=== PATIENT | female | born 1945 | race Two or more races ===

== ENCOUNTER 2020-04-25 15:35 | Outpatient (REF) | payer OTHER, SELFPAY | END 2020-04-25 15:36 | disposition home or self-care (01) | LOC: HO.LAB 15:35 | PROVIDERS: Visit Provider Internal Medicine | DX: Z20.828 Contact with and (suspected) exposure to other viral communicable diseases (principal) | CPT/HCPCS: C9803; U0003 ==

== ENCOUNTER 2021-02-23 17:21 | Inpatient (IN) | payer OTHER, SELFPAY ==
[2021-02-23] VITALS (7 sets, daily range): BP systolic 131–166; BP diastolic 75–95; PULSE 87–135; RESP 16–24; TEMP 36.8–38.1; O2SAT 93–96; BMI 38.3
--- NOTE | ~2021-02-23 | XR_ITS ---
EXAMINATION: XR CHEST CLINICAL INFORMATION: Shortness of breath COMPARISON: Previous chest x-ray July 2008 TECHNIQUE: Frontal view of the chest was obtained. FINDINGS: The cardiac silhouette may be slightly enlarged. There are prominent central bronchovascular markings. The lungs are otherwise clear. There is no pleural effusion or pneumothorax. There are degenerative changes of the spine. XR/XR chest 1V IMPRESSION: Slightly enlarged cardiac silhouette and prominent central bronchovascular markings. Differential would include mild CHF and airways disease. Clinical correlation recommended.
--- NOTE | ~2021-02-23 | CT_ITS ---
EXAMINATION: CT CHEST WITHOUT CONTRAST CLINICAL INFORMATION: Tachycardia and shortness of breath COMPARISON: Chest radiograph earlier today TECHNIQUE: Multidetector volumetric CT imaging of the chest was done. Axial MIP volume rendering provided. Sagittal and coronal reformatted images were obtained. This CT examination was performed using dose optimization techniques as appropriate, variously including the following: *Automated exposure control *Adjustment of mA and/or kV according to patient size (this includes techniques or standardized protocols for targeted exams where dose is matched to indication/reason for exam; i.e. extremities or head) *Use of iterative reconstruction technique DLP: 344 mGy-cm FINDINGS: LUNGS: Patchy consolidation is present in the right lower lobe in a peribronchial distribution. The right upper lobe and the left lung are free of significant disease. No suspicious lung masses are seen. Some atelectasis is present at the left lung base. MEDIASTINUM: Some small mediastinal lymph nodes are present but there is no adenopathy. There is mild cardiac enlargement. PLEURA: There is no pleural effusion. No pleural mass or thickening. AXILLA: No lymphadenopathy. UPPER ABDOMEN: A single gallstone is present in the gallbladder. Some tiny punctate renal calcifications are present bilaterally without hydronephrosis. OSSEOUS STRUCTURES: Degenerative changes are present in the spine with fusion of T11-T12. No bony destructive lesions. CT/CT chest wo con IMPRESSION: Right lower lobe patchy consolidation consistent with pneumonia
--- NOTE | 2021-02-23 17:34 | ED_ITS ---
HPI - SOB/Dyspnea General Chief Complaint: Asthma Stated Complaint: sob x1 week Time Seen by Provider: 02/23/21 17:24 Source: patient and EMS Mode of arrival: EMS History of Present Illness HPI Narrative: 75-year-old female with a past medical history of diabetes, AFib on Xarelto, depression, PE, HTN, HLD presenting to the ED complaining of increased SOB/wheezing, nonproductive cough, chest discomfort when coughing, lightheadedness/generalized fatigue x1 day. Reports using albuterol at home without relief. Denies fever, chills, abdominal pain, nausea/vomiting, LE edema, calf pain, recent travel, COVID-19 exposure. MD elicited complaint: shortness of breath, cough and chest pain Pertinent past history: asthma, diabetes and PE Related Data Home Medications Medication Instructions Recorded Confirmed albuterol sulfate 90 mcg/actuation 2 puff PO QID PRN 02/23/21 02/23/21 aerosol inhaler (Ventolin HFA) atorvastatin 80 mg tablet 1 tab PO DAILY 02/23/21 02/23/21 dulaglutide 1.5 mg/0.5 mL 0.5 ml SUBCUT QWEEK 02/23/21 02/23/21 subcutaneous pen injector (Trulicity) furosemide 40 mg tablet 1 tab PO DAILY 02/23/21 02/23/21 gabapentin 300 mg capsule 1 cap PO DAILY 02/23/21 02/23/21 insulin glargine 100 unit/mL (3 28 unit SUBCUT BEDTIME 02/23/21 02/23/21 mL) subcutaneous pen (Lantus Solostar U-100 Insulin) losartan 25 mg tablet 1 tab PO DAILY 02/23/21 02/23/21 metoprolol succinate 100 mg 1 tab PO BID 02/23/21 02/23/21 tablet,extended release 24 hr mirtazapine 7.5 mg tablet 1 tab PO BEDTIME 02/23/21 02/23/21 paroxetine HCl 20 mg tablet 1 tab PO DAILY 02/23/21 02/23/21 rivaroxaban 15 mg tablet (Xarelto) 1 tab PO QPM 02/23/21 02/23/21 sennosides 8.6 mg-docusate sodium 2 tab PO BEDTIME 02/23/21 02/23/21 50 mg tablet (Senna-S) Allergies Allergy/AdvReac Type Severity Reaction Status Date / Time No Known Allergies Allergy Unverified 03/02/20 16:47 Review of Systems Review of Systems: Constitutional: No Fever, No Chills, + Fatigue, No Malaise ENT/Mouth: No Hearing loss, No Ear Pain, No Nasal Congestion, No sore throat, No Swallowing Difficulty Eyes: No Eye Pain, No Vision Changes Cardiovascular: + Chest Pain when coughing, + SOB, No Dyspnea on Exertion, No Orthopnea, No Edema, No Palpitations Respiratory: + Cough, No Sputum, + Wheezing, No Dyspnea Gastrointestinal: No Nausea, No Vomiting, No Diarrhea, No Constipation, No Abdominal pain Genitourinary: No Dysuria, No Hematuria, No Flank Pain, Musculoskeletal: No joint pain, No Myalgias, No Joint Swelling Skin: No Skin Lesions, No rash Neuro: No Weakness, No Numbness, No Paresthesias, + lightheadedness, No Headache Yes all other systems are reviewed and are negative [facility] Past Medical History Attestation statement: The following information was validated with the patient. Social History Social History Advance Directives: No Advance Directives Information Provided: Yes Physical Exam Vital Signs: Vital Signs: Last Vital Signs Temp 98.2 F 02/23/21 17:39 Pulse 123 H 02/23/21 18:54 Resp 24 H 02/23/21 17:39 BP 161/75 H 02/23/21 18:54 Pulse Ox 96 02/23/21 17:39 Body Mass Index 38.3 Const: General: cooperative, healthy appearing and no acute distress Orientation/consciousness: patient oriented x3 Limitations: no limitations HENMT: Head: Yes normal to inspection Ears: hearing grossly normal bilaterally General nose exam: Normal external nose present Face and sinus: Yes normal facial exam Eyes: General: appearance normal, both eyes and all related structures Pupils: Equal, round and reactive pupils present EOM: EOMs intact bilaterally Neck: Neck: Yes normal visual inspection and Yes no meningeal signs Resp: Effort & Inspection: normal respiratory effort and tachypneic Auscultation: diminished lung sounds diffuse Cardio: Rate: regular rate and tachycardic Rhythm: abnormal rhythm Heart sounds: S1 normal heart sound present and S2 normal heart sound present GI: Inspection: Yes normal to inspection Palpation (GI): Soft to palpation, nontender, no guarding and not rigid Skin: Rashes: no rashes Wounds: no wounds Neuro: General: patient oriented x3, tone normal, moves all extremities, no meningeal signs and no focal motor deficits Cranial nerves: Yes Equal, round and reactive pupils present Gait exam (Neuro): Normal gait present Extrem: General: Yes normal to inspection, Yes no pedal edema and Yes no calf tenderness Course Course Course Narrative: -1840--mild leukocytosis of 12. Mild IJEOMA with creatinine 1.49. Labs otherwise unremarkable XR chest 1V IMPRESSION: Slightly enlarged cardiac silhouette and prominent central bronchovascular markings. Differential would include mild CHF and airways disease. Clinical correlation recommended. ?> likely airway disease/asthma -1856--troponin negative. BNP 363 -patient's heart rate improved to 85-90 after 20mg IV Diltiazem -1900--ED care transferred to YODIT Waller pending COVID swab, respiratory re- evaluation, heart rate monitoring, DC home for results MDM - SOB/Dyspnea MDM Narrative Medical decision making narrative: 75-year-old female with a PMHx of DM, AFib on Xarelto, depression, PE, HTN, HLD presenting to the ED c/o increased SOB/wheezing, nonproductive cough, chest discomfort when coughing, lightheadedness/generalized fatigue x1 day. On exam tachycardic, tachypneic, AFib with RVR noted on EKG, vital sign abnormalities likely from arrhythmia/acute asthma exacerbation, low concern for severe sepsis at this time. Lungs with diminished lung sounds throughout, no pedal edema/calf tenderness, abdomen is soft/nontender. No focal neuro deficits. Concern for asthma exacerbation vs viral syndrome/COVID-19. Rule out pneumonia/other infectious etiology. Rule out ACS. Low concern for PE as patient is anti coagulated Plan: EKG, labs, CXR, COVID-19 testing, DuoNeb, magnesium, Solu-Medrol, rate control Medical Records Attestation: I reviewed the patient's medical records. Lab Data Attestation: I reviewed the patient's lab results. Result diagrams: 02/23/21 18:12 02/23/21 18:12 Labs: Lab Results 02/23/21 02/23/21 02/23/21 Range/Units 18:12 18:12 18:12 WBC 12.0 H (4.8-10.8) X10*3/uL RBC 5.12 (4.20-5.50) X10*6/uL Hgb 14.2 (12.0-16.0) g/dl Hct 43.4 (37-47) % MCV 84.8 (80-98) fL MCH 27.7 (27.0-33.0) pg MCHC 32.7 (31.0-35.0) g/dl RDW 15.3 (11.0-16.0) % Plt Count 197 (160-400) X10*3/uL MPV 11.0 (9.4-12.3) fL Immature Gran % (Auto) 0.4 (0.0-0.4) % Neut % (Auto) 73.4 H (45-73) % Lymph % (Auto) 14.6 L (20-40) % Ellsworth % (Auto) 8.6 (2-11) % Eos % (Auto) 2.7 (0-4) % Baso % (Auto) 0.3 (0-2) % Lymph # (Auto) 1.8 (1.2-4.9) X10*3/uL [place] # (Auto) 1.0 (0.1-1.2) X10*3/uL Eos # (Auto) 0.3 (0.0-0.4) X10*3/uL Baso # (Auto) 0.0 (0.0-0.2) X10*3/uL Abs Immat Gran (auto) 0.05 H (0.00-0.03) X10*3/uL Absolute Neuts (auto) 8.8 H (2.0-8.3) X10*3/uL Absolute Nucleated RBC 0.000 (0.0-0.012) X10*3/uL Nucleated RBC % (auto) 0.0 (0.0-0.2) /100WBC PT 19.6 H (9.9-13.0) SEC INR 1.7 H (0.9-1.1) APTT 39.2 H (24.1-38.0) SEC Sodium 141 (135-145) mmol/L Potassium 4.2 (3.3-5.1) mmol/L Chloride 104 (96-108) mmol/L Carbon Dioxide 28 (22-29) mmol/L Anion Gap 13 (12-20) BUN 14 (9-16) mg/dL Creatinine 1.49 H (0.5-1.4) mg/dL Estim Creat Clear Calc 33.3 Estimated GFR 34 Random Glucose 180 H (60-115) mg/dL Calcium 10.4 H (8.4-10.2) mg/dL Magnesium 2.1 (1.6-2.6) mg/dL Total Bilirubin 0.6 (0.0-1.0) mg/dL Direct Bilirubin 0.2 (0.0-0.5) mg/dL AST 20 (5-31) U/L ALT 21 (0-31) U/L Alkaline Phosphatase 116 (39-117) U/L Troponin I High Sens (<3.5-17.0) ng/L B-Natriuretic Peptide (<100) pg/mL Total Protein 7.7 (6.5-8.0) g/dL Albumin 4.2 (3.5-5.0) g/dL 02/23/21 Range/Units 18:12 WBC (4.8-10.8) X10*3/uL RBC (4.20-5.50) X10*6/uL Hgb (12.0-16.0) g/dl Hct (37-47) % MCV (80-98) fL MCH (27.0-33.0) pg MCHC (31.0-35.0) g/dl RDW (11.0-16.0) % Plt Count (160-400) X10*3/uL MPV (9.4-12.3) fL Immature Gran % (Auto) (0.0-0.4) % Neut % (Auto) (45-73) % Lymph % (Auto) (20-40) % Ellsworth % (Auto) (2-11) % Eos % (Auto) (0-4) % Baso % (Auto) (0-2) % Lymph # (Auto) (1.2-4.9) X10*3/uL Ellsworth # (Auto) (0.1-1.2) X10*3/uL Eos # (Auto) (0.0-0.4) X10*3/uL Baso # (Auto) (0.0-0.2) X10*3/uL Abs Immat Gran (auto) (0.00-0.03) X10*3/uL Absolute Neuts (auto) (2.0-8.3) X10*3/uL Absolute Nucleated RBC (0.0-0.012) X10*3/uL Nucleated RBC % (auto) (0.0-0.2) /100WBC PT (9.9-13.0) SEC INR (0.9-1.1) APTT (24.1-38.0) SEC Sodium (135-145) mmol/L Potassium (3.3-5.1) mmol/L Chloride (96-108) mmol/L Carbon Dioxide (22-29) mmol/L Anion Gap (12-20) BUN (9-16) mg/dL Creatinine (0.5-1.4) mg/dL Estim Creat Clear Calc Estimated GFR Random Glucose (60-115) mg/dL Calcium (8.4-10.2) mg/dL Magnesium (1.6-2.6) mg/dL Total Bilirubin (0.0-1.0) mg/dL Direct Bilirubin (0.0-0.5) mg/dL AST (5-31) U/L ALT (0-31) U/L Alkaline Phosphatase (39-117) U/L Troponin I High Sens < 3.5 (<3.5-17.0) ng/L B-Natriuretic Peptide 363 H (<100) pg/mL Total Protein (6.5-8.0) g/dL Albumin (3.5-5.0) g/dL ECG Data Attestation: I personally reviewed and interpreted this ECG as follows: ECG interpretation date: 02/23/21 ECG interpretation time: 17:43 Interpretation: EKG AFib at a rate of 117 with RVR. No STEMI. PVC. QTC 677. Discharge Plan Discharge Clinical Impression: Atrial fibrillation with rapid ventricular response Asthma with acute exacerbation Qualifiers: Asthma severity: unspecified severity Asthma persistence: unspecified Qualified Code(s): J45.901 - Unspecified asthma with (acute) exacerbation Prescriptions: No Action furosemide 40 mg tablet 1 tab PO DAILY RF: 0 atorvastatin 80 mg tablet 1 tab PO DAILY RF: 0 sennosides-docusate sodium [Senna-S] 8.6-50 mg tablet 2 tab PO BEDTIME RF: 0 metoprolol succinate 100 mg tablet extended release 24 hr 1 tab PO BID RF: 0 paroxetine HCl 20 mg tablet 1 tab PO DAILY RF: 0 losartan 25 mg tablet 1 tab PO DAILY RF: 0 gabapentin 300 mg capsule 1 cap PO DAILY RF: 0 albuterol sulfate [Ventolin HFA] 90 mcg/actuation HFA aerosol inhaler 2 puff PO QID PRN (Reason: wheezing) RF: 0 mirtazapine 7.5 mg tablet 1 tab PO BEDTIME RF: 0 Lantus Solostar U-100 Insulin 100 unit/mL (3 mL) insulin pen 28 unit subcut BEDTIME RF: 0 Xarelto 15 mg tablet 1 tab PO QPM RF: 0 Trulicity 1.5 mg/0.5 mL pen injector 0.5 ml subcut QWEEK RF: 0
--- NOTE | 2021-02-23 17:35 | ECG_ITS ---
Test Reason : SOB Blood Pressure : / mmHG Vent. Rate : 117 BPM Atrial Rate : 101 BPM P-R Int : 000 ms QRS Dur : 076 ms QT Int : 486 ms P-R-T Axes : 000 057 -38 degrees QTc Int : 677 ms Atrial fibrillation with rapid ventricular response with premature ventricular or aberrantly conducted complexes Nonspecific ST and T wave abnormality Abnormal ECG When compared with ECG of 07-AUG-2008 17:49, Atrial fibrillation has replaced Sinus rhythm Vent. rate has increased BY 43 BPM Questionable change in QRS axis Nonspecific T wave abnormality, worse in Inferior leads Nonspecific T wave abnormality now evident in Anterior leads Referred By: Gloria Grier Electronically Signed By:JEAN CARLOS GUADALUPE
[2021-02-23 18:16] LABS: MANUAL DIFF FLAG NO
[2021-02-23 18:19] LABS: Basophils Percent Auto 0.3 % (0-2); Eosinophils Absolute Auto 0.3 X10*3/uL (0.0-0.4); Eosinophils Percent Auto 2.7 % (0-4); Hematocrit 43.4 % (37-47); Hemoglobin 14.2 g/dl (12.0-16.0); Imm Gran Abs Auto 0.05 X10*3/uL (0.00-0.03); Imm Gran Pct Auto 0.4 % (0.0-0.4); Lymphocytes Absolute Auto 1.8 X10*3/uL (1.2-4.9); Lymphocytes Percent Auto 14.6 % (20-40); Mean Corpuscular HGB Conc 32.7 g/dl (31.0-35.0); Mean Corpuscular Hemoglobin 27.7 pg (27.0-33.0); Mean Corpuscular Volume 84.8 fL (80-98); Monocytes Percent Auto 8.6 % (2-11); Neutrophils Absolute Auto 8.8 X10*3/uL (2.0-8.3); Neutrophils Percent Auto 73.4 % (45-73); Platelet Count 197 X10*3/uL (160-400); Red Blood Count 5.12 X10*6/uL (4.20-5.50); Red Cell Distribution Width 15.3 % (11.0-16.0)
[2021-02-23 18:25] LABS: INTERNATIONAL NORM RATIO 1.7 (0.9-1.1); Prothrombin Time 19.6 SEC (9.9-13.0)
[2021-02-23 18:28] LABS: Partial Thromboplastin Time 39.2 SEC (24.1-38.0)
[2021-02-23 18:38] LABS: Alanine Aminotransferase 21 U/L (0-31); Albumin Level 4.2 g/dL (3.5-5.0); Alkaline Phosphatase 116 U/L (39-117); Anion Gap 13 (12-20); Aspartate Amino Transferase 20 U/L (5-31); Bilirubin Direct 0.2 mg/dL (0.0-0.5); Bilirubin Total 0.6 mg/dL (0.0-1.0); Blood Urea Nitrogen 14 mg/dL (9-16); Calcium 10.4 mg/dL (8.4-10.2); Carbon Dioxide 28 mmol/L (22-29); Chloride 104 mmol/L (96-108); Creatinine Clr Calc Pharmacy 33.3; Estimated Glomerular Filt Rate 34; Glucose Random 180 mg/dL (60-115); Magnesium 2.1 mg/dL (1.6-2.6); Potassium 4.2 mmol/L (3.3-5.1); Sodium 141 mmol/L (135-145); Total Protein 7.7 g/dL (6.5-8.0)
[2021-02-23 18:42] LABS: B Type Natriuretic Peptide 363 pg/mL (<100); Troponin-I High Sensitivity < 3.5 ng/L (<3.5-17.0)
[2021-02-23] MEDS: 0.9 % Sodium Chloride 1,000 ML 999 ML IVCONT (18:53)
[2021-02-23] MEDS: Magnesium Sulfate/H2O 2 GM/50 ML PIGGYBACK IV (18:53)
[2021-02-23] MEDS: dilTIAZem HCL 50 MG/10 ML VIAL 20 MG IVPUSH (18:54)
[2021-02-23] MEDS: methylPREDNISolone Sod Succ 125 MG/2 ML VIAL IVPUSH (18:54)
[2021-02-23 19:03] LABS: Influenza A PCR NEGATIVE (Negative); Influenza B PCR NEGATIVE (Negative); Resp Syncy Virus RNA Qual PCR NEGATIVE (Negative); SARS COV2 PCR INHOUSE NEGATIVE (Negative)
--- NOTE | 2021-02-23 21:14 | PC.NURSE ---
pt heart rate between 110-130 bpm Provider (Christin Iverson NP) notified
[2021-02-23] MEDS: Acetaminophen 325 MG TABLET 650 MG PO (21:33)
[2021-02-23] MEDS: dilTIAZem HCL 125 MG in 0.9 % Sodium Chloride 100 ML 10 MG IVCONT (21:48)
--- NOTE | 2021-02-23 22:13 | PC.NURSE ---
pt heart rate fluctuating between 90-120 bpm cardizem infusing at 10/hr at this time provider (Christin Iverson NP) notified
[2021-02-23 23:11] LABS: Lactic Acid 2.3 mmol/L (0.5-2.0)
[2021-02-24] VITALS (15 sets, daily range): BP systolic 102–144; BP diastolic 52–76; PULSE 61–120; RESP 16–20; TEMP 36.6–37.1; O2SAT 94–96
--- NOTE | 2021-02-24 00:16 | PC.NURSE ---
pt HR maintaining between 80-90 bpm provider aware per provider, pt to remain on cardizem drip at 10mg/hr at this time
[2021-02-24 00:58] LABS: Reflex Lactate? Lactic Acid Added
[2021-02-24] MEDS: Azithromycin 500 MG TABLET PO (01:34)
[2021-02-24] MEDS: cefTRIAXone sodium 1 GM in 0.9 % Sodium Chloride 50 ML IV ×2 (01:37→23:25)
[2021-02-24 02:06] LABS: ~Lactic Acid-LAB USE ONLY 2.3 mmol/L (0.5-2.0)
--- NOTE | 2021-02-24 02:41 | PC.NURSE ---
pt HR staying between 60-70 bpm hospitalist notified per hospitalist, titrate cardizem drip down to 5mg/hr at this time
[2021-02-24 03:46] LABS: Reflex Lactate? 2 Y
--- NOTE | 2021-02-24 04:15 | PC.NURSE ---
per hospitalist (Sita) cardizem drip to be discontinued at this time also per hospitalist PO Lopressor to be held at this time as pt is scheduled for another dose at 9am HR 60-75 BP 107/52 Hospitalist aware of VS
[2021-02-24 04:40] LABS: ~Lactic Acid-LAB USE ONLY 2.6 mmol/L (0.5-2.0)
[2021-02-24 04:46] LABS: MANUAL DIFF FLAG NO
[2021-02-24 04:51] LABS: Basophils Percent Auto 0.1 % (0-2); Hematocrit 40.1 % (37-47); Imm Gran Abs Auto 0.03 X10*3/uL (0.00-0.03); Imm Gran Pct Auto 0.3 % (0.0-0.4); Lymphocytes Absolute Auto 1.6 X10*3/uL (1.2-4.9); Lymphocytes Percent Auto 15.6 % (20-40); Mean Corpuscular HGB Conc 32.4 g/dl (31.0-35.0); Mean Corpuscular Hemoglobin 27.5 pg (27.0-33.0); Mean Corpuscular Volume 84.8 fL (80-98); Mean Platelet Volume 11.3 fL (9.4-12.3); Monocytes Absolute Auto 0.1 X10*3/uL (0.1-1.2); Monocytes Percent Auto 1.1 % (2-11); Neutrophils Absolute Auto 8.6 X10*3/uL (2.0-8.3); Neutrophils Percent Auto 82.9 % (45-73); Platelet Count 179 X10*3/uL (160-400); Red Blood Count 4.73 X10*6/uL (4.20-5.50); Red Cell Distribution Width 15.3 % (11.0-16.0); White Blood Count 10.3 X10*3/uL (4.8-10.8)
[2021-02-24 05:07] LABS: Anion Gap 16 (12-20); Blood Urea Nitrogen 17 mg/dL (9-16); Calcium 9.7 mg/dL (8.4-10.2); Carbon Dioxide 23 mmol/L (22-29); Chloride 102 mmol/L (96-108); Creatinine Clr Calc Pharmacy 30.9; Estimated Glomerular Filt Rate 31; Glucose Random 375 mg/dL (60-115); Potassium 4.3 mmol/L (3.3-5.1); Sodium 137 mmol/L (135-145)
--- NOTE | 2021-02-24 06:01 | P.HPHOSP_ITS ---
History of Present Illness Date of Service: 02/24/21 Chief Complaint: Shortness of breath Khmer-speaking This is a 75-year-old female with past medical history of diabetes, hypertension, AFib, CVA, who presents to the hospital with complaints of shortness of breath, cough, wheezing, x1 days. Patient reports sputum production, feeling febrile and chills, denies any headache no change in vision, has chest pain from all the coughing, denies any palpitations, no abdominal pain nausea or vomiting, no diarrhea constipation, no urinary symptoms. No numbness tingling or weakness. All other review of system negative except as mentioned Vital significant for temp of a 100.6?, heart rate of 112 which is AFib with RVR, respiratory rate of 18, blood pressure 135/80, satting 93% on room air Lab significant for WBC count of 12, PT of 19.6, INR of 1.7, lactic acid of 2.3, BNP of 363 COVID-19 negative, chest CT shows right lower lobe patchy consolidation consistent with pneumonia Patient will be admitted for further management Review of Systems Review of Systems: Yes all other systems are reviewed and are negative [facility] Medical History (Updated 02/24/21 @ 06:17 by Imer Buckner MD) Asthma Asthma with acute exacerbation Atrial fibrillation CHF (congestive heart failure) Diabetes History of CVA (cerebrovascular accident) Hypertension Family History (Updated 02/24/21 @ 06:06 by Imer Buckner MD) Father Hypertension Mother Diabetes Hypertension Social History (Updated 02/24/21 @ 06:06 by Imer Buckner MD) Alcohol intake: never Patient Tobacco Use Status: Former Tobacco user Quit Date: Quit 40 years ago Use of substances other than those prescribed or required for medical reasons: No Advance Directives: No Advance Directives Information Provided: Yes Meds Allergies Allergy/AdvReac Type Severity Reaction Status Date / Time No Known Allergies Allergy Unverified 03/02/20 16:47 Active Medications: Current Medications Generic Name Dose Route Start Last Admin Trade Name Freq PRN Reason Stop Dose Admin Acetaminophen 650 mg 02/24/21 01:14 Acetaminophen 325 Mg Tablet PO Q6H PRN Pain, Mild (Pain Scale 1-3) Atorvastatin Calcium 80 mg 02/24/21 09:00 Atorvastatin Calcium 80 Mg Tablet PO DAILY JACK Docusate Sodium 100 mg 02/24/21 01:14 Docusate Sodium 100 Mg Capsule PO DAILY PRN Constipation Furosemide 40 mg 02/24/21 09:00 Furosemide 40 Mg Tablet PO DAILY [facility] Protocol Gabapentin 300 mg 02/24/21 09:00 Gabapentin 300 Mg Capsule PO DAILY [facility] Diltiazem HCl 125 mg/ Sodium 125 mls @ 0 mls/hr 02/23/21 21:30 02/24/21 04:19 Chloride IVCONT Infused .Q0M [facility] Titration Protocol Per Protocol Azithromycin 500 mg/ Sodium 250 mls @ 125 mls/hr 02/24/21 23:00 Chloride IV Q24H JACK Ceftriaxone Sodium 1 gm/ 50 mls @ 100 mls/hr 02/24/21 23:00 Sodium Chloride IV Q24H JACK Lactated Ringer's 1,000 mls @ 999 mls/hr 02/24/21 06:00 Lr IV 02/24/21 07:00 .Q1H1M JACK Lactated Ringer's 1,000 mls @ 80 mls/hr 02/24/21 06:00 Lr IVCONT .[id number] [facility] Insulin Glargine 28 unit 02/24/21 21:00 Insulin Glargine,Hum.Rec.Anlog 100 Unit/Ml 10 Ml Vial SUBCUT BEDTIME [facility] Losartan Potassium 25 mg 02/24/21 09:00 Losartan Potassium 25 Mg Tablet PO DAILY [facility] Protocol Metoprolol Succinate 100 mg 02/24/21 02:50 02/24/21 04:15 Metoprolol Succinate Er 100 Mg Tab.Er.24h PO Not Given BID [facility] Protocol Mirtazapine 7.5 mg 02/24/21 21:00 Mirtazapine 7.5 Mg Tablet PO BEDTIME [facility] Ondansetron HCl 4 mg 02/24/21 01:14 Ondansetron Hcl 4 Mg/2 Ml Vial IVPUSH Q8H PRN Nausea and Vomiting Paroxetine HCl 20 mg 02/24/21 09:00 Paroxetine Hcl 20 Mg Tablet PO DAILY [facility] Pharmacy Consult 1 each 02/23/21 17:46 Consult Rx Perform Med Rec MISCELLANE ONCE PRN Consult order Rivaroxaban 15 mg 02/24/21 17:00 Rivaroxaban 15 Mg Tablet PO DAILY@1700 [facility] Senna/Docusate Sodium 2 tab 02/24/21 21:00 Sennosides/Docusate Sodium Tablet PO BEDTIME [facility] Sodium Chloride 3 ml 02/24/21 08:00 0.9 % Sodium Chloride Flush 3 Ml Syringe IVFLUSH QSHIFT [facility] Home Medications Medication Instructions Recorded Confirmed Last Taken Type albuterol sulfate 90 mcg/actuation 2 puff PO QID PRN 02/23/21 02/23/21 Unknown History aerosol inhaler (Ventolin HFA) atorvastatin 80 mg tablet 1 tab PO DAILY 02/23/21 02/23/21 02/23/21 History dulaglutide 1.5 mg/0.5 mL 0.5 ml SUBCUT QWEEK 02/23/21 02/23/21 Unknown History subcutaneous pen injector (Trulicity) furosemide 40 mg tablet 1 tab PO DAILY 02/23/21 02/23/21 02/23/21 History gabapentin 300 mg capsule 1 cap PO DAILY 02/23/21 02/23/21 02/23/21 History insulin glargine 100 unit/mL (3 28 unit SUBCUT BEDTIME 02/23/21 02/23/21 02/22/21 History mL) subcutaneous pen (Lantus Solostar U-100 Insulin) losartan 25 mg tablet 1 tab PO DAILY 02/23/21 02/23/21 02/23/21 History metoprolol succinate 100 mg 1 tab PO BID 02/23/21 02/23/21 02/23/21 History tablet,extended release 24 hr mirtazapine 7.5 mg tablet 1 tab PO BEDTIME 02/23/21 02/23/21 02/22/21 History paroxetine HCl 20 mg tablet 1 tab PO DAILY 02/23/21 02/23/21 02/23/21 History rivaroxaban 15 mg tablet (Xarelto) 1 tab PO QPM 02/23/21 02/23/21 02/22/21 History sennosides 8.6 mg-docusate sodium 2 tab PO BEDTIME 02/23/21 02/23/21 02/22/21 History 50 mg tablet (Senna-S) Physical Exam Vital Signs and Narrative: Vital Signs: Last Vital Signs Temp 97.8 F 02/24/21 04:36 Pulse 73 02/24/21 04:36 Resp 16 02/24/21 04:36 BP 108/56 L 02/24/21 04:36 Pulse Ox 94 02/24/21 04:36 Body Mass Index 38.3 Const: General: cooperative and no acute distress Orientation/consciousness: patient oriented x3 Eyes: General: appearance normal, both eyes and all related structures Pupils: Equal, round and reactive pupils present Resp: Other: Rhonchi Effort & Inspection: normal respiratory effort Cardio: Other: Tachycardic GI: Palpation (GI): Soft to palpation Auscultation: normal bowel sounds Skin: General skin exam: no rashes or lesions noted Neuro: General: patient oriented x3 Cranial nerves: Yes Equal, round and reactive pupils present Cognition (Neuro): normal cognition Extrem: General: Yes normal to inspection and Yes no pedal edema Results Labs CBC and Chem 7: 02/24/21 04:22 02/24/21 04:22 Labs: Laboratory Results - last 24 hr 02/23/21 02/23/21 02/23/21 18:03 18:12 18:12 MCV 84.8 MCH 27.7 MCHC 32.7 RDW 15.3 Plt Count 197 MPV 11.0 Immature Gran % (Auto) 0.4 Neut % (Auto) 73.4 H Lymph % (Auto) 14.6 L [place] % (Auto) 8.6 Eos % (Auto) 2.7 Baso % (Auto) 0.3 Lymph # (Auto) 1.8 [place] # (Auto) 1.0 Eos # (Auto) 0.3 Baso # (Auto) 0.0 Abs Immat Gran (auto) 0.05 H Absolute Neuts (auto) 8.8 H Absolute Nucleated RBC 0.000 Nucleated RBC % (auto) 0.0 PT 19.6 H INR 1.7 H APTT 39.2 H Anion Gap Estim Creat Clear Calc Estimated GFR Random Glucose Lactic Acid Lactic Acid Fup @ 2Hr Lactic Acid Fup @ 4Hr Calcium Magnesium Total Bilirubin Direct Bilirubin AST ALT Alkaline Phosphatase Troponin I High Sens B-Natriuretic Peptide Total Protein Albumin Coronavirus (PCR) NEGATIVE Influenza Type A (PCR) NEGATIVE Influenza Type B (PCR) NEGATIVE RSV RNA Qual (PCR) NEGATIVE 02/23/21 02/23/21 02/23/21 18:12 18:12 22:52 MCV MCH MCHC RDW Plt Count MPV Immature Gran % (Auto) Neut % (Auto) Lymph % (Auto) [place] % (Auto) Eos % (Auto) Baso % (Auto) Lymph # (Auto) [place] # (Auto) Eos # (Auto) Baso # (Auto) Abs Immat Gran (auto) Absolute Neuts (auto) Absolute Nucleated RBC Nucleated RBC % (auto) PT INR APTT Anion Gap 13 Estim Creat Clear Calc 33.3 Estimated GFR 34 Random Glucose 180 H Lactic Acid 2.3 H* Lactic Acid Fup @ 2Hr Lactic Acid Fup @ 4Hr Calcium 10.4 H Magnesium 2.1 Total Bilirubin 0.6 Direct Bilirubin 0.2 AST 20 ALT 21 Alkaline Phosphatase 116 Troponin I High Sens < 3.5 B-Natriuretic Peptide 363 H Total Protein 7.7 Albumin 4.2 Coronavirus (PCR) Influenza Type A (PCR) Influenza Type B (PCR) RSV RNA Qual (PCR) 02/24/21 02/24/21 02/24/21 01:42 04:21 04:22 MCV 84.8 MCH 27.5 MCHC 32.4 RDW 15.3 Plt Count 179 MPV 11.3 Immature Gran % (Auto) 0.3 Neut % (Auto) 82.9 H Lymph % (Auto) 15.6 L [place] % (Auto) 1.1 L Eos % (Auto) 0.0 Baso % (Auto) 0.1 Lymph # (Auto) 1.6 [place] # (Auto) 0.1 Eos # (Auto) 0.0 Baso # (Auto) 0.0 Abs Immat Gran (auto) 0.03 Absolute Neuts (auto) 8.6 H Absolute Nucleated RBC 0.000 Nucleated RBC % (auto) 0.0 PT INR APTT Anion Gap Estim Creat Clear Calc Estimated GFR Random Glucose Lactic Acid Lactic Acid Fup @ 2Hr 2.3 H* Lactic Acid Fup @ 4Hr 2.6 H* Calcium Magnesium Total Bilirubin Direct Bilirubin AST ALT Alkaline Phosphatase Troponin I High Sens B-Natriuretic Peptide Total Protein Albumin Coronavirus (PCR) Influenza Type A (PCR) Influenza Type B (PCR) RSV RNA Qual (PCR) 02/24/21 04:22 MCV MCH MCHC RDW Plt Count MPV Immature Gran % (Auto) Neut % (Auto) Lymph % (Auto) [place] % (Auto) Eos % (Auto) Baso % (Auto) Lymph # (Auto) [place] # (Auto) Eos # (Auto) Baso # (Auto) Abs Immat Gran (auto) Absolute Neuts (auto) Absolute Nucleated RBC Nucleated RBC % (auto) PT INR APTT Anion Gap 16 Estim Creat Clear Calc 30.9 Estimated GFR 31 Random Glucose 375 H* Lactic Acid Lactic Acid Fup @ 2Hr Lactic Acid Fup @ 4Hr Calcium 9.7 D Magnesium Total Bilirubin Direct Bilirubin AST ALT Alkaline Phosphatase Troponin I High Sens B-Natriuretic Peptide Total Protein Albumin Coronavirus (PCR) Influenza Type A (PCR) Influenza Type B (PCR) RSV RNA Qual (PCR) Imaging Radiologist's Impressions: Impressions Chest X-Ray 02/23/21 17:34 IMPRESSION: Slightly enlarged cardiac silhouette and prominent central bronchovascular markings. Differential would include mild CHF and airways disease. Clinical correlation recommended. Chest CT 02/23/21 21:37 IMPRESSION: Right lower lobe patchy consolidation consistent with pneumonia Assessment and Plan (1) Sepsis: Status: Acute (2) Community acquired pneumonia: Status: Acute (3) Atrial fibrillation with rapid ventricular response: Status: Acute (4) Lactic acidosis: Status: Acute 75-year-old female with past medical history of asthma, hypertension, AFib, hyperlipidemia who presents hospital with shortness of breath found to have pneumonia on CT scan # sepsis - febrile, has leukocytosis, tachycardia - secondary to pneumonia - started on IV antibiotics - follow cultures # community-acquired pneumonia - CT of the chest showing right lower lobe consolidation - will start patient on IV antibiotics - follow cultures # AFib with RVR - secondary to sepsis - patient on Cardizem drip - will resume her home Lopressor - continue rivaroxaban # lactic acidosis - most likely secondary to sepsis - will start IV fluids - trend # hypertension - stable - continue antihypertensives # diabetes - continue home insulin - will add low-dose sliding scale insulin - diabetic diet # history of CHF - clinically does not appear to be in exacerbation - has no orthopnea, PND, no lower extremity edema, chest CT shows no pulmonary congestion - will continue home Lasix - monitor for any fluid overload DVT prophylaxis: Xarelto Quality Stroke Does the patient have a stroke diagnosis?: No VTE Prior VTE?: No VTE Risk Level:: Medical - moderate - high VTE Device Contraindication: Treatment Not Indicated VTE Drug Contraindication: N/A - Med Ordered
[2021-02-24 07:45] LABS: Glucose, Whole Blood 296 mg/dL (60-115)
[2021-02-24] MEDS: Furosemide 40 MG TABLET PO (07:48)
[2021-02-24] MEDS: Losartan Potassium 25 MG TABLET PO (07:48)
[2021-02-24] MEDS: Gabapentin 300 MG CAPSULE PO (07:49)
[2021-02-24] MEDS: Metoprolol Succinate ER 100 MG TAB.ER.24H PO ×2 (07:49→20:36)
[2021-02-24] MEDS: PARoxetine HCL 20 MG TABLET PO (07:49)
[2021-02-24] MEDS: Insulin Lispro 100 UNIT/ML 3 ML VIAL SUBCUT ×4 (07:49→20:39)
[2021-02-24] MEDS: Atorvastatin Calcium 80 MG TABLET PO (07:49)
[2021-02-24] MEDS: Albuterol/Iprat 2.5/0.5MG 3 ML AMPUL.NEB INHALE ×4 (07:49→19:36)
[2021-02-24] MEDS: Lactated Ringers 1,000 ML 80 ML IVCONT (08:08)
--- NOTE | 2021-02-24 12:29 | PC.NURSE ---
call for report nurse to call back
[2021-02-24 13:30] LABS: Glucose, Whole Blood 285 mg/dL (60-115)
--- NOTE | 2021-02-24 15:10 | PM.EVENT ---
Event Note Date of Service: 02/24/21 Event Note: Patient admitted this morning 75-year-old female with past medical history of diabetes, hypertension, AFib, CVA, who presents to the hospital with complaints of shortness of breath, productive cough, fever chills, wheezing, x1 days.? All other review of system negative except as mentioned Vital significant for temp of a 100.6?, heart rate of 112 which is AFib with RVR, respiratory rate of 18, blood pressure 135/80, satting 93% on room air Lab significant for WBC count of 12, PT of 19.6, INR of 1.7, lactic acid of 2.3, BNP of 363 COVID-19 negative, chest CT shows right lower lobe patchy consolidation consistent with pneumonia At present on examination Patient awake alert Neck is supple no JVD Abdomen soft nontender Lungs no respiratory distress rhonchi right base Extremities no edema Assessment and plan 75-year-old female with past medical history of asthma, hypertension, AFib, hyperlipidemia who presents hospital with shortness of breath found to have pneumonia on CT scan # sepsis due to pneumonia - met sepsis criteria with fever leukocytosis and tachycardia , continue IV antibiotic , updraft treatment, add cough medication follow blood cultures, chest CT showed right lobe consolidation # AFib with RVR likely secondary to sepsis status post IV Cardizem drip,start po metoprolol continue rivaroxaban # lactic acidosis - most likely secondary to sepsis,ijeoma hold Lasix follow labs # IJEOMA Likely due to sepsis hold Lasix and LISA-inhibitor cont ivf # hypertension - stable, soft BP hold Lasix and losartan # diabetes - continue home insulin, diabetic diet and insulin sliding scale # history of CHF no echo available - clinically does not appear to be in exacerbation - has no orthopnea, PND, no lower extremity edema, chest CT shows no pulmonary congestion, hold Lasix as above DVT prophylaxis:? Xarelto
[2021-02-24] MEDS: 0.9 % Sodium Chloride Flush 3 ML SYRINGE IVFLUSH (15:39)
[2021-02-24] MEDS: Lactated Ringers 1,000 ML 50 ML IVCONT (15:39)
[2021-02-24] MEDS: Rivaroxaban 15 MG TABLET PO (15:46)
[2021-02-24 15:57] LABS: Glucose, Whole Blood 313 mg/dL (60-115)
[2021-02-24] MEDS: Digoxin 0.5 MG/2 ML AMPUL 0.25 MG IVPUSH ×2 (17:58→23:29)
[2021-02-24] MEDS: Acetaminophen 325 MG TABLET 650 MG PO (20:07)
[2021-02-24 20:09] LABS: Glucose, Whole Blood 239 mg/dL (60-115)
[2021-02-24] MEDS: Docusate Sodium 100 MG CAPSULE PO (20:36)
[2021-02-24] MEDS: Mirtazapine 7.5 MG TABLET PO (20:36)
[2021-02-24] MEDS: Sennosides/Docusate Sodium TABLET 2 TAB PO (20:36)
[2021-02-24] MEDS: guaiFENesin DM 100/10/5 ML 5 ML SYRUP PO (20:39)
[2021-02-24] MEDS: Insulin Glargine,Hum.rec.anlog 100 UNIT/ML 10 ML VIAL 28 UNIT SUBCUT (20:40)
[2021-02-24] MEDS: Azithromycin 500 MG in 0.9 % Sodium Chloride 250 ML 125 MG IV (23:27)
[2021-02-25] VITALS (10 sets, daily range): BP systolic 124–136; BP diastolic 59–95; PULSE 67–96; RESP 18–22; TEMP 36.3–38.1; O2SAT 91–98
[2021-02-25] MEDS: guaiFENesin DM 100/10/5 ML 5 ML SYRUP PO ×2 (03:09→08:09)
[2021-02-25 05:34] LABS: MANUAL DIFF FLAG NO
[2021-02-25 05:43] LABS: Basophils Percent Auto 0.2 % (0-2); Hematocrit 39.1 % (37-47); Hemoglobin 12.8 g/dl (12.0-16.0); Imm Gran Abs Auto 0.11 X10*3/uL (0.00-0.03); Imm Gran Pct Auto 0.7 % (0.0-0.4); Lymphocytes Absolute Auto 2.1 X10*3/uL (1.2-4.9); Lymphocytes Percent Auto 12.8 % (20-40); Mean Corpuscular HGB Conc 32.7 g/dl (31.0-35.0); Mean Corpuscular Hemoglobin 28.1 pg (27.0-33.0); Mean Corpuscular Volume 85.7 fL (80-98); Mean Platelet Volume 11.1 fL (9.4-12.3); Monocytes Percent Auto 6.1 % (2-11); Neutrophils Absolute Auto 12.9 X10*3/uL (2.0-8.3); Neutrophils Percent Auto 80.2 % (45-73); Platelet Count 176 X10*3/uL (160-400); Red Blood Count 4.56 X10*6/uL (4.20-5.50); Red Cell Distribution Width 15.7 % (11.0-16.0); White Blood Count 16.1 X10*3/uL (4.8-10.8)
[2021-02-25 05:57] LABS: Anion Gap 12 (12-20); Blood Urea Nitrogen 32 mg/dL (9-16); Calcium 9.8 mg/dL (8.4-10.2); Carbon Dioxide 29 mmol/L (22-29); Chloride 104 mmol/L (96-108); Creatinine Clr Calc Pharmacy 32.3; Estimated Glomerular Filt Rate 33; Glucose Random 125 mg/dL (60-115); Sodium 140 mmol/L (135-145)
[2021-02-25 07:32] LABS: Glucose, Whole Blood 110 mg/dL (60-115)
[2021-02-25] MEDS: Albuterol/Iprat 2.5/0.5MG 3 ML AMPUL.NEB INHALE ×2 (07:43→11:50)
[2021-02-25] MEDS: Atorvastatin Calcium 80 MG TABLET PO (08:09)
[2021-02-25] MEDS: Acetaminophen 325 MG TABLET 650 MG PO (08:09)
[2021-02-25] MEDS: Metoprolol Succinate ER 100 MG TAB.ER.24H PO ×2 (08:09→20:42)
[2021-02-25] MEDS: Gabapentin 300 MG CAPSULE PO (08:09)
[2021-02-25] MEDS: PARoxetine HCL 20 MG TABLET PO (08:09)
[2021-02-25 11:42] LABS: Glucose, Whole Blood 108 mg/dL (60-115)
[2021-02-25] MEDS: Lactated Ringers 1,000 ML 50 ML IVCONT (12:12)
--- NOTE | 2021-02-25 13:14 | HO.PM.IMPN ---
Subjective Subjective Date of Service: 02/25/21 Interval History: Being followed for pneumonia and atrial fibrillation with RVR Patient complaining of chest discomfort with coughing, denies shortness of breath, has chronic orthopnea used 3 pillows or sleep on recliner at home, had a rough night due to coughing. Review of Systems General no headache, no dizziness no fever chills. CVS chest pain with coughing, no palpitation. Respiratory cough,no sob Gastrointestinal no nausea, no vomiting, no abdominal pain Physical Exam Vital Signs: Vital Signs: Last Vital Signs Temp 97.4 F 02/25/21 11:04 Pulse 67 02/25/21 11:04 Resp 19 02/25/21 11:04 BP 132/82 02/25/21 11:04 Pulse Ox 96 02/25/21 11:04 Body Mass Index 38.3 General alert, oriented x3,no acute distress. Neck supple no JVD. CVS irregular rate rhythm, Respiratory lungs right base rhonchi, no respiratory distress, no wheeze Gastrointestinal abdomen soft, nontender, bowel sounds audible, no guarding , no rigidity. Extremities no edema. Neuro nonfocal,speech clear. Skin no rash Objective Data Active Medications Acetaminophen (Acetaminophen 325 Mg Tablet) 650 mg PO Q6H PRN PRN Reason: Pain, Mild (Pain Scale 1-3) Last Admin: 02/25/21 08:09 Dose: 650 mg Documented by: COTEMA Albuterol/Ipratropium (Albuterol/Iprat 2.5/0.5mg 3 Ml Ampul.Neb) 3 ml INHALE RQ4H WHILE AWAKE [facility] Last Admin: 02/25/21 11:50 Dose: 3 ml Documented by: ULRICC Albuterol/Ipratropium (Albuterol/Iprat 2.5/0.5mg 3 Ml Ampul.Neb) 3 ml INHALE RQ4H PRN PRN Reason: Shortness of Breath/Wheezing Atorvastatin Calcium (Atorvastatin Calcium 80 Mg Tablet) 80 mg PO DAILY [facility] Last Admin: 02/25/21 08:09 Dose: 80 mg Documented by: COTEMA Dextrose (Dextrose 50 % 25 Gm/50 Ml Vial) 25 gm IVPUSH Q15M PRN; Protocol PRN Reason: per Hypoglycemia Standing Ord. Docusate Sodium (Docusate Sodium 100 Mg Capsule) 100 mg PO DAILY PRN PRN Reason: Constipation Last Admin: 02/24/21 20:36 Dose: 100 mg Documented by: ASHLEY Gabapentin (Gabapentin 300 Mg Capsule) 300 mg PO DAILY [facility] Last Admin: 02/25/21 08:09 Dose: 300 mg Documented by: ANN-MARIE Glucose (Glucose Gel 15 Gm Gel..Gram.) 15 gm PO Q15M PRN; Protocol PRN Reason: per Hypoglycemia Standing Ord. Guaifenesin/Dextromethorphan (Guaifenesin Dm 100/10/5 Ml 5 Ml Syrup) 5 ml PO Q4H PRN PRN Reason: Cough Last Admin: 02/25/21 08:09 Dose: 5 ml Documented by: ANN-MARIE Azithromycin 500 mg/ Sodium (Chloride) 250 mls @ 125 mls/hr IV Q24H [facility] Last Infusion: 02/25/21 01:49 Dose: 125 mls/hr Documented by: ASHLEY Ceftriaxone Sodium 1 gm/ (Sodium Chloride) 50 mls @ 100 mls/hr IV Q24H [facility] Last Infusion: 02/25/21 00:12 Dose: 100 mls/hr Documented by: ASHLEY Lactated Ringer's (Lr) 1,000 mls @ 50 mls/hr IVCONT .Q20H [facility] Last Admin: 02/25/21 12:12 Dose: 50 mls/hr Documented by: ANN-MARIE Insulin Glargine (Insulin Glargine,Hum.Rec.Anlog 100 Unit/Ml 10 Ml Vial) 28 unit SUBCUT BEDTIME [facility] Last Admin: 02/24/21 20:40 Dose: 28 unit Documented by: ASHLEY Insulin Human Lispro (Insulin Lispro 100 Unit/Ml 3 Ml Vial) 0 unit SUBCUT QIDACHS [facility]; Protocol Last Admin: 02/25/21 11:33 Dose: Not Given Documented by: ANN-MARIE Non-Admin Reason: No Insulin Coverage Metoprolol Succinate (Metoprolol Succinate Er 100 Mg Tab.Er.24h) 100 mg PO BID [facility]; Protocol Last Admin: 02/25/21 08:09 Dose: 100 mg Documented by: ANN-MARIE Mirtazapine (Mirtazapine 7.5 Mg Tablet) 7.5 mg PO BEDTIME [facility] Last Admin: 02/24/21 20:36 Dose: 7.5 mg Documented by: ASHLEY Ondansetron HCl (Ondansetron Hcl 4 Mg/2 Ml Vial) 4 mg IVPUSH Q8H PRN PRN Reason: Nausea and Vomiting Paroxetine HCl (Paroxetine Hcl 20 Mg Tablet) 20 mg PO DAILY [facility] Last Admin: 02/25/21 08:09 Dose: 20 mg Documented by: ANN-MARIE Pharmacy Consult (Consult Rx Perform Med Rec) 1 each MISCELLANE ONCE PRN PRN Reason: Consult order Rivaroxaban (Rivaroxaban 15 Mg Tablet) 15 mg PO DAILY@1700 [facility] Last Admin: 02/24/21 15:46 Dose: 15 mg Documented by: SOLEDAD Senna/Docusate Sodium (Sennosides/Docusate Sodium Tablet) 2 tab PO BEDTIME [facility] Last Admin: 02/24/21 20:36 Dose: 2 tab Documented by: ASHLEY Sodium Chloride (0.9 % Sodium Chloride Flush 3 Ml Syringe) 3 ml IVFLUSH QSHIFT [facility] Last Admin: 02/25/21 07:29 Dose: Not Given Documented by: ANN-MARIE Non-Admin Reason: IV Running Labs CBC & Chem 7: 02/25/21 04:58 02/25/21 04:58 Labs: Laboratory Results - last 24 hr 02/24/21 02/24/21 02/24/21 13:26 15:53 20:06 MCV MCH MCHC RDW Plt Count MPV Immature Gran % (Auto) Neut % (Auto) Lymph % (Auto) [place] % (Auto) Eos % (Auto) Baso % (Auto) Lymph # (Auto) [place] # (Auto) Eos # (Auto) Baso # (Auto) Abs Immat Gran (auto) Absolute Neuts (auto) Absolute Nucleated RBC Nucleated RBC % (auto) Anion Gap Estim Creat Clear Calc Estimated GFR POC Glucose 285 H 313 H 239 H Random Glucose Calcium 02/25/21 02/25/21 02/25/21 04:58 04:58 07:25 MCV 85.7 MCH 28.1 MCHC 32.7 RDW 15.7 Plt Count 176 MPV 11.1 Immature Gran % (Auto) 0.7 H Neut % (Auto) 80.2 H Lymph % (Auto) 12.8 L [place] % (Auto) 6.1 Eos % (Auto) 0.0 Baso % (Auto) 0.2 Lymph # (Auto) 2.1 [place] # (Auto) 1.0 Eos # (Auto) 0.0 Baso # (Auto) 0.0 Abs Immat Gran (auto) 0.11 H Absolute Neuts (auto) 12.9 H Absolute Nucleated RBC 0.000 Nucleated RBC % (auto) 0.0 Anion Gap 12 Estim Creat Clear Calc 32.3 Estimated GFR 33 POC Glucose 110 Random Glucose 125 H Calcium 9.8 02/25/21 11:07 MCV MCH MCHC RDW Plt Count MPV Immature Gran % (Auto) Neut % (Auto) Lymph % (Auto) [place] % (Auto) Eos % (Auto) Baso % (Auto) Lymph # (Auto) [place] # (Auto) Eos # (Auto) Baso # (Auto) Abs Immat Gran (auto) Absolute Neuts (auto) Absolute Nucleated RBC Nucleated RBC % (auto) Anion Gap Estim Creat Clear Calc Estimated GFR POC Glucose 108 Random Glucose Calcium Microbiology Microbiology Results: Microbiology 02/23/21 22:21 Blood Culture - Preliminary Blood - Venous No growth after 24 hours. 02/23/21 22:20 Blood Culture - Preliminary Blood - Venous No growth after 24 hours. Assessment and Plan (1) Lactic acidosis: Status: Acute (2) Sepsis: Status: Acute (3) Community acquired pneumonia: Status: Acute (4) Atrial fibrillation with rapid ventricular response: Status: Acute (5) Pneumonia: Status: Acute Assessment and Plan: 75-year-old female with past medical history of asthma, hypertension, AFib, hyperlipidemia who presents hospital with shortness of breath found to have pneumonia on CT scan # sepsis due to pneumonia - met sepsis criteria with fever leukocytosis and tachycardia ,chest CT showed right lobe consolidation worsening wbc likely due to steroids, tachycardia resolved, cont.iv ceft and iv azithro day 2/7 Continue updraft treatment, cough medication ,follow blood cultures # AFib with RVR likely secondary to sepsis status post IV Cardizem drip, ventricular rate improved Tele monitor shows atrial fibrillation stable ventricular rate Continue po metoprolol, home dose and rivaroxaban # lactic acidosis - most likely secondary to sepsis,and ijeoma? follow labs # IJEOMA ?? Likely due to sepsis hold Lasix and LISA-inhibitor dc ivf check bmp # hypertension - stable, soft BP hold Lasix and losartan # diabetes - stable blood sugar, continue home insulin, diabetic diet and insulin sliding scale # history of CHF no echo available - clinically does not appear to be in exacerbation - has no orthopnea, PND, no lower extremity edema, chest CT shows no pulmonary congestion, hold Lasix as above # history of asthma no acute exacerbation Will hold steroid, continue inhalers DVT prophylaxis:? Xarelto Quality Stroke Does the patient have a stroke diagnosis?: No VTE Prior VTE?: No VTE Risk Level:: Medical - moderate - high VTE Device Contraindication: Treatment Not Indicated VTE Drug Contraindication: N/A - Med Ordered
[2021-02-25 16:10] LABS: Glucose, Whole Blood 190 mg/dL (60-115)
[2021-02-25] MEDS: Insulin Lispro 100 UNIT/ML 3 ML VIAL SUBCUT (16:51)
[2021-02-25] MEDS: guaiFENesin DM 100/10/5 ML 5 ML SYRUP 10 ML PO ×2 (16:52→20:41)
[2021-02-25] MEDS: Rivaroxaban 15 MG TABLET PO (16:52)
[2021-02-25] MEDS: 0.9 % Sodium Chloride Flush 3 ML SYRINGE IVFLUSH ×2 (16:52→20:41)
[2021-02-25 20:00] LABS: Glucose, Whole Blood 94 mg/dL (60-115)
[2021-02-25] MEDS: Mirtazapine 7.5 MG TABLET PO (20:41)
[2021-02-25] MEDS: Sennosides/Docusate Sodium TABLET 2 TAB PO (20:41)
[2021-02-25] MEDS: Insulin Glargine,Hum.rec.anlog 100 UNIT/ML 10 ML VIAL 28 UNIT SUBCUT (20:42)
[2021-02-25] MEDS: cefTRIAXone sodium 1 GM in 0.9 % Sodium Chloride 50 ML IV (22:27)
[2021-02-25] MEDS: Azithromycin 500 MG in 0.9 % Sodium Chloride 250 ML 125 MG IV (23:08)
[2021-02-26] VITALS (13 sets, daily range): BP systolic 115–137; BP diastolic 60–77; PULSE 59–94; RESP 16–20; TEMP 36.1–37.1; O2SAT 91–99
[2021-02-26 05:51] LABS: MANUAL DIFF FLAG NO
[2021-02-26 05:55] LABS: Basophils Percent Auto 0.2 % (0-2); Eosinophils Absolute Auto 0.1 X10*3/uL (0.0-0.4); Eosinophils Percent Auto 1.2 % (0-4); Hematocrit 38.4 % (37-47); Hemoglobin 12.3 g/dl (12.0-16.0); Imm Gran Abs Auto 0.02 X10*3/uL (0.00-0.03); Imm Gran Pct Auto 0.2 % (0.0-0.4); Lymphocytes Absolute Auto 3.1 X10*3/uL (1.2-4.9); Lymphocytes Percent Auto 38.1 % (20-40); Mean Corpuscular Hemoglobin 27.8 pg (27.0-33.0); Mean Corpuscular Volume 86.7 fL (80-98); Mean Platelet Volume 11.4 fL (9.4-12.3); Monocytes Absolute Auto 0.9 X10*3/uL (0.1-1.2); Monocytes Percent Auto 11.1 % (2-11); Neutrophils Percent Auto 49.2 % (45-73); Platelet Count 155 X10*3/uL (160-400); Red Blood Count 4.43 X10*6/uL (4.20-5.50); Red Cell Distribution Width 15.8 % (11.0-16.0); White Blood Count 8.1 X10*3/uL (4.8-10.8)
[2021-02-26 06:26] LABS: Anion Gap 9 (12-20); Blood Urea Nitrogen 27 mg/dL (9-16); Calcium 9.2 mg/dL (8.4-10.2); Carbon Dioxide 28 mmol/L (22-29); Chloride 107 mmol/L (96-108); Creatinine Clr Calc Pharmacy 38.8; Estimated Glomerular Filt Rate 41; Glucose Random 68 mg/dL (60-115); Potassium 4.4 mmol/L (3.3-5.1); Sodium 140 mmol/L (135-145)
[2021-02-26 07:27] LABS: Glucose, Whole Blood 68 mg/dL (60-115)
[2021-02-26] MEDS: Gabapentin 300 MG CAPSULE PO (07:44)
[2021-02-26] MEDS: Metoprolol Succinate ER 100 MG TAB.ER.24H PO ×2 (07:44→20:53)
[2021-02-26] MEDS: Atorvastatin Calcium 80 MG TABLET PO (07:45)
[2021-02-26] MEDS: guaiFENesin DM 100/10/5 ML 5 ML SYRUP 10 ML PO ×4 (07:45→20:52)
[2021-02-26] MEDS: 0.9 % Sodium Chloride Flush 3 ML SYRINGE IVFLUSH ×3 (07:47→23:29)
[2021-02-26] MEDS: Albuterol/Iprat 2.5/0.5MG 3 ML AMPUL.NEB INHALE ×4 (08:50→19:23)
--- NOTE | 2021-02-26 09:00 | CA_ITS ---
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 There is mildly increased left ventricular wall thickness. The left ventricular systolic function is low normal. - Normal right ventricular cavity size and systolic function. - The left atrium is mildly dilated Findings Left Ventricle Normal left ventricular cavity size. There is mildly increased left ventricular wall thickness. The left ventricular systolic function is low normal. The visually estimated ejection fraction is between 50-55%. Regional wall motion abnormalities can not be excluded due to suboptimal endocardial definition. Diastolic function is indeterminate on the basis of available data. Right Ventricle Normal right ventricular cavity size and systolic function. Atria The left atrium is mildly dilated. The right atrium was not well visualized. Aortic Valve Normal aortic valve structure and function. There is no aortic valve stenosis. There is no aortic valve regurgitation. Mitral Valve Normal mitral valve structure and function. There is no mitral valve regurgitation. There is no mitral valve stenosis. Pulmonic Valve Normal pulmonic valve structure and function. There is trace pulmonic valve regurgitation. Tricuspid Valve Normal tricuspid valve structure and function. There is trace tricuspid valve regurgitation. Normal right atrial pressure. There is no evidence of pulmonary hypertension. Great Vessels All visible segments of the aorta are normal in size. The visualized portions of the pulmonary artery and branches are normal. Venous The inferior vena cava is normal in size and collapses greater than 50% with inspiration. Pericardium/Pleural There is no evidence of pericardial effusion. Prior Study Comparison No prior study available for comparison. Measurements 2D Linear Measurements IVSd: 0.91 0.6-0.9/0.6-1.0 cm LVIDd: 4.32 3.9-5.3/4.2-5.9 cm LVIDd Index: 2.34 2.4-3.2/2.2-3.1 cm/m2 LVIDs: 2.86 2.0-3.6 cm LVPWd: 0.98 0.7-1.1 cm Ao Root: 3.00 2.1-3.5 cm LA Diam: 3.90 2.7-3.8/3.0-4.0 cm LAIDs Index: 2.11 1.5-2.3 cm/m2 LV Mass: 166.18 67-162/88-224 g LV Mass Index: 89.83 43-95/49-115 g/m2 LVOT Diam: 2.00 3.0+(-)1.3 cm 2D Systolic Function EF 4C: 57.10 >55% EF 2C: 51.20 >55% EF BiP: 53.30 >55% Aortic Valve AoV Pk Juanpablo: 1.31 AoV Mn Juanpablo: 0.89 AoV VTI: 0.24 AoV Pk Grad: 7.00 Aov Mn Grad: 4.00 FEI Cont.VTI: 1.67 LVOT LVOT Pk Juanpablo: 0.77 LVOT Mn Juanpablo: 0.58 LVOT VTI: 0.13 LVOT Pk Grad: 2.00 LVOT Mn Grad: 1.00 LVOT Diam: 2.00 LVOT Area: 3.14 Right Ventricle TAPSE (mm): 1.74 TVS' Juanpablo: 12.10 Tricuspid Valve TR Pk Juanpablo: 2.13 TR Pk Grad: 18.00 RA Press: 8.00 RVSP: 26.00 Great Vessels Aorta Ao Root-2D: 3.00 2.0-3.7 cm Ao Asc: 3.20 2.1-3.4 cm Ao Arch: 3.00 Updated in Other Vendor System with Status of Final Otilio Marlow MD electronically signed on 02/26/2021 8:58:10 PM with status of Final
[2021-02-26] MEDS: PARoxetine HCL 20 MG TABLET PO (09:27)
[2021-02-26 11:25] LABS: Glucose, Whole Blood 94 mg/dL (60-115)
--- NOTE | 2021-02-26 11:51 | MHC.CM.PN ---
PATIENT LIVES ALONE. 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 SHE USES A WALKER FOR AMBULATION ASSIST. PATIENT DOES HAVE A FRIEND THAT SHE SPENDS MUCH OF THE DAY WITH AND FEELS THAT THIS PERSON IS A GOOD SOURCE OF SUPPORT FOR ADLS. PCP IS AT [facility] PATIENT IS UNABLE TO RECALL PCP NAME. CALL PLACED TO [phone] ONCE PCP IS VERIFIED, UPDATE TO BE SENT THROUGH [facility] FOR UPDATE OF MEDICAL RECORD. CURRENT PLAN IS TO WEAN OFF OF HER O2 AND DC TO HOME TOMORROW (02/27/21) IMM 02/26 IN CHART.
--- NOTE | 2021-02-26 12:13 | MHC.CM.PN ---
PCP IS DR TIM HARRIS OF [facility] [place]
--- NOTE | 2021-02-26 12:28 | P.CDIC_ITS ---
CDI Concurrent Query Documentation Clarification: PHYSICIAN'S DOCUMENTATION REQUEST Date of Query: 02/26/21 1229 Patient Name: Hetal Levin Admit Date: 02/24/21 Dear Doctor, A review of the medical record indicates additional documentation may be needed. Please review below and update the documentation accordingly. Clinical Indicators: Risk Factors/Clinical Indicators/Treatments PMH Congestive heart failure Clinically does not appear to be in exacerbation. Home med - Furosemide 1 tab PO. Echo performed Please provide further specificity regarding the most likely type and acuity of CHF you are evaluating, treating, or monitoring. Examples include: Type: * Systolic * Diastolic * Combined Systolic/Diastolic * Other ? please specify * Unable to determine Acuity: * Acute * Chronic * Acute on chronic * Unable to determine Use of terms such as suspected, likely, concern for, or probable (associated with a specific diagnosis that is being evaluated, monitored, or treated as if it exists) are acceptable and can be coded in the inpatient setting, when documented at the time of discharge. Thank you, Kellie Danielle [facility], CDIS Extension: [phone] Please use your independent medical judgment in providing your response. THIS QUERY IS PART OF THE PERMANENT MEDICAL RECORD Provider Response: Other Other Diagnosis: awaiting echo
--- NOTE | 2021-02-26 13:17 | MHC.CLN ---
NUTRITION DIET CHANGED TO DIABETIC 1800 KCAL (31.9 KCAL/KG CMW).
[2021-02-26 16:11] LABS: Glucose, Whole Blood 79 mg/dL (60-115)
--- NOTE | 2021-02-26 16:25 | P.PNIM_ITS ---
Subjective Subjective Date of Service: 02/26/21 Interval History: pt interviewed in [place] cough + breathing improving rate controlled Review of Systems Review of Systems: Yes all other systems are reviewed and are negative Physical Exam Vital Signs: Vital Signs: Last Vital Signs Temp 97 F 02/26/21 15:36 Pulse 65 02/26/21 15:36 Resp 17 02/26/21 15:36 BP 133/77 02/26/21 15:36 Pulse Ox 99 02/26/21 15:36 Body Mass Index 38.3 Gen: in no acute distress HEENT: sclera anicteric, moist mucus membranes Neck: supple Lungs: diminished R base Heart: irregular, no murmurs Abd: soft, non-tender, non-distended Ext: no edema Skin: warm/well-perfused Neuro: alert and oriented x3, no focal findings Psych: appropriate affect Objective Data Active Medications Acetaminophen (Acetaminophen 325 Mg Tablet) 650 mg PO Q6H PRN PRN Reason: Pain, Mild (Pain Scale 1-3) Last Admin: 02/25/21 08:09 Dose: 650 mg Documented by: ANN-MARIE Albuterol/Ipratropium (Albuterol/Iprat 2.5/0.5mg 3 Ml Ampul.Neb) 3 ml INHALE RQ4H PRN PRN Reason: Shortness of Breath/Wheezing Albuterol/Ipratropium (Albuterol/Iprat 2.5/0.5mg 3 Ml Ampul.Neb) 3 ml INHALE QID [facility] Last Admin: 02/26/21 12:22 Dose: 3 ml Documented by: DALTON Atorvastatin Calcium (Atorvastatin Calcium 80 Mg Tablet) 80 mg PO DAILY [facility] Last Admin: 02/26/21 07:45 Dose: 80 mg Documented by: YON Dextrose (Dextrose 50 % 25 Gm/50 Ml Vial) 25 gm IVPUSH Q15M PRN; Protocol PRN Reason: per Hypoglycemia Standing Ord. Docusate Sodium (Docusate Sodium 100 Mg Capsule) 100 mg PO DAILY PRN PRN Reason: Constipation Last Admin: 02/24/21 20:36 Dose: 100 mg Documented by: ASHLEY Gabapentin (Gabapentin 300 Mg Capsule) 300 mg PO DAILY [facility] Last Admin: 02/26/21 07:44 Dose: 300 mg Documented by: YON Glucose (Glucose Gel 15 Gm Gel..Gram.) 15 gm PO Q15M PRN; Protocol PRN Reason: per Hypoglycemia Standing Ord. Guaifenesin/Dextromethorphan (Guaifenesin Dm 100/10/5 Ml 5 Ml Syrup) 10 ml PO QID [facility] Last Admin: 02/26/21 13:48 Dose: 10 ml Documented by: YON Azithromycin 500 mg/ Sodium (Chloride) 250 mls @ 125 mls/hr IV Q24H [facility] Last Infusion: 02/26/21 01:16 Dose: 0 mls/hr Documented by: MAGGIE Ceftriaxone Sodium 1 gm/ (Sodium Chloride) 50 mls @ 100 mls/hr IV Q24H [facility] Last Infusion: 02/25/21 23:07 Dose: 0 mls/hr Documented by: MAGGIE Insulin Glargine (Insulin Glargine,Hum.Rec.Anlog 100 Unit/Ml 10 Ml Vial) 28 unit SUBCUT BEDTIME [facility] Last Admin: 02/25/21 20:42 Dose: 28 unit Documented by: MAGGIE Insulin Human Lispro (Insulin Lispro 100 Unit/Ml 3 Ml Vial) 0 unit SUBCUT QIDACHS [facility]; Protocol Last Admin: 02/26/21 11:48 Dose: Not Given Documented by: YON Non-Admin Reason: No Insulin Coverage Metoprolol Succinate (Metoprolol Succinate Er 100 Mg Tab.Er.24h) 100 mg PO BID [facility]; Protocol Last Admin: 02/26/21 07:44 Dose: 100 mg Documented by: YON Mirtazapine (Mirtazapine 7.5 Mg Tablet) 7.5 mg PO BEDTIME [facility] Last Admin: 02/25/21 20:41 Dose: 7.5 mg Documented by: MAGGIE Ondansetron HCl (Ondansetron Hcl 4 Mg/2 Ml Vial) 4 mg IVPUSH Q8H PRN PRN Reason: Nausea and Vomiting Paroxetine HCl (Paroxetine Hcl 20 Mg Tablet) 20 mg PO DAILY [facility] Last Admin: 02/26/21 09:27 Dose: 20 mg Documented by: YON Pharmacy Consult (Consult Rx Perform Med Rec) 1 each MISCELLANE ONCE PRN PRN Reason: Consult order Rivaroxaban (Rivaroxaban 15 Mg Tablet) 15 mg PO DAILY@1700 [facility] Last Admin: 02/25/21 16:52 Dose: 15 mg Documented by: ANN-MARIE Senna/Docusate Sodium (Sennosides/Docusate Sodium Tablet) 2 tab PO BEDTIME [facility] Last Admin: 02/25/21 20:41 Dose: 2 tab Documented by: MAGGIE Sodium Chloride (0.9 % Sodium Chloride Flush 3 Ml Syringe) 3 ml IVFLUSH QSHIFT [facility] Last Admin: 02/26/21 07:47 Dose: 3 ml Documented by: YON Labs CBC & Chem 7: 02/26/21 05:27 02/26/21 05:27 Labs: Laboratory Results - last 24 hr 02/25/21 02/26/21 02/26/21 19:55 05:27 05:27 MCV 86.7 MCH 27.8 MCHC 32.0 RDW 15.8 Plt Count 155 L MPV 11.4 Immature Gran % (Auto) 0.2 Neut % (Auto) 49.2 Lymph % (Auto) 38.1 [place] % (Auto) 11.1 H Eos % (Auto) 1.2 Baso % (Auto) 0.2 Lymph # (Auto) 3.1 [place] # (Auto) 0.9 Eos # (Auto) 0.1 Baso # (Auto) 0.0 Abs Immat Gran (auto) 0.02 Absolute Neuts (auto) 4.0 Absolute Nucleated RBC 0.000 Nucleated RBC % (auto) 0.0 Anion Gap 9 L Estim Creat Clear Calc 38.8 Estimated GFR 41 POC Glucose 94 Random Glucose 68 Calcium 9.2 D 02/26/21 02/26/21 02/26/21 07:23 11:06 16:08 MCV MCH MCHC RDW Plt Count MPV Immature Gran % (Auto) Neut % (Auto) Lymph % (Auto) [place] % (Auto) Eos % (Auto) Baso % (Auto) Lymph # (Auto) [place] # (Auto) Eos # (Auto) Baso # (Auto) Abs Immat Gran (auto) Absolute Neuts (auto) Absolute Nucleated RBC Nucleated RBC % (auto) Anion Gap Estim Creat Clear Calc Estimated GFR POC Glucose 68 94 79 Random Glucose Calcium Microbiology Microbiology Results: Microbiology 02/23/21 22:21 Blood Culture - Preliminary Blood - Venous No growth after 48 hours. 02/23/21 22:20 Blood Culture - Preliminary Blood - Venous No growth after 48 hours. Assessment and Plan (1) Lactic acidosis: Status: Acute (2) Sepsis: Status: Acute (3) Community acquired pneumonia: Status: Acute (4) Atrial fibrillation with rapid ventricular response: Status: Acute (5) Pneumonia: Status: Acute Assessment and Plan: hospital d#3 75yo F with asthma, HTN, AF, HLD presenting with dyspnea, admitted for sepsis due to PNA # sepsis due to CAP - continue ceftriaxone + azithromycin d#08/20, BCx negative # AF/RVR - off diltiazem drip now, ventricular rate improved; continue PO metoprolol for rate control - continue rivaroxaban for AC # lactic acidosis - likely due to sepsis # CHF, not in acute exacerbation - TTE pending, held furosemide # IJEOMA - likely due to sepsis; held furosemide + ARB; improving # HTN - stable, held furosemide + losartan # DM2 - continue Lantus + Humalog # asthma - nebs # VTE - continue rivaroxaban Quality Stroke Does the patient have a stroke diagnosis?: No VTE Prior VTE?: No VTE Risk Level:: Medical - moderate - high VTE Device Contraindication: Treatment Not Indicated VTE Drug Contraindication: N/A - Med Ordered
[2021-02-26] MEDS: Rivaroxaban 15 MG TABLET PO (17:04)
[2021-02-26 20:11] LABS: Glucose, Whole Blood 96 mg/dL (60-115)
[2021-02-26] MEDS: Sennosides/Docusate Sodium TABLET 2 TAB PO (20:52)
[2021-02-26] MEDS: Insulin Glargine,Hum.rec.anlog 100 UNIT/ML 10 ML VIAL 28 UNIT SUBCUT (20:53)
[2021-02-26] MEDS: Mirtazapine 7.5 MG TABLET PO (20:53)
[2021-02-26] MEDS: cefTRIAXone sodium 1 GM in 0.9 % Sodium Chloride 50 ML IV (22:11)
[2021-02-26] MEDS: Azithromycin 500 MG in 0.9 % Sodium Chloride 250 ML 125 MG IV (23:21)
[2021-02-27 04:00] VITALS: BP 161/88; PULSE 76; RESP 16; TEMP 36.3; O2SAT 99
[2021-02-27 07:53] VITALS: BP 115/66; PULSE 71; RESP 18; TEMP 36.2; O2SAT 93
[2021-02-27 08:04] LABS: Glucose, Whole Blood 73 mg/dL (60-115)
[2021-02-27] MEDS: Albuterol/Iprat 2.5/0.5MG 3 ML AMPUL.NEB INHALE ×2 (08:17→12:15)
[2021-02-27 08:18] VITALS: PULSE 71; O2SAT 93
[2021-02-27 08:38] LABS: Anion Gap 10 (12-20); Blood Urea Nitrogen 21 mg/dL (9-16); Calcium 9.4 mg/dL (8.4-10.2); Carbon Dioxide 32 mmol/L (22-29); Chloride 104 mmol/L (96-108); Creatinine Clr Calc Pharmacy 39.8; Estimated Glomerular Filt Rate 42; Glucose Random 75 mg/dL (60-115); Potassium 4.5 mmol/L (3.3-5.1); Sodium 141 mmol/L (135-145)
[2021-02-27] MEDS: guaiFENesin DM 100/10/5 ML 5 ML SYRUP 10 ML PO ×2 (08:44→14:30)
[2021-02-27] MEDS: Atorvastatin Calcium 80 MG TABLET PO (08:45)
[2021-02-27] MEDS: 0.9 % Sodium Chloride Flush 3 ML SYRINGE IVFLUSH (08:45)
[2021-02-27] MEDS: Metoprolol Succinate ER 100 MG TAB.ER.24H PO (08:45)
[2021-02-27] MEDS: PARoxetine HCL 20 MG TABLET PO (08:45)
[2021-02-27] MEDS: Gabapentin 300 MG CAPSULE PO (08:45)
[2021-02-27] MEDS: Acetaminophen 325 MG TABLET 650 MG PO (08:57)
[2021-02-27 08:58] LABS: Procalcitonin 0.12 ng/mL
--- NOTE | 2021-02-27 10:27 | W.MHC.F2F ---
Service Date Service Date: 02/27/21 Encounter Date of encounter: 02/27/21 Reasons for Services Reason for senior living: medication management and teach disease management Reason for physical therapy: home safety and mobility, therapeutic exercises, gait/transfer training, assess need for DME, ADL training and energy conservation MD Overseeing Care: Laurie Fontenot Homebound: Leaving the home is medically contraindicated at this time without the asist of a device and/or another person due th the listed conditions above and below. Homebound supporting statement: Pt admitted to [facility] 02/24-02/27/21 for pneumonia. VNA for home PT, medication review, monitoring of respiratory symptoms Certification: Based on the above findings, I certify that this patient is confined to the home and needs intermittent senior living care, physical therapy and/or speech therapy, or continues to need occupational therapy. The patient is under my care, and I have initiated the establishment of the plan of care. The patient will be followed by a physician who will periodically review the plan of care.
--- NOTE | 2021-02-27 10:36 | PM.DS ---
DS: Providers Provider Date of Service: 02/27/21 Date of admission: 02/24/21 00:59 Date of discharge: 02/27/21 Primary care physician: Unknown Physician DS: Diagnosis Discharge Diagnosis (1) Lactic acidosis: Status: Acute (2) Sepsis: Status: Acute (3) Community acquired pneumonia: Status: Acute (4) Atrial fibrillation with rapid ventricular response: Status: Acute (5) IJEOMA (acute kidney injury): Status: Acute (6) Acute respiratory failure with hypoxia: Status: Acute DS: Summary Hospital Course Hospital Course: from admission H+P by hospitalist Imer Buckner, 02/24/21: This is a 75-year-old female with past medical history of diabetes, hypertension, AFib, CVA, who presents to the hospital with complaints of shortness of breath, cough, wheezing, x1 days.? Patient reports sputum production, feeling febrile and chills, denies any headache no change in vision, has chest pain from all the coughing, denies any palpitations, no abdominal pain nausea or vomiting, no diarrhea constipation, no urinary symptoms.? No numbness tingling or weakness. All other review of system negative except as mentioned Vital significant for temp of a 100.6?, heart rate of 112 which is AFib with RVR, respiratory rate of 18, blood pressure 135/80, satting 93% on room air Lab significant for WBC count of 12, PT of 19.6, INR of 1.7, lactic acid of 2.3, BNP of 363 COVID-19 negative, chest CT shows right lower lobe patchy consolidation consistent with pneumonia Patient will be admitted for further management This 75yo F with asthma, HTN, AF, HLD presented with dyspnea and was admitted to the medical/surgical floor for sepsis due to CAP. She was treated with ceftriaxone and azithromycin . Blood cultures were negative. She was weaned off of oxygen. She was placed on diltiazem infusion for atrial fibrillation with RVR and transitioned back to oral metoprolol. She did not have a CHF exacerbation. Acute kidney injury was due to sepsis and improved with treatment of the infection; furosemide and losartan was held and should continue to be held until she has a repeat BMP drawn in 1 week and sees her primary care doctor. She was discharged home with 3 more days of cefuroxime and 2 more days of azithromycin. Time Spent with Patient Time attestation: Total time spent providing and/or coordinating discharge services: Discharge coordination time: Greater than 30 minutes Quality: Stroke Does the patient have a stroke diagnosis?: No Physical Exam Vital Signs: Vital Signs: Last Vital Signs Temp 97.1 F 02/27/21 07:53 Pulse 71 02/27/21 08:18 Resp 18 02/27/21 07:53 BP 115/66 02/27/21 07:53 Pulse Ox 93 02/27/21 07:53 Body Mass Index 38.3 Gen: in no acute distress HEENT: sclera anicteric, moist mucus membranes Neck: supple Lungs: diminished R base Heart: irregular, no murmurs Abd: soft, non-tender, non-distended Ext: no edema Skin: warm/well-perfused Neuro: alert and oriented x3, no focal findings Psych: appropriate affect DS: Data Data Completed and Pending Completed studies during hospitalization [Text1]: Laboratory Results WBC 8.1 X10*3/uL (4.8-10.8) 02/26/21 05:27 RBC 4.43 X10*6/uL (4.20-5.50) 02/26/21 05:27 Hgb 12.3 g/dl (12.0-16.0) 02/26/21 05:27 Hct 38.4 % (37-47) 02/26/21 05:27 MCV 86.7 fL (80-98) 02/26/21 05:27 MCH 27.8 pg (27.0-33.0) 02/26/21 05:27 MCHC 32.0 g/dl (31.0-35.0) 02/26/21 05:27 RDW 15.8 % (11.0-16.0) 02/26/21 05:27 Plt Count 155 X10*3/uL (160-400) L 02/26/21 05:27 MPV 11.4 fL (9.4-12.3) 02/26/21 05:27 Immature Gran % (Auto) 0.2 % (0.0-0.4) 02/26/21 05:27 Neut % (Auto) 49.2 % (45-73) 02/26/21 05:27 Lymph % (Auto) 38.1 % (20-40) 02/26/21 05:27 [place] % (Auto) 11.1 % (2-11) H 02/26/21 05:27 Eos % (Auto) 1.2 % (0-4) 02/26/21 05:27 Baso % (Auto) 0.2 % (0-2) 02/26/21 05:27 Lymph # (Auto) 3.1 X10*3/uL (1.2-4.9) 02/26/21 05:27 [place] # (Auto) 0.9 X10*3/uL (0.1-1.2) 02/26/21 05:27 Eos # (Auto) 0.1 X10*3/uL (0.0-0.4) 02/26/21 05:27 Baso # (Auto) 0.0 X10*3/uL (0.0-0.2) 02/26/21 05:27 Abs Immat Gran (auto) 0.02 X10*3/uL (0.00-0.03) 02/26/21 05:27 Absolute Neuts (auto) 4.0 X10*3/uL (2.0-8.3) 02/26/21 05:27 Absolute Nucleated RBC 0.000 X10*3/uL (0.0-0.012) 02/26/21 05:27 Nucleated RBC % (auto) 0.0 /100WBC (0.0-0.2) 02/26/21 05:27 PT 19.6 SEC (9.9-13.0) H 02/23/21 18:12 INR 1.7 (0.9-1.1) H 02/23/21 18:12 APTT 39.2 SEC (24.1-38.0) H 02/23/21 18:12 Sodium 141 mmol/L (135-145) 02/27/21 07:51 Potassium 4.5 mmol/L (3.3-5.1) 02/27/21 07:51 Chloride 104 mmol/L (96-108) 02/27/21 07:51 Carbon Dioxide 32 mmol/L (22-29) H 02/27/21 07:51 Anion Gap 10 (12-20) L 02/27/21 07:51 BUN 21 mg/dL (9-16) H 02/27/21 07:51 Creatinine 1.25 mg/dL (0.5-1.4) 02/27/21 07:51 Estim Creat Clear Calc 39.8 02/27/21 07:51 Estimated GFR 42 02/27/21 07:51 POC Glucose 73 mg/dL (60-115) 02/27/21 08:00 Random Glucose 75 mg/dL (60-115) 02/27/21 07:51 Lactic Acid 2.3 mmol/L (0.5-2.0) H* 02/23/21 22:52 Lactic Acid Fup @ 2Hr 2.3 mmol/L (0.5-2.0) H* 02/24/21 01:42 Lactic Acid Fup @ 4Hr 2.6 mmol/L (0.5-2.0) H* 02/24/21 04:21 Calcium 9.4 mg/dL (8.4-10.2) 02/27/21 07:51 Magnesium 2.1 mg/dL (1.6-2.6) 02/23/21 18:12 Total Bilirubin 0.6 mg/dL (0.0-1.0) 02/23/21 18:12 Direct Bilirubin 0.2 mg/dL (0.0-0.5) 02/23/21 18:12 AST 20 U/L (5-31) 02/23/21 18:12 ALT 21 U/L (0-31) 02/23/21 18:12 Alkaline Phosphatase 116 U/L (39-117) 02/23/21 18:12 Troponin I High Sens < 3.5 ng/L (<3.5-17.0) 02/23/21 18:12 B-Natriuretic Peptide 363 pg/mL (<100) H 02/23/21 18:12 Total Protein 7.7 g/dL (6.5-8.0) 02/23/21 18:12 Albumin 4.2 g/dL (3.5-5.0) 02/23/21 18:12 Procalcitonin 0.12 ng/mL 02/27/21 07:51 Coronavirus (PCR) NEGATIVE (Negative) 02/23/21 18:03 Influenza Type A (PCR) NEGATIVE (Negative) 02/23/21 18:03 Influenza Type B (PCR) NEGATIVE (Negative) 02/23/21 18:03 RSV RNA Qual (PCR) NEGATIVE (Negative) 02/23/21 18:03 Impressions Chest X-Ray 02/23/21 17:34 IMPRESSION: Slightly enlarged cardiac silhouette and prominent central bronchovascular markings. Differential would include mild CHF and airways disease. Clinical correlation recommended. Chest CT 02/23/21 21:37 IMPRESSION: Right lower lobe patchy consolidation consistent with pneumonia TTE 02/26/21 - Normal left ventricular cavity size.? There is mildly increased left ventricular wall thickness.? The left ventricular systolic? function is low normal.? - Normal right ventricular cavity size and systolic function.? ? - The left atrium is mildly dilated? Discharge Plan Discharge Patient Disposition: Home Health Service Discharge Diagnosis: pneumonia, acute kidney injury Referrals: Physician,Unknown [Primary Care Provider] - 1 Week Laurie Fontenot MD [Physician] - 1 Week Discharge Medications: New cefuroxime axetil 250 mg tablet 250 mg PO BID Qty: 8 RF: 0 azithromycin 250 mg tablet 250 mg PO DAILY 2 Days Qty: 2 RF: 0 Continued atorvastatin 80 mg tablet 1 tab PO DAILY RF: 0 sennosides-docusate sodium [Senna-S] 8.6-50 mg tablet 2 tab PO BEDTIME RF: 0 metoprolol succinate 100 mg tablet extended release 24 hr 1 tab PO BID RF: 0 paroxetine HCl 20 mg tablet 1 tab PO DAILY RF: 0 gabapentin 300 mg capsule 1 cap PO DAILY RF: 0 albuterol sulfate [Ventolin HFA] 90 mcg/actuation HFA aerosol inhaler 2 puff PO QID PRN (Reason: wheezing) RF: 0 mirtazapine 7.5 mg tablet 1 tab PO BEDTIME RF: 0 Lantus Solostar U-100 Insulin 100 unit/mL (3 mL) insulin pen 28 unit subcut BEDTIME RF: 0 Xarelto 15 mg tablet 1 tab PO QPM RF: 0 Trulicity 1.5 mg/0.5 mL pen injector 0.5 ml subcut QWEEK RF: 0 Discontinued furosemide 40 mg tablet 1 tab PO DAILY RF: 0 losartan 25 mg tablet 1 tab PO DAILY RF: 0 Discharge Orders: Discharge Order (Routine); Ordered 02/27/21 Ordered By: Sudha Vazquez Diet: advance to usual diet and diabetic diet Activity on Discharge: As tolerated Stand Alone Forms: Patient Portal Discharge page Other Ambulatory Orders: Basic Metabolic Panel (Routine) Timeframe: 1 Week Facility: [facility] - Location: Laboratory Ordered By: Sudha Vazquez Care Plan Goals: recovery from pneumonia and acute kidney injury Health Concerns: pneumonia, acute kidney injury Plan of Treatment: take cefuroxime 250 mg twice daily x 3 more days, azithromycin 250 mg once daily x 2 more days stop losartan and furosemide; avoid NSAIDs like ibuprofen and naproxne repeat labs in 1 week: basic metabolic panel see your primary care doctor in 1 week Assessment: as above Patient Instructions: Pneumonia (DC)
--- NOTE | 2021-02-27 11:30 | MHC.CM.PN ---
Addendum entered by Neela العلي RN 02/27/21 11:45: If recommended [facility] will provide home PT for pt. Original Note: pt discharging today w/new VNA for [facility] and home PT pending eval and resump of RN PICU, pt is agreeable to services and will call family to arrange transport.
[2021-02-27 11:53] LABS: Glucose, Whole Blood 135 mg/dL (60-115)
[2021-02-27 12:00] VITALS: BP 105/45; PULSE 68; RESP 16; TEMP 35.9; O2SAT 93
[2021-02-27 12:19] VITALS: PULSE 71; O2SAT 95
[2021-02-27 12:58] VITALS: PULSE 71
== END 2021-02-27 15:12 | disposition home health service (06) | DRG 871 ==
LOC: HO.ED 02-24 00:39 → HO.EDOVER 02-24 01:04 → HO.S3 02-24 12:27
PROVIDERS: Hospitalist; Nurse Practitioner Family; Physician Assistant; Admitting Provider Internal Medicine; Emergency Provider Emergency Medicine Emergency Medical Services; PCP Internal Medicine; Visit Provider Family Medicine
DX: A41.9 Sepsis, unspecified organism (principal); J18.9 Pneumonia, unspecified organism; J96.01 Acute respiratory failure with hypoxia; N17.9 Acute kidney failure, unspecified; I48.91 Unspecified atrial fibrillation; E11.9 Type 2 diabetes mellitus without complications; J45.909 Unspecified asthma, uncomplicated; Z20.822 Contact with and (suspected) exposure to COVID-19; Z79.4 Long term (current) use of insulin; Z79.01 Long term (current) use of anticoagulants; Z79.899 Other long term (current) drug therapy
CPT/HCPCS: 0241U; 36415; 71045; 71250; 80048; 80076; 82947; 83605; 83735; 83880; 84145; 84484; 85025; 85610; 85730; 87040; 93005; 93306; 94640; 96365; 96366; 96367; 96375; 97162; 99285; J0456; J0696; J1160; J2930; J3475

== ENCOUNTER 2022-01-11 09:05 | Emergency (ER) | payer OTHER, SELFPAY ==
--- NOTE | ~2022-01-11 | XR_ITS ---
EXAMINATION: XR KNEE, RIGHT CLINICAL INFORMATION: Knee pain COMPARISON: None TECHNIQUE: Four views of the right knee. FINDINGS: No acute fracture or subluxation. There is moderate medial compartment joint space narrowing. Mild patellofemoral compartment narrowing. Prominent tricompartmental marginal osteophytes. No joint effusion. The soft tissues appear unremarkable. XR/XR knee RT 4V IMPRESSION: No acute abnormality. Tricompartmental degenerative changes which are greatest at the medial compartment.
[2022-01-11 09:25] VITALS: BP 127/74; PULSE 77; RESP 18; TEMP 36.6; O2SAT 94; BMI 37.0
--- NOTE | 2022-01-11 11:02 | ED.LOWEXIN ---
HPI - Extremity Injury (Lower) General Chief Complaint: Extremity Injury, Lower Stated Complaint: fall t-1 R foot INJ Time Seen by Provider: 01/11/22 11:02 History of Present Illness HPI Narrative: Patient complains of right knee pain after a trip and fall at home yesterday, she was putting on her pants and fell forward striking the right knee but did not hit her head or any other part of her body, she is able to walk but it hurts, she denies any other injury no head injury no neck injury no back injury no numbness weakness or tingling no loss of consciousness Related Data Home Medications Medication Instructions Recorded Confirmed albuterol sulfate 90 mcg/actuation 2 puff PO QID PRN wheezing 02/23/21 02/23/21 aerosol inhaler (Ventolin HFA) atorvastatin 80 mg tablet 1 tab PO DAILY 02/23/21 02/23/21 dulaglutide 1.5 mg/0.5 mL 0.5 ml subcut QWEEK 02/23/21 02/23/21 subcutaneous pen injector (Trulicity) gabapentin 300 mg capsule 1 cap PO DAILY 02/23/21 02/23/21 insulin glargine 100 unit/mL (3 28 unit subcut BEDTIME 02/23/21 02/23/21 mL) subcutaneous pen (Lantus Solostar U-100 Insulin) metoprolol succinate 100 mg 1 tab PO BID 02/23/21 02/23/21 tablet,extended release 24 hr mirtazapine 7.5 mg tablet 1 tab PO BEDTIME 02/23/21 02/23/21 paroxetine HCl 20 mg tablet 1 tab PO DAILY 02/23/21 02/23/21 rivaroxaban 15 mg tablet (Xarelto) 1 tab PO QPM 02/23/21 02/23/21 sennosides 8.6 mg-docusate sodium 2 tab PO BEDTIME 02/23/21 02/23/21 50 mg tablet (Senna-S) Previous Rx's Medication Instructions Recorded azithromycin 250 mg tablet 250 mg PO DAILY 2 days #2 tabs 02/27/21 cefuroxime axetil 250 mg tablet 250 mg PO BID #8 tabs 02/27/21 acetaminophen 500 mg tablet 1,000 mg PO QID PRN pain #30 tabs 01/11/22 Allergies Allergy/AdvReac Type Severity Reaction Status Date / Time No Known Allergies Allergy Unverified 03/02/20 16:47 Review of Systems Review of Systems: Patient complains of right knee pain after a fall Negatives are no fever no chills no dizziness no weakness no fainting no feeling faint no headache no neck pain no chest pain no other extremity pains no hip pain Yes all other systems are reviewed and are negative [facility] Past Medical History Source: nursing notes reviewed Medical History (Updated 01/12/22 @ 00:01 by Megan Julio) Asthma Asthma with acute exacerbation Atrial fibrillation CHF (congestive heart failure) Diabetes History of CVA (cerebrovascular accident) Hypertension Family History Family History (Updated 02/24/21 @ 06:06 by Imer Buckner MD) Father Hypertension Mother Diabetes Hypertension Social History Social History (Updated 02/24/21 @ 06:06 by Imer Buckner MD) Household Members: None Housing: Apartment Do you presently have visiting nurse or other home services: Yes Alcohol intake: never Patient Tobacco Use Status: Former Tobacco user Quit Date: Quit 40 years ago Advance Directives: No Advance Directives Information Provided: Yes service: No Current occupational status: disabled Physical Exam Vital Signs: Vital Signs: Last Vital Signs Temp 98 F 01/11/22 09:25 Pulse 77 01/11/22 09:25 Resp 18 01/11/22 09:25 BP 127/74 01/11/22 09:25 Pulse Ox 94 01/11/22 09:25 O2 Del Method 01/11/22 09:25 BMI result Body Mass Index 37.0 General appearance no distress Head is normocephalic atraumatic Neck is supple nontender Chest wall nontender ribs nontender Respiratory no distress Abdomen soft nontender The back normal range of motion The extremities the right knee had tenderness and mild swelling no redness no warmth that extends to 188 flexes past 90 there is no ligamentous laxity and the skin around the knee is normal in appearance and neurovascular intact distal Other extremities no acute abnormalities Course Course Course Narrative: X-ray showed no acute fracture but did show osteoarthritis and patient is referred to orthopedist Discharge Plan Discharge Clinical Impression: Osteoarthritis of right knee Patient Disposition: Home, Self-Care Additional Instructions: No broken bone was seen on the x-ray but there was arthritis of the knee Follow with orthopedist as needed Return any time any worse condition or any concerns Use Tylenol as needed for pain Prescriptions: New acetaminophen 500 mg tablet 1,000 mg PO QID PRN (Reason: pain) Qty: 30 0RF No Action atorvastatin 80 mg tablet 1 tab PO DAILY sennosides-docusate sodium [Senna-S] 8.6-50 mg tablet 2 tab PO BEDTIME metoprolol succinate 100 mg tablet extended release 24 hr 1 tab PO BID paroxetine HCl 20 mg tablet 1 tab PO DAILY gabapentin 300 mg capsule 1 cap PO DAILY albuterol sulfate [Ventolin HFA] 90 mcg/actuation HFA aerosol inhaler 2 puff PO QID PRN (Reason: wheezing) mirtazapine 7.5 mg tablet 1 tab PO BEDTIME Lantus Solostar U-100 Insulin 100 unit/mL (3 mL) insulin pen 28 unit subcut BEDTIME Xarelto 15 mg tablet 1 tab PO QPM Trulicity 1.5 mg/0.5 mL pen injector 0.5 ml subcut QWEEK cefuroxime axetil 250 mg tablet 250 mg PO BID Qty: 8 0RF azithromycin 250 mg tablet 250 mg PO DAILY 2 Days Qty: 2 0RF Rx Instructions: start on day 2 of therapy Referrals: Burt Sharp MD [Physician] - (Right knee osteoarthritis) Interventions: ED Discharge Assessment Last Done: 01/11/22 11:12 Discharge Date/Time: 01/11/22 11:14
== END 2022-01-11 11:14 | disposition home or self-care (01) ==
PROVIDERS: Emergency Provider Student in an Organized Health Care Education/Training Program; PCP Internal Medicine
DX: M17.11 Unilateral primary osteoarthritis, right knee (principal); M25.561 Pain in right knee; E11.9 Type 2 diabetes mellitus without complications; I11.0 Hypertensive heart disease with heart failure; I50.9 Heart failure, unspecified; I48.91 Unspecified atrial fibrillation; Z86.73 Personal history of transient ischemic attack (TIA), and cerebral infarction without residual deficits; Z87.891 Personal history of nicotine dependence; Z79.82 Long term (current) use of aspirin; Z79.4 Long term (current) use of insulin; Z79.01 Long term (current) use of anticoagulants; Z79.899 Other long term (current) drug therapy
CPT/HCPCS: 73564; 99282; 99283

== ENCOUNTER 2022-10-11 09:44 | Emergency (ER) | payer OTHER, SELFPAY ==
--- NOTE | ~2022-10-11 | XR_ITS ---
EXAMINATION: XR CHEST CLINICAL INFORMATION: Cough. COMPARISON: None available. TECHNIQUE: 2 views of the chest were obtained. FINDINGS: The lungs are well-expanded and clear. The heart size and pulmonary vascularity is normal. There is mild spondylosis mid to lower dorsal spine. XR/XR chest 2V IMPRESSION: Unremarkable chest exam.
[2022-10-11 09:46] VITALS: BP 117/75; PULSE 113; RESP 18; TEMP 37; O2SAT 98; BMI 36.9
[2022-10-11 11:16] LABS: MANUAL DIFF FLAG NO
[2022-10-11 11:19] LABS: Basophils Percent Auto 0.2 % (0-2); Eosinophils Absolute Auto 0.1 X10*3/uL (0.0-0.4); Eosinophils Percent Auto 0.6 % (0-4); Hematocrit 43.5 % (37.0-47.0); Hemoglobin 14.1 g/dl (12.0-16.0); Imm Gran Abs Auto 0.09 X10*3/uL (0.00-0.03); Imm Gran Pct Auto 0.6 % (0.0-0.4); Lymphocytes Absolute Auto 1.2 X10*3/uL (1.2-4.9); Lymphocytes Percent Auto 8.2 % (20-40); Mean Corpuscular HGB Conc 32.4 g/dl (31.0-35.0); Mean Corpuscular Hemoglobin 28.5 pg (27.0-33.0); Mean Corpuscular Volume 88.1 fL (80.0-98.0); Mean Platelet Volume 10.8 fL (9.4-12.3); Monocytes Absolute Auto 0.7 X10*3/uL (0.1-1.2); Monocytes Percent Auto 4.6 % (2-11); Neutrophils Absolute Auto 12.2 x10*3/uL (2.0-8.3); Neutrophils Percent Auto 85.8 % (45-73); Platelet Count 199 X10*3/uL (160-400); Red Blood Count 4.94 X10*6/uL (4.20-5.50); Red Cell Distribution Width 14.7 % (11.0-16.0); White Blood Count 14.2 X10*3/uL (4.8-10.8)
--- NOTE | 2022-10-11 11:21 | ED.GENADULT ---
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 Patient has longstanding history of asthma and takes inhaler and a nebulizer at home. Patient states she is also on prednisone at this time. Patient states cough has been increase in mood that is positive for yellow sputum. Patient has longstanding history of diabetes, hypertension, AFib, CVA, patient is currently on Xarelto for atrial fibrillation. Patient is without chest pain fever or chills. No known sick contacts. No other complaints at this time and denies any recent travel history. Related Data Home Medications Medication Instructions Recorded Confirmed albuterol sulfate 90 mcg/actuation 2 puff PO QID PRN wheezing 02/23/21 02/23/21 aerosol inhaler (Ventolin HFA) atorvastatin 80 mg tablet 1 tab PO DAILY 02/23/21 02/23/21 dulaglutide 1.5 mg/0.5 mL 0.5 ml subcut QWEEK 02/23/21 02/23/21 subcutaneous pen injector (Trulicity) gabapentin 300 mg capsule 1 cap PO DAILY 02/23/21 02/23/21 insulin glargine 100 unit/mL (3 28 unit subcut BEDTIME 02/23/21 02/23/21 mL) subcutaneous pen (Lantus Solostar U-100 Insulin) metoprolol succinate 100 mg 1 tab PO BID 02/23/21 02/23/21 tablet,extended release 24 hr mirtazapine 7.5 mg tablet 1 tab PO BEDTIME 02/23/21 02/23/21 paroxetine HCl 20 mg tablet 1 tab PO DAILY 02/23/21 02/23/21 rivaroxaban 15 mg tablet (Xarelto) 1 tab PO QPM 02/23/21 02/23/21 sennosides 8.6 mg-docusate sodium 2 tab PO BEDTIME 02/23/21 02/23/21 50 mg tablet (Senna-S) Previous Rx's Medication Instructions Recorded azithromycin 250 mg tablet 250 mg PO DAILY 2 days #2 tabs 02/27/21 cefuroxime axetil 250 mg tablet 250 mg PO BID #8 tabs 02/27/21 acetaminophen 500 mg tablet 1,000 mg PO QID PRN pain #30 tabs 01/11/22 benzonatate 100 mg capsule 100 mg PO BID PRN cough #10 caps 10/11/22 Allergies Allergy/AdvReac Type Severity Reaction Status Date / Time No Known Allergies Allergy Unverified 03/02/20 16:47 Review of Systems Review of Systems: General: No fever, no chills Ophthalmology: No vision changes, no discharge ENT: No sore throat, no ear pain Cardiovascular, no chest pain, no peripheral edema no shortness of breath Respiratory: Positive cough positive shortness of breath Muscle skeletal: No malaise, no back pain, no neck pain, no extremity pain GI: No abdominal pain: No nausea vomiting, no diarrhea : No dysuria, no urgency, no frequency Psychiatric: No depression, no suicidal ideation, no homicidal ideation Skin: No rash Immunology: No immunocompromised Hematology: No bleeding, no bruising PMFSH Past Medical History Medical History (Updated 10/11/22 @ 12:50 by Jan Whelan) Asthma Asthma with acute exacerbation Atrial fibrillation CHF (congestive heart failure) Diabetes History of CVA (cerebrovascular accident) Hypertension Family History Family History (Updated 02/24/21 @ 06:06 by Imer Buckner MD) Father Hypertension Mother Diabetes Hypertension Social History Social History (Updated 02/24/21 @ 06:06 by Imer Buckner MD) Household Members: None Housing: Apartment Do you presently have visiting nurse or other home services: Yes Alcohol intake: never Patient Tobacco Use Status: Former Tobacco user Quit Date: Quit 40 years ago Advance Directives: No Advance Directives Information Provided: Yes service: No Current occupational status: disabled Physical Exam ED Vital Signs: Vital Signs - 24 hr 10/11/22 09:46 Temperature 98.6 F Pulse Rate 113 H Respiratory Rate 18 Blood Pressure 117/75 Pulse Oximetry 98 Oxygen Delivery Method Room Air BMI result Body Mass Index 36.9 General appearance: Awake, alert, cooperative, in no acute distress, nontoxic in appearance Skin: Warm, dry, no rash Eyes: PERRL, EOMI, no icterus ENT: Oropharynx normal, no erythema Neck: Soft supple full range of motion Pulmonary: Breath sounds slightly coarse with good aeration no accessory muscle use Cardiovascular: Regular rate and rhythm no murmurs and rubs Abdomen: Soft nontender no rebound or guarding positive bowel sounds Extremities: No deformity, nontender, no peripheral edema noted Neuro: Alert oriented x3, no focal deficit Psych: Normal affect Course Course Course Narrative: Asthma exacerbation Reactive airway disease Viral URI Pneumonia 76-year-old female with longstanding history of asthma was currently on prednisone inhalers for treatment. Recently exposure to fumes I gave her increase shortness of breath with associated cough. 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 No recent sick contacts or other complaints at this time cough is positive for yellow sputum. O2 sat 98% on room air patient has no signs of tachypnea. Chest x-ray is negative reviewed with family. Symptoms seem more secondary to her reactive airway is secondary to stimulant. Will likely treat cough respiratory panel of COVID influenza is pending at this time. 12:49 chest x-rays negative symptoms likely related to act reactive airway secondary to stimulus. Patient will be encouraged to continue albuterol at home. Will start patient on Tessalon Perles for cough at this time patient's white count likely slightly elevated temp prednisone. Medical Decision Making Lab Data 10/11/22 11:12 10/11/22 11:12 Labs: Lab Results 10/11/22 10/11/22 10/11/22 Range/Units 11:12 11:12 11:12 WBC 14.2 H (4.8-10.8) X10*3/uL RBC 4.94 (4.20-5.50) X10*6/uL Hgb 14.1 (12.0-16.0) g/dl Hct 43.5 (37.0-47.0) % MCV 88.1 (80.0-98.0) fL MCH 28.5 (27.0-33.0) pg MCHC 32.4 (31.0-35.0) g/dl RDW 14.7 (11.0-16.0) % Plt Count 199 (160-400) X10*3/uL MPV 10.8 (9.4-12.3) fL Immature Gran % (Auto) 0.6 H (0.0-0.4) % Neut % (Auto) 85.8 H (45-73) % Lymph % (Auto) 8.2 L (20-40) % Crane % (Auto) 4.6 (2-11) % Eos % (Auto) 0.6 (0-4) % Baso % (Auto) 0.2 (0-2) % Lymph # (Auto) 1.2 (1.2-4.9) X10*3/uL Crane # (Auto) 0.7 (0.1-1.2) X10*3/uL Eos # (Auto) 0.1 (0.0-0.4) X10*3/uL Baso # (Auto) 0.0 (0.0-0.2) X10*3/uL Abs Immat Gran (auto) 0.09 H (0.00-0.03) X10*3/uL Absolute Neuts (auto) 12.2 H (2.0-8.3) x10*3/uL Absolute Nucleated RBC 0.000 (0.0-0.012) X10*3/uL Nucleated RBC % (auto) 0.0 (0.0-0.2) /100WBC Sodium 137 (135-145) mmol/L Potassium 4.5 (3.3-5.1) mmol/L Chloride 100 (96-108) mmol/L Carbon Dioxide 29 (22-29) mmol/L Anion Gap 13 (12-20) BUN 17 H (9-16) mg/dL Creatinine 1.63 H (0.5-1.4) mg/dL Estim Creat Clear Calc 29.4 Estimated GFR 31 Random Glucose 241 H (60-115) mg/dL Calcium 9.5 (8.4-10.2) mg/dL Influenza Type A (PCR) NEGATIVE (Negative) Influenza Type B (PCR) NEGATIVE (Negative) RSV RNA Qual (PCR) NEGATIVE (Negative) SARS-CoV-2 RNA (RT-PCR) NEGATIVE (Negative) Radiology Impression Radiologist Impression: [address] [place] [address] XRay Report Signed Patient: Hetal Carlson MR#: [id number] : 1945 Acct:[id number] Age/Sex: 76 / F ADM Date: 10/11/22 Loc: HO.ED Attending Dr: Ordering Physician: Generic ED Physician Date of Service: 10/11/22 Procedure(s): XR chest 2V Accession Number(s): [id number] cc: Generic ED Physician~ EXAMINATION: XR CHEST CLINICAL INFORMATION: Cough. COMPARISON: None available. TECHNIQUE: 2 views of the chest were obtained. FINDINGS: The lungs are well-expanded and clear. The heart size and pulmonary vascularity is normal. There is mild spondylosis mid to lower dorsal spine. XR/XR chest 2V IMPRESSION: Unremarkable chest exam. ? Dictated By: Julio Stafford MD Signed By: <Electronically signed by Julio Stafford MD in OV> 10/11/22 1114 DD/ 1035 TD/TT:? 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: [facility] Discharge Plan Discharge Clinical Impression: Asthma, Reactive airway disease Patient Disposition: Home, Self-Care Instructions: Asthma (DC) Additional Instructions: A chest x-ray was normal Respiratory swab was negative for influenza RSV and COVID-19 Symptoms are likely related to the inhalation from 1-2 days prior and asthma symptoms No antibiotics needed at this time Return if symptoms worsen call PCP for follow-up Prescriptions: New benzonatate 100 mg capsule 100 mg PO BID PRN (Reason: cough) Qty: 10 0RF No Action atorvastatin 80 mg tablet 1 tab PO DAILY sennosides-docusate sodium [Senna-S] 8.6-50 mg tablet 2 tab PO BEDTIME metoprolol succinate 100 mg tablet extended release 24 hr 1 tab PO BID paroxetine HCl 20 mg tablet 1 tab PO DAILY gabapentin 300 mg capsule 1 cap PO DAILY albuterol sulfate [Ventolin HFA] 90 mcg/actuation HFA aerosol inhaler 2 puff PO QID PRN (Reason: wheezing) mirtazapine 7.5 mg tablet 1 tab PO BEDTIME Lantus Solostar U-100 Insulin 100 unit/mL (3 mL) insulin pen 28 unit subcut BEDTIME Xarelto 15 mg tablet 1 tab PO QPM Trulicity 1.5 mg/0.5 mL pen injector 0.5 ml subcut QWEEK cefuroxime axetil 250 mg tablet 250 mg PO BID Qty: 8 0RF azithromycin 250 mg tablet 250 mg PO DAILY 2 Days Qty: 2 0RF Rx Instructions: start on day 2 of therapy acetaminophen 500 mg tablet 1,000 mg PO QID PRN (Reason: pain) Qty: 30 0RF Print Language: Welsh
[2022-10-11 11:33] LABS: Anion Gap 13 (12-20); Blood Urea Nitrogen 17 mg/dL (9-16); Calcium 9.5 mg/dL (8.4-10.2); Carbon Dioxide 29 mmol/L (22-29); Chloride 100 mmol/L (96-108); Creatinine Clr Calc Pharmacy 29.4; Estimated Glomerular Filt Rate 31; Glucose Random 241 mg/dL (60-115); Potassium 4.5 mmol/L (3.3-5.1); Sodium 137 mmol/L (135-145)
[2022-10-11 11:57] LABS: Influenza A PCR NEGATIVE (Negative); Influenza B PCR NEGATIVE (Negative); Resp Syncy Virus RNA Qual PCR NEGATIVE (Negative); SARS COV2 PCR INHOUSE NEGATIVE (Negative)
[2022-10-11 13:50] VITALS: BP 124/71; PULSE 76; RESP 18; O2SAT 98
== END 2022-10-11 13:52 | disposition home or self-care (01) ==
PROVIDERS: Emergency Provider Emergency Medicine; PCP Internal Medicine
DX: J45.909 Unspecified asthma, uncomplicated (principal); R06.02 Shortness of breath; Z20.822 Contact with and (suspected) exposure to COVID-19; Z20.828 Contact with and (suspected) exposure to other viral communicable diseases; E11.22 Type 2 diabetes mellitus with diabetic chronic kidney disease; I13.0 Hypertensive heart and chronic kidney disease with heart failure and stage 1 through stage 4 chronic kidney disease, or unspecified chronic kidney disease; N18.30 Chronic kidney disease, stage 3 unspecified; I50.9 Heart failure, unspecified; I48.91 Unspecified atrial fibrillation; Z86.73 Personal history of transient ischemic attack (TIA), and cerebral infarction without residual deficits; Z79.02 Long term (current) use of antithrombotics/antiplatelets; Z79.4 Long term (current) use of insulin; Z79.01 Long term (current) use of anticoagulants; Z79.899 Other long term (current) drug therapy
CPT/HCPCS: 0241U; 36415; 71046; 80048; 85025; 99283

== ENCOUNTER 2022-10-11 17:22 | Inpatient (IN) | payer OTHER, SELFPAY ==
[2022-10-11] VITALS (7 sets, daily range): BP systolic 92–125; BP diastolic 48–64; PULSE 83–110; RESP 12–31; TEMP 37.3–39.5; O2SAT 93–99; BMI 37.0
--- NOTE | ~2022-10-11 | CT_ITS ---
EXAMINATION: CT HEAD WITHOUT CONTRAST CLINICAL INFORMATION: Encephalopathy. COMPARISON: None available. TECHNIQUE: Contiguous axial imaging was performed from the skull base to vertex without intravenous administration of contrast. This CT examination was performed using dose optimization techniques as appropriate, variously including the following: *Automated exposure control. *Adjustment of mA and/or kV according to patient size (this includes techniques or standardized protocols for targeted exams where dose is matched to indication/reason for exam; i.e. extremities or head). *Use of iterative reconstruction technique. 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 This includes regions of the left frontoparietal junction and insula (including the left postcentral gyrus), the lateral aspect of the right frontal lobe and insula, and the right occipital lobe. No additional loss of camarena-white matter differentiation. No evidence of acute intracranial hemorrhage. A few foci of hypoattenuation in the periventricular and deep white matter are consistent with mild microangiopathy. Proportional prominence of the ventricles and sulcal spaces without evidence of obstructive hydrocephalus. No abnormal mass effect or midline shift. No extra-axial fluid collections. No acute soft tissue or osseous abnormalities. Mild mucosal thickening of the paranasal sinuses. Prominent rightward nasal septal deviation with spurring. The mastoid air cells and middle ear cavities are clear. Bilateral lens extractions. CT/CT head/brain wo IV con IMPRESSION: 1. No evidence of acute intracranial hemorrhage or edematous territorial infarction. 2. 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 Mild underlying microangiopathy and generalized cerebral volume loss.
--- NOTE | ~2022-10-11 | CT_ITS ---
EXAMINATION: CT CHEST WITHOUT CONTRAST CLINICAL INFORMATION: Dyspnea. Question pneumonia. COMPARISON: Radiograph from today. CT 02/23/2021 TECHNIQUE: Multidetector volumetric CT imaging of the chest was done. Axial MIP volume rendering provided. Sagittal and coronal reformatted images were obtained. This CT examination was performed using dose optimization techniques as appropriate, variously including the following: *Automated exposure control *Adjustment of mA and/or kV according to patient size (this includes techniques or standardized protocols for targeted exams where dose is matched to indication/reason for exam; i.e. extremities or head) *Use of iterative reconstruction technique DLP: 404 mGy-cm FINDINGS: LUNGS: The central airways are patent. Motion limits evaluation of the lungs. Patchy groundglass nodular opacities of the right lower lobe. No dense consolidation. Linear basilar atelectasis. No pneumothorax. MEDIASTINUM: Normal heart size. No pericardial effusion. No mediastinal lymphadenopathy. CORONARY ARTERY CALCIFICATION: None visualized on this study. PLEURA: There is no pleural effusion. No pleural mass or thickening. AXILLA: No lymphadenopathy. UPPER ABDOMEN: Low-attenuation of the liver suggestive of hepatic steatosis. Partially visualized atrophic right kidney. 0.2 cm left upper pole renal calculus is 11 cm from the posterior axillary line. OSSEOUS STRUCTURES: No acute or suspicious osseous abnormality. Degenerative changes throughout the spine. CT/CT chest wo IV con IMPRESSION: Patchy groundglass nodular opacities of the right lower lobe could be infectious or inflammatory. No dense consolidation. Fleischner guidelines were followed.
--- NOTE | ~2022-10-11 | XR_ITS ---
EXAMINATION: XR CHEST CLINICAL INFORMATION: Acute dyspnea COMPARISON: 10/11/2022 TECHNIQUE: Frontal view of the chest was obtained. FINDINGS: Cardiac leads overlie the chest. The lungs are well expanded. There is no focal consolidation, edema, or effusion. Mild central bronchial wall thickening. No pneumothorax. The cardiomediastinal silhouette is prominent, with a calcified aorta. No acute osseous abnormality. XR/XR chest 1V IMPRESSION: No dense consolidation. Bronchial wall thickening can be seen with a small airways process such as asthma or atypical/viral infection.
--- NOTE | ~2022-10-11 | XR_ITS ---
EXAMINATION: XR CHEST CLINICAL INFORMATION: Shortness of breath COMPARISON: 10/15/2022 TECHNIQUE: Frontal view of the chest was obtained. FINDINGS: Lungs are mildly hypoinflated. No focal consolidation is seen. No evidence of pneumothorax, significant pleural effusion, or overt pulmonary edema. Cardiac silhouette appears prominent for technique. Calcification is present at the aortic arch. Degenerative changes are noted in the spine. XR/XR chest 1V IMPRESSION: Low lung volumes without acute findings.
--- NOTE | ~2022-10-11 | XR_ITS ---
EXAMINATION: XR CHEST CLINICAL INFORMATION: Shortness of breath. COMPARISON: 10/03/2022 chest radiograph. TECHNIQUE: Frontal view of the chest was obtained. FINDINGS: Kyphotic positioning and low lung volumes and evaluation. There is mild prominence of the pulmonary vasculature and cardiac silhouette. The mediastinal structures are unremarkable. XR/XR chest 1V IMPRESSION: Mild prominence of the pulmonary vasculature and cardiac silhouette may be projectional given the suboptimal positioning. Mild congestion cannot be excluded.
--- NOTE | 2022-10-11 17:32 | ECG_ITS ---
Test Reason : SOB Blood Pressure : / mmHG Vent. Rate : 140 BPM Atrial Rate : 000 BPM P-R Int : 000 ms QRS Dur : 082 ms QT Int : 272 ms P-R-T Axes : 000 002 228 degrees QTc Int : 415 ms Atrial fibrillation with rapid ventricular response with premature ventricular or aberrantly conducted complexes Nonspecific ST and T wave abnormality Abnormal ECG When compared with ECG of 23-FEB-2021 17:43, T wave inversion now evident in Lateral leads Referred By: Generic ED Physician Electronically Signed By:Otilio Marlow
--- NOTE | 2022-10-11 18:11 | ED_ITS ---
HPI - General Adult General Chief complaint: General Medical Stated complaint: DIFF BREATHING Time Seen by Provider: 10/11/22 17:43 Source: patient and family Mode of arrival: EMS Limitations: no limitations History of Present Illness HPI narrative: 76-year-old female presents with generalized weakness, increasing shortness of breath. Patient has history of atrial fibrillation, CVA, hypertension, diabetes. 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 Patient has a long history history of asthma on nebulizers inhalers at home. She also has reportedly on prednisone at this time. She has been producing mucus of yellow c olor. Patient was seen in the emergency department earlier. She was treated and discharged. However, since her discharge, she has developed increasing generalized weakness and shortness of breath patient denies any chest pain, palpitations or lightheadedness. She does have a cough which is mentioned above with mucus production. She denies any diarrhea, constipation. She denies any abdominal pain. There is no clear relieving or exacerbating features. Her weakness is described as severe to the point she cannot move. Related Data Home Medications Medication Instructions Recorded Confirmed albuterol sulfate 90 mcg/actuation 2 puff PO QID PRN wheezing 02/23/21 02/23/21 aerosol inhaler (Ventolin HFA) atorvastatin 80 mg tablet 1 tab PO DAILY 02/23/21 02/23/21 dulaglutide 1.5 mg/0.5 mL 0.5 ml subcut QWEEK 02/23/21 02/23/21 subcutaneous pen injector (Trulicity) gabapentin 300 mg capsule 1 cap PO DAILY 02/23/21 02/23/21 insulin glargine 100 unit/mL (3 28 unit subcut BEDTIME 02/23/21 02/23/21 mL) subcutaneous pen (Lantus Solostar U-100 Insulin) metoprolol succinate 100 mg 1 tab PO BID 02/23/21 02/23/21 tablet,extended release 24 hr mirtazapine 7.5 mg tablet 1 tab PO BEDTIME 02/23/21 02/23/21 paroxetine HCl 20 mg tablet 1 tab PO DAILY 02/23/21 02/23/21 rivaroxaban 15 mg tablet (Xarelto) 1 tab PO QPM 09/10/21 09/10/21 sennosides 8.6 mg-docusate sodium 2 tab PO BEDTIME 02/23/21 02/23/21 50 mg tablet (Senna-S) Previous Rx's Medication Instructions Recorded azithromycin 250 mg tablet 250 mg PO DAILY 2 days #2 tabs 02/27/21 cefuroxime axetil 250 mg tablet 250 mg PO BID #8 tabs 02/27/21 acetaminophen 500 mg tablet 1,000 mg PO QID PRN pain #30 tabs 01/11/22 benzonatate 100 mg capsule 100 mg PO BID PRN cough #10 caps 10/11/22 Allergies Allergy/AdvReac Type Severity Reaction Status Date / Time No Known Allergies Allergy Unverified 03/02/20 16:47 [facility] Past Medical History Medical History Asthma Asthma with acute exacerbation Atrial fibrillation CHF (congestive heart failure) Diabetes History of CVA (cerebrovascular accident) Hypertension Family History Family History Father Hypertension Mother Diabetes Hypertension Social History Social History Household Members: None Housing: Apartment Do you presently have visiting nurse or other home services: Yes Alcohol intake: never Patient Tobacco Use Status: Former Tobacco user Quit Date: Quit 40 years ago Advance Directives: No Advance Directives Information Provided: Yes service: No Current occupational status: disabled Physical Exam ED Vital Signs: Vital Signs - 24 hr 10/11/22 17:30 Temperature 103.1 F H Pulse Rate 110 H Respiratory Rate 18 Blood Pressure 125/64 Pulse Oximetry 94 Oxygen Delivery Method Room Air BMI result Body Mass Index 37.0 GEN: Well developed, no acute distress, alert, oriented HEENT: Normocephalic, atraumatic, normal external ears, nose appears normal, no oropharyngeal edema or exudates Eyes: Normal to appearance Neck: Supple, no lymphadenopathy Respiratory: Talks in complete sentences, no respiratory distress, clear to auscultation bilaterally Cardiovascular: Tachycardic, irregularly irregular Abdomen: Soft, nontender, nondistended, no guarding, no rebound Back: No CVA tenderness Extremities: No clubbing cyanosis or edema Neurologic: No focal neurologic deficits, cranial nerves 2-12 intact, strength is 5/5 bilaterally Skin: No rash Course Course Course Narrative: 76-year-old female presents with difficulty breathing and generalized weakness. She was evaluated earlier today for shortness of breath and asthma related symptoms secondary to a fume exposure. On my evaluation she is tachycardic, irregularly irregular. She has known history of atrial fibrillation. No ischemic changes on her EKG. Regarding her atrial fibrillation, she will r equire Cardizem IV to slower heart rate down. I did review her previous medical data from earlier today. I will repeat she is currently febrile. Patient is generally weak to the point she cannot help herself. She may require hospitalization or short-term rehabilitation. Reevaluation(s) Reevaluation #1: HR 101 after cardizem push Reevaluation #2: discussed results with patient, disussed patient care with hospitalist, will admit. Time: 19:38 Medications Administered Generic Name Dose Route Start Last Admin Trade Name Freq PRN Reason Stop Dose Admin Sodium Chloride 2,585.49 mls @ 2,585.49 mls/hr 10/11/22 18:55 10/11/22 19:09 Ns 30 ml/kg infuse over 1 hr (2585.49 ml) 10/11/22 19:54 2,585.49 mls/hr IV Administration .Q1H STA Discontinued Medications Generic Name Dose Route Start Last Admin Trade Name Freq PRN Reason Stop Dose Admin Acetaminophen 975 mg 10/11/22 18:24 10/11/22 18:33 Acetaminophen 325 Mg Tablet PO 10/11/22 18:25 975 mg ONCE ONE Administration Diltiazem HCl 10 mg 10/11/22 18:09 10/11/22 18:20 Diltiazem Hcl 50 Mg/10 Ml Vial IVPUSH 10/11/22 18:10 10 mg STAT STA Administration Sodium Chloride 1,000 mls @ 999 mls/hr 10/11/22 18:15 10/11/22 19:21 Ns IV 10/11/22 19:15 Infused .Q1H1M JACK Infusion Medical Decision Making Medical Decision Making [facility] Narrative: 76-year-old female presents with shortness of breath, generalized weakness and atrial fibrillation with rapid ventricular response. Wears patient was previously not febrile, she currently is. Her exam other than generalized weakness, tachycardia with an irregularly irregular heart rate is unremarkable. At this time, etiology of her fever is not entirely understood. Will provide patient with antipyretics, IV fluids. We will repeat blood work, chest x-ray to re-evaluate patient. Differential Diagnosis Differential Diagnoses: The differential diagnosis associated with the presentation includes (Pneumonia, bronchitis, COVID, influenza, UTI, acute febrile illness, atrial fibrillation with RVR) respiratory infection Admission/Observation Consideration of admission/observation: Escalation of care including admission/observation considered Lab Data MDM Lab Attestation statement: I reviewed the patient's lab results. 10/11/22 18:31 10/11/22 18:31 Labs: Lab Results 10/11/22 10/11/22 10/11/22 Range/Units 18:31 18:31 18:31 WBC 12.3 H (4.8-10.8) X10*3/uL RBC 4.63 (4.20-5.50) X10*6/uL Hgb 12.9 (12.0-16.0) g/dl Hct 40.5 (37.0-47.0) % MCV 87.5 (80.0-98.0) fL MCH 27.9 (27.0-33.0) pg MCHC 31.9 (31.0-35.0) g/dl RDW 14.8 (11.0-16.0) % Plt Count 172 (160-400) X10*3/uL MPV 10.9 (9.4-12.3) fL Immature Gran % (Auto) 0.3 (0.0-0.4) % Neut % (Auto) 83.9 H (45-73) % Lymph % (Auto) 9.3 L (20-40) % [place] % (Auto) 6.2 (2-11) % Eos % (Auto) 0.1 (0-4) % Baso % (Auto) 0.2 (0-2) % Lymph # (Auto) 1.2 (1.2-4.9) X10*3/uL [place] # (Auto) 0.8 (0.1-1.2) X10*3/uL Eos # (Auto) 0.0 (0.0-0.4) X10*3/uL Baso # (Auto) 0.0 (0.0-0.2) X10*3/uL Abs Immat Gran (auto) 0.04 H (0.00-0.03) X10*3/uL Absolute Neuts (auto) 10.3 H (2.0-8.3) x10*3/uL Absolute Nucleated RBC 0.000 (0.0-0.012) X10*3/uL Nucleated RBC % (auto) 0.0 (0.0-0.2) /100WBC PT (10.0-13.1) SEC INR (0.9-1.1) APTT 32.4 (26.0-36.4) SEC Sodium (135-145) mmol/L Potassium (3.3-5.1) mmol/L Chloride (96-108) mmol/L Carbon Dioxide (22-29) mmol/L Anion Gap (12-20) BUN (9-16) mg/dL Creatinine (0.5-1.4) mg/dL Estim Creat Clear Calc Estimated GFR Random Glucose (60-115) mg/dL Lactic Acid (0.5-2.0) mmol/L Calcium (8.4-10.2) mg/dL Total Bilirubin (0.0-1.0) mg/dL AST (5-31) U/L ALT (0-31) U/L Alkaline Phosphatase (39-117) U/L B-Natriuretic Peptide 235 H (<100) pg/mL Total Protein (6.5-8.0) g/dL Albumin (3.5-5.0) g/dL TSH (0.32-4.0) uIU/mL COVID-19 (TAD) (Negative) COVID-19 Clin Com Influenza Type A (JUHI) (Negative) Influenza Type B (JUHI) (Negative) Influenza A & B Note 10/11/22 10/11/22 10/11/22 Range/Units 18:31 18:31 18:32 WBC (4.8-10.8) X10*3/uL RBC (4.20-5.50) X10*6/uL Hgb (12.0-16.0) g/dl Hct (37.0-47.0) % MCV (80.0-98.0) fL MCH (27.0-33.0) pg MCHC (31.0-35.0) g/dl RDW (11.0-16.0) % Plt Count (160-400) X10*3/uL MPV (9.4-12.3) fL Immature Gran % (Auto) (0.0-0.4) % Neut % (Auto) (45-73) % Lymph % (Auto) (20-40) % [place] % (Auto) (2-11) % Eos % (Auto) (0-4) % Baso % (Auto) (0-2) % Lymph # (Auto) (1.2-4.9) X10*3/uL [place] # (Auto) (0.1-1.2) X10*3/uL Eos # (Auto) (0.0-0.4) X10*3/uL Baso # (Auto) (0.0-0.2) X10*3/uL Abs Immat Gran (auto) (0.00-0.03) X10*3/uL Absolute Neuts (auto) (2.0-8.3) x10*3/uL Absolute Nucleated RBC (0.0-0.012) X10*3/uL Nucleated RBC % (auto) (0.0-0.2) /100WBC PT (10.0-13.1) SEC INR (0.9-1.1) APTT (26.0-36.4) SEC Sodium 135 (135-145) mmol/L Potassium 4.2 (3.3-5.1) mmol/L Chloride 99 (96-108) mmol/L Carbon Dioxide 26 (22-29) mmol/L Anion Gap 14 (12-20) BUN 18 H (9-16) mg/dL Creatinine 1.61 H (0.5-1.4) mg/dL Estim Creat Clear Calc 29.8 Estimated GFR 31 Random Glucose 197 H (60-115) mg/dL Lactic Acid 1.7 (0.5-2.0) mmol/L Calcium 9.5 (8.4-10.2) mg/dL Total Bilirubin 0.6 (0.0-1.0) mg/dL AST 37 H (5-31) U/L ALT 28 (0-31) U/L Alkaline Phosphatase 101 (39-117) U/L B-Natriuretic Peptide (<100) pg/mL Total Protein 6.5 (6.5-8.0) g/dL Albumin 3.6 (3.5-5.0) g/dL TSH 0.84 (0.32-4.0) uIU/mL COVID-19 (TAD) Negative (Negative) COVID-19 Clin Com See Note Influenza Type A (JUHI) (Negative) Influenza Type B (JUHI) (Negative) Influenza A & B Note 10/11/22 10/11/22 Range/Units 18:32 18:32 WBC (4.8-10.8) X10*3/uL RBC (4.20-5.50) X10*6/uL Hgb (12.0-16.0) g/dl Hct (37.0-47.0) % MCV (80.0-98.0) fL MCH (27.0-33.0) pg MCHC (31.0-35.0) g/dl RDW (11.0-16.0) % Plt Count (160-400) X10*3/uL MPV (9.4-12.3) fL Immature Gran % (Auto) (0.0-0.4) % Neut % (Auto) (45-73) % Lymph % (Auto) (20-40) % [place] % (Auto) (2-11) % Eos % (Auto) (0-4) % Baso % (Auto) (0-2) % Lymph # (Auto) (1.2-4.9) X10*3/uL [place] # (Auto) (0.1-1.2) X10*3/uL Eos # (Auto) (0.0-0.4) X10*3/uL Baso # (Auto) (0.0-0.2) X10*3/uL Abs Immat Gran (auto) (0.00-0.03) X10*3/uL Absolute Neuts (auto) (2.0-8.3) x10*3/uL Absolute Nucleated RBC (0.0-0.012) X10*3/uL Nucleated RBC % (auto) (0.0-0.2) /100WBC PT 15.7 H (10.0-13.1) SEC INR 1.4 H (0.9-1.1) APTT (26.0-36.4) SEC Sodium (135-145) mmol/L Potassium (3.3-5.1) mmol/L Chloride (96-108) mmol/L Carbon Dioxide (22-29) mmol/L Anion Gap (12-20) BUN (9-16) mg/dL Creatinine (0.5-1.4) mg/dL Estim Creat Clear Calc Estimated GFR Random Glucose (60-115) mg/dL Lactic Acid (0.5-2.0) mmol/L Calcium (8.4-10.2) mg/dL Total Bilirubin (0.0-1.0) mg/dL AST (5-31) U/L ALT (0-31) U/L Alkaline Phosphatase (39-117) U/L B-Natriuretic Peptide (<100) pg/mL Total Protein (6.5-8.0) g/dL Albumin (3.5-5.0) g/dL TSH (0.32-4.0) uIU/mL COVID-19 (TAD) (Negative) COVID-19 Clin Com Influenza Type A (JUHI) Negative (Negative) Influenza Type B (JUHI) Negative (Negative) Influenza A & B Note See Note Independent Interpretation I performed an independent interpretation of an: EKG (Atrial fibrillation with rapid ventricular response, heart rate 140, rate related ST T wave changes, no acute ST elevations.) and Plain X-Ray (Chest: Cardiomegaly, no obvious discrete infiltrate, vascular crowding) Independent Historian Clinical information obtained from an independent historian. History obtained from or confirmed by: Other (Child) Tests considered The following testing was considered but not selected: CT chest Prescription Management I considered prescription management with: Antibiotic Chronic Conditions Patient?s care impacted by: Diabetes and Other (Atrial fibrillation) Critical Care Time Critical Care Time Critical Care Time: Yes Total Critical Care Time: 40 Attestation: Critical care time in the amount of approximately 40 minutes with frequent bedside assessment, discussion with patient, discussion with hospitalist, care for potentially life-threatening condition notably atrial fibrillation with rapid could response, generalized weakness and shortness of breath. All time was performed outside of any procedures. Discharge Plan Discharge Clinical Impression: Acute dyspnea, Acute febrile illness, Atrial fibrillation with RVR, Generalized weakness Patient Disposition: Admitted As Inpatient Prescriptions: No Action atorvastatin 80 mg tablet 1 tab PO DAILY sennosides-docusate sodium [Senna-S] 8.6-50 mg tablet 2 tab PO BEDTIME metoprolol succinate 100 mg tablet extended release 24 hr 1 tab PO BID paroxetine HCl 20 mg tablet 1 tab PO DAILY gabapentin 300 mg capsule 1 cap PO DAILY albuterol sulfate [Ventolin HFA] 90 mcg/actuation HFA aerosol inhaler 2 puff PO QID PRN (Reason: wheezing) mirtazapine 7.5 mg tablet 1 tab PO BEDTIME Lantus Solostar U-100 Insulin 100 unit/mL (3 mL) insulin pen 28 unit subcut BEDTIME Xarelto 15 mg tablet 1 tab PO QPM Trulicity 1.5 mg/0.5 mL pen injector 0.5 ml subcut QWEEK cefuroxime axetil 250 mg tablet 250 mg PO BID Qty: 8 0RF azithromycin 250 mg tablet 250 mg PO DAILY 2 Days Qty: 2 0RF Rx Instructions: start on day 2 of therapy acetaminophen 500 mg tablet 1,000 mg PO QID PRN (Reason: pain) Qty: 30 0RF benzonatate 100 mg capsule 100 mg PO BID PRN (Reason: cough) Qty: 10 0RF
[2022-10-11] MEDS: 0.9 % Sodium Chloride 1,000 ML 999 ML IV (18:20)
[2022-10-11] MEDS: dilTIAZem HCL 50 MG/10 ML VIAL 10 MG IVPUSH (18:20)
[2022-10-11] MEDS: Acetaminophen 325 MG TABLET 975 MG PO (18:33)
[2022-10-11 18:38] LABS: MANUAL DIFF FLAG NO
[2022-10-11 18:50] LABS: INTERNATIONAL NORM RATIO 1.4 (0.9-1.1); Prothrombin Time 15.7 SEC (10.0-13.1)
[2022-10-11 18:52] LABS: Partial Thromboplastin Time 32.4 SEC (26.0-36.4)
[2022-10-11 18:53] LABS: Lactic Acid 1.7 mmol/L (0.5-2.0)
[2022-10-11 18:58] LABS: Basophils Percent Auto 0.2 % (0-2); Eosinophils Percent Auto 0.1 % (0-4); Hematocrit 40.5 % (37.0-47.0); Hemoglobin 12.9 g/dl (12.0-16.0); Imm Gran Abs Auto 0.04 X10*3/uL (0.00-0.03); Imm Gran Pct Auto 0.3 % (0.0-0.4); Lymphocytes Absolute Auto 1.2 X10*3/uL (1.2-4.9); Lymphocytes Percent Auto 9.3 % (20-40); Mean Corpuscular HGB Conc 31.9 g/dl (31.0-35.0); Mean Corpuscular Hemoglobin 27.9 pg (27.0-33.0); Mean Corpuscular Volume 87.5 fL (80.0-98.0); Mean Platelet Volume 10.9 fL (9.4-12.3); Monocytes Absolute Auto 0.8 X10*3/uL (0.1-1.2); Monocytes Percent Auto 6.2 % (2-11); Neutrophils Absolute Auto 10.3 x10*3/uL (2.0-8.3); Neutrophils Percent Auto 83.9 % (45-73); Platelet Count 172 X10*3/uL (160-400); Red Blood Count 4.63 X10*6/uL (4.20-5.50); Red Cell Distribution Width 14.8 % (11.0-16.0); White Blood Count 12.3 X10*3/uL (4.8-10.8)
[2022-10-11 19:03] LABS: COVID-19 Test Negative (Negative); IDNOW Serial# 08D9AD1C; IDNOW Serial# BCCEAD1C
[2022-10-11 19:04] LABS: Influenza A Negative (Negative); Influenza B2 Negative (Negative)
[2022-10-11 19:04] LABS: B Type Natriuretic Peptide 235 pg/mL (<100)
[2022-10-11 19:05] LABS: Alanine Aminotransferase 28 U/L (0-31); Albumin Level 3.6 g/dL (3.5-5.0); Alkaline Phosphatase 101 U/L (39-117); Anion Gap 14 (12-20); Aspartate Amino Transferase 37 U/L (5-31); Bilirubin Total 0.6 mg/dL (0.0-1.0); Blood Urea Nitrogen 18 mg/dL (9-16); Calcium 9.5 mg/dL (8.4-10.2); Carbon Dioxide 26 mmol/L (22-29); Chloride 99 mmol/L (96-108); Creatinine Clr Calc Pharmacy 29.8; Estimated Glomerular Filt Rate 31; Glucose Random 197 mg/dL (60-115); Potassium 4.2 mmol/L (3.3-5.1); Sodium 135 mmol/L (135-145); Total Protein 6.5 g/dL (6.5-8.0)
[2022-10-11] MEDS: 0.9 % Sodium Chloride 2,585.49 ML 2585.49 ML IV (19:09)
[2022-10-11 19:20] LABS: TSH reflex Free T4 0.84 uIU/mL (0.32-4.0)
--- NOTE | 2022-10-11 19:22 | PC.NURSE ---
Report received from SHUKRI Anthony pt resting comfortably on stretcher at this time, respirations even and unlabored, skin pwd, alert and oriented x4. additional fluids started on patient per MAR
[2022-10-11] MEDS: cefTRIAXone sodium 1 GM in 0.9 % Sodium Chloride 50 ML IV (19:54)
[2022-10-11] MEDS: Azithromycin 500 MG in 0.9 % Sodium Chloride 250 ML 125 MG IV (20:35)
--- NOTE | 2022-10-11 20:35 | PM.IMHP ---
History of Present Illness Date of Service: 10/11/22 Attending physician on admission: Naomi Hurst Chief Complaint: sob, cough, weakness 76-year-old female with history of mild intermittent asthma, paroxysmal atrial fibrillation anticoagulated with Xarelto, hypertension, history of CVA, insulin-dependent type 2 diabetes, HFpEF, and obesity presents to the ED earlier today with her sons for evaluation of a shortness of breath, productive cough, weakness. She has felt so weak she has had difficulty walking. Reports shortness of breath at rest as well as with exertion. There is also been palpitations. Denies any orthopnea or PND. She does report increased albuterol usage. Denies any sick contacts. Denies fevers, chills, sore throat, nasal congestion, abdominal pain, nausea, vomiting, leg edema, headaches, lightheadedness, chest pain. They were initially evaluated in the ED earlier today with negative workup and discharged home. However, reportedly, symptoms worsened prompting them to return for re-evaluation. On arrival, patient tachycardic to 113 but did develop significant tachycardia and EKG revealed AFib with RVR, rate 140. She was given 10 mg IV push Cardizem with improvement in heart rate to 110. She has been febrile to 103.1 and tachypneic to 31. Blood pressures have been soft around 100/55, but no hypotension. There is a leukocytosis of 12.3. Creatinine 1.61, baseline 1.25. BUN 18. Electrolytes normal. Glucose 197. Lactic acid 1.7. BNP 235. Negative for COVID-19, influenza. CXR and chest CT pending. In the ED, patient administered sepsis fluids of 3.6 L and given ceftriaxone and azithromycin IV. Review of Systems Review of Systems: General: No fevers, malaise, unintentional weight loss. +generalized weakness HEENT: No blurred vision, diplopia. No sore throat, nasal congestion, rhinorrhea, sinus pain, ear pain Cardiovascular: No chest pain, palpitations, or leg edema Respiratory: +sob, +cough. No PND, orthopnea, wheezing GI: No abdominal pain, nausea, vomiting, diarrhea, constipation, melena, hematochezia : No dysuria, hematuria, increased urinary frequency, decreased urinary output MSK: No myalgia, back pain Neuro: No headaches, weakness, paresthesias Skin: No rashes or lesions [facility] Medical History Asthma Asthma with acute exacerbation Atrial fibrillation CHF (congestive heart failure) Diabetes History of CVA (cerebrovascular accident) Hypertension Family History Father Hypertension Mother Diabetes Hypertension Social History Household Members: None Housing: Apartment Do you presently have visiting nurse or other home services: Yes Alcohol intake: never Patient Tobacco Use Status: Former Tobacco user Quit Date: Quit 40 years ago Advance Directives: No Advance Directives Information Provided: Yes service: No Current occupational status: [employer] Allergies Allergy/AdvReac Type Severity Reaction Status Date / Time No Known Allergies Allergy Unverified 03/02/20 16:47 Active Medications: Current Medications Azithromycin 500 mg/ Sodium (Chloride) 250 mls @ 125 mls/hr IV ONCE ONE Stop: 10/11/22 21:36 Pharmacy Consult (Consult Rx Perform Med Rec) 1 each MISCELLANE ONCE PRN PRN Reason: Consult order Home Medications Medication Instructions Recorded Confirmed Last Taken Type albuterol sulfate 90 mcg/actuation 2 puff PO QID PRN wheezing 02/23/21 10/11/22 Unknown History aerosol inhaler (Ventolin HFA) atorvastatin 80 mg tablet 1 tab PO DAILY 02/23/21 10/11/22 02/23/21 History dulaglutide 1.5 mg/0.5 mL 0.5 ml subcut QWEEK 02/23/21 10/11/22 Unknown History subcutaneous pen injector (Trulicity) gabapentin 300 mg capsule 1 cap PO DAILY 02/23/21 10/11/22 02/23/21 History insulin glargine 100 unit/mL (3 35 unit subcut BEDTIME 02/23/21 10/11/22 02/22/21 History mL) subcutaneous pen (Lantus Solostar U-100 Insulin) metoprolol succinate 100 mg 1 tab PO BID 02/23/21 10/11/22 02/23/21 History tablet,extended release 24 hr mirtazapine 7.5 mg tablet 7.5 tab PO BEDTIME 02/23/21 10/11/22 02/22/21 History paroxetine HCl 20 mg tablet 20 mg PO DAILY 02/23/21 10/11/22 02/23/21 History rivaroxaban 15 mg tablet (Xarelto) 15 tab PO DAILY@1700 02/23/21 10/11/22 02/22/21 History sennosides 8.6 mg-docusate sodium 2 tab PO BEDTIME 02/23/21 10/11/22 02/22/21 History 50 mg tablet (Senna-S) furosemide 40 mg tablet 40 mg PO DAILY 10/11/22 10/11/22 Unknown History losartan 25 mg tablet 25 mg PO DAILY 10/11/22 10/11/22 Unknown History Physical Exam Vital Signs and Narrative: Vital Signs: Last Vital Signs Temp 99.5 F 10/11/22 19:57 Pulse 96 10/11/22 19:57 Resp 31 H 10/11/22 19:57 BP 97/52 L 10/11/22 19:57 Pulse Ox 94 10/11/22 19:57 O2 Del Method Room Air 10/11/22 19:57 BMI result Body Mass Index 37.0 Constitutional - Awake and Alert, No apparent distress Eyes - PERRLA, EOMI Cardiovascular - S1S2, RRR, No edema Respiratory - Normal lung expansion, Normal respiratory effort, No respiratory distress, Bilateral rhonchi lower lobes R>L, left sided crackles. No wheezing Gastrointestinal - NT / ND; +BS; No rebound or guarding Extremities - no calf tenderness bilaterally, no swelling Skin - Warm/Dry Neurological - Alert & oriented x3, CN II-XII in tact, 5/5 strength BUE and BLE Psychological - Appropriate affect Results Labs 10/11/22 18:31 10/11/22 18:31 Labs: Laboratory Results - last 24 hr 10/11/22 10/11/22 10/11/22 18:31 18:31 18:31 MCV 87.5 MCH 27.9 MCHC 31.9 RDW 14.8 Plt Count 172 MPV 10.9 Immature Gran % (Auto) 0.3 Neut % (Auto) 83.9 H Lymph % (Auto) 9.3 L [place] % (Auto) 6.2 Eos % (Auto) 0.1 Baso % (Auto) 0.2 Lymph # (Auto) 1.2 [place] # (Auto) 0.8 Eos # (Auto) 0.0 Baso # (Auto) 0.0 Abs Immat Gran (auto) 0.04 H Absolute Neuts (auto) 10.3 H Absolute Nucleated RBC 0.000 Nucleated RBC % (auto) 0.0 PT INR APTT 32.4 Anion Gap Estim Creat Clear Calc Estimated GFR Random Glucose Lactic Acid Calcium Total Bilirubin AST ALT Alkaline Phosphatase B-Natriuretic Peptide 235 H Total Protein Albumin TSH COVID-19 (TAD) COVID-19 Clin Com Influenza Type A (JUHI) Influenza Type B (JUHI) Influenza A & B Note 10/11/22 10/11/22 10/11/22 18:31 18:31 18:32 MCV MCH MCHC RDW Plt Count MPV Immature Gran % (Auto) Neut % (Auto) Lymph % (Auto) [place] % (Auto) Eos % (Auto) Baso % (Auto) Lymph # (Auto) [place] # (Auto) Eos # (Auto) Baso # (Auto) Abs Immat Gran (auto) Absolute Neuts (auto) Absolute Nucleated RBC Nucleated RBC % (auto) PT INR APTT Anion Gap 14 Estim Creat Clear Calc 29.8 Estimated GFR 31 Random Glucose 197 H Lactic Acid 1.7 Calcium 9.5 Total Bilirubin 0.6 AST 37 H ALT 28 Alkaline Phosphatase 101 B-Natriuretic Peptide Total Protein 6.5 Albumin 3.6 TSH 0.84 COVID-19 (TAD) Negative COVID-19 Clin Com See Note Influenza Type A (JUHI) Influenza Type B (JUHI) Influenza A & B Note 10/11/22 10/11/22 18:32 18:32 MCV MCH MCHC RDW Plt Count MPV Immature Gran % (Auto) Neut % (Auto) Lymph % (Auto) [place] % (Auto) Eos % (Auto) Baso % (Auto) Lymph # (Auto) [place] # (Auto) Eos # (Auto) Baso # (Auto) Abs Immat Gran (auto) Absolute Neuts (auto) Absolute Nucleated RBC Nucleated RBC % (auto) PT 15.7 H INR 1.4 H APTT Anion Gap Estim Creat Clear Calc Estimated GFR Random Glucose Lactic Acid Calcium Total Bilirubin AST ALT Alkaline Phosphatase B-Natriuretic Peptide Total Protein Albumin TSH COVID-19 (TAD) COVID-19 Clin Com Influenza Type A (JUHI) Negative Influenza Type B (JUHI) Negative Influenza A & B Note See Note Assessment and Plan (1) Atrial fibrillation with RVR: Status: Acute (2) Severe sepsis: Status: Acute Plan 76-year-old female with history of mild intermittent asthma, paroxysmal atrial fibrillation anticoagulated with Xarelto, hypertension, history of CVA, insulin-dependent type 2 diabetes, HFpEF, and obesity admitted for severe sepsis, pneumonia, and afib with rvr. #severe sepsis- related to probable pneumonia -CXR showing bronchial thickening from atypical infection/viral infection. Chest CT showing possible retrocardiac consolidation, final report pending -Negative for COVID 19 and flu. Full viral respiratory panel pending -leukocytosis 12.3, tachycardic, tachypneic, febrile to 103, with IJEOMA. Lactic acid normal -Empiric coverage with IV ceftriaxone and azithromycin (initiated 10/11) -Symptomatic management -Strep pneumo and legionella ag pending. Sputum culture -Follow CBC, cultures #Acute kidney injury- related to severe sepsis -Creat 1.6, baseline 1.25 -Received 3600ml IVF in ED -Follow BMP #Atrial fibrillation with RVR - rate now controlled following 10mg IVPush cardizem -Continue xarelto -Hold metoprolol ER at this time due to above -Echo -cardiac diet -appreciate cardiology input -MOnitor on telemetry # mild intermittent asthma-no acute exacerbation -albuterol p.r.n. #HFpEF -euvolemic appearing, bnp baseline. -no acute exacerbation -continue p.o. diuretics #HTN -bp soft -hold antihypertensives in setting of sepsis #Insulin dependent type 2 diabetes- with hyperglycemia -dose adjusted basal insulin -Humalog on sliding scale -diabetic diet -POC glucose # history CVA -continue statin, Xarelto DVT prophylaxis-on Xarelto Full code patient requires inpatient stay of at least 2 midnights for management of severe sepsis with suspected pneumonia and AFib with RVR requiring close cardiac monitoring, IV antibiotics, an expert consultation Time Spent With Patient Time: Total time managing care of this patient today ____ minutes. Quality Stroke Does the patient have a stroke diagnosis?: No VTE Prior VTE?: No VTE Risk Level:: Medical - moderate - high VTE Device Contraindication: Treatment Not Indicated VTE Drug Contraindication: N/A - Med Ordered
--- NOTE | 2022-10-11 20:49 | PC.NURSE ---
second abx started on pt, pts O2 was dropping low to the high 80s so this RN placed patient on 2L NC which helped bring O2 up to 95%
--- NOTE | 2022-10-11 20:53 | PC.NURSE ---
late entry: this RN chino texted SPENSER Pinto about pts low blood pressure, no new orders at this time
--- NOTE | 2022-10-11 21:18 | PHA.MEDREC ---
Addendum entered by Zeina Ruiz [facility] 10/11/22 21:25: contact son who knows her meds if any further questions Original Note: Pharmacy Consult ? Medication Reconciliation Pharmacy has completed the medication reconciliation.
--- NOTE | 2022-10-11 21:27 | PC.NURSE ---
MD Hurst at bedside due to patient's blood pressure is dropping, per MD Hurst pts blood pressure okay as long as we keep it above 90 systolic. Pts blood pressure beginning to drop again tiger texted Aris and Millie
[2022-10-11] MEDS: Albumin Human 25 % 100 ML 133.33 ML IV ×2 (21:55→22:43)
[2022-10-11] MEDS: Mirtazapine 7.5 MG TABLET PO (21:55)
[2022-10-11] MEDS: Insulin Glargine,Hum.rec.anlog 100 UNIT/ML 10 ML VIAL 26 UNIT SUBCUT (21:56)
[2022-10-11 21:58] LABS: Glucose, Whole Blood 136 mg/dL (60-115)
--- NOTE | 2022-10-11 22:54 | MHC.CM.ED ---
CM met with admitted patient with bed assignment pending. crook operator used as patient is Burundian speaking. Pt lives alone. Son/Elan helps daily. Pt has [employer] from [employer] M-F 4 hours/day. States sometimes [employer] STR[employer] comes on Friday. Pt uses a walker. Pfizer x4. PCP Dr. Zayda Londono. HCP reviewed, completed and signed. Copies given. [place] into [facility] and [facility] [place] [facility]. HCP#1/son David Melloasif ( no phone number at present) and HCP #2/son Elan Plaza ([phone]). D/C plan pending hospital course and MDR's/ Home with [facility] vs STR. No referrals made. SonElan will transport home. CM following for D/C planning.
--- NOTE | 2022-10-11 23:33 | PC.NURSE ---
RN to RN report given to Tiffanie Pt will be transported to room 472, Pt aware of plan.
[2022-10-12] VITALS (7 sets, daily range): BP systolic 114–149; BP diastolic 58–70; PULSE 81–103; RESP 16–20; TEMP 36.1–37.1; O2SAT 93–100
[2022-10-12 05:03] LABS: Appearance Urine Clear; Color Urine Yellow; Glucose Urine UA Negative (Negative); Leukocyte Esterase Urine Negative (Negative); Nitrite Urine Negative (Negative); PH 5.5 (5.0-9.0); Specific Gravity - Urine 1.015 (1.005-1.025); Urine Blood Negative (Negative); Urine Ketones Negative (Negative); Urine Protein Trace mg/dL (Neg-Trace)
[2022-10-12 06:59] LABS: MANUAL DIFF FLAG NO
[2022-10-12 07:07] LABS: Basophils Percent Auto 0.3 % (0-2); Hematocrit 35.1 % (37.0-47.0); Hemoglobin 11.3 g/dl (12.0-16.0); Imm Gran Abs Auto 0.03 X10*3/uL (0.00-0.03); Imm Gran Pct Auto 0.4 % (0.0-0.4); Lymphocytes Absolute Auto 1.2 X10*3/uL (1.2-4.9); Lymphocytes Percent Auto 16.9 % (20-40); Mean Corpuscular HGB Conc 32.2 g/dl (31.0-35.0); Mean Corpuscular Hemoglobin 28.8 pg (27.0-33.0); Mean Corpuscular Volume 89.3 fL (80.0-98.0); Mean Platelet Volume 11.1 fL (9.4-12.3); Monocytes Absolute Auto 0.4 X10*3/uL (0.1-1.2); Neutrophils Absolute Auto 5.6 x10*3/uL (2.0-8.3); Neutrophils Percent Auto 76.4 % (45-73); Platelet Count 149 X10*3/uL (160-400); Red Blood Count 3.93 X10*6/uL (4.20-5.50); Red Cell Distribution Width 15.3 % (11.0-16.0); White Blood Count 7.3 X10*3/uL (4.8-10.8)
[2022-10-12 07:36] LABS: Alanine Aminotransferase 59 U/L (0-31); Albumin Level 3.8 g/dL (3.5-5.0); Alkaline Phosphatase 94 U/L (39-117); Anion Gap 11 (12-20); Aspartate Amino Transferase 84 U/L (5-31); Bilirubin Total 0.6 mg/dL (0.0-1.0); Blood Urea Nitrogen 17 mg/dL (9-16); Calcium 9.1 mg/dL (8.4-10.2); Carbon Dioxide 25 mmol/L (22-29); Chloride 107 mmol/L (96-108); Creatinine Clr Calc Pharmacy 33.8; Estimated Glomerular Filt Rate 36; Glucose Random 135 mg/dL (60-115); Potassium 3.8 mmol/L (3.3-5.1); Sodium 139 mmol/L (135-145)
--- NOTE | 2022-10-12 07:42 | PC.NURSE ---
This nurse assumed care from ED at approximately 2330. Patient arrived via stretcher with O2 @2LNC satting 94% Patient alert serbian speaking only with no nuclear station operator on site. Unanle to communicate effectively with patient to obtain admission assess,ment. Patient is afib on tele in the 100's and up to the 120's with coughing no sputum notied, respiratory rate 20's, inspiratory and expiratory wheezing, Abdomen round, BS active, unknown bm, purewick in place, incontinent previously, skin c/d/i. Patient specimens collected previously ordered. Patient ambulated from stretcher to bed with 2 assist, very weak. Report given to oncoming RN.
[2022-10-12 07:50] LABS: Glucose, Whole Blood 129 mg/dL (60-115)
[2022-10-12] MEDS: Atorvastatin Calcium 80 MG TABLET PO (08:07)
[2022-10-12] MEDS: Gabapentin 300 MG CAPSULE PO (08:07)
[2022-10-12] MEDS: PARoxetine HCL 20 MG TABLET PO (08:07)
[2022-10-12] MEDS: Furosemide 40 MG TABLET PO (08:07)
[2022-10-12] MEDS: 0.9 % Sodium Chloride Flush 3 ML SYRINGE IVFLUSH ×3 (08:08→23:22)
--- NOTE | 2022-10-12 08:08 | P.CONCA_ITS ---
History of Present Illness History of Present Illness Date of Service: 10/12/22 Requesting physician: Abrahan Lucio Chief complaint: afib rvr, pneumonia, sepsis Narrative: 76-year-old female presenting with pneumonia and AFib with RVR. She has known history of atrial fibrillation and was on Xarelto in the past. 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 At home she was taking metoprolol succinate. She has been getting shortness of breath and coughing and presented with respiratory issues and was diagnosed with pneumonia. At the same time she was also noticed to be in AFib with RVR. She has been complaining of palpitations. On telemetry heart rate is anywhere from 90 to 100s. Blood pressures have been soft and current blood pressure is 116/58. [facility] Past Medical History Medical History Asthma Asthma with acute exacerbation Atrial fibrillation CHF (congestive heart failure) Diabetes History of CVA (cerebrovascular accident) Hypertension Family History Family History Father Hypertension Mother Diabetes Hypertension Social History Social History Household Members: None Housing: Apartment Do you presently have visiting nurse or other home services: Yes Alcohol intake: never Patient Tobacco Use Status: Former Tobacco user Quit Date: Quit 40 years ago Currently Displaying Signs/Symptoms of Drug Intoxication Withdrawal: No Advance Directives: No Advance Directives Information Provided: Yes Nutrition Risks: No Nutritional Risk service: No Current occupational status: disabled Meds Allergies Allergy/AdvReac Type Severity Reaction Status Date / Time No Known Allergies Allergy Unverified 03/02/20 16:47 Active Medications: Current Medications Acetaminophen (Acetaminophen Supp 650 Mg Supp.Rect) 650 mg OK Q6H PRN PRN Reason: Pain, Mild (Pain Scale 1-3) Albuterol Sulfate (Albuterol Sulfate (0.083%) 2.5 Mg/3 Ml Vial.Neb) 2.5 mg INHALE Q4H PRN PRN Reason: Shortness of Breath/Wheezing Atorvastatin Calcium (Atorvastatin Calcium 80 Mg Tablet) 80 mg PO DAILY JACK Last Admin: 10/12/22 08:07 Dose: 80 mg Benzonatate (Benzonatate 100 Mg Capsule) 100 mg PO BID PRN PRN Reason: cough Docusate Sodium (Docusate Sodium 100 Mg Capsule) 100 mg PO DAILY PRN PRN Reason: Constipation Furosemide (Furosemide 40 Mg Tablet) 40 mg PO DAILY [facility]; Protocol Last Admin: 10/12/22 08:07 Dose: 40 mg Gabapentin (Gabapentin 300 Mg Capsule) 300 mg PO DAILY [facility] Last Admin: 10/12/22 08:07 Dose: 300 mg Glucose (Glucose Gel 15 Gm Gel..Gram.) 15 gm PO Q15M PRN; Protocol PRN Reason: per Hypoglycemia Standing Ord. Guaifenesin (Guaifenesin 200 Mg/10 Ml 10 Ml Liquid) 10 ml PO Q4H PRN PRN Reason: Cough Azithromycin 500 mg/ Sodium (Chloride) 250 mls @ 125 mls/hr IV Q24H [facility] Stop: 10/13/22 21:59 Ceftriaxone Sodium 1 gm/ (Sodium Chloride) 50 mls @ 100 mls/hr IV Q24H [facility] Stop: 10/15/22 19:29 Dextrose (D10) 250 mls @ 750 mls/hr IV Q15M PRN; Protocol PRN Reason: per Hypoglycemia Standing Ord. Insulin Glargine (Insulin Glargine,Hum.Rec.Anlog 100 Unit/Ml 10 Ml Vial) 26 unit SUBCUT BEDTIME [facility] Last Admin: 10/11/22 21:56 Dose: 26 unit Insulin Human Lispro (Insulin Lispro 100 Unit/Ml 3 Ml Vial) 0 unit SUBCUT QIDACHS [facility]; Protocol Last Admin: 10/12/22 07:53 Dose: Not Given Mirtazapine (Mirtazapine 7.5 Mg Tablet) 7.5 mg PO BEDTIME [facility] Last Admin: 10/11/22 21:55 Dose: 7.5 mg Ondansetron HCl (Ondansetron Hcl 4 Mg/2 Ml Vial) 4 mg IVPUSH Q8H PRN PRN Reason: Nausea and Vomiting Paroxetine HCl (Paroxetine Hcl 20 Mg Tablet) 20 mg PO DAILY [facility] Last Admin: 10/12/22 08:07 Dose: 20 mg Pharmacy Consult (Consult Rx Perform Med Rec) 1 each MISCELLANE ONCE PRN PRN Reason: Consult order Rivaroxaban (Rivaroxaban 15 Mg Tablet) 15 mg PO DAILY@1800 [facility] Senna/Docusate Sodium (Sennosides/Docusate Sodium Tablet) 2 tab PO BEDTIME [facility] Last Admin: 10/11/22 21:56 Dose: Not Given Sodium Chloride (0.9 % Sodium Chloride Flush 3 Ml Syringe) 3 ml IVFLUSH QSHIFT [facility] Last Admin: 10/12/22 08:08 Dose: 3 ml Home Medications Medication Instructions Recorded Confirmed Last Taken Type albuterol sulfate 90 mcg/actuation 2 puff PO QID PRN wheezing 02/23/21 10/11/22 Unknown History aerosol inhaler (Ventolin HFA) atorvastatin 80 mg tablet 1 tab PO DAILY 02/23/21 10/11/22 02/23/21 History dulaglutide 1.5 mg/0.5 mL 0.5 ml subcut QWEEK 02/23/21 10/11/22 Unknown History subcutaneous pen injector (Trulicity) gabapentin 300 mg capsule 1 cap PO DAILY 02/23/21 10/11/22 02/23/21 History insulin glargine 100 unit/mL (3 35 unit subcut BEDTIME 02/23/21 10/11/22 History mL) subcutaneous pen (Lantus Solostar U-100 Insulin) metoprolol succinate 100 mg 1 tab PO BID 02/23/21 10/11/22 02/23/21 History tablet,extended release 24 hr mirtazapine 7.5 mg tablet 7.5 mg PO BEDTIME 02/23/21 10/11/22 02/22/21 History paroxetine HCl 20 mg tablet 20 mg PO DAILY 02/23/21 10/11/22 02/23/21 History rivaroxaban 15 mg tablet (Xarelto) 15 mg PO DAILY@1700 02/23/21 10/11/22 02/22/21 History sennosides 8.6 mg-docusate sodium 2 tab PO BEDTIME 02/23/21 10/11/22 02/22/21 History 50 mg tablet (Senna-S) furosemide 40 mg tablet 40 mg PO DAILY 10/11/22 10/11/22 Unknown History losartan 25 mg tablet 25 mg PO DAILY 10/11/22 10/11/22 Unknown History Physical Exam Vital Signs: Vital Signs: Last Vital Signs Temp 98.7 F 10/12/22 07:25 Pulse 103 H 04/29/23 07:25 Resp 16 10/12/22 07:25 BP 116/58 L 10/12/22 07:25 Pulse Ox 96 10/12/22 07:25 O2 Del Method Nasal Cannula 10/12/22 07:25 O2 Flow Rate 2 10/12/22 07:25 BMI result Body Mass Index 37.0 GENERAL APPEARANCE: in no acute distress, pleasant. NECK: no carotid bruit, no jugular venous distention. SKIN: no suspicious lesions, warm and dry. HEART: no murmurs, irregular rate and rhythm. Tachycardic. LUNGS: Bilateral wheezes and rhonchi. Crackles at bases. ABDOMEN: soft, nontender. EXTREMITIES: no edema. PERIPHERAL PULSES: equal. NEUROLOGIC: No gross deficits, AAO X 3 Objective Labs and Meds 10/12/22 06:44 10/12/22 06:44 Lab results: Laboratory Results - last 24 hr 10/11/22 10/11/22 10/11/22 18:31 18:31 18:31 WBC 12.3 H RBC 4.63 Hgb 12.9 Hct 40.5 MCV 87.5 MCH 27.9 MCHC 31.9 RDW 14.8 Plt Count 172 MPV 10.9 Immature Gran % (Auto) 0.3 Neut % (Auto) 83.9 H Lymph % (Auto) 9.3 L [place] % (Auto) 6.2 Eos % (Auto) 0.1 Baso % (Auto) 0.2 Lymph # (Auto) 1.2 [place] # (Auto) 0.8 Eos # (Auto) 0.0 Baso # (Auto) 0.0 Abs Immat Gran (auto) 0.04 H Absolute Neuts (auto) 10.3 H Absolute Nucleated RBC 0.000 Nucleated RBC % (auto) 0.0 PT INR APTT 32.4 Sodium Potassium Chloride Carbon Dioxide Anion Gap BUN Creatinine Estim Creat Clear Calc Estimated GFR POC Glucose Random Glucose Lactic Acid Calcium Total Bilirubin AST ALT Alkaline Phosphatase B-Natriuretic Peptide 235 H Total Protein Albumin TSH Urine Color Urine Appearance Urine pH Ur Specific Brule Urine Protein Urine Glucose (UA) Urine Ketones Urine Blood Urine Nitrite Ur Leukocyte Esterase COVID-19 (TAD) COVID-19 Clin Com Influenza Type A (JUHI) Influenza Type B (JUHI) Influenza A & B Note 10/11/22 10/11/22 10/11/22 18:31 18:31 18:32 WBC RBC Hgb Hct MCV MCH MCHC RDW Plt Count MPV Immature Gran % (Auto) Neut % (Auto) Lymph % (Auto) [place] % (Auto) Eos % (Auto) Baso % (Auto) Lymph # (Auto) [place] # (Auto) Eos # (Auto) Baso # (Auto) Abs Immat Gran (auto) Absolute Neuts (auto) Absolute Nucleated RBC Nucleated RBC % (auto) PT INR APTT Sodium 135 Potassium 4.2 Chloride 99 Carbon Dioxide 26 Anion Gap 14 BUN 18 H Creatinine 1.61 H Estim Creat Clear Calc 29.8 Estimated GFR 31 POC Glucose Random Glucose 197 H Lactic Acid 1.7 Calcium 9.5 Total Bilirubin 0.6 AST 37 H ALT 28 Alkaline Phosphatase 101 B-Natriuretic Peptide Total Protein 6.5 Albumin 3.6 TSH 0.84 Urine Color Urine Appearance Urine pH Ur Specific Brule Urine Protein Urine Glucose (UA) Urine Ketones Urine Blood Urine Nitrite Ur Leukocyte Esterase COVID-19 (TAD) Negative COVID-19 Clin Com See Note Influenza Type A (JUHI) Influenza Type B (JUHI) Influenza A & B Note 10/11/22 10/11/22 10/11/22 18:32 18:32 21:54 WBC RBC Hgb Hct MCV MCH MCHC RDW Plt Count MPV Immature Gran % (Auto) Neut % (Auto) Lymph % (Auto) [place] % (Auto) Eos % (Auto) Baso % (Auto) Lymph # (Auto) [place] # (Auto) Eos # (Auto) Baso # (Auto) Abs Immat Gran (auto) Absolute Neuts (auto) Absolute Nucleated RBC Nucleated RBC % (auto) PT 15.7 H INR 1.4 H APTT Sodium Potassium Chloride Carbon Dioxide Anion Gap BUN Creatinine Estim Creat Clear Calc Estimated GFR POC Glucose 136 H Random Glucose Lactic Acid Calcium Total Bilirubin AST ALT Alkaline Phosphatase B-Natriuretic Peptide Total Protein Albumin TSH Urine Color Urine Appearance Urine pH Ur Specific Brule Urine Protein Urine Glucose (UA) Urine Ketones Urine Blood Urine Nitrite Ur Leukocyte Esterase COVID-19 (TAD) COVID-19 Clin Com Influenza Type A (JUHI) Negative Influenza Type B (JUHI) Negative Influenza A & B Note See Note 10/12/22 10/12/22 10/12/22 04:21 06:44 06:44 WBC 7.3 RBC 3.93 L Hgb 11.3 L Hct 35.1 L MCV 89.3 MCH 28.8 MCHC 32.2 RDW 15.3 Plt Count 149 L MPV 11.1 Immature Gran % (Auto) 0.4 Neut % (Auto) 76.4 H Lymph % (Auto) 16.9 L [place] % (Auto) 6.0 Eos % (Auto) 0.0 Baso % (Auto) 0.3 Lymph # (Auto) 1.2 [place] # (Auto) 0.4 Eos # (Auto) 0.0 Baso # (Auto) 0.0 Abs Immat Gran (auto) 0.03 Absolute Neuts (auto) 5.6 Absolute Nucleated RBC 0.000 Nucleated RBC % (auto) 0.0 PT INR APTT Sodium 139 Potassium 3.8 Chloride 107 Carbon Dioxide 25 Anion Gap 11 L BUN 17 H Creatinine 1.42 H Estim Creat Clear Calc 33.8 Estimated GFR 36 POC Glucose Random Glucose 135 H Lactic Acid Calcium 9.1 Total Bilirubin 0.6 AST 84 H ALT 59 H Alkaline Phosphatase 94 B-Natriuretic Peptide Total Protein 6.0 L Albumin 3.8 TSH Urine Color Yellow Urine Appearance Clear Urine pH 5.5 Ur Specific Brule 1.015 Urine Protein Trace Urine Glucose (UA) Negative Urine Ketones Negative Urine Blood Negative Urine Nitrite Negative Ur Leukocyte Esterase Negative COVID-19 (TAD) COVID-19 Clin Com Influenza Type A (JUHI) Influenza Type B (JUHI) Influenza A & B Note 10/12/22 07:24 WBC RBC Hgb Hct MCV MCH MCHC RDW Plt Count MPV Immature Gran % (Auto) Neut % (Auto) Lymph % (Auto) [place] % (Auto) Eos % (Auto) Baso % (Auto) Lymph # (Auto) [place] # (Auto) Eos # (Auto) Baso # (Auto) Abs Immat Gran (auto) Absolute Neuts (auto) Absolute Nucleated RBC Nucleated RBC % (auto) PT INR APTT Sodium Potassium Chloride Carbon Dioxide Anion Gap BUN Creatinine Estim Creat Clear Calc Estimated GFR POC Glucose 129 H Random Glucose Lactic Acid Calcium Total Bilirubin AST ALT Alkaline Phosphatase B-Natriuretic Peptide Total Protein Albumin TSH Urine Color Urine Appearance Urine pH Ur Specific Brule Urine Protein Urine Glucose (UA) Urine Ketones Urine Blood Urine Nitrite Ur Leukocyte Esterase COVID-19 (TAD) COVID-19 Clin Com Influenza Type A (JUHI) Influenza Type B (JUHI) Influenza A & B Note Imaging Radiologist's impression: Impressions Chest X-Ray 10/11/22 18:17 IMPRESSION: No dense consolidation. Bronchial wall thickening can be seen with a small airways process such as asthma or atypical/viral infection. Chest CT 10/11/22 20:23 IMPRESSION: Patchy groundglass nodular opacities of the right lower lobe could be infectious or inflammatory. No dense consolidation. Fleischner guidelines were followed. Assessment and Plan (1) Atrial fibrillation with RVR: Status: Acute Plan [age] year female presenting with AFib with RVR in setting of pneumonia. She is on antibiotics at this point. Heart rates are anywhere 90-110 beats per minute. Her blood pressure is soft and currently she is not getting any AV praneeth blockers. I think we can consider digoxin loading for now. Give her 250 mcg of digoxin x2. As I infection improves and her blood pressure is better she can be started on home dose of Toprol. Continue Xarelto as before. Please was for interactions with antibiotics. Thank you for allowing me to participate in the care of your patient. Please f eel free to contact me if you have any questions. Time Spent With Patient Time: Total time managing care of this patient today ____ minutes. Procedures Date of Service Date of Service: 10/12/22
[2022-10-12 10:27] LABS: Adenovirus PCR Not Detected (Not Detect.); Bordetella parapertussis PCR Not Detected (Not Detect.); Bordetella pertussis PCR Not Detected (Not Detect.); Chlamydia pneumoniae PCR Not Detected (Not Detect.); Coronavirus 229E PCR Not Detected (Not Detect.); Coronavirus HKU1 PCR Not Detected (Not Detect.); Coronavirus NL63 PCR Not Detected (Not Detect.); Coronavirus OC43 PCR Not Detected (Not Detect.); Human metapneumovirus PCR Detected (Not Detect.); Influenza A PCR Not Detected (Not Detect.); Influenza B PCR Not Detected (Not Detect.); Mycoplasma pneumoniae PCR Not Detected (Not Detect.); Parainfluenza 1 PCR Not Detected (Not Detect.); Parainfluenza 2 PCR Not Detected (Not Detect.); Parainfluenza 3 PCR Not Detected (Not Detect.); Parainfluenza 4 PCR Not Detected (Not Detect.); RSV PCR Not Detected (Not Detect.); Rhino/Enterovirus PCR Not Detected (Not Detect.); SARS-CoV-2 PCR Not Detected (Not Detect.)
[2022-10-12 11:17] LABS: Glucose, Whole Blood 164 mg/dL (60-115)
[2022-10-12] MEDS: Insulin Lispro 100 UNIT/ML 3 ML VIAL SUBCUT (11:55)
--- NOTE | 2022-10-12 11:56 | HO.PM.IMPN ---
Subjective Subjective Date of Service: 10/12/22 Interval History: f/u on PNA, sepsis, afib with RVR Sheis feeling much better today, RVR resolved. Physical Exam Vital Signs: Vital Signs: Last Vital Signs Temp 97.0 F 10/12/22 11:34 Pulse 94 10/12/22 11:34 Resp 16 10/12/22 11:34 BP 114/61 10/12/22 11:34 Pulse Ox 95 10/12/22 11:34 O2 Del Method Nasal Cannula 10/12/22 11:34 O2 Flow Rate 2 10/12/22 11:34 BMI result Body Mass Index 37.0 Const: Other: General: AO X 3, no acute distress Resp: CTA bilateral CVS: S1,S2, iregular iregular GI: +BS, NT, no distention Skin: No rash Neuro: motor grossly intact Psych: appropriate affect Objective Data Active Medications Acetaminophen (Acetaminophen Supp 650 Mg Supp.Rect) 650 mg [place] Q6H PRN PRN Reason: Pain, Mild (Pain Scale 1-3) Albuterol Sulfate (Albuterol Sulfate (0.083%) 2.5 Mg/3 Ml Vial.Neb) 2.5 mg INHALE Q4H PRN PRN Reason: Shortness of Breath/Wheezing Atorvastatin Calcium (Atorvastatin Calcium 80 Mg Tablet) 80 mg PO DAILY [facility] Last Admin: 10/12/22 08:07 Dose: 80 mg Documented By: MAKENNA Benzonatate (Benzonatate 100 Mg Capsule) 100 mg PO BID PRN PRN Reason: cough Docusate Sodium (Docusate Sodium 100 Mg Capsule) 100 mg PO DAILY PRN PRN Reason: Constipation Furosemide (Furosemide 40 Mg Tablet) 40 mg PO DAILY [facility]; Protocol Last Admin: 10/12/22 08:07 Dose: 40 mg Documented By: MAKENNA Gabapentin (Gabapentin 300 Mg Capsule) 300 mg PO DAILY [facility] Last Admin: 10/12/22 08:07 Dose: 300 mg Documented By: MAKENNA Glucose (Glucose Gel 15 Gm Gel..Gram.) 15 gm PO Q15M PRN; Protocol PRN Reason: per Hypoglycemia Standing Ord. Guaifenesin (Guaifenesin 200 Mg/10 Ml 10 Ml Liquid) 10 ml PO Q4H PRN PRN Reason: Cough Azithromycin 500 mg/ Sodium (Chloride) 250 mls @ 125 mls/hr IV Q24H [facility] Stop: 10/13/22 21:59 Ceftriaxone Sodium 1 gm/ (Sodium Chloride) 50 mls @ 100 mls/hr IV Q24H [facility] Stop: 10/15/22 19:29 Dextrose (D10) 250 mls @ 750 mls/hr IV Q15M PRN; Protocol PRN Reason: per Hypoglycemia Standing Ord. Insulin Glargine (Insulin Glargine,Hum.Rec.Anlog 100 Unit/Ml 10 Ml Vial) 26 unit SUBCUT BEDTIME [facility] Last Admin: 10/11/22 21:56 Dose: 26 unit Documented By: TANNER Insulin Human Lispro (Insulin Lispro 100 Unit/Ml 3 Ml Vial) 0 unit SUBCUT QIDACHS [facility]; Protocol Last Admin: 10/12/22 11:55 Dose: 2 unit Documented By: MAKENNA Mirtazapine (Mirtazapine 7.5 Mg Tablet) 7.5 mg PO BEDTIME [facility] Last Admin: 10/11/22 21:55 Dose: 7.5 mg Documented By: TANNER Ondansetron HCl (Ondansetron Hcl 4 Mg/2 Ml Vial) 4 mg IVPUSH Q8H PRN PRN Reason: Nausea and Vomiting Paroxetine HCl (Paroxetine Hcl 20 Mg Tablet) 20 mg PO DAILY [facility] Last Admin: 10/12/22 08:07 Dose: 20 mg Documented By: MAKENNA Pharmacy Consult (Consult Rx Perform Med Rec) 1 each MISCELLANE ONCE PRN PRN Reason: Consult order Rivaroxaban (Rivaroxaban 15 Mg Tablet) 15 mg PO DAILY@1800 [facility] Senna/Docusate Sodium (Sennosides/Docusate Sodium Tablet) 2 tab PO BEDTIME [facility] Last Admin: 10/11/22 21:56 Dose: Not Given Documented By: TANNER Non-Admin Reason: Patient Refused Sodium Chloride (0.9 % Sodium Chloride Flush 3 Ml Syringe) 3 ml IVFLUSH QSHIFT [facility] Last Admin: 10/12/22 08:08 Dose: 3 ml Documented By: MAKENNA Labs 10/12/22 06:44 10/12/22 06:44 Labs: Laboratory Results - last 24 hr 04/28/23 04/28/23 04/28/23 18:31 18:31 18:31 MCV 87.5 MCH 27.9 MCHC 31.9 RDW 14.8 Plt Count 172 MPV 10.9 Immature Gran % (Auto) 0.3 Neut % (Auto) 83.9 H Lymph % (Auto) 9.3 L [place] % (Auto) 6.2 Eos % (Auto) 0.1 Baso % (Auto) 0.2 Lymph # (Auto) 1.2 [place] # (Auto) 0.8 Eos # (Auto) 0.0 Baso # (Auto) 0.0 Abs Immat Gran (auto) 0.04 H Absolute Neuts (auto) 10.3 H Absolute Nucleated RBC 0.000 Nucleated RBC % (auto) 0.0 PT INR APTT 32.4 Anion Gap Estim Creat Clear Calc Estimated GFR POC Glucose Random Glucose Lactic Acid Calcium Total Bilirubin AST ALT Alkaline Phosphatase B-Natriuretic Peptide 235 H Total Protein Albumin TSH Urine Color Urine Appearance Urine pH Ur Specific [place] Urine Protein Urine Glucose (UA) Urine Ketones Urine Blood Urine Nitrite Ur Leukocyte Esterase Respiratory Panel [place] Adenovirus (Rapid PCR) B.pert (TEM-PCR) B.parapertussis DNA PCR C. pneumoniae DNA (PCR) Coronavirus OC43 (PCR) Coronavirus HKU1 (PCR) Coronavirus 229E (PCR) COVID-19 (TAD) COVID-19 Clin Com Coronavirus NL63 (PCR) Human Metapneumovir PCR Influenza Type A (JUHI) Influenza A (RT-PCR) Influenza Type B (JUHI) Influenza B (RT-PCR) Influenza A & B Note M. pneumoniae (PCR) Parainfluenza 1 (PCR) Parainfluenza 2 (PCR) Parainfluenza 3 (PCR) Parainfluenza 4 (PCR) RSV (PCR) Entero/Rhino (PCR) SARS-CoV-2 RNA (RT-PCR) 10/11/22 10/11/22 10/11/22 18:31 18:31 18:32 MCV MCH MCHC RDW Plt Count MPV Immature Gran % (Auto) Neut % (Auto) Lymph % (Auto) [place] % (Auto) Eos % (Auto) Baso % (Auto) Lymph # (Auto) [place] # (Auto) Eos # (Auto) Baso # (Auto) Abs Immat Gran (auto) Absolute Neuts (auto) Absolute Nucleated RBC Nucleated RBC % (auto) PT INR APTT Anion Gap 14 Estim Creat Clear Calc 29.8 Estimated GFR 31 POC Glucose Random Glucose 197 H Lactic Acid 1.7 Calcium 9.5 Total Bilirubin 0.6 AST 37 H ALT 28 Alkaline Phosphatase 101 B-Natriuretic Peptide Total Protein 6.5 Albumin 3.6 TSH 0.84 Urine Color Urine Appearance Urine pH Ur Specific [place] Urine Protein Urine Glucose (UA) Urine Ketones Urine Blood Urine Nitrite Ur Leukocyte Esterase Respiratory Panel [place] Adenovirus (Rapid PCR) B.pert (TEM-PCR) B.parapertussis DNA PCR C. pneumoniae DNA (PCR) Coronavirus OC43 (PCR) Coronavirus HKU1 (PCR) Coronavirus 229E (PCR) COVID-19 (TAD) Negative COVID-19 Clin Com See Note Coronavirus NL63 (PCR) Human Metapneumovir PCR Influenza Type A (JUHI) Influenza A (RT-PCR) Influenza Type B (JUHI) Influenza B (RT-PCR) Influenza A & B Note M. pneumoniae (PCR) Parainfluenza 1 (PCR) Parainfluenza 2 (PCR) Parainfluenza 3 (PCR) Parainfluenza 4 (PCR) RSV (PCR) Entero/Rhino (PCR) SARS-CoV-2 RNA (RT-PCR) 10/11/22 10/11/22 10/11/22 18:32 18:32 21:54 MCV MCH MCHC RDW Plt Count MPV Immature Gran % (Auto) Neut % (Auto) Lymph % (Auto) [place] % (Auto) Eos % (Auto) Baso % (Auto) Lymph # (Auto) [place] # (Auto) Eos # (Auto) Baso # (Auto) Abs Immat Gran (auto) Absolute Neuts (auto) Absolute Nucleated RBC Nucleated RBC % (auto) PT 15.7 H INR 1.4 H APTT Anion Gap Estim Creat Clear Calc Estimated GFR POC Glucose 136 H Random Glucose Lactic Acid Calcium Total Bilirubin AST ALT Alkaline Phosphatase B-Natriuretic Peptide Total Protein Albumin TSH Urine Color Urine Appearance Urine pH Ur Specific [place] Urine Protein Urine Glucose (UA) Urine Ketones Urine Blood Urine Nitrite Ur Leukocyte Esterase Respiratory Panel [place] Adenovirus (Rapid PCR) B.pert (TEM-PCR) B.parapertussis DNA PCR C. pneumoniae DNA (PCR) Coronavirus OC43 (PCR) Coronavirus HKU1 (PCR) Coronavirus 229E (PCR) COVID-19 (TAD) COVID-19 Clin Com Coronavirus NL63 (PCR) Human Metapneumovir PCR Influenza Type A (JUHI) Negative Influenza A (RT-PCR) Influenza Type B (JUHI) Negative Influenza B (RT-PCR) Influenza A & B Note See Note M. pneumoniae (PCR) Parainfluenza 1 (PCR) Parainfluenza 2 (PCR) Parainfluenza 3 (PCR) Parainfluenza 4 (PCR) RSV (PCR) Entero/Rhino (PCR) SARS-CoV-2 RNA (RT-PCR) 10/12/22 10/12/22 10/12/22 04:21 04:21 06:44 MCV 89.3 MCH 28.8 MCHC 32.2 RDW 15.3 Plt Count 149 L MPV 11.1 Immature Gran % (Auto) 0.4 Neut % (Auto) 76.4 H Lymph % (Auto) 16.9 L [place] % (Auto) 6.0 Eos % (Auto) 0.0 Baso % (Auto) 0.3 Lymph # (Auto) 1.2 [place] # (Auto) 0.4 Eos # (Auto) 0.0 Baso # (Auto) 0.0 Abs Immat Gran (auto) 0.03 Absolute Neuts (auto) 5.6 Absolute Nucleated RBC 0.000 Nucleated RBC % (auto) 0.0 PT INR APTT Anion Gap Estim Creat Clear Calc Estimated GFR POC Glucose Random Glucose Lactic Acid Calcium Total Bilirubin AST ALT Alkaline Phosphatase B-Natriuretic Peptide Total Protein Albumin TSH Urine Color Yellow Urine Appearance Clear Urine pH 5.5 Ur Specific [place] 1.015 Urine Protein Trace Urine Glucose (UA) Negative Urine Ketones Negative Urine Blood Negative Urine Nitrite Negative Ur Leukocyte Esterase Negative Respiratory Panel [place] See Note Adenovirus (Rapid PCR) Not Detected B.pert (TEM-PCR) Not Detected B.parapertussis DNA PCR Not Detected C. pneumoniae DNA (PCR) Not Detected Coronavirus OC43 (PCR) Not Detected Coronavirus HKU1 (PCR) Not Detected Coronavirus 229E (PCR) Not Detected COVID-19 (TAD) COVID-19 Clin Com Coronavirus NL63 (PCR) Not Detected Human Metapneumovir PCR Detected A Influenza Type A (JUHI) Influenza A (RT-PCR) Not Detected Influenza Type B (JUHI) Influenza B (RT-PCR) Not Detected Influenza A & B Note M. pneumoniae (PCR) Not Detected Parainfluenza 1 (PCR) Not Detected Parainfluenza 2 (PCR) Not Detected Parainfluenza 3 (PCR) Not Detected Parainfluenza 4 (PCR) Not Detected RSV (PCR) Not Detected Entero/Rhino (PCR) Not Detected SARS-CoV-2 RNA (RT-PCR) Not Detected 10/12/22 10/12/22 10/12/22 06:44 07:24 10:58 MCV MCH MCHC RDW Plt Count MPV Immature Gran % (Auto) Neut % (Auto) Lymph % (Auto) [place] % (Auto) Eos % (Auto) Baso % (Auto) Lymph # (Auto) [place] # (Auto) Eos # (Auto) Baso # (Auto) Abs Immat Gran (auto) Absolute Neuts (auto) Absolute Nucleated RBC Nucleated RBC % (auto) PT INR APTT Anion Gap 11 L Estim Creat Clear Calc 33.8 Estimated GFR 36 POC Glucose 129 H 164 H Random Glucose 135 H Lactic Acid Calcium 9.1 Total Bilirubin 0.6 AST 84 H ALT 59 H Alkaline Phosphatase 94 B-Natriuretic Peptide Total Protein 6.0 L Albumin 3.8 TSH Urine Color Urine Appearance Urine pH Ur Specific [place] Urine Protein Urine Glucose (UA) Urine Ketones Urine Blood Urine Nitrite Ur Leukocyte Esterase Respiratory Panel [place] Adenovirus (Rapid PCR) B.pert (TEM-PCR) B.parapertussis DNA PCR C. pneumoniae DNA (PCR) Coronavirus OC43 (PCR) Coronavirus HKU1 (PCR) Coronavirus 229E (PCR) COVID-19 (TAD) COVID-19 Clin Com Coronavirus NL63 (PCR) Human Metapneumovir PCR Influenza Type A (JUHI) Influenza A (RT-PCR) Influenza Type B (JUHI) Influenza B (RT-PCR) Influenza A & B Note M. pneumoniae (PCR) Parainfluenza 1 (PCR) Parainfluenza 2 (PCR) Parainfluenza 3 (PCR) Parainfluenza 4 (PCR) RSV (PCR) Entero/Rhino (PCR) SARS-CoV-2 RNA (RT-PCR) Assessment and Plan (1) Severe sepsis: Status: Acute (2) Atrial fibrillation with RVR: Status: Acute (3) IJEOMA (acute kidney injury): Status: Acute Plan 76-year-old female with history of mild intermittent asthma, paroxysmal atrial fibrillation anticoagulated with Xarelto, hypertension, history of CVA, insulin-dependent type 2 diabetes, HFpEF, and obesity admitted for severe sepsis, pneumonia, and afib with rvr. #severe sepsis- related to probable pneumonia -continue IV Ceftriaxone and Azithro--stared 10/11 #Acute kidney injury- related to severe sepsis -Creat 1.6, baseline 1.25, 1.4 today, improving #Atrial fibrillation with RVR--r - rate now controlled following 10mg IVPush cardizem -Continue xarelto -continue Metoprolol at half dose -Echo -cardiac diet -appreciate cardiology input -MOnitor on telemetry # mild intermittent asthma-no acute exacerbation -albuterol p.r.n. #HFpEF -euvolemic appearing, bnp baseline. -no acute exacerbation -continue p.o. diuretics #HTN -bp soft -hold antihypertensives in setting of sepsis #Insulin dependent type 2 diabetes- with hyperglycemia -dose adjusted basal insulin -Humalog on sliding scale -diabetic diet -POC glucose # history CVA -continue statin, Xarelto DVT prophylaxis-on Xarelto need for inpatient; sepsis at risk of getting worse and thereofore needs iv abx Time Spent With Patient Time: Total time managing care of this patient today ____ minutes. Quality Stroke Does the patient have a stroke diagnosis?: No VTE Prior VTE?: No VTE Risk Level:: Medical - moderate - high VTE Device Contraindication: Treatment Not Indicated VTE Drug Contraindication: N/A - Med Ordered
[2022-10-12] MEDS: Metoprolol Succinate ER 50 MG TAB.ER.24H PO ×2 (12:51→20:22)
[2022-10-12] MEDS: Digoxin 0.25 MG TABLET PO ×2 (12:52→18:23)
[2022-10-12 16:19] LABS: Glucose, Whole Blood 103 mg/dL (60-115)
[2022-10-12] MEDS: Rivaroxaban 15 MG TABLET PO (18:23)
[2022-10-12] MEDS: cefTRIAXone sodium 1 GM in 0.9 % Sodium Chloride 50 ML IV (18:23)
[2022-10-12] MEDS: Azithromycin 500 MG in 0.9 % Sodium Chloride 250 ML 125 MG IV (20:18)
[2022-10-12] MEDS: Mirtazapine 7.5 MG TABLET PO (20:22)
[2022-10-12] MEDS: Sennosides/Docusate Sodium TABLET 2 TAB PO (20:22)
[2022-10-12 20:40] LABS: Glucose, Whole Blood 143 mg/dL (60-115)
[2022-10-12] MEDS: Insulin Glargine,Hum.rec.anlog 100 UNIT/ML 10 ML VIAL 26 UNIT SUBCUT (20:46)
[2022-10-13] VITALS (9 sets, daily range): BP systolic 103–138; BP diastolic 58–77; PULSE 80–104; RESP 18–97; TEMP 36.7–37.1; O2SAT 18–100
[2022-10-13 08:03] LABS: Glucose, Whole Blood 103 mg/dL (60-115)
[2022-10-13] MEDS: Furosemide 40 MG TABLET PO (09:16)
[2022-10-13] MEDS: Atorvastatin Calcium 80 MG TABLET PO (09:16)
[2022-10-13] MEDS: Gabapentin 300 MG CAPSULE PO (09:17)
[2022-10-13] MEDS: Metoprolol Succinate ER 50 MG TAB.ER.24H PO (09:17)
[2022-10-13] MEDS: 0.9 % Sodium Chloride Flush 3 ML SYRINGE IVFLUSH ×3 (09:17→21:23)
[2022-10-13] MEDS: PARoxetine HCL 20 MG TABLET PO (09:23)
--- NOTE | 2022-10-13 10:53 | PC.NURSE ---
pt reported 6/10 chest pain when coughing. she was given PRN tylenol per request. Dr. Lucio notified. All vitals within normal limits. No new orders at this time. Will continue to monitor
[2022-10-13] MEDS: Albuterol/Iprat 2.5/0.5MG 3 ML AMPUL.NEB INHALE ×3 (11:20→20:03)
--- NOTE | 2022-10-13 11:40 | P.PNIM_ITS ---
Subjective Subjective Date of Service: 10/13/22 Interval History: f/u on PNA, sepsis, afib with RVR she feels congested, cough, shortness of breath is overall better Physical Exam Vital Signs: Vital Signs: Last Vital Signs Temp 98.8 F 10/13/22 11:19 Pulse 90 10/13/22 11:20 Resp 21 H 10/13/22 11:20 BP 120/60 10/13/22 11:19 Pulse Ox 96 10/13/22 11:19 O2 Del Method Nasal Cannula 10/13/22 11:19 O2 Flow Rate 1 10/13/22 11:19 BMI result Body Mass Index 37.0 Const: Other: General: AO X 3, no acute distress Resp: rhonchi, congestion CVS: S1,S2, iregular iregular GI: +BS, NT, no distention Skin: No rash Neuro: motor grossly intact Psych: appropriate affect Objective Data Active Medications Acetaminophen (Acetaminophen 325 Mg Tablet) 650 mg PO Q4H PRN PRN Reason: Pain, Moderate (Pain Scale 4-6 Albuterol Sulfate (Albuterol Sulfate (0.083%) 2.5 Mg/3 Ml Vial.Neb) 2.5 mg INHALE Q4H PRN PRN Reason: Shortness of Breath/Wheezing Albuterol/Ipratropium (Albuterol/Iprat 2.5/0.5mg 3 Ml Ampul.Neb) 3 ml INHALE RQ4H WHILE AWAKE [facility] Last Admin: 10/13/22 11:20 Dose: 3 ml Documented By: TERE Atorvastatin Calcium (Atorvastatin Calcium 80 Mg Tablet) 80 mg PO DAILY [facility] Last Admin: 10/13/22 09:16 Dose: 80 mg Documented By: MAKENNA Benzonatate (Benzonatate 100 Mg Capsule) 100 mg PO BID PRN PRN Reason: cough Docusate Sodium (Docusate Sodium 100 Mg Capsule) 100 mg PO DAILY PRN PRN Reason: Constipation Furosemide (Furosemide 40 Mg Tablet) 40 mg PO DAILY [facility]; Protocol Last Admin: 10/13/22 09:16 Dose: 40 mg Documented By: MAKENNA Gabapentin (Gabapentin 300 Mg Capsule) 300 mg PO DAILY [facility] Last Admin: 10/13/22 09:17 Dose: 300 mg Documented By: MAKENNA Glucose (Glucose Gel 15 Gm Gel..Gram.) 15 gm PO Q15M PRN; Protocol PRN Reason: per Hypoglycemia Standing Ord. Guaifenesin (Guaifenesin 200 Mg/10 Ml 10 Ml Liquid) 10 ml PO Q4H PRN PRN Reason: Cough Azithromycin 500 mg/ Sodium (Chloride) 250 mls @ 125 mls/hr IV Q24H [facility] Stop: 10/13/22 21:59 Last Infusion: 10/12/22 22:28 Dose: 0 mls/hr Documented By: SAVANNAH Ceftriaxone Sodium 1 gm/ (Sodium Chloride) 50 mls @ 100 mls/hr IV Q24H [facility] Stop: 10/15/22 19:29 Last Infusion: 10/12/22 19:20 Dose: 0 mls/hr Documented By: SAVANNAH Dextrose (D10) 250 mls @ 750 mls/hr IV Q15M PRN; Protocol PRN Reason: per Hypoglycemia Standing Ord. Insulin Glargine (Insulin Glargine,Hum.Rec.Anlog 100 Unit/Ml 10 Ml Vial) 26 unit SUBCUT BEDTIME [facility] Last Admin: 10/12/22 20:46 Dose: 26 unit Documented By: SAVANNAH Insulin Human Lispro (Insulin Lispro 100 Unit/Ml 3 Ml Vial) 0 unit SUBCUT QIDACHS [facility]; Protocol Last Admin: 10/13/22 08:24 Dose: Not Given Documented By: MAKENNA Non-Admin Reason: No Insulin Coverage Metoprolol Succinate (Metoprolol Succinate Er 50 Mg Tab.Er.24h) 50 mg PO BID [facility]; Protocol Last Admin: 10/13/22 09:17 Dose: 50 mg Documented By: MAKENNA Mirtazapine (Mirtazapine 7.5 Mg Tablet) 7.5 mg PO BEDTIME [facility] Last Admin: 10/12/22 20:22 Dose: 7.5 mg Documented By: SAVANNAH Ondansetron HCl (Ondansetron Hcl 4 Mg/2 Ml Vial) 4 mg IVPUSH Q8H PRN PRN Reason: Nausea and Vomiting Paroxetine HCl (Paroxetine Hcl 20 Mg Tablet) 20 mg PO DAILY [facility] Last Admin: 10/13/22 09:23 Dose: 20 mg Documented By: MAKENNA Pharmacy Consult (Consult Rx Perform Med Rec) 1 each MISCELLANE ONCE PRN PRN Reason: Consult order Rivaroxaban (Rivaroxaban 15 Mg Tablet) 15 mg PO DAILY@1800 [facility] Last Admin: 10/12/22 18:23 Dose: 15 mg Documented By: MAKENNA Senna/Docusate Sodium (Sennosides/Docusate Sodium Tablet) 2 tab PO BEDTIME [facility] Last Admin: 10/12/22 20:22 Dose: 2 tab Documented By: SAVANNAH Sodium Chloride (0.9 % Sodium Chloride Flush 3 Ml Syringe) 3 ml IVFLUSH QSHIFT [facility] Last Admin: 10/13/22 09:17 Dose: 3 ml Documented By: MAKENNA Labs 10/12/22 06:44 10/12/22 06:44 Labs: Laboratory Results - last 24 hr 10/12/22 10/12/22 10/13/22 16:11 20:37 07:23 POC Glucose 103 143 H 103 Microbiology Microbiology Results: Microbiology 10/12/22 04:18 MRSA Culture - Preliminary Nares Culture in progress. 10/11/22 19:54 Blood Culture - Preliminary Blood - Venous No growth after 24 hours. 10/11/22 18:32 Blood Culture - Preliminary Blood - Venous No growth after 24 hours. 10/12/22 07:35 Gram Stain - Final Sputum - Expectorated Sputum Culture - Final Assessment and Plan (1) Severe sepsis: Status: Acute (2) Atrial fibrillation with RVR: Status: Acute (3) IJEOMA (acute kidney injury): Status: Acute Plan 76-year-old female with history of mild intermittent asthma, paroxysmal atrial fibrillation anticoagulated with Xarelto, hypertension, history of CVA, insulin- dependent type 2 diabetes, HFpEF, and obesity admitted for severe sepsis, pneumonia, and afib with rvr. #severe sepsis- related to pneumonia -continue IV Ceftriaxone and Azithro--stared 10/11 #Acute kidney injury- related to severe sepsis -Creat 1.6, baseline 1.25, 1.4 10/12, improving, repeat tomorrow #Atrial fibrillation with RVR--r - rate now controlled -Continue xarelto -continue Metoprolol at half dose -Echo friday -cardiac diet -appreciate cardiology input -MOnitor on telemetry # mild intermittent asthma-no acute exacerbation -albuterol p.r.n. #HFpEF -euvolemic appearing, bnp baseline. -no acute exacerbation -continue p.o. diuretics #HTN -bp soft -hold antihypertensives in setting of sepsis #Insulin dependent type 2 diabetes- with hyperglycemia -dose adjusted basal insulin -Humalog on sliding scale -diabetic diet -POC glucose # history CVA -continue statin, Xarelto DVT prophylaxis-on Xarelto need for inpatient; sepsis at risk of getting worse and thereofore needs iv abx Time Spent With Patient Time: Total time managing care of this patient today ____ minutes. Quality Stroke Does the patient have a stroke diagnosis?: No VTE Prior VTE?: No VTE Risk Level:: Medical - moderate - high VTE Device Contraindication: Treatment Not Indicated VTE Drug Contraindication: N/A - Med Ordered
[2022-10-13] MEDS: Acetaminophen 325 MG TABLET 650 MG PO (11:50)
[2022-10-13] MEDS: guaiFENesin 200 MG/10 ML 10 ML LIQUID PO (11:51)
[2022-10-13 11:59] LABS: Glucose, Whole Blood 151 mg/dL (60-115)
[2022-10-13] MEDS: Insulin Lispro 100 UNIT/ML 3 ML VIAL SUBCUT (12:19)
[2022-10-13 16:16] LABS: Glucose, Whole Blood 110 mg/dL (60-115)
[2022-10-13] MEDS: cefTRIAXone sodium 1 GM in 0.9 % Sodium Chloride 50 ML IV (17:52)
[2022-10-13] MEDS: Rivaroxaban 15 MG TABLET PO (17:52)
[2022-10-13 19:42] LABS: Glucose, Whole Blood 124 mg/dL (60-115)
[2022-10-13] MEDS: Azithromycin 500 MG in 0.9 % Sodium Chloride 250 ML 125 MG IV (21:18)
[2022-10-13] MEDS: Mirtazapine 7.5 MG TABLET PO (21:25)
[2022-10-13] MEDS: Metoprolol Succinate ER 25 MG TAB.ER.24H 75 MG PO (21:26)
[2022-10-13] MEDS: Sennosides/Docusate Sodium TABLET 2 TAB PO (21:26)
[2022-10-13] MEDS: Insulin Glargine,Hum.rec.anlog 100 UNIT/ML 10 ML VIAL 26 UNIT SUBCUT (21:28)
[2022-10-14] VITALS (8 sets, daily range): BP systolic 130–144; BP diastolic 75–83; PULSE 87–104; RESP 20–23; TEMP 36.7–38.2; O2SAT 91–95
--- NOTE | 2022-10-14 07:00 | CA_ITS ---
Transthoracic Echocardiogram Patient (Last, First, Middle): Hetal Carlson A Gender: Female Date of : 1945 Age: 76 Procedure Date: 10/14/2022 Procedure Type: Transthoracic Echocardiogram [place] [facility] [place]: 172.72 cm Weight: 86.18 kg BSA: 2.00 m2 Heart Rate: 88 bpm BP: 130 / 75 mmHg Dtp Operator: NITIN [place]in MD: Loreto DUEÑAS Hvac Tech: Murali Vivas MD Symptoms: afib rvr Study Quality: Technically Difficult ECG Rhythm: Atrial Fibrillation Conclusions: - 1. Mild LV systolic dysfunction with LVEF of 45-50% 2. Normal cardiac valvular Doppler 3. No gross pericardial effusion Findings Procedure Information Contrast agent, definity, is being given per protocol without apparent complications. Left Ventricle Normal left ventricular cavity size. There is normal left ventricular wall thickness. The left ventricular systolic function is mildly decreased. The visually estimated ejection fraction is between 45-50%. Diastolic function is indeterminate on the basis of available data. Right Ventricle The right ventricle was not well visualized. Atria The left atrium is likely dilated. Interatrial shunt cannot be excluded. The right atrium was not well visualized. Aortic Valve The aortic valve was not well visualized. There is no aortic valve stenosis. There is no aortic valve regurgitation. Mitral Valve The mitral valve was not well visualized. There is mild mitral annular calcification. There is trace mitral valve regurgitation. There is no mitral valve stenosis. Pulmonic Valve The pulmonic valve was not well visualized. Tricuspid Valve Likely normal tricuspid valve structure and function. Tricuspid regurgitation envelope is inadequate for calculation of right ventricular systolic pressure. Normal right atrial pressure. Great Vessels All visible segments of the aorta are normal in size. The pulmonary artery was not well visualized. Venous The inferior vena cava is normal in size and collapses greater than 50% with inspiration. Pericardium/Pleural There is no evidence of pericardial effusion. Prior Study Comparison Changes noted compared to prior study dated: 02/26/2021. LV systolic function is marginally reduced Measurements 2D Linear Measurements IVSd: 1.16 0.6-0.9/0.6-1.0 cm LVIDd: 4.19 3.9-5.3/4.2-5.9 cm LVIDd Index: 2.10 2.4-3.2/2.2-3.1 cm/m2 LVIDs: 3.19 2.0-3.6 cm LVPWd: 1.07 0.7-1.1 cm LA Diam: 4.00 2.7-3.8/3.0-4.0 cm LAIDs Index: 2.00 1.5-2.3 cm/m2 LV Mass: 198.69 67-162/88-224 g LV Mass Index: 99.35 43-95/49-115 g/m2 LVOT Diam: 1.90 3.0+(-)1.3 cm 2D Systolic Function EF 4C: 44.80 >55% EF 2C: 49.80 >55% EF BiP: 47.60 >55% Mitral Valve MV Pk E: 0.90 MV Decel Time: 181.00 E'Lateral: 8.76 E'Medial: 7.97 E/E' Med: 11.30 E/E' Lat: 10.30 PHT: 53.00 MVA PHT: 4.15 Decel [place]: 5.04 Aortic Valve AoV Pk [place]: 1.39 AoV Mn [place]: 1.04 AoV VTI: 0.27 AoV Pk Grad: 8.00 Aov Mn Grad: 5.00 FEI Cont.VTI: 1.55 LVOT LVOT Pk [place]: 0.82 LVOT Mn [place]: 0.54 LVOT VTI: 0.15 LVOT Pk Grad: 3.00 LVOT Mn Grad: 1.00 LVOT Diam: 1.90 LVOT Area: 2.84 Diastolic Function MV Pk E: 0.90 E'Medial: 7.97 E/E' Med: 11.30 E' Laterial: 8.76 E/E' Lat: 10.30 Right Ventricle TAPSE (mm): 15.60 TVS' Juanpablo: 8.85 Tricuspid Valve RA Press: 3.00 Great Vessels Aorta Sinus of Valsalva: 2.90 2.0-3.5 cm Ao Asc: 3.50 2.1-3.4 cm Pulmonary Valve PV Pk [place]: 0.89 Peak PV Grad: 3.00 Updated in Other Vendor System with Status of Final Murali Vivas MD electronically signed on 10/14/2022 4:30:05 PM with status of Final
[2022-10-14 07:17] LABS: Glucose, Whole Blood 124 mg/dL (60-115)
[2022-10-14] MEDS: Albuterol/Iprat 2.5/0.5MG 3 ML AMPUL.NEB INHALE (07:46)
[2022-10-14] MEDS: Atorvastatin Calcium 80 MG TABLET PO (10:29)
[2022-10-14] MEDS: Gabapentin 300 MG CAPSULE PO (10:29)
[2022-10-14] MEDS: Metoprolol Succinate ER 25 MG TAB.ER.24H 75 MG PO (10:29)
[2022-10-14] MEDS: 0.9 % Sodium Chloride Flush 3 ML SYRINGE IVFLUSH ×3 (10:30→21:01)
[2022-10-14] MEDS: Furosemide 40 MG TABLET PO (10:30)
--- NOTE | 2022-10-14 10:32 | MHC.CM.PN ---
PER MD ROUNDS, PT EXPECTED TO DC TODAY DCP: [employer] [facility] TO TRANSPORT
[2022-10-14] MEDS: Acetaminophen 325 MG TABLET 650 MG PO (10:38)
[2022-10-14] MEDS: PARoxetine HCL 20 MG TABLET PO (10:38)
--- NOTE | 2022-10-14 10:46 | P.PNCA_ITS ---
Subjective Subjective Date of Service: 10/14/22 Principal diagnosis: Atrial fibrillation with rapid ventricular response Interval history: Patient continues to be short of breath says but is better. No palpitations or chest pain. Remains in atrial fibrillation rapid ventricular response. Review of Systems Constitutional: Reports malaise and Reports weakness Cardiovascular: Reports no additional cardiovascular complaints Respiratory: Reports wheezing Reports weakness Allergic/Immunologic: Reports wheezing Physical Exam Vital Signs: Last Vital Signs Temp 99.1 F 10/14/22 07:21 Pulse 87 10/14/22 07:21 Resp 20 10/14/22 07:46 BP 142/83 H 10/14/22 07:21 Pulse Ox 95 10/14/22 07:21 O2 Del Method Nasal Cannula 10/14/22 07:21 O2 Flow Rate 2 10/14/22 07:21 BMI result Body Mass Index 37.0 GENERAL APPEARANCE: in no acute distress, pleasant. NECK: no carotid bruit, no jugular venous distention. SKIN: no suspicious lesions, warm and dry. HEART: no murmurs, irregular rate and rhythm. Tachycardic. LUNGS: Bilateral wheezes and rhonchi. Crackles at bases. ABDOMEN: soft, nontender. EXTREMITIES: no edema. PERIPHERAL PULSES: equal. NEUROLOGIC: No gross deficits, AAO X 3 Objective Labs and Meds 10/12/22 06:44 10/12/22 06:44 Lab results: Laboratory Results - last 24 hr 10/13/22 10/13/22 10/13/22 11:15 16:06 19:34 POC Glucose 151 H 110 124 H 10/14/22 06:59 POC Glucose 124 H Progress Note: A&P Assessment and plan (1) Atrial fibrillation with RVR: Status: Acute Assessment and Plan: Atrial fibrillation rapid ventricular response driven by acute medical illness a nd pulmonary exacerbation. Continue treat the same. Switch to Xopenex for bronchodilators. Can add digoxin 0.25 mg IV push x3 doses as to better rate control. Continue metoprolol therapy. If blood pressure is stable, starting tomorrow can probably maximize metoprolol to 100 mg b.i.d.. Continue full oral anticoagulation Xarelto. Continue to provide supportive care and treat her underlying medical illness aggressively. Will follow with you Time Spent With Patient Time: Total time managing care of this patient today ____ minutes. Progress Note: Quality Stroke Does the patient have a stroke diagnosis?: No Procedures Date of Service Date of Service: 10/14/22
--- NOTE | 2022-10-14 11:09 | P.PNIM_ITS ---
Subjective Subjective Date of Service: 10/14/22 Interval History: f/u on PNA, sepsis, afib with RVR she feels congested, cough, shortness of breath , AFIB heart rate still high Physical Exam Vital Signs: Vital Signs: Last Vital Signs Temp 99.1 F 10/14/22 07:21 Pulse 87 10/14/22 07:21 Resp 20 10/14/22 07:46 BP 142/83 H 10/14/22 07:21 Pulse Ox 95 10/14/22 07:21 O2 Del Method Nasal Cannula 10/14/22 07:21 O2 Flow Rate 2 10/14/22 07:21 BMI result Body Mass Index 37.0 Const: Other: General: AO X 3, no acute distress Resp: rhonchi, congestion CVS: S1,S2, iregular iregular GI: +BS, NT, no distention Skin: No rash Neuro: motor grossly intact Psych: appropriate affect Objective Data Active Medications Acetaminophen (Acetaminophen 325 Mg Tablet) 650 mg PO Q4H PRN PRN Reason: Pain, Moderate (Pain Scale 4-6 Last Admin: 10/14/22 10:38 Dose: 650 mg Documented By: GRECIA Albuterol Sulfate (Albuterol Sulfate (0.083%) 2.5 Mg/3 Ml Vial.Neb) 2.5 mg INHALE Q4H PRN PRN Reason: Shortness of Breath/Wheezing Albuterol/Ipratropium (Albuterol/Iprat 2.5/0.5mg 3 Ml Ampul.Neb) 3 ml INHALE RQ4H WHILE AWAKE [facility] Last Admin: 10/14/22 07:46 Dose: 3 ml Documented By: DIANE Atorvastatin Calcium (Atorvastatin Calcium 80 Mg Tablet) 80 mg PO DAILY [facility] Last Admin: 10/14/22 10:29 Dose: 80 mg Documented By: GRECIA Benzonatate (Benzonatate 100 Mg Capsule) 100 mg PO BID PRN PRN Reason: cough Cefuroxime Axetil (Cefuroxime Axetil 500 Mg Tablet) 500 mg PO Q12H [facility] Last Admin: 10/14/22 10:29 Dose: 500 mg Documented By: GRECIA Digoxin (Digoxin 0.5 Mg/2 Ml Ampul) 0.25 mg IVPUSH Q6H [facility] Stop: 10/14/22 23:16 Docusate Sodium (Docusate Sodium 100 Mg Capsule) 100 mg PO DAILY PRN PRN Reason: Constipation Furosemide (Furosemide 40 Mg Tablet) 40 mg PO DAILY [facility]; Protocol Last Admin: 10/14/22 10:30 Dose: 40 mg Documented By: GRECIA Gabapentin (Gabapentin 300 Mg Capsule) 300 mg PO DAILY [facility] Last Admin: 10/14/22 10:29 Dose: 300 mg Documented By: GRECIA Glucose (Glucose Gel 15 Gm Gel..Gram.) 15 gm PO Q15M PRN; Protocol PRN Reason: per Hypoglycemia Standing Ord. Guaifenesin (Guaifenesin 200 Mg/10 Ml 10 Ml Liquid) 10 ml PO Q4H PRN PRN Reason: Cough Last Admin: 10/13/22 11:51 Dose: 10 ml Documented By: MAKENNA Dextrose (D10) 250 mls @ 750 mls/hr IV Q15M PRN; Protocol PRN Reason: per Hypoglycemia Standing Ord. Insulin Glargine (Insulin Glargine,Hum.Rec.Anlog 100 Unit/Ml 10 Ml Vial) 26 unit SUBCUT BEDTIME [facility] Last Admin: 10/13/22 21:28 Dose: 26 unit Documented By: RODNEY Insulin Human Lispro (Insulin Lispro 100 Unit/Ml 3 Ml Vial) 0 unit SUBCUT QIDACHS [facility]; Protocol Last Admin: 10/14/22 08:49 Dose: Not Given Documented By: GRECIA Non-Admin Reason: No Insulin Coverage Metoprolol Succinate (Metoprolol Succinate Er 25 Mg Tab.Er.24h) 75 mg PO BID [facility]; Protocol Last Admin: 10/14/22 10:29 Dose: 75 mg Documented By: GRECIA Mirtazapine (Mirtazapine 7.5 Mg Tablet) 7.5 mg PO BEDTIME [facility] Last Admin: 10/13/22 21:25 Dose: 7.5 mg Documented By: RODNEY Ondansetron HCl (Ondansetron Hcl 4 Mg/2 Ml Vial) 4 mg IVPUSH Q8H PRN PRN Reason: Nausea and Vomiting Paroxetine HCl (Paroxetine Hcl 20 Mg Tablet) 20 mg PO DAILY [facility] Last Admin: 10/14/22 10:38 Dose: 20 mg Documented By: GRECIA Pharmacy Consult (Consult Rx Perform Med Rec) 1 each MISCELLANE ONCE PRN PRN Reason: Consult order Rivaroxaban (Rivaroxaban 15 Mg Tablet) 15 mg PO DAILY@1800 [facility] Last Admin: 10/13/22 17:52 Dose: 15 mg Documented By: MAKENNA Senna/Docusate Sodium (Sennosides/Docusate Sodium Tablet) 2 tab PO BEDTIME [facility] Last Admin: 10/13/22 21:26 Dose: 2 tab Documented By: RODNEY Sodium Chloride (0.9 % Sodium Chloride Flush 3 Ml Syringe) 3 ml IVFLUSH QSHIFT [facility] Last Admin: 10/14/22 10:30 Dose: 3 ml Documented By: GRECIA Labs 10/12/22 06:44 10/12/22 06:44 Labs: Laboratory Results - last 24 hr 10/13/22 10/13/22 10/13/22 11:15 16:06 19:34 POC Glucose 151 H 110 124 H 10/14/22 06:59 POC Glucose 124 H Microbiology Microbiology Results: Microbiology 10/12/22 04:18 MRSA Culture - Final Nares 10/11/22 19:54 Blood Culture - Preliminary Blood - Venous No growth after 48 hours. 10/11/22 18:32 Blood Culture - Preliminary Blood - Venous No growth after 48 hours. Assessment and Plan (1) Severe sepsis: Status: Acute (2) Atrial fibrillation with RVR: Status: Acute (3) IJEOMA (acute kidney injury): Status: Acute Plan 76-year-old female with history of mild intermittent asthma, paroxysmal atrial fibrillation anticoagulated with Xarelto, hypertension, history of CVA, insulin- dependent type 2 diabetes, HFpEF, and obesity admitted for severe sepsis, pneumonia, and afib with rvr. #severe sepsis- related to pneumonia - IV Ceftriaxone and Azithro-x 4 days, stopped 10/14 -Ceftin 500 bid 10/14 for 3 more days --total 7 days of Abx #moderate persistent asthma-with acute exacerbation -Xopenex -Prednisone 10 daily #Acute kidney injury- related to severe sepsis -Creat 1.6, baseline 1.25, 1.4 10/12, improving, repeat today #Atrial fibrillation with RVR-- - rate still high -Continue xarelto -continue home dose of Toprol XL 100 bid -Adding digoxin today 0.25 x 3 doses -Echo today #HFpEF -euvolemic appearing, bnp baseline. -no acute exacerbation -continue p.o. diuretics #HTN--continue Toprolol, #Insulin dependent type 2 diabetes- with hyperglycemia -continue Lantus -Humalog on sliding scale -diabetic diet -POC # history CVA -continue statin, Xarelto DVT prophylaxis-on Xarelto need for inpatient;AFIB with RVR meds still been adjusted for control Time Spent With Patient Time: Total time managing care of this patient today ____ minutes. Quality Stroke Does the patient have a stroke diagnosis?: No VTE Prior VTE?: No VTE Risk Level:: Medical - moderate - high VTE Device Contraindication: Treatment Not Indicated VTE Drug Contraindication: N/A - Med Ordered
[2022-10-14] MEDS: levalbuterol HCL 1.25 MG/3 ML VIAL.NEB INHALE ×3 (11:25→20:01)
[2022-10-14 13:01] LABS: Anion Gap 12 (12-20); Blood Urea Nitrogen 18 mg/dL (9-16); Calcium 9.1 mg/dL (8.4-10.2); Carbon Dioxide 25 mmol/L (22-29); Chloride 103 mmol/L (96-108); Creatinine Clr Calc Pharmacy 35.9; Estimated Glomerular Filt Rate 39; Glucose Random 170 mg/dL (60-115); Potassium 3.9 mmol/L (3.3-5.1); Sodium 136 mmol/L (135-145)
[2022-10-14] MEDS: Digoxin 0.5 MG/2 ML AMPUL 0.25 MG IVPUSH ×2 (13:25→18:29)
[2022-10-14] MEDS: predniSONE 10 MG TABLET PO (13:25)
[2022-10-14] MEDS: Insulin Lispro 100 UNIT/ML 3 ML VIAL SUBCUT ×2 (13:29→20:59)
[2022-10-14 13:34] LABS: Glucose, Whole Blood 165 mg/dL (60-115)
[2022-10-14 16:17] LABS: Glucose, Whole Blood 137 mg/dL (60-115)
[2022-10-14] MEDS: Rivaroxaban 15 MG TABLET PO (18:29)
[2022-10-14 20:04] LABS: Glucose, Whole Blood 230 mg/dL (60-115)
[2022-10-14] MEDS: Mirtazapine 7.5 MG TABLET PO (20:55)
[2022-10-14] MEDS: Sennosides/Docusate Sodium TABLET 2 TAB PO (20:56)
[2022-10-14] MEDS: Metoprolol Succinate ER 100 MG TAB.ER.24H PO (20:57)
[2022-10-14] MEDS: Insulin Glargine,Hum.rec.anlog 100 UNIT/ML 10 ML VIAL 26 UNIT SUBCUT (20:58)
[2022-10-15] VITALS (13 sets, daily range): BP systolic 111–147; BP diastolic 57–77; PULSE 50–100; RESP 16–26; TEMP 36.1–36.7; O2SAT 90–100
[2022-10-15] MEDS: Digoxin 0.5 MG/2 ML AMPUL 0.25 MG IVPUSH (00:09)
[2022-10-15 08:02] LABS: Glucose, Whole Blood 137 mg/dL (60-115)
[2022-10-15] MEDS: predniSONE 10 MG TABLET PO (08:12)
[2022-10-15] MEDS: Furosemide 40 MG TABLET PO (08:12)
[2022-10-15] MEDS: 0.9 % Sodium Chloride Flush 3 ML SYRINGE IVFLUSH ×3 (08:13→20:49)
[2022-10-15] MEDS: Metoprolol Succinate ER 100 MG TAB.ER.24H PO ×2 (08:13→20:45)
[2022-10-15] MEDS: Acetaminophen 325 MG TABLET 650 MG PO ×2 (08:13→20:46)
[2022-10-15] MEDS: Benzonatate 100 MG CAPSULE PO ×2 (08:13→20:45)
[2022-10-15] MEDS: PARoxetine HCL 20 MG TABLET PO (08:13)
[2022-10-15] MEDS: Gabapentin 300 MG CAPSULE PO (08:13)
[2022-10-15] MEDS: Atorvastatin Calcium 80 MG TABLET PO (08:13)
[2022-10-15] MEDS: levalbuterol HCL 1.25 MG/3 ML VIAL.NEB INHALE ×5 (08:19→19:12)
[2022-10-15] MEDS: Magnesium Sulfate/H2O 2 GM/50 ML PIGGYBACK IV (10:14)
[2022-10-15 11:55] LABS: Glucose, Whole Blood 201 mg/dL (60-115)
--- NOTE | 2022-10-15 11:57 | P.PNCA_ITS ---
Subjective Subjective Date of Service: 10/15/22 Principal diagnosis: Atrial fibrillation with rapid ventricular response Interval history: Patient seen at bedside. Says she is not breathing well and feeling more short of breath since this morning. Atrial fibrillation rate when I saw her was controlled with heart rate in the 50s and 60s. Echocardiogram yesterday shows LVEF of 45-50%. She is currently getting nebulizer treatment. Appears short of breath Review of Systems Constitutional: Reports weakness Eyes: Reports no additional eye complaints Cardiovascular: Denies chest pain, Denies syncope, Denies lightheadedness, Denies Loss of Consciousness, Denies palpitations and Reports dyspnea Respiratory: Reports dyspnea and Reports wheezing Reports system reviewed and no additional complaints, except as documented, Den ies syncope and Reports weakness Endocrine: Denies palpitations Allergic/Immunologic: Reports wheezing Physical Exam Vital Signs: Last Vital Signs Temp 97.1 F 10/15/22 11:04 Pulse 100 10/15/22 11:30 Resp 20 10/15/22 11:30 BP 147/67 H 10/15/22 11:04 Pulse Ox 100 10/15/22 11:04 O2 Del Method Nasal Cannula 10/15/22 11:04 O2 Flow Rate 6 10/15/22 11:04 BMI result Body Mass Index 37.0 Const General: cooperative, in distress moderate and respiratory and ill appearing Nutritional Appearance: obese Orientation/consciousness: patient oriented x3 Neck Neck: Yes trachea midline, Yes supple and Yes other ( difficult to evaluate JVD) Resp Effort & Inspection: normal respiratory effort Auscultation: crackles (coarse) bilateral at the base and wheezes throughout Cardio Rhythm: abnormal rhythm irregularly irregular Heart sounds: S1 normal heart sound present, S2 normal heart sound present, no click, no gallops, no murmurs and no rubs GI Auscultation: normal bowel sounds Skin General skin exam: no rashes or lesions noted Neuro General: patient oriented x3 and no focal motor deficits Extrem General: Yes no clubbing, cyanosis or edema Objective Labs and Meds 10/12/22 06:44 10/14/22 12:26 Lab results: Laboratory Results - last 24 hr 10/14/22 10/14/22 10/14/22 12:26 13:27 16:04 Sodium 136 Potassium 3.9 Chloride 103 Carbon Dioxide 25 Anion Gap 12 BUN 18 H Creatinine 1.34 Estim Creat Clear Calc 35.9 Estimated GFR 39 POC Glucose 165 H 137 H Random Glucose 170 H Calcium 9.1 10/14/22 10/15/22 10/15/22 19:58 07:07 11:43 Sodium Potassium Chloride Carbon Dioxide Anion Gap BUN Creatinine Estim Creat Clear Calc Estimated GFR POC Glucose 230 H 137 H 201 H Random Glucose Calcium Progress Note: A&P Assessment and plan (1) Acute dyspnea: Status: Acute Assessment and Plan: acute shortness of breath and patient appearing in respiratory distress is concerning. Could be related to severe bronchospastic airway disease but heart failure cannot be entirely ruled out given her body habitus and persistent atrial fibrillation. She also received fluid related to her sepsis. Order BNP. Treated with IV Lasix stat 40 mg. Strict intake output chart needs to be pursued. Follow with chest x-ray and consider pulmonary consultation. Continue bronchodilator treatment. Her rate is adequately control at this point time. Further treatment based on finding a workup and response to therapy. Overall prognosis is guarded (2) Atrial fibrillation with RVR: Status: Acute Assessment and Plan: Atrial fibrillation better rate control. May be over corrected rate. Hold digoxin for now. Continue to use metoprolol. Currently on full oral anticoagulation Xarelto. Will continue to follow with you. Time Spent With Patient Time: Total time managing care of this patient today ____ minutes. Progress Note: Quality Stroke Does the patient have a stroke diagnosis?: No Procedures Date of Service Date of Service: 10/15/22
[2022-10-15] MEDS: Insulin Lispro 100 UNIT/ML 3 ML VIAL SUBCUT ×3 (12:30→20:47)
[2022-10-15 12:31] LABS: ABG Base Excess 1.1 mmol/L; ABG HCO3 26 mmol/L (22-26); ABG pCO2 46 mmHg (32-45); ABG pH 7.36 (7.35-7.45); ABG pO2 62 mmHg (83-108)
[2022-10-15] MEDS: Furosemide 40 MG/4 ML VIAL IVPUSH ×2 (12:31→16:52)
[2022-10-15] MEDS: methylPREDNISolone Sod Succ 40 MG/ML VIAL IVPUSH (12:31)
[2022-10-15 12:46] LABS: B Type Natriuretic Peptide 299 pg/mL (<100)
--- NOTE | 2022-10-15 13:29 | MHC.CM.PN ---
[facility] ( ) CALLED TO REQUEST CM SET UP AN INTAKE CALL FOR 6 MONTH ASSESSMENT WITH PT. PT UNABLE TO PARTICIPATE WITH THIS AT THIS TIME DUE TO FATIGUE AND SOB. CM PROVIDED PHONE # OF HCP AND [employer] AND [employer] JAYA TO ASSIST WITH COORDINATION OF THIS FOR POSSIBLY WHEN SHE IS HOME OR MORE ABLE TO PARTICIPATE.
[2022-10-15 13:30] LABS: ABG Refer to POC result
--- NOTE | 2022-10-15 15:50 | PM.CNPUL ---
History of Present Illness History of Present Illness Consult date: 10/15/22 Reason for consult: dyspnea and hypoxemia Chief complaint: afib rvr, pneumonia, sepsis Narrative: PULMONARY CONSULTATION. I was us to see this patient for pulmonary consultation as she is having increased shortness of breath. Patient is 76 years old female, admitted with increased shortness of breath , no fever or chills, she also had marked generalized weakness No history of PN D no chest pain. Patient denied any wheezing, she had past history of mild intermittent type of bronchial asthma and has used albuterol only p.r.n.. Currently she was using more frequently. This patient does not have any long-acting or maintenance inhaler. Since admission she is being treated with antibiotics, DuoNeb updraft, oxygen supplement. She had a relatively rapid ventricular rate, which is being well controlled. Patient is also receiving diuresis for possibility of congestive heart failure. At the time of my examination in the afternoon today, the patient was somewhat obtunded and not doing much conversation. I have reviewed her previous records also and there does not seem to be any specific history of chronic obstructive pulmonary disease. Patient has history of smoking in the remote past but it is noted that she quit about 40 years ago. Since her admission over here she has remained afebrile. 76-year-old female with history of mild intermittent asthma, paroxysmal atrial fibrillation anticoagulated with Xarelto, hypertension, history of CVA, insulin-dependent type 2 diabetes, HFpEF, and obesity presents to the ED earlier today with her sons for evaluation of a shortness of breath, productive cough, weakness.? She has felt so weak she has had difficulty walking.? Reports shortness of breath at rest as well as with exertion.? There is also been palpitations.? Denies any orthopnea or PND.? She does report increased albuterol usage.? Denies any sick contacts.? Denies fevers, chills, sore throat, nasal congestion, abdominal pain, nausea, vomiting, leg edema, headaches, lightheadedness, chest pain. They were initially evaluated in the ED earlier today with negative workup and discharged home.? However, reportedly, symptoms worsened prompting them to return for re-evaluation. Review of Systems Review of Systems: Yes Unobtainable due to mental status PMFSH Past Medical History Medical History (Updated 10/15/22 @ 16:08 by Aleta Lynn MD) Asthma Asthma with acute exacerbation Atrial fibrillation Change in mental status CHF (congestive heart failure) Diabetes History of CVA (cerebrovascular accident) Hypertension Family History Family History Father Hypertension Mother Diabetes Hypertension Social History Social History Household Members: None Housing: Apartment Do you presently have visiting nurse or other home services: Yes Alcohol intake: never Patient Tobacco Use Status: Former Tobacco user Quit Date: Quit 40 years ago Currently Displaying Signs/Symptoms of Drug Intoxication Withdrawal: No Advance Directives: No Advance Directives Information Provided: Yes Nutrition Risks: No Nutritional Risk service: No Current occupational status: disabled [employer] Allergies Allergy/AdvReac Type Severity Reaction Status Date / Time No Known Allergies Allergy Unverified 03/02/20 16:47 Active Medications: Current Medications Acetaminophen (Acetaminophen 325 Mg Tablet) 650 mg PO Q4H PRN PRN Reason: Pain, Moderate(Pain Scale 4-7) Last Admin: 10/15/22 08:13 Dose: 650 mg Atorvastatin Calcium (Atorvastatin Calcium 80 Mg Tablet) 80 mg PO DAILY JACK Last Admin: 10/15/22 08:13 Dose: 80 mg Benzonatate (Benzonatate 100 Mg Capsule) 100 mg PO BID PRN PRN Reason: cough Last Admin: 10/15/22 08:13 Dose: 100 mg Cefuroxime Axetil (Cefuroxime Axetil 500 Mg Tablet) 500 mg PO Q12H JACK Last Admin: 10/15/22 08:12 Dose: 500 mg Docusate Sodium (Docusate Sodium 100 Mg Capsule) 100 mg PO DAILY PRN PRN Reason: Constipation Furosemide (Furosemide 40 Mg/4 Ml Vial) 40 mg IVPUSH Q12H JACK; Protocol Gabapentin (Gabapentin 300 Mg Capsule) 300 mg PO DAILY JAKC Last Admin: 10/15/22 08:13 Dose: 300 mg Glucose (Glucose Gel 15 Gm Gel..Gram.) 15 gm PO Q15M PRN; Protocol PRN Reason: per Hypoglycemia Standing Ord. Guaifenesin (Guaifenesin 200 Mg/10 Ml 10 Ml Liquid) 10 ml PO Q4H PRN PRN Reason: Cough Last Admin: 10/13/22 11:51 Dose: 10 ml Dextrose (D10) 250 mls @ 750 mls/hr IV Q15M PRN; Protocol PRN Reason: per Hypoglycemia Standing Ord. Insulin Glargine (Insulin Glargine,Hum.Rec.Anlog 100 Unit/Ml 10 Ml Vial) 26 unit SUBCUT BEDTIME [facility] Last Admin: 10/14/22 20:58 Dose: 26 unit Insulin Human Lispro (Insulin Lispro 100 Unit/Ml 3 Ml Vial) 0 unit SUBCUT QIDACHS [facility]; Protocol Last Admin: 10/15/22 12:30 Dose: 4 unit Levalbuterol HCl (Levalbuterol Hcl 1.25 Mg/3 Ml Vial.Neb) 1.25 mg INHALE RQ4H WHILE AWAKE [facility] Last Admin: 10/15/22 15:18 Dose: 1.25 mg Levalbuterol HCl (Levalbuterol Hcl 1.25 Mg/3 Ml Vial.Neb) 1.25 mg INHALE Q2H PRN PRN Reason: Shortness of Breath Last Admin: 10/15/22 14:01 Dose: 1.25 mg Methylprednisolone Sodium Succinate (Methylprednisolone Sod Succ 40 Mg/Ml Vial) 40 mg IVPUSH Q8H [facility] Last Admin: 10/15/22 12:31 Dose: 40 mg Metoprolol Succinate (Metoprolol Succinate Er 100 Mg Tab.Er.24h) 100 mg PO BID [facility]; Protocol Last Admin: 10/15/22 08:13 Dose: 100 mg Mirtazapine (Mirtazapine 7.5 Mg Tablet) 7.5 mg PO BEDTIME [facility] Last Admin: 10/14/22 20:55 Dose: 7.5 mg Omeprazole (Omeprazole 20 Mg Capsule.Dr) 20 mg PO BID@0630,1630 [facility] Ondansetron HCl (Ondansetron Hcl 4 Mg/2 Ml Vial) 4 mg IVPUSH Q8H PRN PRN Reason: Nausea and Vomiting Paroxetine HCl (Paroxetine Hcl 20 Mg Tablet) 20 mg PO DAILY [facility] Last Admin: 10/15/22 08:13 Dose: 20 mg Pharmacy Consult (Consult Rx Perform Med Rec) 1 each MISCELLANE ONCE PRN PRN Reason: Consult order Rivaroxaban (Rivaroxaban 15 Mg Tablet) 15 mg PO DAILY@1800 [facility] Last Admin: 10/14/22 18:29 Dose: 15 mg Senna/Docusate Sodium (Sennosides/Docusate Sodium Tablet) 2 tab PO BEDTIME [facility] Last Admin: 10/14/22 20:56 Dose: 2 tab Sodium Chloride (0.9 % Sodium Chloride Flush 3 Ml Syringe) 3 ml IVFLUSH QSHIFT [facility] Last Admin: 10/15/22 12:32 Dose: 3 ml Home Medications Medication Instructions Recorded Confirmed Last Taken Type albuterol sulfate 90 mcg/actuation 2 puff PO QID PRN wheezing 02/23/21 10/11/22 Unknown History aerosol inhaler (Ventolin HFA) atorvastatin 80 mg tablet 1 tab PO DAILY 02/23/21 10/11/22 02/23/21 History dulaglutide 1.5 mg/0.5 mL 0.5 ml subcut QWEEK 02/23/21 10/11/22 Unknown History subcutaneous pen injector (Trulicity) gabapentin 300 mg capsule 1 cap PO DAILY 02/23/21 10/11/22 02/23/21 History insulin glargine 100 unit/mL (3 35 unit subcut BEDTIME 02/23/21 10/11/22 02/22/21 History mL) subcutaneous pen (Lantus Solostar U-100 Insulin) metoprolol succinate 100 mg 1 tab PO BID 02/23/21 10/11/22 02/23/21 History tablet,extended release 24 hr mirtazapine 7.5 mg tablet 7.5 mg PO BEDTIME 02/23/21 10/11/22 02/22/21 History paroxetine HCl 20 mg tablet 20 mg PO DAILY 02/23/21 10/11/22 02/23/21 History rivaroxaban 15 mg tablet (Xarelto) 15 mg PO DAILY@1700 02/23/21 10/11/22 02/22/21 History sennosides 8.6 mg-docusate sodium 2 tab PO BEDTIME 02/23/21 10/11/22 02/22/21 History 50 mg tablet (Senna-S) furosemide 40 mg tablet 40 mg PO DAILY 10/11/22 10/11/22 Unknown History losartan 25 mg tablet 25 mg PO DAILY 10/11/22 10/11/22 Unknown History Physical Exam Vital Signs: Vital Signs: Last Vital Signs Temp 98.0 F 10/15/22 14:59 Pulse 57 10/15/22 15:19 Resp 16 10/15/22 15:19 BP 124/65 10/15/22 14:59 Pulse Ox 90 L 10/15/22 14:59 O2 Del Method Nasal Cannula 10/15/22 14:59 O2 Flow Rate 1 10/15/22 14:59 BMI result Body Mass Index 37.0 Const: General: comfortable, no acute distress, alert and awake HEENT: Head: Yes normal to inspection General nose exam: No nasal polyps present and No nasal discharge present Face and sinus: Yes sinuses nontender Mouth: oropharynx abnormals (Could not be examined as she would not open her mouth) Throat: Yes posterior oropharynx normal Eyes: General: appearance normal, both eyes and all related structures Neck: Neck: Yes normal visual inspection, Yes no lymphadenopathy, Yes trachea midline, Yes no JVD and Yes other (Neck is short and obese) Thyroid: Thyroid normal Chest: Chest palpation & inspection: normal inspection of the chest, normal palpation of entire chest wall and no tenderness Resp: Other: Percussion note is not perceptible because of obese chest wall. I had difficulty in performing auscultation, breath sounds are distant. There are inspiratory crackles over the right lower lobe and left base. No wheezes are heard. Cardio: Palpation: PMI not normal (Not palpable) Rate: regular rate (Well controlled at this time) and Other (Atrial fibrillation) Rhythm: other (Atrial fibrillation) Heart sounds: no gallops and no murmurs GI: Palpation (GI): Soft to palpation, Tenderness to palpation present (GI), No hepatosplenomegaly present, Palpable mass present and Other GI palpation findings present (Abdomen is obese and protuberant) Auscultation: normal bowel sounds Back/Spine/Pelvis: Other: Could not be examined Skin: General skin exam: no rashes or lesions noted Neuro: Other: This patient is non-conversant at this time. She is lying down supine in the bed, does move her extremities, but very slowly. Extrem: General: Yes normal to inspection, Yes no clubbing, cyanosis or edema and Yes no calf tenderness Psych: Other: Patient is somewhat up 10 days, and non-conversant. Results Laboratory Findings 10/12/22 06:44 10/14/22 12:26 ABG, PT/INR, D-dimer: PT/INR, D-dimer PT 15.7 SEC (10.0-13.1) H 10/11/22 18:32 INR 1.4 (0.9-1.1) H 10/11/22 18:32 Abnormal lab findings: Abnormal Labs 10/11/22 10/11/22 10/11/22 18:31 18:31 18:31 WBC 12.3 H RBC Hgb Hct Plt Count Neut % (Auto) 83.9 H Lymph % (Auto) 9.3 L Abs Immat Gran (auto) 0.04 H Absolute Neuts (auto) 10.3 H PT INR ABG pCO2 at Pt Temp ABG pO2 at Pt Temp Anion Gap BUN 18 H Creatinine 1.61 H POC Glucose Random Glucose 197 H AST 37 H ALT B-Natriuretic Peptide 235 H Total Protein Human Metapneumovir PCR 10/11/22 10/11/22 10/12/22 18:32 21:54 04:21 WBC RBC Hgb Hct Plt Count Neut % (Auto) Lymph % (Auto) Abs Immat Gran (auto) Absolute Neuts (auto) PT 15.7 H INR 1.4 H ABG pCO2 at Pt Temp ABG pO2 at Pt Temp Anion Gap BUN Creatinine POC Glucose 136 H Random Glucose AST ALT B-Natriuretic Peptide Total Protein Human Metapneumovir PCR Detected A 10/12/22 10/12/22 10/12/22 06:44 06:44 07:24 WBC RBC 3.93 L Hgb 11.3 L Hct 35.1 L Plt Count 149 L Neut % (Auto) 76.4 H Lymph % (Auto) 16.9 L Abs Immat Gran (auto) Absolute Neuts (auto) PT INR ABG pCO2 at Pt Temp ABG pO2 at Pt Temp Anion Gap 11 L BUN 17 H Creatinine 1.42 H POC Glucose 129 H Random Glucose 135 H AST 84 H ALT 59 H B-Natriuretic Peptide Total Protein 6.0 L Human Metapneumovir PCR 10/12/22 10/12/22 10/13/22 10:58 20:37 11:15 WBC RBC Hgb Hct Plt Count Neut % (Auto) Lymph % (Auto) Abs Immat Gran (auto) Absolute Neuts (auto) PT INR ABG pCO2 at Pt Temp ABG pO2 at Pt Temp Anion Gap BUN Creatinine POC Glucose 164 H 143 H 151 H Random Glucose AST ALT B-Natriuretic Peptide Total Protein Human Metapneumovir PCR 10/13/22 10/14/22 10/14/22 19:34 06:59 12:26 WBC RBC Hgb Hct Plt Count Neut % (Auto) Lymph % (Auto) Abs Immat Gran (auto) Absolute Neuts (auto) PT INR ABG pCO2 at Pt Temp ABG pO2 at Pt Temp Anion Gap BUN 18 H Creatinine POC Glucose 124 H 124 H Random Glucose 170 H AST ALT B-Natriuretic Peptide Total Protein Human Metapneumovir PCR 10/14/22 10/14/22 10/14/22 13:27 16:04 19:58 WBC RBC Hgb Hct Plt Count Neut % (Auto) Lymph % (Auto) Abs Immat Gran (auto) Absolute Neuts (auto) PT INR ABG pCO2 at Pt Temp ABG pO2 at Pt Temp Anion Gap BUN Creatinine POC Glucose 165 H 137 H 230 H Random Glucose AST ALT B-Natriuretic Peptide Total Protein Human Metapneumovir PCR 10/15/22 10/15/22 10/15/22 07:07 11:43 11:59 WBC RBC Hgb Hct Plt Count Neut % (Auto) Lymph % (Auto) Abs Immat Gran (auto) Absolute Neuts (auto) PT INR ABG pCO2 at Pt Temp ABG pO2 at Pt Temp Anion Gap BUN Creatinine POC Glucose 137 H 201 H Random Glucose AST ALT B-Natriuretic Peptide 299 H Total Protein Human Metapneumovir PCR 10/15/22 12:23 WBC RBC Hgb Hct Plt Count Neut % (Auto) Lymph % (Auto) Abs Immat Gran (auto) Absolute Neuts (auto) PT INR ABG pCO2 at Pt Temp 46 H ABG pO2 at Pt Temp 62 L Anion Gap BUN Creatinine POC Glucose Random Glucose AST ALT B-Natriuretic Peptide Total Protein Human Metapneumovir PCR ABGs pCO2 46 and PO2 62 Microbiology: Microbiology 10/12/22 04:18 Nares MRSA Culture - Final 10/11/22 19:54 Blood - Venous Blood Culture - Preliminary No growth after 48 hours. 10/11/22 18:32 Blood - Venous Blood Culture - Preliminary No growth after 48 hours. 10/12/22 07:35 Sputum - Expectorated Gram Stain - Final 10/12/22 07:35 Sputum - Expectorated Sputum Culture - Final Diagnostic Findings Chest x-ray: report reviewed and image reviewed CT scan - chest: report reviewed and image reviewed Assessment and Plan (1) Acute dyspnea: Status: Acute (2) Acute respiratory failure with hypoxia: Status: Acute (3) Atrial fibrillation with RVR: Status: Acute (4) Severe sepsis: Status: Acute (5) Change in mental status: Status: Acute Plan This patient has, history of intermittent bronchial asthma, which does not seem to be active at this time. Chest auscultation is consistent with possible pneumonia, congestive heart failure, or basilar atelectasis. Arterial blood gases show only minimal hypercapnia which is not significant. I a.m. not aware of her baseline mental status, but at this time there is a change in mental status . This may be due to sepsis. Possibility of a an acute neurologic event and patient needs to be followed up closely. For treatment, I would suggest changing Ceftin p.o. to IV Rocephin. O2 by nasal cannula to keep O2 sat above 92%. DuoNeb updrafts Q 4-6 hours while awake. Continue diuresis as recommended by Cardiology, but monitor the electrolytes BUN creatinine closely. Thank you for asking me to see this patient Time Spent With Patient Time: Total time managing care of this patient today ____ minutes. Procedures Date of Service Date of Service: 10/15/22
[2022-10-15 16:12] LABS: Glucose, Whole Blood 309 mg/dL (60-115)
[2022-10-15] MEDS: cefTRIAXone sodium 1 GM in 0.9 % Sodium Chloride 50 ML IV (16:51)
[2022-10-15] MEDS: Omeprazole 20 MG CAPSULE.DR PO (16:52)
[2022-10-15] MEDS: Rivaroxaban 15 MG TABLET PO (16:52)
--- NOTE | 2022-10-15 18:06 | P.PNIM_ITS ---
Subjective Subjective Date of Service: 10/15/22 Interval History: f/u on PNA, sepsis, afib with RVR seems lethagic in am,also sob worsenin Review of Systems she feels congested, cough, shortness of breath , AFIB heart rate still high Physical Exam Vital Signs: Vital Signs: Last Vital Signs Temp 98.0 F 10/15/22 14:59 Pulse 83 10/15/22 16:50 Resp 20 10/15/22 16:50 BP 133/77 10/15/22 16:50 Pulse Ox 90 L 10/15/22 14:59 O2 Del Method Nasal Cannula 10/15/22 14:59 O2 Flow Rate 1 10/15/22 14:59 BMI result Body Mass Index 37.0 General: more alert oriented in late afternoon Resp:? rhonchi, congestion CVS: S1,S2, iregular iregular GI: +BS, NT, no distention Skin: No rash Neuro:? motor grossly intact Psych: appropriate affect Objective Data Active Medications Acetaminophen (Acetaminophen 325 Mg Tablet) 650 mg PO Q4H PRN PRN Reason: Pain, Moderate(Pain Scale 4-7) Last Admin: 10/15/22 08:13 Dose: 650 mg Documented By: DAVID Atorvastatin Calcium (Atorvastatin Calcium 80 Mg Tablet) 80 mg PO DAILY [facility] Last Admin: 10/15/22 08:13 Dose: 80 mg Documented By: DAVID Benzonatate (Benzonatate 100 Mg Capsule) 100 mg PO BID PRN PRN Reason: cough Last Admin: 10/15/22 08:13 Dose: 100 mg Documented By: DAVID Docusate Sodium (Docusate Sodium 100 Mg Capsule) 100 mg PO DAILY PRN PRN Reason: Constipation Furosemide (Furosemide 40 Mg/4 Ml Vial) 40 mg IVPUSH Q12H [facility]; Protocol Last Admin: 10/15/22 16:52 Dose: 40 mg Documented By: DAVID Gabapentin (Gabapentin 300 Mg Capsule) 300 mg PO DAILY [facility] Last Admin: 10/15/22 08:13 Dose: 300 mg Documented By: DAVID Glucose (Glucose Gel 15 Gm Gel..Gram.) 15 gm PO Q15M PRN; Protocol PRN Reason: per Hypoglycemia Standing Ord. Guaifenesin (Guaifenesin 200 Mg/10 Ml 10 Ml Liquid) 10 ml PO Q4H PRN PRN Reason: Cough Last Admin: 10/13/22 11:51 Dose: 10 ml Documented By: MAKENNA Dextrose (D10) 250 mls @ 750 mls/hr IV Q15M PRN; Protocol PRN Reason: per Hypoglycemia Standing Ord. Ceftriaxone Sodium 1 gm/ (Sodium Chloride) 50 mls @ 100 mls/hr IV Q24H JACK Last Infusion: 10/15/22 17:33 Dose: 0 mls/hr Documented By: DAVID Insulin Glargine (Insulin Glargine,Hum.Rec.Anlog 100 Unit/Ml 10 Ml Vial) 26 unit SUBCUT BEDTIME [facility] Last Admin: 10/14/22 20:58 Dose: 26 unit Documented By: RODNEY Insulin Human Lispro (Insulin Lispro 100 Unit/Ml 3 Ml Vial) 0 unit SUBCUT QIDACHS [facility]; Protocol Last Admin: 10/15/22 16:51 Dose: 8 unit Documented By: DAVID Levalbuterol HCl (Levalbuterol Hcl 1.25 Mg/3 Ml Vial.Neb) 1.25 mg INHALE RQ4H WHILE AWAKE [facility] Last Admin: 10/15/22 15:18 Dose: 1.25 mg Documented By: SYLWIA Levalbuterol HCl (Levalbuterol Hcl 1.25 Mg/3 Ml Vial.Neb) 1.25 mg INHALE Q2H PRN PRN Reason: Shortness of Breath Last Admin: 10/15/22 14:01 Dose: 1.25 mg Documented By: DAVID Methylprednisolone Sodium Succinate (Methylprednisolone Sod Succ 40 Mg/Ml Vial) 40 mg IVPUSH Q12H [facility]ACK Metoprolol Succinate (Metoprolol Succinate Er 100 Mg Tab.Er.24h) 100 mg PO BID [facility]; Protocol Last Admin: 10/15/22 08:13 Dose: 100 mg Documented By: DAVID Mirtazapine (Mirtazapine 7.5 Mg Tablet) 7.5 mg PO BEDTIME [facility] Last Admin: 10/14/22 20:55 Dose: 7.5 mg Documented By: RODNEY Omeprazole (Omeprazole 20 Mg Capsule.) 20 mg PO BID@0630,1630 [facility] Last Admin: 10/15/22 16:52 Dose: 20 mg Documented By: DAVID Ondansetron HCl (Ondansetron Hcl 4 Mg/2 Ml Vial) 4 mg IVPUSH Q8H PRN PRN Reason: Nausea and Vomiting Paroxetine HCl (Paroxetine Hcl 20 Mg Tablet) 20 mg PO DAILY [facility] Last Admin: 10/15/22 08:13 Dose: 20 mg Documented By: DAVID Pharmacy Consult (Consult Rx Perform Med Rec) 1 each MISCELLANE ONCE PRN PRN Reason: Consult order Rivaroxaban (Rivaroxaban 15 Mg Tablet) 15 mg PO DAILY@1800 [facility] Last Admin: 10/15/22 16:52 Dose: 15 mg Documented By: DAVID Senna/Docusate Sodium (Sennosides/Docusate Sodium Tablet) 2 tab PO BEDTIME [facility] Last Admin: 10/14/22 20:56 Dose: 2 tab Documented By: RODNEY Sodium Chloride (0.9 % Sodium Chloride Flush 3 Ml Syringe) 3 ml IVFLUSH QSHIFT [facility] Last Admin: 10/15/22 12:32 Dose: 3 ml Documented By: DAVID Labs 10/12/22 06:44 10/14/22 12:26 Labs: Laboratory Results - last 24 hr 10/14/22 10/15/22 10/15/22 19:58 07:07 11:43 O2 Saturation ABG pH at Pt Temp ABG pCO2 at Pt Temp ABG pO2 at Pt Temp ABG HCO3 ABG Base Excess (Actual) POC Glucose 230 H 137 H 201 H B-Natriuretic Peptide 10/15/22 10/15/22 10/15/22 11:59 12:23 16:04 O2 Saturation 88.0 ABG pH at Pt Temp 7.36 ABG pCO2 at Pt Temp 46 H ABG pO2 at Pt Temp 62 L ABG HCO3 26 ABG Base Excess (Actual) 1.1 POC Glucose 309 H B-Natriuretic Peptide 299 H Assessment and Plan (1) Atrial fibrillation with RVR: Status: Acute (2) Acute respiratory failure with hypoxia: Status: Acute Plan 76-year-old female with history of mild intermittent asthma, paroxysmal atrial fibrillation anticoagulated with Xarelto, hypertension, history of CVA, insulin- dependent type 2 diabetes, and obesity admitted for severe sepsis, pneumonia, and afib with rvr. acute hypoxemic/hypercarbic respiratory failure secondary to COPD, severe sepsis- related to pneumonia, also contribution HfpEFexacerbation Toxic metabolic encephalopathy due to above-seems improving, will add CT head to complete the workup. cxr,abg,bnp noted. Continue nebs, steroids, antibiotics,iv lasix added monitre i/o, daily weights, BNP pulm/cardio eval noted. moderate persistent asthma-with? acute exacerbation -Xopenex -Prednisone 10 daily Acute kidney injury- related to severe sepsis improvingy Atrial fibrillation with RVR-- hr is lower side , but no new c/o hold bb/digoxin Continue xarelto echo pendin HFpEF -seems in chf , bnp baseline. -no acute exacerbation iv lasix due to worsening of respiratory failure the HTN--continue Toprolol, Insulin dependent type 2 diabetes- with hyperglycemia -continue Lantus -Humalog on sliding scale -diabetic diet -POC history CVA -continue statin, Xarelto DVT prophylaxis-on Xarelto need for inpatient; HfpEFexacerbation-need iv lasix, i/o monitering, elecctrolytic monitering Time Spent With Patient Time: Total time managing care of this patient today ____ minutes. Quality Stroke Does the patient have a stroke diagnosis?: No VTE Prior VTE?: No VTE Risk Level:: Medical - moderate - high VTE Device Contraindication: Treatment Not Indicated VTE Drug Contraindication: N/A - Med Ordered
[2022-10-15 19:47] LABS: Glucose, Whole Blood 316 mg/dL (60-115)
[2022-10-15] MEDS: Mirtazapine 7.5 MG TABLET PO (20:45)
[2022-10-15] MEDS: Insulin Glargine,Hum.rec.anlog 100 UNIT/ML 10 ML VIAL 26 UNIT SUBCUT (20:46)
[2022-10-16] VITALS (11 sets, daily range): BP systolic 123–161; BP diastolic 58–72; PULSE 59–84; RESP 18–20; TEMP 35.9–36.9; O2SAT 91–97
[2022-10-16 00:04] LABS: Strep Pneumo Ag urine Not Detected (Not Detected)
[2022-10-16] MEDS: methylPREDNISolone Sod Succ 40 MG/ML VIAL IVPUSH ×2 (00:40→11:37)
[2022-10-16] MEDS: Furosemide 40 MG/4 ML VIAL IVPUSH ×2 (05:13→16:45)
[2022-10-16] MEDS: Omeprazole 20 MG CAPSULE.DR PO ×2 (05:14→16:45)
[2022-10-16 07:07] LABS: B Type Natriuretic Peptide 228 pg/mL (<100)
[2022-10-16 07:09] LABS: Glucose, Whole Blood 229 mg/dL (60-115)
[2022-10-16 07:54] LABS: Anion Gap 13 (12-20); Blood Urea Nitrogen 28 mg/dL (9-16); Calcium 9.9 mg/dL (8.4-10.2); Carbon Dioxide 27 mmol/L (22-29); Chloride 101 mmol/L (96-108); Creatinine Clr Calc Pharmacy 31.5; Estimated Glomerular Filt Rate 33; Glucose Random 251 mg/dL (60-115); Potassium 4.4 mmol/L (3.3-5.1); Sodium 137 mmol/L (135-145)
[2022-10-16] MEDS: PARoxetine HCL 20 MG TABLET PO (08:18)
[2022-10-16] MEDS: Gabapentin 300 MG CAPSULE PO (08:19)
[2022-10-16] MEDS: Insulin Lispro 100 UNIT/ML 3 ML VIAL SUBCUT ×4 (08:19→20:59)
[2022-10-16] MEDS: Atorvastatin Calcium 80 MG TABLET PO (08:19)
[2022-10-16] MEDS: 0.9 % Sodium Chloride Flush 3 ML SYRINGE IVFLUSH ×3 (08:21→20:59)
--- NOTE | 2022-10-16 10:37 | PM.CNNEP ---
History of Present Illness Reason for Consult Consult date: 10/16/22 Reason for consult: IJEOMA Chief Complaint Chief complaint: afib rvr, pneumonia, sepsis History of Present Illness Narrative: 76-year-old female with history of mild intermittent asthma, paroxysmal atrial fibrillation anticoagulated with Xarelto, hypertension, history of CVA, insulin-dependent type 2 diabetes, HFpEF, and obesity presents to the ED earlier today with her sons for evaluation of a shortness of breath, productive cough, weakness.? She has felt so weak she has had difficulty walking.? Reports shortness of breath at rest as well as with exertion.? There is also been palpitations.? Denies any orthopnea or PND.? She does report increased albuterol usage.? Denies any sick contacts.? Denies fevers, chills, sore throat, nasal congestion, abdominal pain, nausea, vomiting, leg edema, headaches, lightheadedness, chest pain. They were initially evaluated in the ED earlier today with negative workup and discharged home.? However, reportedly, symptoms worsened prompting them to return for re-evaluation. currently on Lasix. Serum creatinine has bumped up. From 1.3-1.5. Review of Systems Constitutional: Denies chills and Denies weakness Cardiovascular: Denies chest pain at rest and Denies lightheadedness Respiratory: Reports chest congestion, Reports cough and Reports wheezing Gastrointestinal: Denies abdominal pain and Denies change in stool character Musculoskeletal: Denies back pain Denies weakness Allergic/Immunologic: Reports wheezing PMFSH Past Medical History Medical History (Updated 10/16/22 @ 11:14 by Murali Vivas MD) Asthma Asthma with acute exacerbation Atrial fibrillation Change in mental status CHF (congestive heart failure) Diabetes History of CVA (cerebrovascular accident) Hypertension Family History Family History Father Hypertension Mother Diabetes Hypertension Social History Social History Household Members: None Housing: Apartment Do you presently have visiting nurse or other home services: Yes Alcohol intake: never Patient Tobacco Use Status: Former Tobacco user Quit Date: Quit 40 years ago Currently Displaying Signs/Symptoms of Drug Intoxication Withdrawal: No Advance Directives: No Advance Directives Information Provided: Yes Nutrition Risks: No Nutritional Risk service: No Current occupational status: disabled Meds Allergies Allergy/AdvReac Type Severity Reaction Status Date / Time No Known Allergies Allergy Unverified 03/02/20 16:47 Active Medications: Current Medications Acetaminophen (Acetaminophen 325 Mg Tablet) 650 mg PO Q4H PRN PRN Reason: Pain, Moderate(Pain Scale 4-6) Last Admin: 10/15/22 20:46 Dose: 650 mg Atorvastatin Calcium (Atorvastatin Calcium 80 Mg Tablet) 80 mg PO DAILY [facility] Last Admin: 10/16/22 08:19 Dose: 80 mg Benzonatate (Benzonatate 100 Mg Capsule) 100 mg PO BID PRN PRN Reason: cough Last Admin: 10/15/22 20:45 Dose: 100 mg Docusate Sodium (Docusate Sodium 100 Mg Capsule) 100 mg PO DAILY PRN PRN Reason: Constipation Furosemide (Furosemide 40 Mg/4 Ml Vial) 40 mg IVPUSH Q12H [facility]; Protocol Last Admin: 10/16/22 05:13 Dose: 40 mg Gabapentin (Gabapentin 300 Mg Capsule) 300 mg PO DAILY [facility] Last Admin: 10/16/22 08:19 Dose: 300 mg Glucose (Glucose Gel 15 Gm Gel..Gram.) 15 gm PO Q15M PRN; Protocol PRN Reason: per Hypoglycemia Standing Ord. Guaifenesin (Guaifenesin 200 Mg/10 Ml 10 Ml Liquid) 10 ml PO Q4H PRN PRN Reason: Cough Last Admin: 10/13/22 11:51 Dose: 10 ml Dextrose (D10) 250 mls @ 750 mls/hr IV Q15M PRN; Protocol PRN Reason: per Hypoglycemia Standing Ord. Ceftriaxone Sodium 1 gm/ (Sodium Chloride) 50 mls @ 100 mls/hr IV Q24H [facility] Last Infusion: 10/15/22 17:33 Dose: Infused Insulin Glargine (Insulin Glargine,Hum.Rec.Anlog 100 Unit/Ml 10 Ml Vial) 26 unit SUBCUT BEDTIME [facility] Last Admin: 10/15/22 20:46 Dose: 26 unit Insulin Human Lispro (Insulin Lispro 100 Unit/Ml 3 Ml Vial) 0 unit SUBCUT QIDACHS [facility]; Protocol Last Admin: 10/16/22 08:19 Dose: 4 unit Levalbuterol HCl (Levalbuterol Hcl 1.25 Mg/3 Ml Vial.Neb) 1.25 mg INHALE RQ4H WHILE AWAKE [facility] Last Admin: 10/16/22 08:07 Dose: Not Given Levalbuterol HCl (Levalbuterol Hcl 1.25 Mg/3 Ml Vial.Neb) 1.25 mg INHALE Q2H PRN PRN Reason: Shortness of Breath Last Admin: 10/15/22 14:01 Dose: 1.25 mg Methylprednisolone Sodium Succinate (Methylprednisolone Sod Succ 40 Mg/Ml Vial) 40 mg IVPUSH Q12H [facility] Last Admin: 10/16/22 00:40 Dose: 40 mg Metoprolol Succinate (Metoprolol Succinate Er 100 Mg Tab.Er.24h) 100 mg PO BID [facility]; Protocol Last Admin: 10/16/22 08:12 Dose: Not Given Mirtazapine (Mirtazapine 7.5 Mg Tablet) 7.5 mg PO BEDTIME [facility] Last Admin: 10/15/22 20:45 Dose: 7.5 mg Omeprazole (Omeprazole 20 Mg Capsule.) 20 mg PO BID@0630,1630 [facility] Last Admin: 10/16/22 05:14 Dose: 20 mg Ondansetron HCl (Ondansetron Hcl 4 Mg/2 Ml Vial) 4 mg IVPUSH Q8H PRN PRN Reason: Nausea and Vomiting Paroxetine HCl (Paroxetine Hcl 20 Mg Tablet) 20 mg PO DAILY [facility] Last Admin: 10/16/22 08:18 Dose: 20 mg Pharmacy Consult (Consult Rx Perform Med Rec) 1 each MISCELLANE ONCE PRN PRN Reason: Consult order Rivaroxaban (Rivaroxaban 15 Mg Tablet) 15 mg PO DAILY@1800 [facility] Last Admin: 10/15/22 16:52 Dose: 15 mg Senna/Docusate Sodium (Sennosides/Docusate Sodium Tablet) 2 tab PO BEDTIME [facility] Last Admin: 10/15/22 21:05 Dose: Not Given Sodium Chloride (0.9 % Sodium Chloride Flush 3 Ml Syringe) 3 ml IVFLUSH QSHIFT [facility] Last Admin: 10/16/22 08:21 Dose: 3 ml Home Medications Medication Instructions Recorded Confirmed Last Taken Type albuterol sulfate 90 mcg/actuation 2 puff PO QID PRN wheezing 02/23/21 10/11/22 Unknown History aerosol inhaler (Ventolin HFA) atorvastatin 80 mg tablet 1 tab PO DAILY 0910/11/22 02/23/21 History dulaglutide 1.5 mg/0.5 mL 0.5 ml subcut QWEEK 02/23/21 10/11/22 Unknown History subcutaneous pen injector (Trulicity) gabapentin 300 mg capsule 1 cap PO DAILY 02/23/21 10/11/22 02/23/21 History insulin glargine 100 unit/mL (3 35 unit subcut BEDTIME 02/23/21 10/11/22 02/22/21 History mL) subcutaneous pen (Lantus Solostar U-100 Insulin) metoprolol succinate 100 mg 1 tab PO BID 02/23/21 10/11/22 02/23/21 History tablet,extended release 24 hr mirtazapine 7.5 mg tablet 7.5 mg PO BEDTIME 02/23/21 10/11/22 02/22/21 History paroxetine HCl 20 mg tablet 20 mg PO DAILY 02/23/21 10/11/22 02/23/21 History rivaroxaban 15 mg tablet (Xarelto) 15 mg PO DAILY@1700 02/23/21 10/11/22 02/22/21 History sennosides 8.6 mg-docusate sodium 2 tab PO BEDTIME 02/23/21 10/11/22 02/22/21 History 50 mg tablet (Senna-S) furosemide 40 mg tablet 40 mg PO DAILY 10/11/22 10/11/22 Unknown History losartan 25 mg tablet 25 mg PO DAILY 10/11/22 10/11/22 Unknown History Physical Exam Vital Signs: Last Vital Signs Temp 97.6 F 10/16/22 07:11 Pulse 60 10/16/22 07:11 Resp 20 10/16/22 07:11 BP 161/72 H 10/16/22 07:11 Pulse Ox 93 10/16/22 07:11 O2 Del Method Nasal Cannula 10/16/22 07:11 O2 Flow Rate 1 10/16/22 07:11 BMI result Body Mass Index 37.0 Constitutional - Awake and Alert, No apparent distress Eyes - PERRLA, EOMI Cardiovascular - S1S2, RRR, No edema Respiratory - Normal lung expansion, Normal respiratory effort, No respiratory distress, Bilateral rhonchi lower lobes R>L, left sided crackles. No wheezing Gastrointestinal - NT / ND; +BS; No rebound or guarding Extremities - no calf tenderness bilaterally, no swelling Skin - Warm/Dry Neurological - Alert & oriented x3, CN II-XII in tact, 5/5 strength BUE and BLE Psychological - Appropriate affect Results Lab Results 10/12/22 06:44 10/16/22 06:19 Lab results: Chemistry 10/14/22 10/16/22 12:26 06:19 Sodium 136 137 Potassium 3.9 4.4 Carbon Dioxide 25 27 BUN 18 H 28 H Creatinine 1.34 1.53 H Calcium 9.1 9.9 D Assessment and Plan (1) Atrial fibrillation with RVR: Status: Acute (2) IJEOMA (acute kidney injury): Status: Acute (3) CKD (chronic kidney disease) stage 3, GFR 30-59 ml/min: Status: Acute Plan 76-year-old man with acute kidney injury superimposed chronic kidney disease. Her baseline creatinine is around 1.2-1.5 mg/dL. Urine studies have been bland. 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 No evidence of obstruction. She has sustained superimposed acute kidney injury most likely related to the use of diuretics causing hypoperfusion. She has a history of congestive heart failure Recommendations Check urine for creatinine sodium and protein. keep Lasix today and reassess renal function in the next 24-48 hours. Twenty-two over nephrotoxic agents. Continue to avoid hypotension. Time Spent With Patient Time: Total time managing care of this patient today ____ minutes. Procedures Date of Service Date of Service: 10/16/22
[2022-10-16] MEDS: levalbuterol HCL 1.25 MG/3 ML VIAL.NEB INHALE ×3 (11:05→19:06)
--- NOTE | 2022-10-16 11:11 | PM.PNCARD ---
Subjective Subjective Date of Service: 10/16/22 Principal diagnosis: Atrial fibrillation with rapid ventricular response , CHF Interval history: patient feeling a lot better after diuresis. Has diuresed well. Says that she is feeling much better. Heart rate is well controlled. There is slight rise in the creatinine. Her Lasix was reduced this morning to 40 mg daily. Review of Systems Constitutional: Reports no additional constitutional complaints Cardiovascular: Denies chest pain, Denies leg edema, Denies lightheadedness, Denies Loss of Consciousness, Denies palpitations and Reports other ( Much improved shortness of breath) Gastrointestinal: Reports no additional gastrointestinal complaints Genitourinary: Reports no additional female genitourinary complaints Skin/Breast: Reports system reviewed and no additional complaints, except as docu Reports system reviewed and no additional complaints, except as documented Psychiatric: Reports no additional psychiatric complaints Endocrine: Denies palpitations Physical Exam Vital Signs: Last Vital Signs Temp 97.6 F 10/16/22 07:11 Pulse 78 10/16/22 11:06 Resp 18 10/16/22 11:06 BP 161/72 H 10/16/22 07:11 Pulse Ox 93 10/16/22 07:11 O2 Del Method Nasal Cannula 10/16/22 07:11 O2 Flow Rate 1 10/16/22 07:11 BMI result Body Mass Index 37.0 Const General: cooperative, comfortable, alert and awake Nutritional Appearance: obese Orientation/consciousness: patient oriented x3 Neck Neck: Yes trachea midline, Yes supple and Yes other ( difficult to evaluate JVD) Resp Effort & Inspection: normal respiratory effort Auscultation: wheezes scattered wheezes Cardio Rhythm: abnormal rhythm irregularly irregular Heart sounds: S1 normal heart sound present, S2 normal heart sound present, no click, no gallops, no murmurs and no rubs GI Auscultation: normal bowel sounds Skin General skin exam: no rashes or lesions noted Neuro General: patient oriented x3 and no focal motor deficits Extrem General: Yes no clubbing, cyanosis or edema Objective Labs and Meds 10/12/22 06:44 10/16/22 06:19 Lab results: Laboratory Results - last 24 hr 10/12/22 10/15/22 10/15/22 04:21 11:43 11:59 O2 Saturation ABG pH at Pt Temp ABG pCO2 at Pt Temp ABG pO2 at Pt Temp ABG HCO3 ABG Base Excess (Actual) Sodium Potassium Chloride Carbon Dioxide Anion Gap BUN Creatinine Estim Creat Clear Calc Estimated GFR POC Glucose 201 H Random Glucose Calcium B-Natriuretic Peptide 299 H Ur Strep pneumoniae Ag Not Detected 10/15/22 10/15/22 10/15/22 12:23 16:04 19:39 O2 Saturation 88.0 ABG pH at Pt Temp 7.36 ABG pCO2 at Pt Temp 46 H ABG pO2 at Pt Temp 62 L ABG HCO3 26 ABG Base Excess (Actual) 1.1 Sodium Potassium Chloride Carbon Dioxide Anion Gap BUN Creatinine Estim Creat Clear Calc Estimated GFR POC Glucose 309 H 316 H Random Glucose Calcium B-Natriuretic Peptide Ur Strep pneumoniae Ag 10/16/22 10/16/22 10/16/22 06:19 06:19 07:05 O2 Saturation ABG pH at Pt Temp ABG pCO2 at Pt Temp ABG pO2 at Pt Temp ABG HCO3 ABG Base Excess (Actual) Sodium 137 Potassium 4.4 Chloride 101 Carbon Dioxide 27 Anion Gap 13 BUN 28 H Creatinine 1.53 H Estim Creat Clear Calc 31.5 Estimated GFR 33 POC Glucose 229 H Random Glucose 251 H Calcium 9.9 D B-Natriuretic Peptide 228 H Ur Strep pneumoniae Ag Imaging Radiologist's impression: Impressions Chest X-Ray 10/15/22 13:35 IMPRESSION: Mild prominence of the pulmonary vasculature and cardiac silhouette may be projectional given the suboptimal positioning. Mild congestion cannot be excluded. Head CT 10/15/22 20:13 IMPRESSION: 1. No evidence of acute intracranial hemorrhage or edematous territorial infarction. 2. Chronic appearing regions of encephalomalacia within the bilateral MCA territories and right [employer] territory. Mild underlying microangiopathy and generalized cerebral volume loss. Progress Note: A&P Assessment and plan (1) Decompensated heart failure: Status: Acute Assessment and Plan: decompensated congestive heart failure, multifactorial related to fluid resuscitation as well as persistent atrial fibrillation. Clinically doing much better with diuresis. Much improved. Agree with reducing Lasix to 40 mg daily. Continue strict intake and output chart. Add Jardiance 10 mg to her regimen. Continue monitor renal function as well as BNP tomorrow. Eventually probably will need to switch to oral Lasix at a lower does probably starting tomorrow. Replace electrolytes as needed. Out of bed to chair with incentive spirometry. Continue treat her underlying bronchospastic airway disease aggressively. Probably require rhythm control, will pursue this as an outpatient. (2) Atrial fibrillation with RVR: Status: Acute Assessment and Plan: Atrial fibrillation with controlled ventricular rate with metoprolol therapy. Avoid digoxin therapy. Continue full oral anticoagulation, currently on renally adjusted dose of Xarelto. Will continue to follow with you Time Spent With Patient Time: Total time managing care of this patient today ____ minutes. Progress Note: Quality Stroke Does the patient have a stroke diagnosis?: No Procedures Date of Service Date of Service: 10/16/22
[2022-10-16 11:21] LABS: Glucose, Whole Blood 353 mg/dL (60-115)
--- NOTE | 2022-10-16 14:54 | HO.PM.IMPN ---
Subjective Subjective Date of Service: 10/16/22 Interval History: chf excerebation Review of Systems seems more awake today,sob somewhat improvin denies any chest pain or cough or fever Physical Exam Vital Signs: Vital Signs: Last Vital Signs Temp 96.8 F 10/16/22 11:15 Pulse 67 10/16/22 11:15 Resp 20 10/16/22 11:15 BP 123/69 10/16/22 11:15 Pulse Ox 95 10/16/22 11:15 O2 Del Method Nasal Cannula 10/16/22 11:15 O2 Flow Rate 1 10/16/22 11:15 BMI result Body Mass Index 37.0 General: AO X 3, no acute distress Resp:? rhonchi, congestion CVS: S1,S2, iregular iregular GI: +BS, NT, no distention Skin: No rash Neuro:? motor grossly intact Psych: appropriate affec Objective Data Active Medications Acetaminophen (Acetaminophen 325 Mg Tablet) 650 mg PO Q4H PRN PRN Reason: Pain, Moderate(Pain Scale 4-6) Last Admin: 10/15/22 20:46 Dose: 650 mg Documented By: DAVID Atorvastatin Calcium (Atorvastatin Calcium 80 Mg Tablet) 80 mg PO DAILY [facility] Last Admin: 10/16/22 08:19 Dose: 80 mg Documented By: MAKENNA Benzonatate (Benzonatate 100 Mg Capsule) 100 mg PO BID PRN PRN Reason: cough Last Admin: 10/15/22 20:45 Dose: 100 mg Documented By: DAVID Docusate Sodium (Docusate Sodium 100 Mg Capsule) 100 mg PO DAILY PRN PRN Reason: Constipation Furosemide (Furosemide 40 Mg/4 Ml Vial) 40 mg IVPUSH Q12H [facility]; Protocol Last Admin: 10/16/22 05:13 Dose: 40 mg Documented By: CHILANGO Gabapentin (Gabapentin 300 Mg Capsule) 300 mg PO DAILY [facility] Last Admin: 10/16/22 08:19 Dose: 300 mg Documented By: MAKENNA Glucose (Glucose Gel 15 Gm Gel..Gram.) 15 gm PO Q15M PRN; Protocol PRN Reason: per Hypoglycemia Standing Ord. Guaifenesin (Guaifenesin 200 Mg/10 Ml 10 Ml Liquid) 10 ml PO Q4H PRN PRN Reason: Cough Last Admin: 10/13/22 11:51 Dose: 10 ml Documented By: MAKENNA Dextrose (D10) 250 mls @ 750 mls/hr IV Q15M PRN; Protocol PRN Reason: per Hypoglycemia Standing Ord. Ceftriaxone Sodium 1 gm/ (Sodium Chloride) 50 mls @ 100 mls/hr IV Q24H [facility] Last Infusion: 10/15/22 17:33 Dose: 0 mls/hr Documented By: DAVID Insulin Glargine (Insulin Glargine,Hum.Rec.Anlog 100 Unit/Ml 10 Ml Vial) 26 unit SUBCUT BEDTIME [facility] Last Admin: 10/15/22 20:46 Dose: 26 unit Documented By: DAVID Insulin Human Lispro (Insulin Lispro 100 Unit/Ml 3 Ml Vial) 0 unit SUBCUT QIDACHS [facility]; Protocol Last Admin: 10/16/22 11:36 Dose: 10 unit Documented By: MAKENNA Levalbuterol HCl (Levalbuterol Hcl 1.25 Mg/3 Ml Vial.Neb) 1.25 mg INHALE RQ4H WHILE AWAKE [facility] Last Admin: 10/16/22 11:05 Dose: 1.25 mg Documented By: DIANE Levalbuterol HCl (Levalbuterol Hcl 1.25 Mg/3 Ml Vial.Neb) 1.25 mg INHALE Q2H PRN PRN Reason: Shortness of Breath Last Admin: 10/15/22 14:01 Dose: 1.25 mg Documented By: DAVID Methylprednisolone Sodium Succinate (Methylprednisolone Sod Succ 40 Mg/Ml Vial) 40 mg IVPUSH Q12H [facility] Last Admin: 10/16/22 11:37 Dose: 40 mg Documented By: MAKENNA Metoprolol Succinate (Metoprolol Succinate Er 100 Mg Tab.Er.24h) 100 mg PO BID [facility]; Protocol Last Admin: 10/16/22 08:12 Dose: Not Given Documented By: MAKENNA Non-Admin Reason: held per protocol Metoprolol Succinate (Metoprolol Succinate Er 100 Mg Tab.Er.24h) 100 mg PO BID [facility]; Protocol Last Admin: 10/16/22 11:37 Dose: Not Given Documented By: MAKENNA Non-Admin Reason: per protocol Mirtazapine (Mirtazapine 7.5 Mg Tablet) 7.5 mg PO BEDTIME [facility] Last Admin: 10/15/22 20:45 Dose: 7.5 mg Documented By: DAVID Omeprazole (Omeprazole 20 Mg Capsule.) 20 mg PO BID@0630,1630 [facility] Last Admin: 10/16/22 05:14 Dose: 20 mg Documented By: CHILANGO Ondansetron HCl (Ondansetron Hcl 4 Mg/2 Ml Vial) 4 mg IVPUSH Q8H PRN PRN Reason: Nausea and Vomiting Paroxetine HCl (Paroxetine Hcl 20 Mg Tablet) 20 mg PO DAILY [facility] Last Admin: 10/16/22 08:18 Dose: 20 mg Documented By: MAKENNA Pharmacy Consult (Consult Rx Perform Med Rec) 1 each MISCELLANE ONCE PRN PRN Reason: Consult order Rivaroxaban (Rivaroxaban 15 Mg Tablet) 15 mg PO DAILY@1800 [facility] Last Admin: 10/15/22 16:52 Dose: 15 mg Documented By: DAVID Senna/Docusate Sodium (Sennosides/Docusate Sodium Tablet) 2 tab PO BEDTIME [facility] Last Admin: 10/15/22 21:05 Dose: Not Given Documented By: DAVID Non-Admin Reason: Patient Refused Sodium Chloride (0.9 % Sodium Chloride Flush 3 Ml Syringe) 3 ml IVFLUSH QSHIFT [facility] Last Admin: 10/16/22 08:21 Dose: 3 ml Documented By: MAKENNA Labs 10/12/22 06:44 10/16/22 06:19 Labs: Laboratory Results - last 24 hr 10/12/22 10/15/22 10/15/22 04:21 16:04 19:39 Anion Gap Estim Creat Clear Calc Estimated GFR POC Glucose 309 H 316 H Random Glucose Calcium B-Natriuretic Peptide Ur Strep pneumoniae Ag Not Detected 10/16/22 10/16/22 10/16/22 06:19 06:19 07:05 Anion Gap 13 Estim Creat Clear Calc 31.5 Estimated GFR 33 POC Glucose 229 H Random Glucose 251 H Calcium 9.9 D B-Natriuretic Peptide 228 H Ur Strep pneumoniae Ag 10/16/22 11:17 Anion Gap Estim Creat Clear Calc Estimated GFR POC Glucose 353 H* Random Glucose Calcium B-Natriuretic Peptide Ur Strep pneumoniae Ag Assessment and Plan (1) Atrial fibrillation with RVR: Status: Acute (2) Acute respiratory failure with hypoxia: Status: Acute Plan 76-year-old female with history of mild intermittent asthma, paroxysmal atrial fibrillation anticoagulated with Xarelto, hypertension, history of CVA, insulin-dependent type 2 diabetes, and obesity admitted for severe sepsis, pneumonia, and afib with rvr. acute hypoxemic/hypercarbic respiratory failure secondary to COPD, severe sepsis- related to pneumonia, also contribution HfpEFexacerbation Toxic metabolic encephalopathy due to above-seems improving, will add CT head to complete the workup. Continue nebs, steroids, antibiotics,iv lasix adjusted. monitre i/o-? 180 ml neg, daily weights, BNP improving pulm/cardio eval noted. moderate persistent asthma-with? acute exacerbation Xopenex,swichted to iv steriods Acute kidney injury- related to severe sepsis improvingy Atrial fibrillation with RVR-- hr is lower side , but no new c/o hold bb/digoxin Continue xarelto echo pendin HFpEF -seems in chf , bnp baseline. -no acute exacerbation iv lasix due to worsening of respiratory failure the HTN--continue Toprolol, Insulin dependent type 2 diabetes- with hyperglycemia -continue Lantus -Humalog on sliding scale -diabetic diet -POC history CVA -continue statin, Xarelto DVT prophylaxis-on Xarelto need for inpatient; HfpEFexacerbation-need iv lasix, i/o monitering, elecctrolytic monitering Time Spent With Patient Time: Total time managing care of this patient today ____ minutes. Quality Stroke Does the patient have a stroke diagnosis?: No VTE Prior VTE?: No VTE Risk Level:: Medical - moderate - high VTE Device Contraindication: Treatment Not Indicated VTE Drug Contraindication: N/A - Med Ordered
[2022-10-16 16:08] LABS: Glucose, Whole Blood 333 mg/dL (60-115)
[2022-10-16] MEDS: cefTRIAXone sodium 1 GM in 0.9 % Sodium Chloride 50 ML IV (17:38)
[2022-10-16] MEDS: Rivaroxaban 15 MG TABLET PO (17:38)
[2022-10-16 20:05] LABS: Glucose, Whole Blood 267 mg/dL (60-115)
[2022-10-16] MEDS: Mirtazapine 7.5 MG TABLET PO (20:57)
[2022-10-16] MEDS: Insulin Glargine,Hum.rec.anlog 100 UNIT/ML 10 ML VIAL 26 UNIT SUBCUT (20:58)
[2022-10-17] VITALS (12 sets, daily range): BP systolic 117–149; BP diastolic 61–82; PULSE 50–78; RESP 16–20; TEMP 35.9–37.2; O2SAT 91–100
[2022-10-17] MEDS: Furosemide 40 MG/4 ML VIAL IVPUSH (05:04)
[2022-10-17] MEDS: Omeprazole 20 MG CAPSULE.DR PO ×2 (05:06→17:05)
[2022-10-17 06:54] LABS: Legionella Ag Urine Not Detected (Not Detected)
[2022-10-17 07:54] LABS: Anion Gap 13 (12-20); Blood Urea Nitrogen 37 mg/dL (9-16); Calcium 9.7 mg/dL (8.4-10.2); Carbon Dioxide 29 mmol/L (22-29); Chloride 98 mmol/L (96-108); Creatinine Clr Calc Pharmacy 29.8; Estimated Glomerular Filt Rate 31; Glucose Random 300 mg/dL (60-115); Potassium 4.2 mmol/L (3.3-5.1); Sodium 136 mmol/L (135-145)
[2022-10-17 08:01] LABS: B Type Natriuretic Peptide 136 pg/mL (<100)
[2022-10-17] MEDS: predniSONE 20 MG TABLET 40 MG PO (08:10)
[2022-10-17] MEDS: PARoxetine HCL 20 MG TABLET PO (08:10)
[2022-10-17] MEDS: Atorvastatin Calcium 80 MG TABLET PO (08:10)
[2022-10-17] MEDS: Gabapentin 300 MG CAPSULE PO (08:10)
[2022-10-17] MEDS: 0.9 % Sodium Chloride Flush 3 ML SYRINGE IVFLUSH ×3 (08:10→20:30)
[2022-10-17] MEDS: Metoprolol Succinate ER 100 MG TAB.ER.24H PO ×2 (08:10→20:30)
[2022-10-17 08:14] LABS: Glucose, Whole Blood 276 mg/dL (60-115)
[2022-10-17] MEDS: Insulin Lispro 100 UNIT/ML 3 ML VIAL SUBCUT ×4 (08:43→20:31)
[2022-10-17] MEDS: levalbuterol HCL 1.25 MG/3 ML VIAL.NEB INHALE ×4 (09:22→20:50)
--- NOTE | 2022-10-17 10:18 | PM.PNCARD ---
Subjective Subjective Date of Service: 10/17/22 Principal diagnosis: Atrial fibrillation with rapid ventricular response , CHF Interval history: patient feeling a lot better today. Currently off oxygen and breathing very comfortably. She is very happy. Heart rate remains controlled. Blood pressure is controlled. Denies palpitations. Plan for discharge Review of Systems Review of Systems Yes all other systems are reviewed and are negative Physical Exam Vital Signs: Last Vital Signs Temp 97.3 F 10/17/22 07:37 Pulse 61 10/17/22 09:25 Resp 16 10/17/22 09:25 BP 132/70 10/17/22 07:37 Pulse Ox 100 10/17/22 07:37 O2 Del Method Nasal Cannula 10/17/22 07:37 O2 Flow Rate 1 10/17/22 07:37 BMI result Body Mass Index 37.0 Const General: cooperative, comfortable, alert and awake Nutritional Appearance: obese Orientation/consciousness: patient oriented x3 Neck Neck: Yes trachea midline, Yes supple and Yes other ( difficult to evaluate JVD) Resp Effort & Inspection: normal respiratory effort Auscultation: clear to auscultation bilaterally Cardio Rhythm: abnormal rhythm irregularly irregular Heart sounds: S1 normal heart sound present, S2 normal heart sound present, no click, no gallops, no murmurs and no rubs GI Auscultation: normal bowel sounds Skin General skin exam: no rashes or lesions noted Neuro General: patient oriented x3 and no focal motor deficits Extrem General: Yes no clubbing, cyanosis or edema Objective Labs and Meds 10/12/22 06:44 10/17/22 06:49 Lab results: Laboratory Results - last 24 hr 10/12/22 10/16/22 10/16/22 04:21 11:17 16:01 Sodium Potassium Chloride Carbon Dioxide Anion Gap BUN Creatinine Estim Creat Clear Calc Estimated GFR POC Glucose 353 H* 333 H Random Glucose Calcium B-Natriuretic Peptide Ur L.pneumophila Ag Not Detected 10/16/22 10/17/22 10/17/22 19:58 06:49 06:49 Sodium 136 Potassium 4.2 Chloride 98 Carbon Dioxide 29 Anion Gap 13 BUN 37 H Creatinine 1.61 H Estim Creat Clear Calc 29.8 Estimated GFR 31 POC Glucose 267 H Random Glucose 300 H Calcium 9.7 B-Natriuretic Peptide 136 H Ur L.pneumophila Ag 10/17/22 07:40 Sodium Potassium Chloride Carbon Dioxide Anion Gap BUN Creatinine Estim Creat Clear Calc Estimated GFR POC Glucose 276 H Random Glucose Calcium B-Natriuretic Peptide Ur L.pneumophila Ag Progress Note: A&P Assessment and plan (1) Decompensated heart failure: Status: Acute Assessment and Plan: decompensated heart failure doing extremely well much improved. She is breathing much better. Agree with transition to p.o. Lasix would switch her to 20 mg Lasix and add Jardiance 10 mg to regimen. Continue rate control approach. In the long run I think she will benefit from rhythm control approach and will pursue this as an outpatient. Continue manage her COPD and bronchospasm as per the medical team. (2) Atrial fibrillation with RVR: Status: Acute Assessment and Plan: Atrial fibrillation which is much better rate control at this point in time. Continue current rate control with metoprolol. Continue full oral anticoagulation, currently on Xarelto renally adjusted dose. If she is able to tolerate Xarelto for the next 3-4 weeks without interruption, will pursue rhythm control approach with synchronized cardioversion. Will sign of the case and follow-up as an outpatient. Thank you for allowing me to partake in her care Time Spent With Patient Time: Total time managing care of this patient today ____ minutes. Progress Note: Quality Stroke Does the patient have a stroke diagnosis?: No Procedures Date of Service Date of Service: 10/17/22
--- NOTE | 2022-10-17 11:31 | PM.PNNEP ---
Subjective Subjective Date of Service: 10/28/22 Principal diagnosis: Atrial fibrillation with rapid ventricular response , CHF Interval history: chf excerebation Physical Exam Vital Signs: Vital Signs: Last Vital Signs Temp 97.6 F 10/17/22 11:02 Pulse 65 10/17/22 11:02 Resp 20 10/17/22 11:02 BP 117/68 10/17/22 11:02 Pulse Ox 91 L 10/17/22 11:02 O2 Del Method Room Air 10/17/22 11:02 O2 Flow Rate 1 10/17/22 07:37 BMI result Body Mass Index 37.0 Const: Other: General: AO X 3, no acute distress Resp: rhonchi, congestion CVS: S1,S2, iregular iregular GI: +BS, NT, no distention Skin: No rash Neuro: motor grossly intact Psych: appropriate affect Objective Data Labs 10/12/22 06:44 10/17/22 06:49 Labs: Laboratory Results - last 24 hr 10/12/22 10/16/22 10/16/22 04:21 16:01 19:58 Sodium Potassium Chloride Carbon Dioxide Anion Gap BUN Creatinine Estim Creat Clear Calc Estimated GFR POC Glucose 333 H 267 H Random Glucose Calcium B-Natriuretic Peptide Ur L.pneumophila Ag Not Detected 10/17/22 10/17/22 10/17/22 06:49 06:49 07:40 Sodium 136 Potassium 4.2 Chloride 98 Carbon Dioxide 29 Anion Gap 13 BUN 37 H Creatinine 1.61 H Estim Creat Clear Calc 29.8 Estimated GFR 31 POC Glucose 276 H Random Glucose 300 H Calcium 9.7 B-Natriuretic Peptide 136 H Ur L.pneumophila Ag Microbiology Microbiology Results: Microbiology 10/11/22 19:54 Blood - Venous Blood Culture - Final No growth after 5 days. 10/11/22 18:32 Blood - Venous Blood Culture - Final No growth after 5 days. 10/12/22 04:18 Nares MRSA Culture - Final 10/12/22 07:35 Sputum - Expectorated Gram Stain - Final 10/12/22 07:35 Sputum - Expectorated Sputum Culture - Final Procedures Date of Service Date of Service: 10/17/22 Assessment & Plan Assessment and plan (1) Atrial fibrillation with RVR: Status: Acute (2) IJEOMA (acute kidney injury): Status: Acute (3) CKD (chronic kidney disease) stage 3, GFR 30-59 ml/min: Status: Acute Plan 76-year-old man with acute kidney injury superimposed chronic kidney disease. Her baseline creatinine is around 1.2-1.5 mg/dL. Urine studies have been bland. 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 No evidence of obstruction. She has sustained superimposed acute kidney injury most likely related to the use of diuretics causing hypoperfusion. She has a history of congestive heart failure Creatinine has bumped up Recommendations Check urine for creatinine, sodium and protein. Change to PO Lasix Avoid aggresive diuresis Continue to avoid nephrotoxic agents/NSAIDS. Continue to avoid hypotension. Time Spent With Patient Time: Total time managing care of this patient today ____ minutes. Progress Note: Quality Stroke Does the patient have a stroke diagnosis?: No
[2022-10-17 12:05] LABS: Glucose, Whole Blood 313 mg/dL (60-115)
--- NOTE | 2022-10-17 15:19 | HO.PM.IMPN ---
Subjective Subjective Date of Service: 10/18/22 Interval History: chf excerebation Review of Systems seems more awake today,sob somewhat improvin denies any chest pain or cough or fever Physical Exam Vital Signs: Vital Signs: Last Vital Signs Temp 97.6 F 10/17/22 11:02 Pulse 61 10/17/22 15:15 Resp 18 10/17/22 15:15 BP 117/68 10/17/22 11:02 Pulse Ox 91 L 10/17/22 11:02 O2 Del Method Room Air 10/17/22 11:02 O2 Flow Rate 1 10/17/22 07:37 BMI result Body Mass Index 37.0 General: AO X 3, no acute distress Resp:? rhonchi, congestion CVS: S1,S2, iregular iregular GI: +BS, NT, no distention Skin: No rash Neuro:? motor grossly intact Psych: appropriate affec Objective Data Active Medications Acetaminophen (Acetaminophen 325 Mg Tablet) 650 mg PO Q4H PRN PRN Reason: Pain, Moderate(Pain Scale 4-6) Last Admin: 10/15/22 20:46 Dose: 650 mg Documented By: DAVID Atorvastatin Calcium (Atorvastatin Calcium 80 Mg Tablet) 80 mg PO DAILY [facility] Last Admin: 10/17/22 08:10 Dose: 80 mg Documented By: LULI Benzonatate (Benzonatate 100 Mg Capsule) 100 mg PO BID PRN PRN Reason: cough Last Admin: 10/15/22 20:45 Dose: 100 mg Documented By: DAVID Docusate Sodium (Docusate Sodium 100 Mg Capsule) 100 mg PO DAILY PRN PRN Reason: Constipation Furosemide (Furosemide 20 Mg Tablet) 20 mg PO DAILY [facility]; Protocol Gabapentin (Gabapentin 300 Mg Capsule) 300 mg PO DAILY [facility] Last Admin: 10/17/22 08:10 Dose: 300 mg Documented By: LULI Glucose (Glucose Gel 15 Gm Gel..Gram.) 15 gm PO Q15M PRN; Protocol PRN Reason: per Hypoglycemia Standing Ord. Guaifenesin (Guaifenesin 200 Mg/10 Ml 10 Ml Liquid) 10 ml PO Q4H PRN PRN Reason: Cough Last Admin: 10/13/22 11:51 Dose: 10 ml Documented By: MAKENNA Dextrose (D10) 250 mls @ 750 mls/hr IV Q15M PRN; Protocol PRN Reason: per Hypoglycemia Standing Ord. Ceftriaxone Sodium 1 gm/ (Sodium Chloride) 50 mls @ 100 mls/hr IV Q24H [facility] Last Infusion: 10/16/22 18:33 Dose: 0 mls/hr Documented By: MAKENNA Insulin Glargine (Insulin Glargine,Hum.Rec.Anlog 100 Unit/Ml 10 Ml Vial) 26 unit SUBCUT BEDTIME [facility] Last Admin: 10/16/22 20:58 Dose: 26 unit Documented By: RODNEY Insulin Human Lispro (Insulin Lispro 100 Unit/Ml 3 Ml Vial) 0 unit SUBCUT QIDACHS [facility]; Protocol Last Admin: 10/17/22 12:29 Dose: 8 unit Documented By: LUIL Levalbuterol HCl (Levalbuterol Hcl 1.25 Mg/3 Ml Vial.Neb) 1.25 mg INHALE RQ4H WHILE AWAKE [facility] Last Admin: 10/17/22 15:14 Dose: 1.25 mg Documented By: PARTHA Levalbuterol HCl (Levalbuterol Hcl 1.25 Mg/3 Ml Vial.Ligia) 1.25 mg INHALE Q2H PRN PRN Reason: Shortness of Breath Last Admin: 10/15/22 14:01 Dose: 1.25 mg Documented By: DAVID Metoprolol Succinate (Metoprolol Succinate Er 100 Mg Tab.Er.24h) 100 mg PO BID [facility]; Protocol Last Admin: 10/17/22 08:10 Dose: 100 mg Documented By: LULI Mirtazapine (Mirtazapine 7.5 Mg Tablet) 7.5 mg PO BEDTIME [facility] Last Admin: 10/16/22 20:57 Dose: 7.5 mg Documented By: RODNEY Omeprazole (Omeprazole 20 Mg Capsule.) 20 mg PO BID@0630,1630 [facility] Last Admin: 10/17/22 05:06 Dose: 20 mg Documented By: RODNEY Ondansetron HCl (Ondansetron Hcl 4 Mg/2 Ml Vial) 4 mg IVPUSH Q8H PRN PRN Reason: Nausea and Vomiting Paroxetine HCl (Paroxetine Hcl 20 Mg Tablet) 20 mg PO DAILY [facility] Last Admin: 10/17/22 08:10 Dose: 20 mg Documented By: LULI Pharmacy Consult (Consult Rx Perform Med Rec) 1 each MISCELLANE ONCE PRN PRN Reason: Consult order Prednisone (Prednisone 20 Mg Tablet) 40 mg PO DAILY [facility] Last Admin: 10/17/22 08:10 Dose: 40 mg Documented By: LULI Rivaroxaban (Rivaroxaban 15 Mg Tablet) 15 mg PO DAILY@1800 [facility] Last Admin: 10/16/22 17:38 Dose: 15 mg Documented By: MAKENNA Senna/Docusate Sodium (Sennosides/Docusate Sodium Tablet) 2 tab PO BEDTIME [facility] Last Admin: 10/16/22 21:01 Dose: Not Given Documented By: RODNEY Non-Admin Reason: Patient Refused Sodium Chloride (0.9 % Sodium Chloride Flush 3 Ml Syringe) 3 ml IVFLUSH QSHIFT [facility] Last Admin: 10/17/22 08:10 Dose: 3 ml Documented By: LULI Labs 10/12/22 06:44 10/17/22 06:49 Labs: Laboratory Results - last 24 hr 10/12/22 10/16/22 10/16/22 04:21 16:01 19:58 Anion Gap Estim Creat Clear Calc Estimated GFR POC Glucose 333 H 267 H Random Glucose Calcium B-Natriuretic Peptide Ur L.pneumophila Ag Not Detected 10/17/22 10/17/22 10/17/22 06:49 06:49 07:40 Anion Gap 13 Estim Creat Clear Calc 29.8 Estimated GFR 31 POC Glucose 276 H Random Glucose 300 H Calcium 9.7 B-Natriuretic Peptide 136 H Ur L.pneumophila Ag 10/17/22 11:05 Anion Gap Estim Creat Clear Calc Estimated GFR POC Glucose 313 H Random Glucose Calcium B-Natriuretic Peptide Ur L.pneumophila Ag Microbiology Microbiology Results: Microbiology 10/11/22 19:54 Blood Culture - Final Blood - Venous No growth after 5 days. 10/11/22 18:32 Blood Culture - Final Blood - Venous No growth after 5 days. Assessment and Plan (1) Atrial fibrillation with RVR: Status: Acute (2) Acute respiratory failure with hypoxia: Status: Acute Plan 76-year-old female with history of mild intermittent asthma, paroxysmal atrial fibrillation anticoagulated with Xarelto, hypertension, history of CVA, insulin-dependent type 2 diabetes, and obesity admitted for severe sepsis, pneumonia, and afib with rvr. acute hypoxemic/hypercarbic respiratory failure secondary to COPD, severe sepsis- related to pneumonia, also contribution HfpEFexacerbation Toxic metabolic encephalopathy due to above-seems improving, will add CT head to complete the workup. Continue nebs, steroids, antibiotics,iv lasix adjusted. monitre i/o-? 180 ml neg, daily weights, BNP improving pulm/cardio eval noted. moderate persistent asthma-with? acute exacerbation Xopenex,swichted to iv steriods Acute kidney injury- related to severe sepsis improvingy Atrial fibrillation with RVR-- hr is lower side , but no new c/o hold bb/digoxin Continue xarelto echo pendin HFpEF -seems in chf , bnp baseline. -no acute exacerbation iv lasix due to worsening of respiratory failure the HTN--continue Toprolol, Insulin dependent type 2 diabetes- with hyperglycemia -continue Lantus -Humalog on sliding scale -diabetic diet -POC history CVA -continue statin, Xarelto DVT prophylaxis-on Xarelto need for inpatient; HfpEFexacerbation-need iv lasix, i/o monitering, elecctrolytic monitering Time Spent With Patient Time: Total time managing care of this patient today ____ minutes. Quality Stroke Does the patient have a stroke diagnosis?: No VTE Prior VTE?: No VTE Risk Level:: Medical - moderate - high VTE Device Contraindication: Treatment Not Indicated VTE Drug Contraindication: N/A - Med Ordered
[2022-10-17 16:46] LABS: Glucose, Whole Blood 342 mg/dL (60-115)
[2022-10-17] MEDS: Rivaroxaban 15 MG TABLET PO (18:30)
[2022-10-17] MEDS: cefTRIAXone sodium 1 GM in 0.9 % Sodium Chloride 50 ML IV (18:30)
[2022-10-17 20:05] LABS: Glucose, Whole Blood 276 mg/dL (60-115)
[2022-10-17] MEDS: Insulin Glargine,Hum.rec.anlog 100 UNIT/ML 10 ML VIAL 26 UNIT SUBCUT (20:31)
[2022-10-17] MEDS: Mirtazapine 7.5 MG TABLET PO (21:31)
[2022-10-18] VITALS (11 sets, daily range): BP systolic 126–155; BP diastolic 63–73; PULSE 53–73; RESP 17–20; TEMP 35.9–36.2; O2SAT 89–97
[2022-10-18] MEDS: Omeprazole 20 MG CAPSULE.DR PO ×2 (05:23→17:07)
[2022-10-18 07:47] LABS: Glucose, Whole Blood 178 mg/dL (60-115)
[2022-10-18] MEDS: levalbuterol HCL 1.25 MG/3 ML VIAL.NEB INHALE ×4 (08:05→23:16)
[2022-10-18] MEDS: Insulin Lispro 100 UNIT/ML 3 ML VIAL SUBCUT ×4 (08:46→22:15)
[2022-10-18] MEDS: predniSONE 20 MG TABLET 40 MG PO (08:46)
[2022-10-18] MEDS: Atorvastatin Calcium 80 MG TABLET PO (08:46)
[2022-10-18] MEDS: Furosemide 20 MG TABLET PO (08:46)
[2022-10-18] MEDS: Gabapentin 300 MG CAPSULE PO (08:46)
[2022-10-18] MEDS: Metoprolol Succinate ER 100 MG TAB.ER.24H PO ×2 (08:46→22:15)
[2022-10-18] MEDS: PARoxetine HCL 20 MG TABLET PO (08:47)
[2022-10-18] MEDS: 0.9 % Sodium Chloride Flush 3 ML SYRINGE IVFLUSH ×3 (08:47→22:15)
[2022-10-18 08:58] LABS: Anion Gap 15 (12-20); Blood Urea Nitrogen 41 mg/dL (9-16); Calcium 10.3 mg/dL (8.4-10.2); Carbon Dioxide 29 mmol/L (22-29); Chloride 100 mmol/L (96-108); Creatinine Clr Calc Pharmacy 32.7; Estimated Glomerular Filt Rate 35; Glucose Random 180 mg/dL (60-115); Potassium 4.3 mmol/L (3.3-5.1); Sodium 140 mmol/L (135-145)
[2022-10-18 13:00] LABS: Glucose, Whole Blood 304 mg/dL (60-115)
[2022-10-18] MEDS: Furosemide 20 MG/2 ML VIAL IVPUSH (13:05)
--- NOTE | 2022-10-18 16:03 | HO.PM.IMPN ---
Subjective Subjective Date of Service: 10/18/22 Interval History: chf excerebation Review of Systems seems more awake today,sob somewhat improvin denies any chest pain or cough or fever Physical Exam Vital Signs: Vital Signs: Last Vital Signs Temp 97 F 10/18/22 12:00 Pulse 73 10/18/22 12:38 Resp 18 10/18/22 12:00 BP 134/72 10/18/22 12:38 Pulse Ox 94 10/18/22 12:38 O2 Del Method Room Air 10/18/22 12:00 O2 Flow Rate 1 10/17/22 07:37 BMI result Body Mass Index 37.0 General: AO X 3, no acute distress Resp:? rhonchi, congestion CVS: S1,S2, iregular iregular GI: +BS, NT, no distention Skin: No rash Neuro:? motor grossly intact Psych: appropriate affect Objective Data Active Medications Acetaminophen (Acetaminophen 325 Mg Tablet) 650 mg PO Q4H PRN PRN Reason: Pain, Moderate(Pain Scale 4-6) Last Admin: 10/15/22 20:46 Dose: 650 mg Documented By: DAVID Atorvastatin Calcium (Atorvastatin Calcium 80 Mg Tablet) 80 mg PO DAILY [facility] Last Admin: 10/18/22 08:46 Dose: 80 mg Documented By: LULI Benzonatate (Benzonatate 100 Mg Capsule) 100 mg PO BID PRN PRN Reason: cough Last Admin: 10/15/22 20:45 Dose: 100 mg Documented By: DAVID Docusate Sodium (Docusate Sodium 100 Mg Capsule) 100 mg PO DAILY PRN PRN Reason: Constipation Furosemide (Furosemide 20 Mg Tablet) 20 mg PO DAILY [facility]; Protocol Last Admin: 10/18/22 08:46 Dose: 20 mg Documented By: LULI Gabapentin (Gabapentin 300 Mg Capsule) 300 mg PO DAILY [facility] Last Admin: 10/18/22 08:46 Dose: 300 mg Documented By: LULI Glucose (Glucose Gel 15 Gm Gel..Gram.) 15 gm PO Q15M PRN; Protocol PRN Reason: per Hypoglycemia Standing Ord. Guaifenesin (Guaifenesin 200 Mg/10 Ml 10 Ml Liquid) 10 ml PO Q4H PRN PRN Reason: Cough Last Admin: 10/13/22 11:51 Dose: 10 ml Documented By: MAKENNA Dextrose (D10) 250 mls @ 750 mls/hr IV Q15M PRN; Protocol PRN Reason: per Hypoglycemia Standing Ord. Ceftriaxone Sodium 1 gm/ (Sodium Chloride) 50 mls @ 100 mls/hr IV Q24H [facility] Last Infusion: 10/17/22 19:00 Dose: 0 mls/hr Documented By: RODNEY Insulin Glargine (Insulin Glargine,Hum.Rec.Anlog 100 Unit/Ml 10 Ml Vial) 26 unit SUBCUT BEDTIME [facility] Last Admin: 10/17/22 20:31 Dose: 26 unit Documented By: RODNEY Insulin Human Lispro (Insulin Lispro 100 Unit/Ml 3 Ml Vial) 0 unit SUBCUT QIDACHS [facility]; Protocol Last Admin: 10/18/22 13:05 Dose: 8 unit Documented By: LULI Levalbuterol HCl (Levalbuterol Hcl 1.25 Mg/3 Ml Vial.Neb) 1.25 mg INHALE RQ4H WHILE AWAKE [facility] Last Admin: 10/18/22 15:20 Dose: Not Given Documented By: PARTHA Non-Admin Reason: Patient Asleep Levalbuterol HCl (Levalbuterol Hcl 1.25 Mg/3 Ml Vial.Neb) 1.25 mg INHALE Q2H PRN PRN Reason: Shortness of Breath Last Admin: 10/15/22 14:01 Dose: 1.25 mg Documented By: DAVID Metoprolol Succinate (Metoprolol Succinate Er 100 Mg Tab.Er.24h) 100 mg PO BID [facility]; Protocol Last Admin: 10/18/22 08:46 Dose: 100 mg Documented By: LULI Mirtazapine (Mirtazapine 7.5 Mg Tablet) 7.5 mg PO BEDTIME [facility] Last Admin: 10/17/22 21:31 Dose: 7.5 mg Documented By: RODNEY Omeprazole (Omeprazole 20 Mg Capsule.) 20 mg PO BID@0630,1630 [facility] Last Admin: 10/18/22 05:23 Dose: 20 mg Documented By: RODNEY Ondansetron HCl (Ondansetron Hcl 4 Mg/2 Ml Vial) 4 mg IVPUSH Q8H PRN PRN Reason: Nausea and Vomiting Paroxetine HCl (Paroxetine Hcl 20 Mg Tablet) 20 mg PO DAILY [facility] Last Admin: 10/18/22 08:47 Dose: 20 mg Documented By: LULI Pharmacy Consult (Consult Rx Perform Med Rec) 1 each MISCELLANE ONCE PRN PRN Reason: Consult order Prednisone (Prednisone 20 Mg Tablet) 40 mg PO DAILY [facility] Last Admin: 10/18/22 08:46 Dose: 40 mg Documented By: LULI Rivaroxaban (Rivaroxaban 15 Mg Tablet) 15 mg PO DAILY@1800 [facility] Last Admin: 10/17/22 18:30 Dose: 15 mg Documented By: LULI Senna/Docusate Sodium (Sennosides/Docusate Sodium Tablet) 2 tab PO BEDTIME [facility] Last Admin: 10/17/22 21:31 Dose: Not Given Documented By: RODNEY Non-Admin Reason: Patient Refused Sodium Chloride (0.9 % Sodium Chloride Flush 3 Ml Syringe) 3 ml IVFLUSH QSHIFT [facility] Last Admin: 10/18/22 08:47 Dose: 3 ml Documented By: LULI Labs 10/12/22 06:44 10/18/22 08:23 Labs: Laboratory Results - last 24 hr 10/17/22 10/17/22 10/18/22 16:35 19:56 07:33 Anion Gap Estim Creat Clear Calc Estimated GFR POC Glucose 342 H 276 H 178 H Random Glucose Calcium 10/18/22 10/18/22 08:23 12:56 Anion Gap 15 Estim Creat Clear Calc 32.7 Estimated GFR 35 POC Glucose 304 H Random Glucose 180 H Calcium 10.3 H D Assessment and Plan (1) Atrial fibrillation with RVR: Status: Acute (2) Acute respiratory failure with hypoxia: Status: Acute Plan 76-year-old female with history of mild intermittent asthma, paroxysmal atrial fibrillation anticoagulated with Xarelto, hypertension, history of CVA, insulin-dependent type 2 diabetes, and obesity admitted for severe sepsis, pneumonia, and afib with rvr. acute hypoxemic/hypercarbic respiratory failure secondary to COPD, severe sepsis- related to pneumonia, also contribution HfpEFexacerbation Toxic metabolic encephalopathy due to above-seems improved ct head neg still sob with excersion, few crackles few at lung bases. Continue nebs, steroids, antibiotics,iv lasix added , if improves will switch to po lasix. monitre i/o-? 180 ml neg, daily weights, BNP improving pulm/cardio eval noted. moderate persistent asthma-with? acute exacerbation Xopenex,swichted to iv steriods Acute kidney injury- related to severe sepsis improvingy Atrial fibrillation with RVR-- hr is improving,hold digoxin continue xarelto echo :1. Mild LV systolic dysfunction with LVEF of 45-50%? 2. Normal cardiac valvular Doppler ? 3. No gross pericardial effusion ? HFpEF -seems in chf , bnp baseline. -no acute exacerbation iv lasix due to worsening of respiratory failure the HTN--continue Toprolol, Insulin dependent type 2 diabetes- with hyperglycemia -continue Lantus -Humalog on sliding scale -diabetic diet -POC history CVA -continue statin, Xarelto DVT prophylaxis-on Xarelto need for inpatient; HfpEFexacerbation-need iv lasix, i/o monitering, elecctrolytic monitering Time Spent With Patient Time: Total time managing care of this patient today ____ minutes. Quality Stroke Does the patient have a stroke diagnosis?: No VTE Prior VTE?: No VTE Risk Level:: Medical - moderate - high VTE Device Contraindication: Treatment Not Indicated VTE Drug Contraindication: N/A - Med Ordered
[2022-10-18 16:08] LABS: Glucose, Whole Blood 336 mg/dL (60-115)
[2022-10-18] MEDS: cefTRIAXone sodium 1 GM in 0.9 % Sodium Chloride 50 ML IV (18:07)
[2022-10-18] MEDS: Rivaroxaban 15 MG TABLET PO (18:13)
[2022-10-18 20:25] LABS: Glucose, Whole Blood 303 mg/dL (60-115)
--- NOTE | 2022-10-18 21:33 | PM.PNNEP ---
Subjective Subjective Date of Service: 10/18/22 Principal diagnosis: Atrial fibrillation with rapid ventricular response , CHF Interval history: chf excerebation Physical Exam Vital Signs: Vital Signs: Last Vital Signs Temp 96.6 F L 10/18/22 19:17 Pulse 53 10/18/22 19:48 Resp 18 10/18/22 19:48 BP 155/69 H 10/18/22 19:17 Pulse Ox 94 10/18/22 19:17 O2 Del Method Room Air 10/18/22 19:17 O2 Flow Rate 1 10/17/22 07:37 BMI result Body Mass Index 37.0 General: AO X 3, no acute distress Resp:? rhonchi, congestion CVS: S1,S2, iregular iregular GI: +BS, NT, no distention Skin: No rash Neuro:? motor grossly intact Psych: appropriate affect Objective Data Labs 10/12/22 06:44 10/18/22 08:23 Labs: Laboratory Results - last 24 hr 10/18/22 10/18/22 10/18/22 07:33 08:23 12:56 Sodium 140 Potassium 4.3 Chloride 100 Carbon Dioxide 29 Anion Gap 15 BUN 41 H Creatinine 1.47 H Estim Creat Clear Calc 32.7 Estimated GFR 35 POC Glucose 178 H 304 H Random Glucose 180 H Calcium 10.3 H D 10/18/22 10/18/22 16:05 20:06 Sodium Potassium Chloride Carbon Dioxide Anion Gap BUN Creatinine Estim Creat Clear Calc Estimated GFR POC Glucose 336 H 303 H Random Glucose Calcium Microbiology Microbiology Results: Microbiology 10/11/22 19:54 Blood - Venous Blood Culture - Final No growth after 5 days. 10/11/22 18:32 Blood - Venous Blood Culture - Final No growth after 5 days. 10/12/22 04:18 Nares MRSA Culture - Final 10/12/22 07:35 Sputum - Expectorated Gram Stain - Final 10/12/22 07:35 Sputum - Expectorated Sputum Culture - Final Procedures Date of Service Date of Service: 10/18/22 Assessment & Plan Assessment and plan (1) Atrial fibrillation with RVR: Status: Acute (2) IJEOMA (acute kidney injury): Status: Acute (3) CKD (chronic kidney disease) stage 3, GFR 30-59 ml/min: Status: Acute Plan 76-year-old man with acute kidney injury superimposed chronic kidney disease. Her baseline creatinine is around 1.2-1.5 mg/dL. Urine studies have been bland. 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 No evidence of obstruction. She has sustained superimposed acute kidney injury most likely related to the use of diuretics causing hypoperfusion. She has a history of congestive heart failure Creatinine has bumped up Recommendations Lasix as per medical team Cr 1.4 Avoid aggresive diuresis Continue to avoid nephrotoxic agents/NSAIDS. Continue to avoid hypotension. Time Spent With Patient Time: Total time managing care of this patient today ____ minutes. Progress Note: Quality Stroke Does the patient have a stroke diagnosis?: No
[2022-10-18] MEDS: Mirtazapine 7.5 MG TABLET PO (22:15)
[2022-10-18] MEDS: Insulin Glargine,Hum.rec.anlog 100 UNIT/ML 10 ML VIAL 26 UNIT SUBCUT (22:15)
[2022-10-18] MEDS: Sennosides/Docusate Sodium TABLET 2 TAB PO (22:15)
[2022-10-19] VITALS (11 sets, daily range): BP systolic 118–160; BP diastolic 65–82; PULSE 54–87; RESP 17–20; TEMP 36.1–36.6; O2SAT 91–97
--- NOTE | 2022-10-19 | ECG_ITS ---
Test Reason : cp Blood Pressure : / mmHG Vent. Rate : 047 BPM Atrial Rate : 000 BPM P-R Int : 000 ms QRS Dur : 088 ms QT Int : 432 ms P-R-T Axes : 000 003 064 degrees QTc Int : 382 ms Atrial fibrillation with slow ventricular response Nonspecific ST and T wave abnormality Abnormal ECG When compared to the previous EKG of Vent. rate has decreased Referred By: Francisco Goel Electronically Signed By:ULISES SAWYER MD
[2022-10-19] MEDS: Omeprazole 20 MG CAPSULE.DR PO ×2 (05:36→17:26)
--- NOTE | 2022-10-19 06:04 | PC.NURSE ---
Pt O2 levels dropped to 86% on RA so this RN requested an order for O2 from and put her on 2L NC. Her HR also dropped to the 30's and she had a 3 second pause. Let MD know who ordered CXR and EKG. Will continue to monitor.
--- NOTE | 2022-10-19 07:00 | PM.EVENT ---
Event Note Date of Service: 10/19/22 Event Note: patient had a 3 seconds pause, with bradycardia in the 30s, asymptomatic, she was awake hold metoprolol, Time Spent With Patient Time: Total time managing care of this patient today ____ minutes.
[2022-10-19] MEDS: levalbuterol HCL 1.25 MG/3 ML VIAL.NEB INHALE ×4 (08:11→20:28)
[2022-10-19 08:29] LABS: Glucose, Whole Blood 175 mg/dL (60-115)
[2022-10-19] MEDS: Insulin Lispro 100 UNIT/ML 3 ML VIAL SUBCUT ×4 (09:27→21:47)
[2022-10-19] MEDS: 0.9 % Sodium Chloride Flush 3 ML SYRINGE IVFLUSH ×3 (09:27→21:48)
[2022-10-19] MEDS: Furosemide 20 MG TABLET PO (09:28)
[2022-10-19] MEDS: Atorvastatin Calcium 80 MG TABLET PO (09:28)
[2022-10-19] MEDS: Gabapentin 300 MG CAPSULE PO (09:28)
[2022-10-19] MEDS: PARoxetine HCL 20 MG TABLET PO (09:28)
[2022-10-19] MEDS: predniSONE 20 MG TABLET 40 MG PO (09:28)
--- NOTE | 2022-10-19 11:29 | P.PNIM_ITS ---
Subjective Subjective Date of Service: 10/19/22 Interval History: bradycardia overnight Review of Systems Shortness of breath seems to be improving Cough also improving, denies any chest pain or fever or chills. Physical Exam Vital Signs: Vital Signs: Last Vital Signs Temp 96.9 F 10/19/22 07:32 Pulse 71 10/19/22 08:11 Resp 18 10/19/22 08:11 BP 118/82 10/19/22 07:32 Pulse Ox 95 10/19/22 07:32 O2 Del Method Room Air 10/19/22 07:32 O2 Flow Rate 2 10/19/22 04:00 BMI result Body Mass Index 37.0 General: AO X 3, no acute distress Resp:? rhonchi, congestion CVS: S1,S2, iregular iregular GI: +BS, NT, no distention Skin: No rash Neuro:? motor grossly intact Psych: appropriate affect Objective Data Active Medications Acetaminophen (Acetaminophen 325 Mg Tablet) 650 mg PO Q4H PRN PRN Reason: Pain, Moderate(Pain Scale 4-6) Last Admin: 10/15/22 20:46 Dose: 650 mg Documented By: DAVID Albuterol/Ipratropium (Albuterol/Iprat 2.5/0.5mg 3 Ml Ampul.Neb) 3 ml INHALE RQ4H PRN PRN Reason: Shortness of Breath/Wheezing Atorvastatin Calcium (Atorvastatin Calcium 80 Mg Tablet) 80 mg PO DAILY [facility] Last Admin: 10/19/22 09:28 Dose: 80 mg Documented By: THANIA Benzonatate (Benzonatate 100 Mg Capsule) 100 mg PO BID PRN PRN Reason: cough Last Admin: 10/15/22 20:45 Dose: 100 mg Documented By: DAVID Docusate Sodium (Docusate Sodium 100 Mg Capsule) 100 mg PO DAILY PRN PRN Reason: Constipation Furosemide (Furosemide 20 Mg Tablet) 20 mg PO DAILY [facility]; Protocol Last Admin: 10/19/22 09:28 Dose: 20 mg Documented By: THANIA Gabapentin (Gabapentin 300 Mg Capsule) 300 mg PO DAILY [facility] Last Admin: 10/19/22 09:28 Dose: 300 mg Documented By: THANIA Glucose (Glucose Gel 15 Gm Gel..Gram.) 15 gm PO Q15M PRN; Protocol PRN Reason: per Hypoglycemia Standing Ord. Guaifenesin (Guaifenesin 200 Mg/10 Ml 10 Ml Liquid) 10 ml PO Q4H PRN PRN Reason: Cough Last Admin: 10/13/22 11:51 Dose: 10 ml Documented By: MAKENNA Dextrose (D10) 250 mls @ 750 mls/hr IV Q15M PRN; Protocol PRN Reason: per Hypoglycemia Standing Ord. Ceftriaxone Sodium 1 gm/ (Sodium Chloride) 50 mls @ 100 mls/hr IV Q24H [facility] Last Infusion: 10/18/22 18:45 Dose: 0 mls/hr Documented By: LULI Insulin Glargine (Insulin Glargine,Hum.Rec.Anlog 100 Unit/Ml 10 Ml Vial) 26 unit SUBCUT BEDTIME [facility] Last Admin: 10/18/22 22:15 Dose: 26 unit Documented By: BRANDY Insulin Human Lispro (Insulin Lispro 100 Unit/Ml 3 Ml Vial) 0 unit SUBCUT QIDACHS [facility]; Protocol Last Admin: 10/19/22 09:27 Dose: 2 unit Documented By: THANIA Levalbuterol HCl (Levalbuterol Hcl 1.25 Mg/3 Ml Vial.Neb) 1.25 mg INHALE RQ4H WHILE AWAKE [facility] Last Admin: 10/19/22 08:11 Dose: 1.25 mg Documented By: DIANE Levalbuterol HCl (Levalbuterol Hcl 1.25 Mg/3 Ml Vial.Neb) 1.25 mg INHALE Q2H PRN PRN Reason: Shortness of Breath Last Admin: 10/18/22 23:16 Dose: 1.25 mg Documented By: SHI Mirtazapine (Mirtazapine 7.5 Mg Tablet) 7.5 mg PO BEDTIME [facility] Last Admin: 10/18/22 22:15 Dose: 7.5 mg Documented By: BRANDY Omeprazole (Omeprazole 20 Mg Capsule.Dr) 20 mg PO BID@0630,1630 [facility] Last Admin: 10/19/22 05:36 Dose: 20 mg Documented By: BRANDY Ondansetron HCl (Ondansetron Hcl 4 Mg/2 Ml Vial) 4 mg IVPUSH Q8H PRN PRN Reason: Nausea and Vomiting Paroxetine HCl (Paroxetine Hcl 20 Mg Tablet) 20 mg PO DAILY [facility] Last Admin: 10/19/22 09:28 Dose: 20 mg Documented By: THANIA Pharmacy Consult (Consult Rx Perform Med Rec) 1 each MISCELLANE ONCE PRN PRN Reason: Consult order Prednisone (Prednisone 20 Mg Tablet) 40 mg PO DAILY [facility] Last Admin: 10/19/22 09:28 Dose: 40 mg Documented By: THANIA Rivaroxaban (Rivaroxaban 15 Mg Tablet) 15 mg PO DAILY@1800 [facility] Last Admin: 10/18/22 18:13 Dose: 15 mg Documented By: SOLISPE Senna/Docusate Sodium (Sennosides/Docusate Sodium Tablet) 2 tab PO BEDTIME [facility] Last Admin: 10/18/22 22:15 Dose: 2 tab Documented By: BRANDY Sodium Chloride (0.9 % Sodium Chloride Flush 3 Ml Syringe) 3 ml IVFLUSH QSHIFT [facility] Last Admin: 10/19/22 09:27 Dose: 3 ml Documented By: THANIA Labs 10/12/22 06:44 10/18/22 08:23 Labs: Laboratory Results - last 24 hr 10/18/22 10/18/22 10/18/22 12:56 16:05 20:06 POC Glucose 304 H 336 H 303 H 10/19/22 07:36 POC Glucose 175 H Assessment and Plan (1) Atrial fibrillation with RVR: Status: Acute (2) Acute respiratory failure with hypoxia: Status: Acute Plan 76-year-old female with history of mild intermittent asthma, paroxysmal atrial fibrillation anticoagulated with Xarelto, hypertension, history of CVA, insulin-dependent type 2 diabetes, and obesity admitted for severe sepsis, pneumonia, and afib with rvr. acute hypoxemic/hypercarbic respiratory failure secondary to COPD, severe sepsis- related to pneumonia, also contribution HfpEFexacerbation Toxic metabolic encephalopathy due to above-seems improved ct head neg still sob with excersion, few crackles few at lung bases. Continue nebs, steroids, antibiotics,iv lasix added , if improves will switch to po lasix. monitre i/o-? 180 ml neg, daily weights, BNP improving pulm/cardio eval noted. moderate persistent asthma-with? acute exacerbation Xopenex,swichted to iv steriods Acute kidney injury- related to severe sepsis improvingy Atrial fibrillation with RVR-- continue xarelto echo :1. Mild LV systolic dysfunction with LVEF of 45-50%? 2. Normal cardiac valvular Doppler ? 3. No gross pericardial effusion ?last night has 3 sec pause/bradycardia : bb on hold , we will continue to moniter , if new pauses -then we will call cardiology back. HFpEF -seems in chf , bnp baseline. -no acute exacerbation iv lasix due to worsening of respiratory failure the HTN--continue Toprolol, Insulin dependent type 2 diabetes- with hyperglycemia -continue Lantus -Humalog on sliding scale -diabetic diet -POC history CVA -continue statin, Xarelto DVT prophylaxis-on Xarelto need for inpatient; bradycardia /pauses ? related to bb -need monitering on tele and cardio follow up if new tele changes or symptomatic Time Spent With Patient Time: Total time managing care of this patient today ____ minutes. Quality Stroke Does the patient have a stroke diagnosis?: No VTE Prior VTE?: No VTE Risk Level:: Medical - moderate - high VTE Device Contraindication: Treatment Not Indicated VTE Drug Contraindication: N/A - Med Ordered
[2022-10-19 12:12] LABS: Glucose, Whole Blood 170 mg/dL (60-115)
[2022-10-19 15:34] LABS: Glucose, Whole Blood 363 mg/dL (60-115)
[2022-10-19] MEDS: Rivaroxaban 15 MG TABLET PO (17:26)
[2022-10-19] MEDS: cefTRIAXone sodium 1 GM in 0.9 % Sodium Chloride 50 ML IV (17:27)
[2022-10-19 20:06] LABS: Glucose, Whole Blood 408 mg/dL (60-115)
[2022-10-19] MEDS: Sennosides/Docusate Sodium TABLET 2 TAB PO (21:47)
[2022-10-19] MEDS: Mirtazapine 7.5 MG TABLET PO (21:47)
[2022-10-19] MEDS: Insulin Glargine,Hum.rec.anlog 100 UNIT/ML 10 ML VIAL 26 UNIT SUBCUT (21:48)
[2022-10-19] MEDS: Albuterol/Iprat 2.5/0.5MG 3 ML AMPUL.NEB INHALE (22:13)
[2022-10-20] VITALS (10 sets, daily range): BP systolic 118–150; BP diastolic 63–91; PULSE 59–99; RESP 16–20; TEMP 36–37.1; O2SAT 91–99
[2022-10-20 07:45] LABS: Glucose, Whole Blood 99 mg/dL (60-115)
[2022-10-20] MEDS: levalbuterol HCL 1.25 MG/3 ML VIAL.NEB INHALE ×4 (07:45→18:56)
[2022-10-20] MEDS: predniSONE 20 MG TABLET 40 MG PO (09:53)
[2022-10-20] MEDS: Gabapentin 300 MG CAPSULE PO (09:54)
[2022-10-20] MEDS: Furosemide 20 MG TABLET PO (09:54)
[2022-10-20] MEDS: PARoxetine HCL 20 MG TABLET PO (09:54)
[2022-10-20] MEDS: 0.9 % Sodium Chloride Flush 3 ML SYRINGE IVFLUSH ×3 (09:55→20:35)
--- NOTE | 2022-10-20 11:18 | MHC.CM.PN ---
EMR REVIEWED, PER HOSPITALIST PT MAY BE CLEARED FOR STR, REFERRALS PLACED TO LOCAL SNF'S AND CM CURRENTLY AWAITING BED OFFER, CM WILL CONT TO FOLLOW.
[2022-10-20 11:40] LABS: Glucose, Whole Blood 224 mg/dL (60-115)
--- NOTE | 2022-10-20 11:46 | P.PNIM_ITS ---
Subjective Subjective Date of Service: 10/20/22 Interval History: bradycardia overnight Review of Systems Shortness of breath improved. Cough also improving, denies any chest pain or fever or chills. Physical Exam Vital Signs: Vital Signs: Last Vital Signs Temp 96.8 F 10/20/22 11:08 Pulse 87 10/20/22 11:42 Resp 18 10/20/22 11:42 BP 118/82 10/20/22 11:08 Pulse Ox 94 10/20/22 11:08 O2 Del Method Room Air 10/20/22 11:08 O2 Flow Rate 2 10/19/22 04:00 BMI result Body Mass Index 37.0 General: AO X 3, no acute distress Resp:? rhonchi, congestion CVS: S1,S2, iregular iregular,bradycardia GI: +BS, NT, no distention Skin: No rash Neuro:? motor grossly intact Psych: appropriate affect Objective Data Active Medications Acetaminophen (Acetaminophen 325 Mg Tablet) 650 mg PO Q4H PRN PRN Reason: Pain, Moderate(Pain Scale 4-6) Last Admin: 10/15/22 20:46 Dose: 650 mg Documented By: DAVID Albuterol/Ipratropium (Albuterol/Iprat 2.5/0.5mg 3 Ml Ampul.Neb) 3 ml INHALE RQ4H PRN PRN Reason: Shortness of Breath/Wheezing Last Admin: 10/19/22 22:13 Dose: 3 ml Documented By: TRINY Atorvastatin Calcium (Atorvastatin Calcium 80 Mg Tablet) 80 mg PO DAILY [facility] Last Admin: 10/20/22 10:02 Dose: Not Given Documented By: THANIA Non-Admin Reason: Patient Refused Atropine Sulfate (Atropine Sulfate 1 Mg/Ml Vial) 1 mg IVPUSH Q5M PRN PRN Reason: BRADYCARDIA Benzonatate (Benzonatate 100 Mg Capsule) 100 mg PO BID PRN PRN Reason: cough Last Admin: 10/15/22 20:45 Dose: 100 mg Documented By: DAVID Docusate Sodium (Docusate Sodium 100 Mg Capsule) 100 mg PO DAILY PRN PRN Reason: Constipation Furosemide (Furosemide 20 Mg Tablet) 20 mg PO DAILY [facility]; Protocol Last Admin: 10/20/22 09:54 Dose: 20 mg Documented By: THANIA Gabapentin (Gabapentin 300 Mg Capsule) 300 mg PO DAILY [facility] Last Admin: 10/20/22 09:54 Dose: 300 mg Documented By: THANIA Glucose (Glucose Gel 15 Gm Gel..Gram.) 15 gm PO Q15M PRN; Protocol PRN Reason: per Hypoglycemia Standing Ord. Guaifenesin (Guaifenesin 200 Mg/10 Ml 10 Ml Liquid) 10 ml PO Q4H PRN PRN Reason: Cough Last Admin: 10/13/22 11:51 Dose: 10 ml Documented By: MAKENNA Dextrose (D10) 250 mls @ 750 mls/hr IV Q15M PRN; Protocol PRN Reason: per Hypoglycemia Standing Ord. Ceftriaxone Sodium 1 gm/ (Sodium Chloride) 50 mls @ 100 mls/hr IV Q24H [facility] Last Infusion: 10/19/22 19:19 Dose: 0 mls/hr Documented By: GRECIA Insulin Glargine (Insulin Glargine,Hum.Rec.Anlog 100 Unit/Ml 10 Ml Vial) 26 unit SUBCUT BEDTIME [facility] Last Admin: 10/19/22 21:48 Dose: 26 unit Documented By: BRANDY Insulin Human Lispro (Insulin Lispro 100 Unit/Ml 3 Ml Vial) 0 unit SUBCUT QIDACHS [facility]; Protocol Last Admin: 10/20/22 10:07 Dose: Not Given Documented By: THANIA Non-Admin Reason: No Insulin Coverage Levalbuterol HCl (Levalbuterol Hcl 1.25 Mg/3 Ml Vial.Neb) 1.25 mg INHALE RQ4H WHILE AWAKE [facility] Last Admin: 10/20/22 11:42 Dose: 1.25 mg Documented By: DIANE Levalbuterol HCl (Levalbuterol Hcl 1.25 Mg/3 Ml Vial.Neb) 1.25 mg INHALE Q2H PRN PRN Reason: Shortness of Breath Last Admin: 10/18/22 23:16 Dose: 1.25 mg Documented By: SHI Mirtazapine (Mirtazapine 7.5 Mg Tablet) 7.5 mg PO BEDTIME [facility] Last Admin: 10/19/22 21:47 Dose: 7.5 mg Documented By: BRANDY Omeprazole (Omeprazole 20 Mg Capsule.) 20 mg PO BID@0630,1630 [facility] Last Admin: 10/20/22 06:17 Dose: Not Given Documented By: BRANDY Non-Admin Reason: Patient Refused Ondansetron HCl (Ondansetron Hcl 4 Mg/2 Ml Vial) 4 mg IVPUSH Q8H PRN PRN Reason: Nausea and Vomiting Paroxetine HCl (Paroxetine Hcl 20 Mg Tablet) 20 mg PO DAILY [facility] Last Admin: 10/20/22 09:54 Dose: 20 mg Documented By: THANIA Pharmacy Consult (Consult Rx Perform Med Rec) 1 each MISCELLANE ONCE PRN PRN Reason: Consult order Prednisone (Prednisone 20 Mg Tablet) 40 mg PO DAILY [facility] Last Admin: 10/20/22 09:53 Dose: 40 mg Documented By: THANIA Rivaroxaban (Rivaroxaban 15 Mg Tablet) 15 mg PO DAILY@1800 [facility] Last Admin: 10/19/22 17:26 Dose: 15 mg Documented By: THANIA Senna/Docusate Sodium (Sennosides/Docusate Sodium Tablet) 2 tab PO BEDTIME [facility] Last Admin: 10/19/22 21:47 Dose: 2 tab Documented By: BRANDY Sodium Chloride (0.9 % Sodium Chloride Flush 3 Ml Syringe) 3 ml IVFLUSH QSHIFT [facility] Last Admin: 10/20/22 09:55 Dose: 3 ml Documented By: THANIA Labs 10/12/22 06:44 10/18/22 08:23 Labs: Laboratory Results - last 24 hr 10/19/22 10/19/22 10/19/22 11:58 15:31 19:56 POC Glucose 170 H 363 H* 408 H* 10/20/22 10/20/22 07:40 11:07 POC Glucose 99 224 H Assessment and Plan (1) Atrial fibrillation with RVR: Status: Acute (2) Acute respiratory failure with hypoxia: Status: Acute Plan 76-year-old female with history of mild intermittent asthma, paroxysmal atrial fibrillation anticoagulated with Xarelto, hypertension, history of CVA, insulin- dependent type 2 diabetes, and obesity admitted for severe sepsis, pneumonia, and afib with rvr. acute hypoxemic/hypercarbic respiratory failure secondary to COPD, severe sepsis- related to pneumonia, also contribution HfpEFexacerbation Toxic metabolic encephalopathy due to above-seems improved ct head neg still sob with excersion, few crackles few at lung bases. Continue nebs, steroids, antibiotics,iv lasix added , if improves will switch to po lasix. sob and leg swelling improved, BNP improving pulm/cardio eval noted. moderate persistent asthma-with? acute exacerbation Xopenex,swichted to iv steriods Acute kidney injury- related to severe sepsis improvingy Atrial fibrillation with RVR- overnight deepak again , no pauses. continue xarelto echo :1. Mild LV systolic dysfunction with LVEF of 45-50%? 2. Normal cardiac valvular Doppler ? 3. No gross pericardial effusion ?last night has 3 sec pause/bradycardia : bb on hold , we will continue to moniter , if new pauses -then we will call cardiology back. HFpEF -seems in chf , bnp baseline. -no acute exacerbation iv lasix due to worsening of respiratory failure the HTN--continue Toprolol, Insulin dependent type 2 diabetes- with hyperglycemia -continue Lantus -Humalog on sliding scale -diabetic diet -POC history CVA -continue statin, Xarelto DVT prophylaxis-on Xarelto need for inpatient; bradycardia /pauses ? related to bb -need monitering on tel e and cardio follow in am for further use of antiarrythmic. Time Spent With Patient Time: Total time managing care of this patient today ____ minutes. Quality Stroke Does the patient have a stroke diagnosis?: No VTE Prior VTE?: No VTE Risk Level:: Medical - moderate - high VTE Device Contraindication: Treatment Not Indicated VTE Drug Contraindication: N/A - Med Ordered
[2022-10-20] MEDS: Insulin Lispro 100 UNIT/ML 3 ML VIAL SUBCUT ×3 (13:22→20:34)
[2022-10-20 14:20] LABS: Creatinine Urine 87.23 mg/dL; Total Protein Urine Random 26 mg/dL (<12)
[2022-10-20 15:40] LABS: Glucose, Whole Blood 349 mg/dL (60-115)
[2022-10-20] MEDS: Rivaroxaban 15 MG TABLET PO (16:58)
[2022-10-20] MEDS: Omeprazole 20 MG CAPSULE.DR PO (16:58)
[2022-10-20] MEDS: cefTRIAXone sodium 1 GM in 0.9 % Sodium Chloride 50 ML IV (17:03)
[2022-10-20 20:26] LABS: Glucose, Whole Blood 381 mg/dL (60-115)
--- NOTE | 2022-10-20 20:27 | PM.PNNEP ---
Subjective Subjective Date of Service: 10/20/22 Principal diagnosis: Atrial fibrillation with rapid ventricular response , CHF Interval history: Comfortable Physical Exam Vital Signs: Vital Signs: Last Vital Signs Temp 98.7 F 10/20/22 19:34 Pulse 99 10/20/22 19:34 Resp 18 10/20/22 19:34 BP 150/91 H 10/20/22 19:34 Pulse Ox 91 L 10/20/22 19:34 O2 Del Method Room Air 10/20/22 19:34 O2 Flow Rate 2 10/19/22 04:00 BMI result Body Mass Index 37.0 General: AO X 3, no acute distress Resp:? rhonchi, congestion CVS: S1,S2, iregular iregular,bradycardia GI: +BS, NT, no distention Skin: No rash Neuro:? motor grossly intact Psych: appropriate affect Objective Data Labs 10/12/22 06:44 10/18/22 08:23 Labs: Laboratory Results - last 24 hr 10/20/22 10/20/22 10/20/22 07:40 11:07 13:45 POC Glucose 99 224 H U Random Total Protein 26 H Ur Random Sodium 61.0 Urine Creatinine 87.23 10/20/22 10/20/22 15:00 20:20 POC Glucose 349 H 381 H* U Random Total Protein Ur Random Sodium Urine Creatinine Microbiology Microbiology Results: Microbiology 10/11/22 19:54 Blood - Venous Blood Culture - Final No growth after 5 days. 10/11/22 18:32 Blood - Venous Blood Culture - Final No growth after 5 days. 10/12/22 04:18 Nares MRSA Culture - Final 10/12/22 07:35 Sputum - Expectorated Gram Stain - Final 10/12/22 07:35 Sputum - Expectorated Sputum Culture - Final Procedures Date of Service Date of Service: 10/20/22 Assessment & Plan Assessment and plan (1) Atrial fibrillation with RVR: Status: Acute (2) IJEOMA (acute kidney injury): Status: Acute (3) CKD (chronic kidney disease) stage 3, GFR 30-59 ml/min: Status: Acute Plan 76-year-old man with acute kidney injury superimposed chronic kidney disease. Her baseline creatinine is around 1.2-1.5 mg/dL. Urine studies have been bland. 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 No evidence of obstruction. She has sustained superimposed acute kidney injury most likely related to the use of diuretics causing hypoperfusion. She has a history of congestive heart failure Recommendations Lasix as per medical team Cr better Avoid aggresive diuresis Continue to avoid nephrotoxic agents/NSAIDS. Continue to avoid hypotension. Time Spent With Patient Time: Total time managing care of this patient today ____ minutes. Progress Note: Quality Stroke Does the patient have a stroke diagnosis?: No
[2022-10-20] MEDS: Benzonatate 100 MG CAPSULE PO (20:34)
[2022-10-20] MEDS: Insulin Glargine,Hum.rec.anlog 100 UNIT/ML 10 ML VIAL 26 UNIT SUBCUT (20:34)
[2022-10-20] MEDS: Sennosides/Docusate Sodium TABLET 2 TAB PO (20:34)
[2022-10-20] MEDS: Mirtazapine 7.5 MG TABLET PO (20:34)
[2022-10-21] VITALS (11 sets, daily range): BP systolic 124–147; BP diastolic 71–89; PULSE 60–89; RESP 18–20; TEMP 35.8–37; O2SAT 91–100
[2022-10-21] MEDS: Omeprazole 20 MG CAPSULE.DR PO ×2 (05:55→16:51)
[2022-10-21 07:17] LABS: Glucose, Whole Blood 152 mg/dL (60-115)
[2022-10-21] MEDS: levalbuterol HCL 1.25 MG/3 ML VIAL.NEB INHALE ×2 (07:44→11:31)
[2022-10-21] MEDS: Insulin Lispro 100 UNIT/ML 3 ML VIAL SUBCUT ×4 (07:45→21:31)
[2022-10-21] MEDS: 0.9 % Sodium Chloride Flush 3 ML SYRINGE IVFLUSH ×3 (07:45→16:54)
[2022-10-21] MEDS: PARoxetine HCL 20 MG TABLET PO (07:46)
[2022-10-21] MEDS: Atorvastatin Calcium 80 MG TABLET PO (07:46)
[2022-10-21] MEDS: predniSONE 20 MG TABLET 40 MG PO (07:46)
[2022-10-21] MEDS: Furosemide 20 MG TABLET PO (07:47)
[2022-10-21] MEDS: Gabapentin 300 MG CAPSULE PO (07:47)
[2022-10-21 11:10] LABS: Glucose, Whole Blood 245 mg/dL (60-115)
--- NOTE | 2022-10-21 11:16 | PC.NURSE ---
Assumed care of patient at this time.
--- NOTE | 2022-10-21 11:54 | HO.PM.IMPN ---
Subjective Subjective Date of Service: 10/21/22 Interval History: chf , hr flactuating Review of Systems Denies any chest pain or shortness of breath or palpitations Physical Exam Vital Signs: Vital Signs: Last Vital Signs Temp 97.8 F 10/21/22 07:19 Pulse 80 10/21/22 11:31 Resp 18 10/21/22 11:31 BP 124/72 10/21/22 07:19 Pulse Ox 94 10/21/22 07:19 O2 Del Method Nasal Cannula 10/21/22 07:19 O2 Flow Rate 2 10/21/22 07:19 BMI result Body Mass Index 37.0 General: AO X 3, no acute distress Resp:? rhonchi, congestion CVS: S1,S2, iregular iregular,bradycardia GI: +BS, NT, no distention Skin: No rash Neuro:? motor grossly intact Psych: appropriate affect Objective Data Active Medications Acetaminophen (Acetaminophen 325 Mg Tablet) 650 mg PO Q4H PRN PRN Reason: Pain, Moderate(Pain Scale 4-6) Last Admin: 10/15/22 20:46 Dose: 650 mg Documented By: DAVID Albuterol/Ipratropium (Albuterol/Iprat 2.5/0.5mg 3 Ml Ampul.Neb) 3 ml INHALE RQ4H PRN PRN Reason: Shortness of Breath/Wheezing Last Admin: 10/19/22 22:13 Dose: 3 ml Documented By: TRINY Atorvastatin Calcium (Atorvastatin Calcium 80 Mg Tablet) 80 mg PO DAILY [facility] Last Admin: 10/21/22 07:46 Dose: 80 mg Documented By: LIZA Atropine Sulfate (Atropine Sulfate 1 Mg/Ml Vial) 1 mg IVPUSH Q5M PRN PRN Reason: BRADYCARDIA Benzonatate (Benzonatate 100 Mg Capsule) 100 mg PO BID PRN PRN Reason: cough Last Admin: 10/20/22 20:34 Dose: 100 mg Documented By: DAVID Docusate Sodium (Docusate Sodium 100 Mg Capsule) 100 mg PO DAILY PRN PRN Reason: Constipation Furosemide (Furosemide 20 Mg Tablet) 20 mg PO DAILY [facility]; Protocol Last Admin: 10/21/22 07:47 Dose: 20 mg Documented By: LIZA Gabapentin (Gabapentin 300 Mg Capsule) 300 mg PO DAILY [facility] Last Admin: 10/21/22 07:47 Dose: 300 mg Documented By: LIZA Glucose (Glucose Gel 15 Gm Gel..Gram.) 15 gm PO Q15M PRN; Protocol PRN Reason: per Hypoglycemia Standing Ord. Guaifenesin (Guaifenesin 200 Mg/10 Ml 10 Ml Liquid) 10 ml PO Q4H PRN PRN Reason: Cough Last Admin: 10/13/22 11:51 Dose: 10 ml Documented By: TINTEKR Dextrose (D10) 250 mls @ 750 mls/hr IV Q15M PRN; Protocol PRN Reason: per Hypoglycemia Standing Ord. Ceftriaxone Sodium 1 gm/ (Sodium Chloride) 50 mls @ 100 mls/hr IV Q24H [facility] Last Infusion: 10/20/22 17:33 Dose: 0 mls/hr Documented By: GRECIA Insulin Glargine (Insulin Glargine,Hum.Rec.Anlog 100 Unit/Ml 10 Ml Vial) 26 unit SUBCUT BEDTIME [facility] Last Admin: 10/20/22 20:34 Dose: 26 unit Documented By: DAVID Insulin Human Lispro (Insulin Lispro 100 Unit/Ml 3 Ml Vial) 0 unit SUBCUT QIDACHS [facility]; Protocol Last Admin: 10/21/22 07:45 Dose: 2 unit Documented By: LIZA Levalbuterol HCl (Levalbuterol Hcl 1.25 Mg/3 Ml Vial.Ligia) 1.25 mg INHALE RQ4H WHILE AWAKE [facility] Last Admin: 10/21/22 11:31 Dose: 1.25 mg Documented By: KODY Metoprolol Tartrate (Metoprolol Tartrate 25 Mg Tablet) 25 mg PO BID [facility]; Protocol Mirtazapine (Mirtazapine 7.5 Mg Tablet) 7.5 mg PO BEDTIME [facility] Last Admin: 10/20/22 20:34 Dose: 7.5 mg Documented By: DAVID Omeprazole (Omeprazole 20 Mg Capsule.) 20 mg PO BID@0630,1630 [facility] Last Admin: 10/21/22 05:55 Dose: 20 mg Documented By: CHILANGO Ondansetron HCl (Ondansetron Hcl 4 Mg/2 Ml Vial) 4 mg IVPUSH Q8H PRN PRN Reason: Nausea and Vomiting Paroxetine HCl (Paroxetine Hcl 20 Mg Tablet) 20 mg PO DAILY [facility] Last Admin: 10/21/22 07:46 Dose: 20 mg Documented By: LIZA Pharmacy Consult (Consult Rx Perform Med Rec) 1 each MISCELLANE ONCE PRN PRN Reason: Consult order Prednisone (Prednisone 20 Mg Tablet) 40 mg PO DAILY [facility] Last Admin: 10/21/22 07:46 Dose: 40 mg Documented By: LIZA Rivaroxaban (Rivaroxaban 15 Mg Tablet) 15 mg PO DAILY@1800 [facility] Last Admin: 10/20/22 16:58 Dose: 15 mg Documented By: GRECIA Senna/Docusate Sodium (Sennosides/Docusate Sodium Tablet) 2 tab PO BEDTIME [facility] Last Admin: 10/20/22 20:34 Dose: 2 tab Documented By: RUBINA-RIVLA Sodium Chloride (0.9 % Sodium Chloride Flush 3 Ml Syringe) 3 ml IVFLUSH QSHIFT [facility] Last Admin: 10/21/22 07:45 Dose: 3 ml Documented By: LIZA Labs 10/12/22 06:44 10/18/22 08:23 Labs: Laboratory Results - last 24 hr 10/20/22 10/20/22 10/20/22 13:45 15:00 20:20 POC Glucose 349 H 381 H* U Random Total Protein 26 H Ur Random Sodium 61.0 Urine Creatinine 87.23 10/21/22 10/21/22 07:04 10:57 POC Glucose 152 H 245 H U Random Total Protein Ur Random Sodium Urine Creatinine Assessment and Plan (1) Atrial fibrillation with RVR: Status: Acute (2) Acute respiratory failure with hypoxia: Status: Acute Plan 76-year-old female with history of mild intermittent asthma, paroxysmal atrial fibrillation anticoagulated with Xarelto, hypertension, history of CVA, insulin-dependent type 2 diabetes, and obesity admitted for severe sepsis, pneumonia, and afib with rvr. acute hypoxemic/hypercarbic respiratory failure secondary to COPD, severe sepsis- related to pneumonia, also contribution HfpEFexacerbation Toxic metabolic encephalopathy due to above-seems improved ct head neg still sob with excersion, few crackles few at lung bases. Continue nebs, steroids, antibiotics,iv lasix added , if improves will switch to po lasix. sob and leg swelling improved, BNP improving pulm/cardio eval noted. switche dto po diuretics/steriods moderate persistent asthma-with? acute exacerbation Xopenex,swichted to po steriods Acute kidney injury- related to severe sepsis improvin, possible mary on ckd -improving seen by nephro cr near baseline already on po lasix Atrial fibrillation with RVR- has one episode 3 sec 2-3 days back since tehna has deepak in 40's during night as well as goes in 120;s hr intermittent continue xarelto echo :1. Mild LV systolic dysfunction with LVEF of 45-50%? 2. Normal cardiac valvular Doppler ? 3. No gross pericardial effusion initially off bb and digoxin d/w cardiology- we will add metoprolol low dose since hr going up intermittent ,moniter HFpEF -seems in chf , bnp baseline. -no acute exacerbation iv lasix due to worsening of respiratory failure the HTN--continue Toprolol, Insulin dependent type 2 diabetes- with hyperglycemia -continue Lantus -Humalog on sliding scale -diabetic diet -POC history CVA -continue statin, Xarelto DVT prophylaxis-on Xarelto need for inpatient; afib -hr rate fluctuate -going up added bb -need monitering on tele and cardio follow in am for further use of antiarrythmic. Time Spent With Patient Time: Total time managing care of this patient today ____ minutes. Quality Stroke Does the patient have a stroke diagnosis?: No VTE Prior VTE?: No VTE Risk Level:: Medical - moderate - high VTE Device Contraindication: Treatment Not Indicated VTE Drug Contraindication: N/A - Med Ordered
[2022-10-21] MEDS: Metoprolol Tartrate 25 MG TABLET PO ×2 (11:58→21:31)
--- NOTE | 2022-10-21 13:44 | MHC.CM.PN ---
EMR REVIEWED AND PER MD ROUNDS, PT IS NOT MEDICALLY CLEARED FOR DC TODAY (REQUIRING CARDIOLOGY INPUT) PT IS ADAMANTLY DECLINING STR AT THIS TIME, SON JAYA IS AWARE AND STATES SHE HAS GOOD SUPPORT FROM FAMILY AND NEIGHBORS AND THAT SHE DOES NOT WANT STR HER AT A SNF. MD AWARE. NEW REFERRAL FOR [facility] SENT. CM WILL CONTINUE TO FOLLOW FOR ANY CHANGE IN DC PLAN.
[2022-10-21 15:19] LABS: Glucose, Whole Blood 421 mg/dL (60-115)
[2022-10-21] MEDS: Rivaroxaban 15 MG TABLET PO (16:51)
[2022-10-21] MEDS: cefTRIAXone sodium 1 GM in 0.9 % Sodium Chloride 50 ML IV (16:52)
[2022-10-21 20:00] LABS: Glucose, Whole Blood 355 mg/dL (60-115)
[2022-10-21] MEDS: Sennosides/Docusate Sodium TABLET 2 TAB PO (21:31)
[2022-10-21] MEDS: Mirtazapine 7.5 MG TABLET PO (21:31)
[2022-10-21] MEDS: Insulin Glargine,Hum.rec.anlog 100 UNIT/ML 10 ML VIAL 26 UNIT SUBCUT (21:32)
--- NOTE | 2022-10-21 22:00 | PM.PNNEP ---
Subjective Subjective Date of Service: 10/21/22 Principal diagnosis: Atrial fibrillation with rapid ventricular response , CHF Interval history: Seen and examined, events noted Physical Exam Vital Signs: Vital Signs: Last Vital Signs Temp 98.6 F 10/21/22 19:22 Pulse 89 10/21/22 19:22 Resp 18 10/21/22 19:22 BP 147/89 H 10/21/22 19:22 Pulse Ox 97 10/21/22 19:22 O2 Del Method Room Air 10/21/22 19:22 O2 Flow Rate 2 10/21/22 07:19 BMI result Body Mass Index 37.0 Const: Other: General: AO X 3, no acute distress Resp: rhonchi, congestion CVS: S1,S2, iregular iregular GI: +BS, NT, no distention Skin: No rash Neuro: motor grossly intact Psych: appropriate affect Objective Data Labs 10/12/22 06:44 10/18/22 08:23 Labs: Laboratory Results - last 24 hr 10/21/22 10/21/22 10/21/22 07:04 10:57 15:10 POC Glucose 152 H 245 H 421 H* 10/21/22 19:19 POC Glucose 355 H* Microbiology Microbiology Results: Microbiology 10/11/22 19:54 Blood - Venous Blood Culture - Final No growth after 5 days. 10/11/22 18:32 Blood - Venous Blood Culture - Final No growth after 5 days. 10/12/22 04:18 Nares MRSA Culture - Final 10/12/22 07:35 Sputum - Expectorated Gram Stain - Final 10/12/22 07:35 Sputum - Expectorated Sputum Culture - Final Procedures Date of Service Date of Service: 10/21/22 Assessment & Plan Assessment and plan (1) Atrial fibrillation with RVR: Status: Acute (2) IJEOMA (acute kidney injury): Status: Acute (3) CKD (chronic kidney disease) stage 3, GFR 30-59 ml/min: Status: Acute Plan 76-year-old man with acute kidney injury superimposed chronic kidney disease. - IJEOMA:peak Scr 1.9; resolved - CKD 3: baseline creatinine is around 1.2-1.5 mg/dL. - CHF: compensated REC: track UOP/renlafunc; aovidNtoxins Time Spent With Patient Time: Total time managing care of this patient today ____ minutes. Progress Note: Quality Stroke Does the patient have a stroke diagnosis?: No
[2022-10-22] VITALS (7 sets, daily range): BP systolic 114–141; BP diastolic 66–76; PULSE 52–94; RESP 18–20; TEMP 36.1–37; O2SAT 91–97
[2022-10-22] MEDS: Omeprazole 20 MG CAPSULE.DR PO ×2 (06:09→16:57)
[2022-10-22 07:20] LABS: Glucose, Whole Blood 86 mg/dL (60-115)
[2022-10-22] MEDS: predniSONE 20 MG TABLET 40 MG PO (08:33)
[2022-10-22] MEDS: Gabapentin 300 MG CAPSULE PO (08:34)
[2022-10-22] MEDS: Furosemide 20 MG TABLET PO (08:34)
[2022-10-22] MEDS: PARoxetine HCL 20 MG TABLET PO (08:34)
[2022-10-22] MEDS: Atorvastatin Calcium 80 MG TABLET PO (08:35)
[2022-10-22] MEDS: 0.9 % Sodium Chloride Flush 3 ML SYRINGE IVFLUSH ×3 (08:35→20:02)
[2022-10-22 11:11] LABS: Glucose, Whole Blood 243 mg/dL (60-115)
--- NOTE | 2022-10-22 11:52 | P.DS_ITS ---
DS: Providers Provider Date of Service: 10/22/22 Date of admission: 10/11/22 20:56 Primary care physician: Laurie Fontenot MD Consults: 10/11/22 21:15 Consult to Cardiology Routine Consulting Provider: [facility] Reason for consultation: afib rvr 10/15/22 11:39 Consult to Pulmonology Routine Consulting Provider: [facility] Reason for consultation: acute hypoxemic respiratory failure Has provider been notified: No 10/16/22 08:16 Consult to Nephrology Routine Consulting Provider: Connor Callahan Reason for consultation: chf /?ckd Has provider been notified: No DS: Diagnosis Discharge Diagnosis (1) Atrial fibrillation with RVR: Status: Acute (2) IJEOMA (acute kidney injury): Status: Acute (3) CKD (chronic kidney disease) stage 3, GFR 30-59 ml/min: Status: Acute DS: Summary Hospital Course Hospital Course: Chief Complaint: sob, cough, weakness 76-year-old female with history of mild intermittent asthma, paroxysmal atrial fibrillation anticoagulated with Xarelto, hypertension, history of CVA, insulin- dependent type 2 diabetes, HFpEF, and obesity presents to the ED earlier today with her sons for evaluation of a shortness of breath, productive cough, weakness.? She has felt so weak she has had difficulty walking.? Reports shortness of breath at rest as well as with exertion.? There is also been palpitations.? Denies any orthopnea or PND.? She does report increased albuterol usage.? Denies any sick contacts.? Denies fevers, chills, sore throat, nasal congestion, abdominal pain, nausea, vomiting, leg edema, headaches, lightheadedness, chest pain. They were initially evaluated in the ED earlier today with negative workup and discharged home.? However, reportedly, symptoms worsened prompting them to return for re-evaluation. On arrival, patient tachycardic to 113 but did develop significant tachycardia and EKG revealed AFib with RVR, rate 140.? She was given 10 mg IV push Cardizem with improvement in heart rate to 110.? She has been febrile to 103.1 and tachypneic to 31.? Blood pressures have been soft around 100/55, but no hypotension.? There is a leukocytosis of 12.3.? Creatinine 1.61, baseline 1.25.? BUN 18.? Electrolytes normal.? Glucose 197.? Lactic acid 1.7.? BNP 235.? Negative for COVID-19, influenza.? CXR and chest CT pending.? In the ED, patient administered sepsis fluids of 3.6 L and given ceftriaxone and azithromycin IV. Hospital course: Toxic metabolic encephalopathy --likely from hypoxia and has resolved. Work up included negative head CT, she remains at her baseline mental status Acute hypoxemic and hypercarbic respiratory failure secondary to COPD, hypoventilation, pneumonia and Heart failure. This has resolved with addressing the underlying issues. Hypoxia has resolved, doing well on room air. Did not qualify for home o2 Severe Sepsis due to pneumonia--resolved and has completed at least 10 days of antibiotics Acute on chronic heart failure with Preserve EF--Initially treated with IV Lasix which resulted in worsening creatinine. Creatinine is better. Usually on 40 mg of Lasix at home but has been reduced to 20 mg daily and is presently compesated moderate persistent asthma-with? acute exacerbation--Treated with bronchodilators and steroid, exacerbation resolved. Acute kidney injury- on CKD3 related to severe sepsis and diuretics--resolved, cre is within basline, outpatient Nephrology follow up Atrial fibrillation with RVR--resolved, and presently been controlled with metoprolo at 25 mg twice daily, previously was on 100 mg twice daily. Has had episodes of 2 seconds pause, presently HR Heart rate is presently in the 60, to continue Xarelto for stroke prevention. continue? xarelto echo :1. Mild LV systolic dysfunction with LVEF of 45-50%? 2. Normal cardiac valvular Doppler ? 3. No gross pericardial effusion initially off bb and digoxin d/w cardiology- we will add metoprolol low dose since hr going up intermittent ,moniter HTN--continue Toprolol, Insulin dependent type 2 diabetes- resume home medications ?history CVA -continue statin, Xarelto Time Spent with Patient Time attestation: Total time managing care of this patient today ____ minutes. Discharge coordination time: Greater than 30 minutes Quality: Safe Use of Opioids Does Pt have an Active Cancer Diagnosis on the Problem List?: No Quality: Stroke Does the patient have a stroke diagnosis?: No Physical Exam Vital Signs: Vital Signs: Last Vital Signs Temp 97.8 F 10/22/22 11:14 Pulse 76 10/22/22 11:14 Resp 20 10/22/22 11:14 BP 125/67 10/22/22 11:14 Pulse Ox 91 L 10/22/22 11:14 O2 Del Method Room Air 10/22/22 11:14 O2 Flow Rate 1 10/22/22 03:19 BMI result Body Mass Index 37.0 Const: Other: General: AO X 3, no acute distress Resp: CTA bilateral CVS: S1,S2,RRR GI: +BS, NT, no distention Skin: No rash Neuro: motor grossly intact Psych: appropriate affect DS: Data Data Completed and Pending Labs on day of discharge: Laboratory Results - last 24 hr 10/21/22 10/21/22 10/22/22 15:10 19:19 07:16 POC Glucose 421 H* 355 H* 86 10/22/22 11:06 POC Glucose 243 H Discharge Plan Discharge Anticipated Discharge Date/Time: 10/23/22 10:44 Patient Disposition: Home Health Service Discharge Diagnosis: Acute hypoxic resp failure, AFIB rvr, metabolic encephalopathy Referrals: [facility] [Outside] - 3-5 Days (A NURSE WILL BE IN CONTACT TO SET UP FIRST VISIT FOR RESIDENTIAL, [facility] WILL PROVIDE HOME PT. ) Laurie Fontenot MD [Primary Care Provider] - 1 Week Discharge Medications: New metoprolol tartrate 25 mg Tablet 25 mg PO BID Qty: 60 0RF Protocol: Hold for SBP/HR < HOLD for SBP < : 90 HOLD for HR < : 60 furosemide 20 mg Tablet 20 mg PO DAILY Qty: 30 0RF Protocol: Hold for SBP< HOLD for SBP < : 90 Continued sennosides-docusate sodium [Senna-S] 8.6-50 mg tablet 2 tab PO BEDTIME metoprolol succinate 100 mg tablet extended release 24 hr 1 tab PO BID paroxetine HCl 20 mg tablet 20 mg PO DAILY gabapentin 300 mg capsule 1 cap PO DAILY albuterol sulfate [Ventolin HFA] 90 mcg/actuation HFA aerosol inhaler 2 puff PO QID PRN (Reason: wheezing) mirtazapine 7.5 mg tablet 7.5 mg PO BEDTIME insulin glargine [Lantus Solostar U-100 Insulin] 100 unit/mL (3 mL) insulin pen 35 unit subcut BEDTIME Xarelto 15 mg tablet 15 mg PO DAILY@1700 Trulicity 1.5 mg/0.5 mL pen injector 0.5 ml subcut QWEEK benzonatate 100 mg capsule 100 mg PO BID PRN (Reason: cough) Qty: 10 0RF losartan 25 mg tablet 25 mg PO DAILY Discontinued atorvastatin 80 mg tablet 1 tab PO DAILY furosemide 40 mg tablet 40 mg PO DAILY Discharge Orders: Discharge Order (Routine); Ordered 10/23/22 Ordered By: Abrahan Lucio Diet: Diabetic diet Activity on Discharge: As tolerated Stand Alone Forms: Patient Portal Discharge page Care Plan Goals: Full recovery from respiratory failure, pneumoni, heart failure and atrial fibrilation Health Concerns: atrial fibrilation, heart failure, respiatory failure with hypoxia, Plan of Treatment: Take all medications as recommended and follow up with your Doctor in a week Metoprolol dose has been decreased to 25 mg twice daily Lasix dose has been decreassed to 20 mg daily Assessment: as taye
[2022-10-22] MEDS: Insulin Lispro 100 UNIT/ML 3 ML VIAL SUBCUT ×3 (12:24→20:02)
--- NOTE | 2022-10-22 13:17 | MHC.CM.PN ---
Addendum entered by Khushboo Torrez 10/22/22 13:19: MINGO SPOKE WITH AURELIANO Whitten FROM [facility], SHE APPROVES [facility] FOR SN AND [facility] WILL COVER P.T. SERVICES. [facility] NOTIFIED. Original Note: IMM DELIVERED
--- NOTE | 2022-10-22 14:25 | P.PNIM_ITS ---
Subjective Subjective Date of Service: 10/22/22 Interval History: Overall continue to improve, no confusion, no sob Physical Exam Vital Signs: Vital Signs: Last Vital Signs Temp 97.8 F 10/22/22 11:14 Pulse 76 10/22/22 11:14 Resp 20 10/22/22 11:14 BP 125/67 10/22/22 11:14 Pulse Ox 91 L 10/22/22 11:14 O2 Del Method Room Air 10/22/22 11:14 O2 Flow Rate 1 10/22/22 03:19 BMI result Body Mass Index 37.0 Const: Other: General: AO X 3, no acute distress Resp: CTA bilateral CVS: S1,S2,RRR GI: +BS, NT, no distention Skin: No rash Neuro: motor grossly intact Psych: appropriate affect Objective Data Active Medications Acetaminophen (Acetaminophen 325 Mg Tablet) 650 mg PO Q4H PRN PRN Reason: Pain, Moderate(Pain Scale 4-6) Last Admin: 10/15/22 20:46 Dose: 650 mg Documented By: DAVID Albuterol/Ipratropium (Albuterol/Iprat 2.5/0.5mg 3 Ml Ampul.Neb) 3 ml INHALE RQ4H PRN PRN Reason: Shortness of Breath/Wheezing Last Admin: 10/19/22 22:13 Dose: 3 ml Documented By: TRINY Atorvastatin Calcium (Atorvastatin Calcium 80 Mg Tablet) 80 mg PO DAILY [facility] Last Admin: 10/22/22 08:35 Dose: 80 mg Documented By: LULI Atropine Sulfate (Atropine Sulfate 1 Mg/Ml Vial) 1 mg IVPUSH Q5M PRN PRN Reason: BRADYCARDIA Benzonatate (Benzonatate 100 Mg Capsule) 100 mg PO BID PRN PRN Reason: cough Last Admin: 10/20/22 20:34 Dose: 100 mg Documented By: DAVID Docusate Sodium (Docusate Sodium 100 Mg Capsule) 100 mg PO DAILY PRN PRN Reason: Constipation Furosemide (Furosemide 20 Mg Tablet) 20 mg PO DAILY [facility]; Protocol Last Admin: 10/22/22 08:34 Dose: 20 mg Documented By: LULI Gabapentin (Gabapentin 300 Mg Capsule) 300 mg PO DAILY [facility] Last Admin: 10/22/22 08:34 Dose: 300 mg Documented By: LULI Glucose (Glucose Gel 15 Gm Gel..Gram.) 15 gm PO Q15M PRN; Protocol PRN Reason: per Hypoglycemia Standing Ord. Guaifenesin (Guaifenesin 200 Mg/10 Ml 10 Ml Liquid) 10 ml PO Q4H PRN PRN Reason: Cough Last Admin: 10/13/22 11:51 Dose: 10 ml Documented By: HOWIER Dextrose (D10) 250 mls @ 750 mls/hr IV Q15M PRN; Protocol PRN Reason: per Hypoglycemia Standing Ord. Ceftriaxone Sodium 1 gm/ (Sodium Chloride) 50 mls @ 100 mls/hr IV Q24H [facility] Last Infusion: 10/21/22 17:51 Dose: 0 mls/hr Documented By: DAVID Insulin Glargine (Insulin Glargine,Hum.Rec.Anlog 100 Unit/Ml 10 Ml Vial) 26 unit SUBCUT BEDTIME [facility] Last Admin: 10/21/22 21:32 Dose: 26 unit Documented By: DAVID Insulin Human Lispro (Insulin Lispro 100 Unit/Ml 3 Ml Vial) 0 unit SUBCUT QIDACHS [facility]; Protocol Last Admin: 10/22/22 12:24 Dose: 4 unit Documented By: LULI Metoprolol Tartrate (Metoprolol Tartrate 25 Mg Tablet) 25 mg PO BID [facility]; Protocol Last Admin: 10/22/22 08:37 Dose: Not Given Documented By: LULI Non-Admin Reason: low HR Mirtazapine (Mirtazapine 7.5 Mg Tablet) 7.5 mg PO BEDTIME [facility] Last Admin: 10/21/22 21:31 Dose: 7.5 mg Documented By: DAVID Omeprazole (Omeprazole 20 Mg Capsule.) 20 mg PO BID@0630,1630 [facility] Last Admin: 10/22/22 06:09 Dose: 20 mg Documented By: CHILANGO Ondansetron HCl (Ondansetron Hcl 4 Mg/2 Ml Vial) 4 mg IVPUSH Q8H PRN PRN Reason: Nausea and Vomiting Paroxetine HCl (Paroxetine Hcl 20 Mg Tablet) 20 mg PO DAILY [facility] Last Admin: 10/22/22 08:34 Dose: 20 mg Documented By: LULI Pharmacy Consult (Consult Rx Perform Med Rec) 1 each MISCELLANE ONCE PRN PRN Reason: Consult order Rivaroxaban (Rivaroxaban 15 Mg Tablet) 15 mg PO DAILY@1800 [facility] Last Admin: 10/21/22 16:51 Dose: 15 mg Documented By: DAVID Senna/Docusate Sodium (Sennosides/Docusate Sodium Tablet) 2 tab PO BEDTIME [facility] Last Admin: 10/21/22 21:31 Dose: 2 tab Documented By: DAVID Sodium Chloride (0.9 % Sodium Chloride Flush 3 Ml Syringe) 3 ml IVFLUSH QSHIFT [facility] Last Admin: 10/22/22 08:35 Dose: 3 ml Documented By: SOLISPE Labs 10/12/22 06:44 10/18/22 08:23 Labs: Laboratory Results - last 24 hr 10/21/22 10/21/22 10/22/22 15:10 19:19 07:16 POC Glucose 421 H* 355 H* 86 10/22/22 11:06 POC Glucose 243 H Assessment and Plan (1) Atrial fibrillation with RVR: Status: Acute (2) Acute respiratory failure with hypoxia: Status: Acute Plan 76-year-old female with history of mild intermittent asthma, paroxysmal atrial fibrillation anticoagulated with Xarelto, hypertension, history of CVA, insulin- dependent type 2 diabetes, and obesity admitted for severe sepsis, pneumonia, and afib with rvr. Metabolic encephalopathy--resolved. Sepsis due to pneumonia--resolve Acute on chronic heart failure with preserved ejection fraction--treated with IV diuretics and resolved, presently clinically compensated. COPD exacerbation--exacerbation resolved, treated with IV steroid, bronchodilators. moderate persistent asthma-with? acute exacerbationXopenex,swichted to po steriods IJEOMA on CKD 3--IJEOMA resolved, Cr within baseline Atrial fibrillation with RVR---periods of 2 to 3 second pause Rate controlled on Metoprolol 25 bid and Xarelto for anticoagulation. HFrEF--echo EF 40 to 45 .. Treated with IV Lasix and on oral diuretics. HTN--continue Tmetoprolol Insulin dependent type 2 diabetes- with hyperglycemia d/t steroid, reduce steroid and continue present regimen history CVA -continue statin, Xarelto DVT prophylaxis-on Xarelto anticipate dc today or tomorrow once home O2 eval completed Time Spent With Patient Time: Total time managing care of this patient today ____ minutes. Quality Stroke Does the patient have a stroke diagnosis?: No VTE Prior VTE?: No VTE Risk Level:: Medical - moderate - high VTE Device Contraindication: Treatment Not Indicated VTE Drug Contraindication: N/A - Med Ordered
[2022-10-22 15:45] LABS: Anion Gap 10 (12-20); Blood Urea Nitrogen 37 mg/dL (9-16); Calcium 9.6 mg/dL (8.4-10.2); Chloride 104 mmol/L (96-108); Estimated Glomerular Filt Rate 32; Glucose Random 284 mg/dL (60-115); Potassium 4.9 mmol/L (3.3-5.1); Sodium 138 mmol/L (135-145)
[2022-10-22 15:49] LABS: Carbon Dioxide 29 mmol/L (22-29)
[2022-10-22 16:00] LABS: Glucose, Whole Blood 298 mg/dL (60-115)
[2022-10-22] MEDS: cefTRIAXone sodium 1 GM in 0.9 % Sodium Chloride 50 ML IV (18:01)
[2022-10-22] MEDS: Rivaroxaban 15 MG TABLET PO (18:01)
[2022-10-22 19:50] LABS: Glucose, Whole Blood 296 mg/dL (60-115)
[2022-10-22] MEDS: Mirtazapine 7.5 MG TABLET PO (20:01)
[2022-10-22] MEDS: Sennosides/Docusate Sodium TABLET 2 TAB PO (20:01)
[2022-10-22] MEDS: Metoprolol Tartrate 25 MG TABLET PO (20:01)
[2022-10-22] MEDS: Insulin Glargine,Hum.rec.anlog 100 UNIT/ML 10 ML VIAL 26 UNIT SUBCUT (20:02)
[2022-10-23 03:08] VITALS: BP 140/81; PULSE 60; RESP 20; TEMP 36.1; O2SAT 100
[2022-10-23] MEDS: Omeprazole 20 MG CAPSULE.DR PO (06:14)
[2022-10-23 07:16] VITALS: BP 117/53; PULSE 56; RESP 16; TEMP 36; O2SAT 97
[2022-10-23 07:16] LABS: Glucose, Whole Blood 102 mg/dL (60-115)
[2022-10-23] MEDS: Atorvastatin Calcium 80 MG TABLET PO (08:01)
[2022-10-23] MEDS: PARoxetine HCL 20 MG TABLET PO (08:01)
[2022-10-23] MEDS: Gabapentin 300 MG CAPSULE PO (08:01)
[2022-10-23] MEDS: Furosemide 20 MG TABLET PO (08:01)
[2022-10-23 08:04] VITALS: PULSE 60; RESP 20; O2SAT 99
[2022-10-23 09:06] VITALS: PULSE 84; PULSE 90; PULSE 97; O2SAT 95; O2SAT 97
--- NOTE | 2022-10-23 10:19 | MHC.CM.PN ---
PER HOSPITALIST PT TO BE MEDICALLY CLEARED TO D/C HOME W/NEW [facility] FOR SN, [facility] FOR HOME PT AND RESUMP OF M-F DISTANCE EDUCATION TEACHER AND FAMILY SUPPORT. PT DID NOT QUALIFY FOR HOME O2. PT'S SON FOR TRANSPORT.
[2022-10-23 11:06] LABS: Glucose, Whole Blood 221 mg/dL (60-115)
[2022-10-23 11:19] VITALS: BP 112/65; PULSE 81; RESP 16; TEMP 36; O2SAT 95
--- NOTE | 2022-10-23 11:25 | W.MHC.F2F ---
Service Date Service Date: 10/23/22 Encounter Date of encounter: 10/23/22 Reasons for Services Signs and symptoms assessed: shortness of breath, weakness from hospitalization Reason for chcf: medication management and teach disease management Reason for physical therapy: home safety and mobility, therapeutic exercises, gait/transfer training and energy conservation Homebound: Leaving the home is medically contraindicated at this time without the asist of a device and/or another person due th the listed conditions above and below. Reason homebound: fall risk related to blood pressure changes, shortness of breath with minimal effort and weakness related to hospital stay Homebound supporting statement: homebound due to weakness related to heart failure and hospitalization, very deconditioned and therefore needs the assitance of another person Certification: Based on the above findings, I certify that this patient is confined to the home and needs intermittent chcf care, physical therapy and/or speech therapy, or continues to need occupational therapy. The patient is under my care, and I have initiated the establishment of the plan of care. The patient will be followed by a physician who will periodically review the plan of care. Time Spent With Patient Time: Total time managing care of this patient today ____ minutes.
[2022-10-23] MEDS: Insulin Lispro 100 UNIT/ML 3 ML VIAL SUBCUT (11:26)
--- NOTE | 2022-10-23 15:21 | PC.NURSE ---
Pit Manager at bedside for assessment, med pass and discharge instructions. MD spoke with pt with mold cooler at bedside. Asked pt and pt's son multiple times if pt is safe and strong enough to return home alone. Pt and pt's son stated yes and pt is able to return home safely. IV and tele removed. paperwork and belongings with pt.
== END 2022-10-23 15:21 | disposition home health service (06) | DRG 871 ==
LOC: HO.ED 19:39 → HO.EDOVER 21:47 → HO.IMC 22:46
PROVIDERS: Internal Medicine; Internal Medicine Hypertension Specialist; Admitting Provider Physician Assistant; Emergency Provider Emergency Medicine; PCP Internal Medicine; Visit Provider Internal Medicine
DX: A41.9 Sepsis, unspecified organism (principal); G92.8 Other toxic encephalopathy; J18.9 Pneumonia, unspecified organism; J96.01 Acute respiratory failure with hypoxia; I50.33 Acute on chronic diastolic (congestive) heart failure; I13.0 Hypertensive heart and chronic kidney disease with heart failure and stage 1 through stage 4 chronic kidney disease, or unspecified chronic kidney disease; J45.41 Moderate persistent asthma with (acute) exacerbation; N17.9 Acute kidney failure, unspecified; E11.22 Type 2 diabetes mellitus with diabetic chronic kidney disease; E11.65 Type 2 diabetes mellitus with hyperglycemia; R65.20 Severe sepsis without septic shock; I48.0 Paroxysmal atrial fibrillation; E66.9 Obesity, unspecified; I49.5 Sick sinus syndrome; Z68.37 Body mass index [BMI] 37.0-37.9, adult; N18.30 Chronic kidney disease, stage 3 unspecified; Z20.822 Contact with and (suspected) exposure to COVID-19; Z86.73 Personal history of transient ischemic attack (TIA), and cerebral infarction without residual deficits; Z87.891 Personal history of nicotine dependence; Z79.4 Long term (current) use of insulin; Z79.01 Long term (current) use of anticoagulants; Z79.899 Other long term (current) drug therapy
CPT/HCPCS: 36415; 36600; 70450; 71045; 71250; 80048; 80053; 81003; 82803; 82947; 83605; 83880; 84156; 84300; 84443; 85025; 85610; 85730; 87040; 87070; 87081; 87205; 87449; 87502; 87633; 87635; 87899; 93005; 93306; 94640; 94660; 97116; 97162; 97530; 99285; J0456; J0696; J1160; J1940; J2920; J3475; P9047; Q9957

== ENCOUNTER 2022-11-15 10:54 | Emergency (ER) | payer OTHER, SELFPAY ==
--- NOTE | ~2022-11-15 | XR_ITS ---
EXAMINATION: XR CHEST CLINICAL INFORMATION: Shortness of breath with history of CHF. COMPARISON: October 18, 2022 and studies dating back to February 23, 2021 TECHNIQUE: 2 views of the chest were obtained. FINDINGS: There is some faint densities present about the mid peripheral lungs bilaterally as well as mild nodularity at the right lung base. There is some discoid atelectasis or scarring seen on lateral view in subcortical to tell whether this lies within the right or left lower lobe. No pneumothorax or pleural effusion. Heart normal size. No evidence of pulmonary edema. XR/XR chest 2V IMPRESSION: A few scattered foci of disease with some improvement compared to study of October 15, 2022.
[2022-11-15 10:58] VITALS: BP 128/62; PULSE 71; RESP 18; TEMP 36.7; O2SAT 96; BMI 37.5
--- NOTE | 2022-11-15 11:57 | ED.GENADULT ---
HPI - General Adult General Chief complaint: Extremity Problem Stated complaint: swollen legs ? retaining water Time Seen by Provider: 11/15/22 13:01 Source: patient Mode of arrival: ambulatory Limitations: language barrier History of Present Illness HPI narrative: History by transport operations inspector. Patient with a history of CHF and CVA. now with increased swelling and weight gain. Onset (ago): day(s) Related Data Home Medications Medication Instructions Recorded Confirmed albuterol sulfate 90 mcg/actuation 2 puff PO QID PRN wheezing 02/23/21 10/11/22 aerosol inhaler (Ventolin HFA) dulaglutide 1.5 mg/0.5 mL 0.5 ml subcut QWEEK 02/23/21 10/11/22 subcutaneous pen injector (Trulicity) gabapentin 300 mg capsule 1 cap PO DAILY 02/23/21 10/11/22 insulin glargine 100 unit/mL (3 35 unit subcut BEDTIME 02/23/21 10/11/22 mL) subcutaneous pen (Lantus Solostar U-100 Insulin) mirtazapine 7.5 mg tablet 7.5 mg PO BEDTIME 02/23/21 10/11/22 paroxetine HCl 20 mg tablet 20 mg PO DAILY 02/23/21 10/11/22 rivaroxaban 15 mg tablet (Xarelto) 15 mg PO DAILY@1700 02/23/21 10/11/22 sennosides 8.6 mg-docusate sodium 2 tab PO BEDTIME 02/23/21 10/11/22 50 mg tablet (Senna-S) losartan 25 mg tablet 25 mg PO DAILY 10/11/22 10/11/22 Previous Rx's Medication Instructions Recorded benzonatate 100 mg capsule 100 mg PO BID PRN cough #10 caps 10/11/22 furosemide 20 mg tablet 20 mg PO DAILY #30 tabs 10/23/22 metoprolol tartrate 25 mg tablet 25 mg PO BID #60 tabs 10/23/22 Allergies Allergy/AdvReac Type Severity Reaction Status Date / Time No Known Allergies Allergy Unverified 03/02/20 16:47 [facility] Past Medical History Medical History (Updated 11/15/22 @ 14:41 by Vikas Lawler MD) Asthma Asthma with acute exacerbation Atrial fibrillation Change in mental status CHF (congestive heart failure) CKD (chronic kidney disease) stage 3, GFR 30-59 ml/min Diabetes History of CVA (cerebrovascular accident) Hypertension Family History Family History Father Hypertension Mother Diabetes Hypertension Social History Social History Household Members: None Housing: Apartment Do you presently have visiting nurse or other home services: Yes Alcohol intake: never Patient Tobacco Use Status: Former Tobacco user Quit Date: Quit 40 years ago Advance Directives: Yes Advance Directives on File: Yes Advance Directives Date on File: 10/11/22 service: No Current occupational status: disabled Physical Exam ED Vital Signs: Vital Signs - 24 hr 11/15/22 10:58 11/15/22 12:58 Temperature 98.1 F Pulse Rate 71 74 Respiratory Rate 18 14 Blood Pressure 128/62 130/91 H Pulse Oximetry 96 95 Oxygen Delivery Method Room Air Room Air BMI result Body Mass Index 37.5 Course Course Course Narrative: RME performed by Melissa Cohen PA-C. Patient is a 76 year old assigned female at presenting to the emergency department with right lower leg swelling and pain. Labs ordered. Patient is on Xarelto, low suspicion for US. Patient placed back in the waiting room pending room availability and results. Reevaluation(s) Reevaluation #1: patients baseline BUN is higher, I suspect she has not been taking her lasix. However, she is not in acute failure will encourage Lasix and dc home Time: 14:35 Medications Administered Discontinued Medications Generic Name Dose Route Start Last Admin Trade Name Freq PRN Reason Stop Dose Admin Furosemide 20 mg 11/15/22 13:30 11/15/22 14:15 Furosemide 20 Mg Tablet PO 11/15/22 13:31 20 mg ONCE ONE Administration Protocol Medical Decision Making Differential Diagnosis Differential Diagnoses: The differential diagnosis associated with the presentation includes (fluid overload, CHF, PVD) Admission/Observation Consideration of admission/observation: Escalation of care including admission/observation considered (In this patient with CAD, CHF and diabetes who presents with swelling, admission was considered) Lab Data MDM Lab Attestation statement: I reviewed the patient's lab results. 11/15/22 12:48 11/15/22 12:48 Labs: Lab Results 11/15/22 11/15/22 11/15/22 Range/Units 12:48 12:48 12:48 WBC 8.9 (4.8-10.8) X10*3/uL RBC 4.85 D (4.20-5.50) X10*6/uL Hgb 13.7 D (12.0-16.0) g/dl Hct 43.5 D (37.0-47.0) % MCV 89.7 (80.0-98.0) fL MCH 28.2 (27.0-33.0) pg MCHC 31.5 (31.0-35.0) g/dl RDW 14.9 (11.0-16.0) % Plt Count 230 D (160-400) X10*3/uL MPV 10.6 (9.4-12.3) fL Immature Gran % (Auto) 0.3 (0.0-0.4) % Neut % (Auto) 54.9 (45-73) % Lymph % (Auto) 32.5 (20-40) % [place] % (Auto) 9.8 (2-11) % Eos % (Auto) 2.1 (0-4) % Baso % (Auto) 0.4 (0-2) % Lymph # (Auto) 2.9 (1.2-4.9) X10*3/uL [place] # (Auto) 0.9 (0.1-1.2) X10*3/uL Eos # (Auto) 0.2 (0.0-0.4) X10*3/uL Baso # (Auto) 0.0 (0.0-0.2) X10*3/uL Abs Immat Gran (auto) 0.03 (0.00-0.03) X10*3/uL Absolute Neuts (auto) 4.9 (2.0-8.3) x10*3/uL Absolute Nucleated RBC 0.000 (0.0-0.012) X10*3/uL Nucleated RBC % (auto) 0.0 (0.0-0.2) /100WBC Sodium 138 (135-145) mmol/L Potassium 4.9 (3.3-5.1) mmol/L Chloride 109 H (96-108) mmol/L Carbon Dioxide 19 L (22-29) mmol/L Anion Gap 15 (12-20) BUN 12 (9-16) mg/dL Creatinine 1.46 H (0.5-1.4) mg/dL Estim Creat Clear Calc 33.2 Estimated GFR 35 Random Glucose 173 H (60-115) mg/dL Calcium 9.7 (8.4-10.2) mg/dL Total Bilirubin 0.5 (0.0-1.0) mg/dL AST 28 (5-31) U/L ALT 21 (0-31) U/L Alkaline Phosphatase 125 H (39-117) U/L B-Natriuretic Peptide 167 H (<100) pg/mL Total Protein 6.8 (6.5-8.0) g/dL Albumin 3.3 L (3.5-5.0) g/dL Independent Interpretation I performed an independent interpretation of an: Plain X-Ray (no failure) Independent Historian Clinical information obtained from an independent historian. History obtained from or confirmed by: Other (BACK SHOE OPERATOR) Chronic Conditions Patient?s care impacted by: Diabetes, Hypertension and Other (CHF) Discharge Plan Discharge Clinical Impression: Fluid overload, Congestive heart failure Patient Disposition: Home, Self-Care Instructions: Heart Failure (ED), Fluid Restriction (ED) Additional Instructions: you must take your furosemide every day Prescriptions: No Action sennosides-docusate sodium [Senna-S] 8.6-50 mg tablet 2 tab PO BEDTIME paroxetine HCl 20 mg tablet 20 mg PO DAILY gabapentin 300 mg capsule 1 cap PO DAILY albuterol sulfate [Ventolin HFA] 90 mcg/actuation HFA aerosol inhaler 2 puff PO QID PRN (Reason: wheezing) mirtazapine 7.5 mg tablet 7.5 mg PO BEDTIME insulin glargine [Lantus Solostar U-100 Insulin] 100 unit/mL (3 mL) insulin pen 35 unit subcut BEDTIME Xarelto 15 mg tablet 15 mg PO DAILY@1700 Trulicity 1.5 mg/0.5 mL pen injector 0.5 ml subcut QWEEK benzonatate 100 mg capsule 100 mg PO BID PRN (Reason: cough) Qty: 10 0RF losartan 25 mg tablet 25 mg PO DAILY furosemide 20 mg Tablet 20 mg PO DAILY Qty: 30 0RF Protocol: Hold for SBP< HOLD for SBP < : 90 metoprolol tartrate 25 mg Tablet 25 mg PO BID Qty: 60 0RF Protocol: Hold for SBP/HR < HOLD for SBP < : 90 HOLD for HR < : 60 Referrals: Laurie Fontenot MD [Primary Care Provider] - 5 days
[2022-11-15 12:52] LABS: MANUAL DIFF FLAG NO
[2022-11-15 12:57] LABS: Basophils Percent Auto 0.4 % (0-2); Eosinophils Absolute Auto 0.2 X10*3/uL (0.0-0.4); Eosinophils Percent Auto 2.1 % (0-4); Hematocrit 43.5 % (37.0-47.0); Hemoglobin 13.7 g/dl (12.0-16.0); Imm Gran Abs Auto 0.03 X10*3/uL (0.00-0.03); Imm Gran Pct Auto 0.3 % (0.0-0.4); Lymphocytes Absolute Auto 2.9 X10*3/uL (1.2-4.9); Lymphocytes Percent Auto 32.5 % (20-40); Mean Corpuscular HGB Conc 31.5 g/dl (31.0-35.0); Mean Corpuscular Hemoglobin 28.2 pg (27.0-33.0); Mean Corpuscular Volume 89.7 fL (80.0-98.0); Mean Platelet Volume 10.6 fL (9.4-12.3); Monocytes Absolute Auto 0.9 X10*3/uL (0.1-1.2); Monocytes Percent Auto 9.8 % (2-11); Neutrophils Absolute Auto 4.9 x10*3/uL (2.0-8.3); Neutrophils Percent Auto 54.9 % (45-73); Platelet Count 230 X10*3/uL (160-400); Red Blood Count 4.85 X10*6/uL (4.20-5.50); Red Cell Distribution Width 14.9 % (11.0-16.0); White Blood Count 8.9 X10*3/uL (4.8-10.8)
[2022-11-15 12:58] VITALS: BP 130/91; PULSE 74; RESP 14; O2SAT 95
[2022-11-15 13:20] LABS: B Type Natriuretic Peptide 167 pg/mL (<100)
[2022-11-15 13:43] LABS: Alanine Aminotransferase 21 U/L (0-31); Albumin Level 3.3 g/dL (3.5-5.0); Alkaline Phosphatase 125 U/L (39-117); Anion Gap 15 (12-20); Aspartate Amino Transferase 28 U/L (5-31); Bilirubin Total 0.5 mg/dL (0.0-1.0); Blood Urea Nitrogen 12 mg/dL (9-16); Calcium 9.7 mg/dL (8.4-10.2); Carbon Dioxide 19 mmol/L (22-29); Chloride 109 mmol/L (96-108); Creatinine Clr Calc Pharmacy 33.2; Estimated Glomerular Filt Rate 35; Glucose Random 173 mg/dL (60-115); Potassium 4.9 mmol/L (3.3-5.1); Sodium 138 mmol/L (135-145); Total Protein 6.8 g/dL (6.5-8.0)
[2022-11-15] MEDS: Furosemide 20 MG TABLET PO (14:15)
--- NOTE | 2022-11-15 14:38 | MHC.CM.ED ---
Received notification from [facility] that patient is in the ER and active with their agency. Med list provided by [facility]. Referral placed in [facility] so [facility] can follow for d/c needs.
[2022-11-15 15:34] VITALS: BP 137/66; PULSE 96; RESP 16; TEMP 36.4
[2022-11-15 15:46] VITALS: BP 137/66; PULSE 81; RESP 16; O2SAT 94
== END 2022-11-15 15:53 | disposition home or self-care (01) ==
PROVIDERS: Emergency Provider Emergency Medicine; PCP Internal Medicine
DX: E87.70 Fluid overload, unspecified (principal); I13.0 Hypertensive heart and chronic kidney disease with heart failure and stage 1 through stage 4 chronic kidney disease, or unspecified chronic kidney disease; I50.9 Heart failure, unspecified; N18.30 Chronic kidney disease, stage 3 unspecified; E11.22 Type 2 diabetes mellitus with diabetic chronic kidney disease; I48.91 Unspecified atrial fibrillation; Z79.4 Long term (current) use of insulin; Z79.01 Long term (current) use of anticoagulants; Z79.899 Other long term (current) drug therapy
CPT/HCPCS: 36415; 71046; 80053; 83880; 85025; 99283; 99284

== ENCOUNTER 2022-12-09 11:36 | Emergency (ER) | payer OTHER, SELFPAY ==
--- NOTE | ~2022-12-09 | CT_ITS ---
EXAMINATION: CT HEAD WITHOUT CONTRAST CLINICAL INFORMATION: Dizziness and headaches. COMPARISON: CT head 11/02/2022. TECHNIQUE: Contiguous axial imaging was performed from the skull base to vertex without intravenous administration of contrast. This CT examination was performed using dose optimization techniques as appropriate, variously including the following: *Automated exposure control *Adjustment of mA and/or kV according to patient size (this includes techniques or standardized protocols for targeted exams where dose is matched to indication/reason for exam; i.e. extremities or head) *Use of iterative reconstruction technique DLP: 678 mGy-cm FINDINGS: There is gliosis and encephalomalacia consistent with chronic changes of old infarcts involving both cerebral hemispheres that have remained grossly unchanged when compared to the recent prior CT scan of the head from 10/15/2022. No clear evidence of acute territorial infarct. There is no acute hemorrhage or abnormal extra-axial collection. No intracranial mass effect or hydrocephalus. The calvarium and skull base are intact. Mastoid air cells and middle ear cavities are well aerated. No active paranasal sinus disease. CT/CT head/brain wo IV con IMPRESSION: There are chronic changes of old infarcts involving both cerebral hemispheres that have remained grossly unchanged when compared to the recent prior CT scan of the head from 11/02/2022. No clear evidence of acute territorial infarct or hemorrhage.
--- NOTE | 2022-12-09 11:40 | ED.GENADULT ---
HPI - General Adult General Chief complaint: General Medical Stated complaint: DIZZINESS WEAKNESS Time Seen by Provider: 12/09/22 11:40 Source: patient, EMS, RN notes reviewed, bus steward and other (GRAPHIC EDITOR) Mode of arrival: EMS Limitations: language barrier History of Present Illness HPI narrative: Patient is a 77-year-old female with history of asthma, atrial fibrillation, CHF, CKD stage 3, DM, CVA, HTN presenting to the emergency department with her GRAPHIC EDITOR who reports that patient's diastolic blood pressure was low and that her glucose level was elevated this morning. Patient also reports intermittent dizziness which she describes as the room spinning and a posterior headache which she rates at 6/10 since waking today. Denies fall or other trauma. Denies syncope or near syncope. She denies any double vision, blurred vision, or other visual changes. She denies any chest pain or dyspnea. Denies any cough or recent fevers. She denies any abdominal pain, nausea, vomiting, diarrhea or constipation. GRAPHIC EDITOR states that patient is always given her medications as prescribed by her associate software engineer. Denies any lower extremity edema. Denies neck pain. Denies dysuria, hematuria, frequency or other urinary symptoms. Denies tinnitus or other hearing changes. MD complaint: dizziness, headache Onset (ago): hour(s) Location: head Radiation: non-radiation Severity scale (1-10): 6 Quality: dull Pain Consistency: constant Relieving factors: none Exacerbating factors: none Associated symptoms: other (dizziness) Treatments prior to arrival: none Related Data Home Medications Medication Instructions Recorded Confirmed albuterol sulfate 90 mcg/actuation 2 puff PO QID PRN wheezing 02/23/21 10/11/22 aerosol inhaler (Ventolin HFA) dulaglutide 1.5 mg/0.5 mL 0.5 ml subcut QWEEK 02/23/21 10/11/22 [facility] gabapentin 300 mg capsule 1 cap PO DAILY 02/23/21 10/11/22 insulin glargine 100 unit/mL (3 35 unit subcut BEDTIME 02/23/21 10/11/22 mL) subcutaneous pen (Lantus Solostar U-100 Insulin) mirtazapine 7.5 mg tablet 7.5 mg PO BEDTIME 02/23/21 10/11/22 paroxetine HCl 20 mg tablet 20 mg PO DAILY 02/23/21 10/11/22 rivaroxaban 15 mg tablet (Xarelto) 15 mg PO DAILY@1700 02/23/21 10/11/22 sennosides 8.6 mg-docusate sodium 2 tab PO BEDTIME 02/23/21 10/11/22 50 mg tablet (Senna-S) losartan 25 mg tablet 25 mg PO DAILY 10/11/22 10/11/22 Previous Rx's Medication Instructions Recorded benzonatate 100 mg capsule 100 mg PO BID PRN cough #10 caps 10/11/22 furosemide 20 mg tablet 20 mg PO DAILY #30 tabs 10/23/22 metoprolol tartrate 25 mg tablet 25 mg PO BID #60 tabs 10/23/22 meclizine 25 mg tablet 25 mg PO DAILY PRN dizziness #7 12/09/22 tabs Allergies Allergy/AdvReac Type Severity Reaction Status Date / Time No Known Allergies Allergy Unverified 03/02/20 16:47 Review of Systems Review of Systems: As per HPI. Yes all other systems are reviewed and are negative Constitutional: Constitutional: Reports as per HPI [facility] Past Medical History Medical History (Updated 12/09/22 @ 15:31 by Lacey Decker NP) Asthma Asthma with acute exacerbation Atrial fibrillation Change in mental status CHF (congestive heart failure) CKD (chronic kidney disease) stage 3, GFR 30-59 ml/min Diabetes History of CVA (cerebrovascular accident) Hypertension Surgical History (Updated 12/09/22 @ 12:20 by Zahraa Pérez) H/O: hysterectomy Hx of tubal ligation Family History Family History Father Hypertension Mother Diabetes Hypertension Social History Social History Household Members: None Housing: Apartment Do you presently have visiting nurse or other home services: Yes Alcohol intake: never Patient Tobacco Use Status: Former Tobacco user Quit Date: Quit 40 years ago Smoked in Last 30 Days: No Use of substances other than those prescribed or required for medical reasons: No Advance Directives: Yes Advance Directives on File: Yes Advance Directives Date on File: 10/11/22 service: No Current occupational status: disabled Physical Exam ED Vital Signs: Vital Signs - 24 hr 12/09/22 11:47 12/09/22 12:21 12/09/22 14:00 Temperature 98.1 F 98.4 F 98.2 F Pulse Rate 95 76 74 Respiratory Rate 16 14 19 Blood Pressure 117/69 126/70 115/71 Pulse Oximetry 93 95 Oxygen Delivery Method Room Air Room Air Room Air BMI result Body Mass Index 38.4 Vital signs have been reviewed and appear to be correct. Blood pressure normal. Heart rate normal. Respiratory rate normal. Temperature normal. Oxygen saturation normal. Const General: cooperative and no acute distress Orientation/consciousness: oriented to person, oriented to place, oriented to time and patient oriented x3 Limitations: no limitations HENMT Head: Yes normocephalic and Yes atraumatic Ears: external ears normal General nose exam: Normal external nose present Face and sinus: Yes face symmetric Mouth: oropharynx normal and moist mucous membranes Throat: Yes uvula midline Eyes Pupils: Equal, round and reactive pupils present Neck Neck: Yes normal visual inspection and Yes supple Resp Effort & Inspection: normal respiratory effort and able to speak in complete sentences Auscultation: clear to auscultation bilaterally Cardio Rate: regular rate Rhythm: regular rhythm Heart sounds: S1 normal heart sound present and S2 normal heart sound present GI Palpation (GI): Soft to palpation and nontender Auscultation: normoactive bowel sounds General: Yes no CVA tenderness Back/Spine/Pelvis Back: no CVA tenderness Skin General skin exam: elasticity normal and turgor normal Neuro General: oriented to person, oriented to place, oriented to time, patient oriented x3, moves all extremities, no focal motor deficits and CN's II-XI intact bilaterally Cranial nerves: Yes Equal, round and reactive pupils present Cognition (Neuro): normal cognition Coordination: [id number] test normal and [id number] test normal Extrem General: Yes full ROM, Yes no pedal edema and Yes no calf tenderness Right lower extremity: no edema Left lower extremity: no edema Psych Mental Status: mental status grossly normal Affect: normal affect Thought process: Normal thought process present NIH Stroke Scale Internal: Initial- Upon Arrival Time: 12:40 Level of Consciousness: Alert Level of Consciousness Questions: Answers both questions correctly Level of Consciousness Commands: Performs both tasks correctly Best Gaze: Normal Visual: No visual loss Facial Palsy: Normal Motor Arm (Right): No drift Motor Arm (Left): No drift Motor Leg (Right): No drift Motor Leg (Left): No drift Limb Ataxia: Absent Sensory: Normal Best Language: No aphasia Dysarthia: Normal Extinction and Inattention: No abnormality Score: 0 Course Course Course Narrative: 14:57 Patient reports good improvement in dizziness after meclizine. No acute findings on CT. Blood pressures WNL in the ED. Glucose slightly elevated at 219, no evidence of DKA. Troponin negative. BNP mildly elevated which is consistent with her baseline. Awaiting UA, will d/c home if normal. 15:27 No evidence of UTI on UA. Feel patient is stable for discharge home. Dizziness likely related to BPPV. Will prescribe meclizine as needed. Instructed patient to follow up with PCP within two days. All results discussed and all questions answered. Medications Administered Discontinued Medications Generic Name Dose Route Start Last Admin Trade Name Freq PRN Reason Stop Dose Admin Meclizine HCl 25 mg 12/09/22 13:43 12/09/22 14:06 Meclizine Hcl 25 Mg Tablet PO 12/09/22 13:44 25 mg ONCE ONE Administration Medical Decision Making Medical Decision Making [facility] Narrative: Patient is a 77-year-old female with history of asthma, atrial fibrillation, CHF, CKD stage 3, DM, CVA, HTN presenting to the emergency department with her GRAPHIC EDITOR who reports that patient's diastolic blood pressure was low and that her glucose level was elevated this morning. On exam patient is awake, A+Ox3, VS WNL, not hypotensive, normal neurological exam without focal deficits, no nystagmus, LS CTA throughout, abdomen soft and nontender, no lower extremity edema. Concern for CVA/ICH versus BPPV, anemia, UTI, dehydration. Labyrinthitis, Meniere's, MS, acoustic neuroma, carotid artery dissection considered but unlikely. Plan: EKG, labs, UA, CT head Please refer to course for remaining clinical decision making. Differential Diagnosis Differential Diagnoses: The differential diagnosis associated with the presentation includes As above. Admission/Observation Consideration of admission/observation: Escalation of care including admission/observation considered Considered due to dizziness and headache on initial assessment. Lab Data [facility] Lab Attestation statement: I reviewed the patient's lab results. 12/09/22 13:24 12/09/22 13:24 Labs: Lab Results 12/09/22 12/09/22 12/09/22 Range/Units 12:37 13:24 13:24 WBC 10.0 (4.8-10.8) X10*3/uL RBC 4.77 (4.20-5.50) X10*6/uL Hgb 13.4 (12.0-16.0) g/dl Hct 41.6 (37.0-47.0) % MCV 87.2 (80.0-98.0) fL MCH 28.1 (27.0-33.0) pg MCHC 32.2 (31.0-35.0) g/dl RDW 14.6 (11.0-16.0) % Plt Count 209 (160-400) X10*3/uL MPV 10.9 (9.4-12.3) fL Immature Gran % (Auto) 0.3 (0.0-0.4) % Neut % (Auto) 58.0 (45-73) % Lymph % (Auto) 33.0 (20-40) % [place] % (Auto) 7.0 (2-11) % Eos % (Auto) 1.4 (0-4) % Baso % (Auto) 0.3 (0-2) % Lymph # (Auto) 3.3 (1.2-4.9) X10*3/uL [place] # (Auto) 0.7 (0.1-1.2) X10*3/uL Eos # (Auto) 0.1 (0.0-0.4) X10*3/uL Baso # (Auto) 0.0 (0.0-0.2) X10*3/uL Abs Immat Gran (auto) 0.03 (0.00-0.03) X10*3/uL Absolute Neuts (auto) 5.8 (2.0-8.3) x10*3/uL Absolute Nucleated RBC 0.000 (0.0-0.012) X10*3/uL Nucleated RBC % (auto) 0.0 (0.0-0.2) /100WBC Sodium 141 (135-145) mmol/L Potassium 4.2 (3.3-5.1) mmol/L Chloride 105 (96-108) mmol/L Carbon Dioxide 27 (22-29) mmol/L Anion Gap 13 (12-20) BUN 19 H (9-16) mg/dL Creatinine 1.35 (0.5-1.4) mg/dL Estim Creat Clear Calc 35.8 Estimated GFR 38 POC Glucose 262 H (60-115) mg/dL Random Glucose 219 H (60-115) mg/dL Calcium 10.0 (8.4-10.2) mg/dL Total Bilirubin 0.5 (0.0-1.0) mg/dL AST 24 (5-31) U/L ALT 22 (0-31) U/L Alkaline Phosphatase 117 (39-117) U/L Troponin I High Sens (<3.5-17.0) ng/L B-Natriuretic Peptide (<100) pg/mL Total Protein 6.6 (6.5-8.0) g/dL Albumin 3.4 L (3.5-5.0) g/dL Urine Color Urine Appearance Urine pH (5.0-9.0) Ur Specific [place] (1.005-1.025) Urine Protein (Neg-Trace) mg/dL Urine Glucose (UA) (Negative) mg/dL Urine Ketones (Negative) mg/dL Urine Blood (Negative) Urine Nitrite (Negative) Ur Leukocyte Esterase (Negative) 12/09/22 12/09/22 12/09/22 Range/Units 13:24 13:24 15:13 WBC (4.8-10.8) X10*3/uL RBC (4.20-5.50) X10*6/uL Hgb (12.0-16.0) g/dl Hct (37.0-47.0) % MCV (80.0-98.0) fL MCH (27.0-33.0) pg MCHC (31.0-35.0) g/dl RDW (11.0-16.0) % Plt Count (160-400) X10*3/uL MPV (9.4-12.3) fL Immature Gran % (Auto) (0.0-0.4) % Neut % (Auto) (45-73) % Lymph % (Auto) (20-40) % [place] % (Auto) (2-11) % Eos % (Auto) (0-4) % Baso % (Auto) (0-2) % Lymph # (Auto) (1.2-4.9) X10*3/uL [place] # (Auto) (0.1-1.2) X10*3/uL Eos # (Auto) (0.0-0.4) X10*3/uL Baso # (Auto) (0.0-0.2) X10*3/uL Abs Immat Gran (auto) (0.00-0.03) X10*3/uL Absolute Neuts (auto) (2.0-8.3) x10*3/uL Absolute Nucleated RBC (0.0-0.012) X10*3/uL Nucleated RBC % (auto) (0.0-0.2) /100WBC Sodium (135-145) mmol/L Potassium (3.3-5.1) mmol/L Chloride (96-108) mmol/L Carbon Dioxide (22-29) mmol/L Anion Gap (12-20) BUN (9-16) mg/dL Creatinine (0.5-1.4) mg/dL Estim Creat Clear Calc Estimated GFR POC Glucose (60-115) mg/dL Random Glucose (60-115) mg/dL Calcium (8.4-10.2) mg/dL Total Bilirubin (0.0-1.0) mg/dL AST (5-31) U/L ALT (0-31) U/L Alkaline Phosphatase (39-117) U/L Troponin I High Sens < 2.7 (<3.5-17.0) ng/L B-Natriuretic Peptide 106 H (<100) pg/mL Total Protein (6.5-8.0) g/dL Albumin (3.5-5.0) g/dL Urine Color Yellow Urine Appearance Clear Urine pH 6.0 (5.0-9.0) Ur Specific [place] 1.015 (1.005-1.025) Urine Protein Negative (Neg-Trace) mg/dL Urine Glucose (UA) 100 H (Negative) mg/dL Urine Ketones Negative (Negative) mg/dL Urine Blood Negative (Negative) Urine Nitrite Negative (Negative) Ur Leukocyte Esterase Negative (Negative) Independent Interpretation I performed an independent interpretation of an: CT Scan Interpretation: I independently reviewed the CT scan and agree with the radiologist's interpretation. Radiology Impression Discussion of test interpretation with radiology: I have reviewed the radiologist's reading. Radiologist Impression: CT/CT head/brain wo IV con IMPRESSION: There are chronic changes of old infarcts involving both cerebral hemispheres that have remained grossly unchanged when compared to the recent prior CT scan of the head from 11/02/2022. No clear evidence of acute territorial infarct or hemorrhage. Independent Historian Clinical information obtained from an independent historian. History obtained from or confirmed by: Other (GRAPHIC EDITOR) External Record Review External record reviewed: Inpatient record, Office record and Outpatient record Prescription Management I considered prescription management with: Other (meclizine) Chronic Conditions Patient?s care impacted by: Diabetes Discharge Plan Discharge Clinical Impression: Dizziness, Headache Patient Disposition: Home, Self-Care Instructions: Vertigo (DC), Acute Headache (DC), Dizziness (ED) Additional Instructions: Por favor, lashonda un seguimiento con alvarado PCP dentro de dos d?as. Le est?n recetando meclizina, que puede caren seg?n lo prescrito para los mareos. Regrese al departamento de emergencias si el dolor empeora o no se controla, cambios en la visi?n, dolor en el pecho, dificultad para respirar, v?mitos, desmayos o cualquier otro s?ntoma preocupante. Prescriptions: New meclizine 25 mg tablet 25 mg PO DAILY PRN (Reason: dizziness) Qty: 7 0RF No Action sennosides-docusate sodium [Senna-S] 8.6-50 mg tablet 2 tab PO BEDTIME paroxetine HCl 20 mg tablet 20 mg PO DAILY gabapentin 300 mg capsule 1 cap PO DAILY albuterol sulfate [Ventolin HFA] 90 mcg/actuation HFA aerosol inhaler 2 puff PO QID PRN (Reason: wheezing) mirtazapine 7.5 mg tablet 7.5 mg PO BEDTIME insulin glargine [Lantus Solostar U-100 Insulin] 100 unit/mL (3 mL) insulin pen 35 unit subcut BEDTIME Xarelto 15 mg tablet 15 mg PO DAILY@1700 Trulicity 1.5 mg/0.5 mL pen injector 0.5 ml subcut QWEEK benzonatate 100 mg capsule 100 mg PO BID PRN (Reason: cough) Qty: 10 0RF losartan 25 mg tablet 25 mg PO DAILY furosemide 20 mg Tablet 20 mg PO DAILY Qty: 30 0RF Protocol: Hold for SBP< HOLD for SBP < : 90 metoprolol tartrate 25 mg Tablet 25 mg PO BID Qty: 60 0RF Protocol: Hold for SBP/HR < HOLD for SBP < : 90 HOLD for HR < : 60 Print Language: Chadian
[2022-12-09 11:42] VITALS: BP 110/64; PULSE 86; O2SAT 98
[2022-12-09 11:47] VITALS: BP 117/69; PULSE 95; RESP 16; TEMP 36.7; BMI 38.4
[2022-12-09 12:21] VITALS: BP 126/70; PULSE 76; RESP 14; TEMP 36.9; O2SAT 93
--- NOTE | 2022-12-09 12:39 | PC.NURSE ---
pt alert and oriented, psychologist chief used during initial assessment, vss, POC taken showing 262 mg/dL, pt placed on cardiac cath lab radiology technologist showing afib, pt states that she has slight pain in the back of her head, no dizziness or chest pain present, call gomes placed within reach.
[2022-12-09 12:40] LABS: Glucose, Whole Blood 262 mg/dL (60-115)
--- NOTE | 2022-12-09 12:42 | ECG_ITS ---
Test Reason : history of afib Blood Pressure : / mmHG Vent. Rate : 079 BPM Atrial Rate : 000 BPM P-R Int : 000 ms QRS Dur : 088 ms QT Int : 342 ms P-R-T Axes : 000 -08 268 degrees QTc Int : 392 ms Atrial fibrillation Nonspecific ST and T wave abnormality Abnormal ECG When compared with ECG of 19-OCT-2022 01:09, Vent. rate has increased BY 32 BPM Referred By: Lacey Decker Electronically Signed By:JUJU HELM
[2022-12-09 13:27] LABS: MANUAL DIFF FLAG NO
[2022-12-09 13:30] LABS: Basophils Percent Auto 0.3 % (0-2); Eosinophils Absolute Auto 0.1 X10*3/uL (0.0-0.4); Eosinophils Percent Auto 1.4 % (0-4); Hematocrit 41.6 % (37.0-47.0); Hemoglobin 13.4 g/dl (12.0-16.0); Imm Gran Abs Auto 0.03 X10*3/uL (0.00-0.03); Imm Gran Pct Auto 0.3 % (0.0-0.4); Lymphocytes Absolute Auto 3.3 X10*3/uL (1.2-4.9); Mean Corpuscular HGB Conc 32.2 g/dl (31.0-35.0); Mean Corpuscular Hemoglobin 28.1 pg (27.0-33.0); Mean Corpuscular Volume 87.2 fL (80.0-98.0); Mean Platelet Volume 10.9 fL (9.4-12.3); Monocytes Absolute Auto 0.7 X10*3/uL (0.1-1.2); Neutrophils Absolute Auto 5.8 x10*3/uL (2.0-8.3); Platelet Count 209 X10*3/uL (160-400); Red Blood Count 4.77 X10*6/uL (4.20-5.50); Red Cell Distribution Width 14.6 % (11.0-16.0)
[2022-12-09 13:55] LABS: Alanine Aminotransferase 22 U/L (0-31); Albumin Level 3.4 g/dL (3.5-5.0); Alkaline Phosphatase 117 U/L (39-117); Anion Gap 13 (12-20); Aspartate Amino Transferase 24 U/L (5-31); Bilirubin Total 0.5 mg/dL (0.0-1.0); Blood Urea Nitrogen 19 mg/dL (9-16); Carbon Dioxide 27 mmol/L (22-29); Chloride 105 mmol/L (96-108); Creatinine Clr Calc Pharmacy 35.8; Estimated Glomerular Filt Rate 38; Glucose Random 219 mg/dL (60-115); Potassium 4.2 mmol/L (3.3-5.1); Sodium 141 mmol/L (135-145); Total Protein 6.6 g/dL (6.5-8.0)
[2022-12-09 14:00] VITALS: BP 115/71; PULSE 74; RESP 19; TEMP 36.8; O2SAT 95
[2022-12-09 14:01] LABS: B Type Natriuretic Peptide 106 pg/mL (<100)
[2022-12-09 14:04] LABS: Troponin-I High Sensitivity < 2.7 ng/L (<3.5-17.0)
[2022-12-09] MEDS: Meclizine HCl 25 MG TABLET PO (14:06)
--- NOTE | 2022-12-09 14:10 | PC.NURSE ---
patient a&ox3, pt medicated per order, vss, plate setter afib, call gomes within reach, will continue to monitor.
[2022-12-09 15:19] LABS: Appearance Urine Clear; Color Urine Yellow; Glucose Urine UA 100 mg/dL (Negative); Leukocyte Esterase Urine Negative (Negative); Nitrite Urine Negative (Negative); Specific Gravity - Urine 1.015 (1.005-1.025); Urine Blood Negative (Negative); Urine Ketones Negative (Negative); Urine Protein Negative (Neg-Trace)
[2022-12-09 15:46] VITALS: BP 111/49; PULSE 65; RESP 18; TEMP 36.4; O2SAT 96
--- NOTE | 2022-12-09 15:47 | PC.NURSE ---
patient a&ox3, pt stated dizziness has resolved, vitals stable, ekg monitor tech afib, call gomes within reach, will continue to monitor.
== END 2022-12-09 16:11 | disposition home or self-care (01) ==
PROVIDERS: Registered Nurse Emergency; Emergency Provider Emergency Medicine
DX: R42 Dizziness and giddiness (principal); R51.9 Headache, unspecified; E11.22 Type 2 diabetes mellitus with diabetic chronic kidney disease; I13.0 Hypertensive heart and chronic kidney disease with heart failure and stage 1 through stage 4 chronic kidney disease, or unspecified chronic kidney disease; N18.30 Chronic kidney disease, stage 3 unspecified; I50.9 Heart failure, unspecified; I48.91 Unspecified atrial fibrillation; Z86.73 Personal history of transient ischemic attack (TIA), and cerebral infarction without residual deficits; Z79.85 Long-term (current) use of injectable non-insulin antidiabetic drugs; Z79.899 Other long term (current) drug therapy; Z79.02 Long term (current) use of antithrombotics/antiplatelets; Z79.01 Long term (current) use of anticoagulants; Z87.891 Personal history of nicotine dependence
CPT/HCPCS: 36415; 70450; 80053; 81003; 82947; 83880; 84484; 85025; 93005; 99284

== ENCOUNTER 2023-07-10 12:53 | Outpatient (AMB) | payer OTHER, SELFPAY ==
--- NOTE | 2023-07-10 13:09 | HO.NEPHOV ---
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 Accompanied by child care centre director c/o Shortness of breath on exertion PFSH Medical History (Updated 07/10/23 @ 13:26 by Connor Callahan MD) CKD (chronic kidney disease) stage 3, GFR 30-59 ml/min CHF (congestive heart failure) Change in mental status Asthma History of CVA (cerebrovascular accident) Diabetes Hypertension Atrial fibrillation Asthma with acute exacerbation Surgical History H/O: hysterectomy Hx of tubal ligation Family History Father Hypertension Mother Diabetes Hypertension Social History Household Members: None Housing: Apartment Do you presently have visiting nurse or other home services: Yes Alcohol intake: never Patient Tobacco Use Status: Former Tobacco user Quit Date: Quit 40 years ago Advance Directives Date on File: 10/11/22 service: No Current occupational status: disabled Vital Signs 07/10/23 13:10 Height 5 ft Weight 191 lb BMI 37.3 BP 122/88 Blood Pressure Location Lt brachial Position Sitting Pulse 94 Pulse Source Pulse Oximeter Pulse Oximetry (%) 95 Oxygen Delivery Method Room Air Physical Exam Vital Signs: Last Vital Signs Pulse 94 07/10/23 13:10 BP 122/88 07/10/23 13:10 Pulse Ox 95 07/10/23 13:10 Oxygen Delivery Method Room Air 07/10/23 13:10 BMI result Body Mass Index 37.3 Const General: comfortable Nutritional Appearance: well nourished Orientation/consciousness: patient oriented x3 HEENT Head: No normal to inspection Mouth: moist mucous membranes Neck Neck: Yes supple and Yes no JVD Resp Auscultation: clear to auscultation bilaterally, no rales and rub present Cardio Jugular venous distension: no JVD Palpation: no palpable S3 and no palpable S4 Heart sounds: no rubs GI Palpation (GI): Soft to palpation and nontender Percussion: No Fluid wave present General: Yes no CVA tenderness Back/Spine/Pelvis Back: no CVA tenderness Skin General skin exam: no rashes or lesions noted Neuro General: patient oriented x3 Extrem General: Yes no pedal edema and No clubbing Assessment & Plan Assessment & Plan (1) CKD (chronic kidney disease) stage 3, GFR 30-59 ml/min: Code(s): N18.30 - Chronic kidney disease, stage 3 unspecified (2) Hypertension: Code(s): I10 - Essential (primary) hypertension (3) CHF (congestive heart failure): Code(s): I50.9 - Heart failure, unspecified (4) Diabetes: Code(s): E11.9 - Type 2 diabetes mellitus without complications (5) Atrial fibrillation: Code(s): I48.91 - Unspecified atrial fibrillation Plan Elderly woman with CKD in a setting of CHF/Obesity and HTN IJEOMA has resolved and creatinine is close to baseline Clinically appears fluid overloaded; Will Increase Lasix to 40 mg QD Encouraged child care centre director to monitor weights daily. If she looses more than 2 lbs in one day, she will cut back to 20 mg daily Stay on LOW salt diet BP is acceptable. NO changes in anti hypertensives Orders: Orders Blood Urea Nitrogen Today I50.9 - Heart failure, unspecified, N18.30 - Chronic kidney disease, stage 3 unspecified Creatinine Today I50.9 - Heart failure, unspecified, N18.30 - Chronic kidney disease, stage 3 unspecified Complete Blood Count Auto Diff Today I50.9 - Heart failure, unspecified, N18.30 - Chronic kidney disease, stage 3 unspecified Electrolytes Today I50.9 - Heart failure, unspecified, N18.30 - Chronic kidney disease, stage 3 unspecified Calcium Today I50.9 - Heart failure, unspecified, N18.30 - Chronic kidney disease, stage 3 unspecified Coding Level of Care Code Est Pt Level 4 (32769) Diagnoses CKD (chronic kidney disease) stage 3, GFR 30-59 ml/min N18.30 Hypertension I10 CHF (congestive heart failure) I50.9 Diabetes E11.9 Atrial fibrillation I48.91 Results Reviewed Nephrology Results: Hgb 13.4 g/dl (12.0-16.0) 12/09/22 WBC 10.0 X10*3/uL (4.8-10.8) 12/09/22 Plt Count 209 X10*3/uL (160-400) 12/09/22 Sodium 141 mmol/L (135-145) 12/09/22 Potassium 4.2 mmol/L (3.3-5.1) 12/09/22 Chloride 105 mmol/L (96-108) 12/09/22 Carbon Dioxide 27 mmol/L (22-29) 12/09/22 BUN 19 mg/dL (9-16) H 12/09/22 Creatinine 1.35 mg/dL (0.5-1.4) 12/09/22 Calcium 10.0 mg/dL (8.4-10.2) 12/09/22 Urine Protein Negative mg/dL (Neg-Trace) 12/09/22 Urine Creatinine 87.23 mg/dL 10/20/22
[2023-07-10 13:10] VITALS: BP 122/88; PULSE 94; O2SAT 95; BMI 37.3
== END 2023-07-10 13:30 | disposition home or self-care (01) ==
PROVIDERS: Visit Provider Internal Medicine Hypertension Specialist
DX: N18.30 Chronic kidney disease, stage 3 unspecified (principal); I10 Essential (primary) hypertension; I50.9 Heart failure, unspecified; E11.9 Type 2 diabetes mellitus without complications; I48.91 Unspecified atrial fibrillation
CPT/HCPCS: 99214

== ENCOUNTER → 2023-07-10 12:53 | Outpatient (BNVA) | payer OTHER, SELFPAY | PROVIDERS: Visit Provider Internal Medicine Hypertension Specialist | DX: E11.22 Type 2 diabetes mellitus with diabetic chronic kidney disease (principal); I13.0 Hypertensive heart and chronic kidney disease with heart failure and stage 1 through stage 4 chronic kidney disease, or unspecified chronic kidney disease; N18.30 Chronic kidney disease, stage 3 unspecified; I50.9 Heart failure, unspecified; I48.91 Unspecified atrial fibrillation | CPT/HCPCS: 99212 ==

== ENCOUNTER 2023-07-14 08:54 | Outpatient (REF) | payer OTHER, SELFPAY ==
[2023-07-14 10:40] LABS: MANUAL DIFF FLAG NO
[2023-07-14 10:46] LABS: Basophils Absolute Auto 0.1 X10*3/uL (0.0-0.2); Basophils Percent Auto 0.6 % (0-2); Eosinophils Absolute Auto 0.2 X10*3/uL (0.0-0.4); Eosinophils Percent Auto 2.4 % (0-4); Hematocrit 46.1 % (37.0-47.0); Hemoglobin 14.5 g/dl (12.0-16.0); Imm Gran Abs Auto 0.02 X10*3/uL (0.00-0.03); Imm Gran Pct Auto 0.2 % (0.0-0.4); Lymphocytes Absolute Auto 3.8 X10*3/uL (1.2-4.9); Lymphocytes Percent Auto 40.4 % (20-40); Mean Corpuscular HGB Conc 31.5 g/dl (31.0-35.0); Mean Corpuscular Hemoglobin 27.1 pg (27.0-33.0); Mean Corpuscular Volume 86.2 fL (80.0-98.0); Mean Platelet Volume 11.5 fL (9.4-12.3); Monocytes Absolute Auto 0.8 X10*3/uL (0.1-1.2); Monocytes Percent Auto 8.5 % (2-11); Neutrophils Absolute Auto 4.5 x10*3/uL (2.0-8.3); Neutrophils Percent Auto 47.9 % (45-73); Platelet Count 237 X10*3/uL (160-400); Red Blood Count 5.35 X10*6/uL (4.20-5.50); White Blood Count 9.3 X10*3/uL (4.8-10.8)
[2023-07-14 10:51] LABS: Anion Gap 11 (12-20); Blood Urea Nitrogen 16 mg/dL (9-16); Calcium 10.5 mg/dL (8.4-10.2); Carbon Dioxide 27 mmol/L (22-29); Chloride 107 mmol/L (96-108); Estimated Glomerular Filt Rate 36; Potassium 4.2 mmol/L (3.3-5.1); Sodium 141 mmol/L (135-145)
== END 2023-07-14 08:55 | disposition home or self-care (01) ==
LOC: HO.10HDL 08:54
PROVIDERS: Visit Provider Internal Medicine Hypertension Specialist
DX: I11.0 Hypertensive heart disease with heart failure (principal); I50.9 Heart failure, unspecified; N18.30 Chronic kidney disease, stage 3 unspecified
CPT/HCPCS: 36415; 80051; 82310; 82565; 84520; 85025

== ENCOUNTER 2023-10-13 11:01 | Emergency (ER) | payer OTHER, SELFPAY ==
[2023-10-13 11:11] VITALS: BP 118/72; PULSE 100; RESP 16; TEMP 36.1; O2SAT 98; BMI 36.5
--- NOTE | 2023-10-13 11:27 | ED_ITS ---
HPI - General Adult General Chief complaint: Extremity Injury, Lower Stated complaint: R toe ingrown nail Time Seen by Provider: 10/13/23 11:39 Source: patient, family and hotel housekeeper Mode of arrival: ambulatory Limitations: language barrier History of Present Illness HPI narrative: Patient is a 77-year-old Irish-speaking female with history of AFib on Xarelto, HTN, diabetes, CHF, CKD presenting to the emergency department with complaint of redness and pain to right great toe for the past 3-4 days. Patient denies any discharge or drainage from her toe. Denies fevers. Denies any known injury. MD complaint: Toe pain. Onset (ago): day(s) Associated symptoms: denies other symptoms Treatments prior to arrival: none Related Data Home Medications ?Medication ?Instructions ?Recorded ?Confirmed albuterol sulfate 90 mcg/actuation 2 puff PO QID PRN wheezing 02/23/21 10/11/22 aerosol inhaler (Ventolin HFA) dulaglutide 1.5 mg/0.5 mL 0.5 ml subcut QWEEK 02/23/21 10/11/22 subcutaneous pen injector (Trulicity) gabapentin 300 mg capsule 1 cap PO DAILY 02/23/21 10/11/22 insulin glargine 100 unit/mL (3 35 unit subcut BEDTIME 02/23/21 10/11/22 mL) subcutaneous pen (Lantus Solostar U-100 Insulin) mirtazapine 7.5 mg tablet 7.5 mg PO BEDTIME 02/23/21 10/11/22 rivaroxaban 15 mg tablet (Xarelto) 15 mg PO DAILY@1700 02/23/21 10/11/22 sennosides 8.6 mg-docusate sodium 2 tab PO BEDTIME 02/23/21 10/11/22 50 mg tablet (Senna-S) losartan 25 mg tablet 25 mg PO DAILY 10/11/22 10/11/22 clotrimazole 1 % topical cream appl topical 07/10/23 nystatin 100,000 unit/gram topical 1 appl topical BID 07/10/23 cream Previous Rx's ?Medication ?Instructions ?Recorded benzonatate 100 mg capsule 100 mg PO BID PRN cough #10 caps 10/11/22 furosemide 20 mg tablet 20 mg PO DAILY #30 tabs 05/10/23 metoprolol tartrate 25 mg tablet 25 mg PO BID #60 tabs 10/23/22 meclizine 25 mg tablet 25 mg PO DAILY PRN dizziness #7 12/09/22 tabs cephalexin 250 mg capsule 250 mg PO QID 7 days #28 caps 10/13/23 doxycycline hyclate 100 mg capsule 100 mg PO BID #14 caps 10/13/23 Allergies Allergy/AdvReac Type Severity Reaction Status Date / Time No Known Allergies Allergy Verified 10/13/23 11:19 Review of Systems 2 Review of Systems: As per HPI. Yes all other systems are reviewed and are negative Constitutional: Constitutional: Reports as per HPI [facility] Past Medical History Medical History (Updated 10/13/23 @ 12:56 by Lacey Decker NP) CKD (chronic kidney disease) stage 3, GFR 30-59 ml/min CHF (congestive heart failure) Change in mental status Asthma History of CVA (cerebrovascular accident) Diabetes Hypertension Atrial fibrillation Asthma with acute exacerbation Surgical History H/O: hysterectomy Hx of tubal ligation Family History Family History Father Hypertension Mother Diabetes Hypertension Social History Social History Household Members: None Housing: Apartment Do you presently have visiting nurse or other home services: Yes Alcohol intake: never Patient Tobacco Use Status: Former Tobacco user Quit Date: Quit 40 years ago Advance Directives: Yes Advance Directives on File: Yes Advance Directives Date on File: 10/11/22 Do you have a plan to hurt others: No Plan service: No Current occupational status: disabled Physical Exam ED Vital Signs: Vital Signs - 24 hr 10/13/23 11:11 Temperature 97 F Pulse Rate 100 Respiratory Rate 16 Blood Pressure 118/72 Pulse Oximetry 98 Oxygen Delivery Method Room Air BMI result Body Mass Index 36.5 Vital signs have been reviewed and appear to be correct. Blood pressure normal. Heart rate normal. Respiratory rate normal. Temperature normal. Oxygen saturation normal. Const General: cooperative, healthy appearing and no acute distress Orientation/consciousness: oriented to person, oriented to place, oriented to time and patient oriented x3 Limitations: no limitations HENMT Head: Yes normocephalic and Yes atraumatic Ears: external ears normal General nose exam: Normal external nose present Face and sinus: Yes face symmetric Mouth: oropharynx normal and moist mucous membranes Throat: Yes uvula midline Eyes Pupils: Equal, round and reactive pupils present Neck Neck: Yes normal visual inspection and Yes supple Resp Effort & Inspection: normal respiratory effort and able to speak in complete sentences Auscultation: clear to auscultation bilaterally Cardio Rate: regular rate Rhythm: regular rhythm Heart sounds: S1 normal heart sound present and S2 normal heart sound present GI Palpation (GI): Soft to palpation and nontender Auscultation: normoactive bowel sounds General: Yes no CVA tenderness Back/Spine/Pelvis Back: no CVA tenderness Skin General skin exam: elasticity normal and turgor normal Neuro General: oriented to person, oriented to place, oriented to time, patient oriented x3, moves all extremities, no focal motor deficits and CN's II-XI intact bilaterally Cranial nerves: Yes Equal, round and reactive pupils present Cognition (Neuro): normal cognition Extrem General: Yes full ROM, Yes normal exam except as noted, Yes no pedal edema and Yes no calf tenderness Ankle/foot/toe images: 2 1. erythema and tenderness, no discharge/drainage Psych Mental Status: mental status grossly normal Affect: normal affect Thought process: Normal thought process present Course Course Course Narrative: This is an RME: Additional HPI, ROS, PE not included below will be deferred to primary provider. 77 yo f presentsw ith right ingrown toenail X few days, worsening. States she now has purulence, and increased redness, swelling. She has acrylics on the nail. Medical Decision Making Medical Decision Making MDM Narrative: Patient is a 77-year-old Irish-speaking female with history of AFib on Xarelto, HTN, diabetes, CHF, CKD presenting to the emergency department with complaint of redness and pain to right great toe for the past 3-4 days. On exam patient is awake, A+Ox3, VS WNL, afebrile, normal neurological exam without focal deficits, physical exam findings as above. Given reported symptoms and physical exam findings, initial differential includes ingrown toenail, paronychia, cellulitis. Physical exam consistent with early paronychia. Given history of DM, will treat with doxy and keflex, advised patient to soak foot in warm water with epsom salt, but to use caution that water is not too hot. Instructed patient to follow-up with primary care provider. Instructed patient to assess area daily for signs of worsening infection and return if this occurs. Patient verbalized understanding of and agreement with plan. All results, questions, return precautions and discharge instructions discussed with patient via paint line operator. Differential Diagnosis Differential Diagnoses: The differential diagnosis associated with the presentation includes As per MDM. External Record Review External record reviewed: Inpatient record, Office record and Outpatient record Prescription Management I considered prescription management with: Antibiotic Chronic Conditions Patient?s care impacted by: Diabetes and Hypertension Discharge Plan Discharge Clinical Impression: Paronychia of great toe of right foot Patient Disposition: Home, Self-Care Instructions: Paronychia (ED) Additional Instructions: You were seen for pain and redness to your toe in the emergency department today. You are being treated for a paronychia, which is an infection of the skin around your nail. Please take the full course of antibiotics as prescribed. We recommend that you soak your foot in warm water with salt for 10-15 minutes several times daily. IT IS IMPORTANT THAT YOU USE CAUTION AND MAKE SURE THE WATER IS NOT TOO HOT. PLEASE ASSESS YOUR FOOT DAILY FOR SIGNS OF INCREASING REDNESS, SWELLING, THICK YELLOW DRAINAGE, REDNESS STREAKING UP YOUR FOOT/LEG. Return to the emergency department if these occur or if you develop a fever. Please follow-up with your primary care provider. Prescriptions: New doxycycline hyclate 100 mg capsule 100 mg PO BID Qty: 14 0RF cephalexin 250 mg capsule 250 mg PO QID 7 Days Qty: 28 0RF No Action sennosides-docusate sodium [Senna-S] 8.6-50 mg tablet 2 tab PO BEDTIME gabapentin 300 mg capsule 1 cap PO DAILY albuterol sulfate [Ventolin HFA] 90 mcg/actuation HFA aerosol inhaler 2 puff PO QID PRN (Reason: wheezing) mirtazapine 7.5 mg tablet 7.5 mg PO BEDTIME insulin glargine [Lantus Solostar U-100 Insulin] 100 unit/mL (3 mL) insulin pen 35 unit subcut BEDTIME Xarelto 15 mg tablet 15 mg PO DAILY@1700 Trulicity 1.5 mg/0.5 mL pen injector 0.5 ml subcut QWEEK benzonatate 100 mg capsule 100 mg PO BID PRN (Reason: cough) Qty: 10 0RF meclizine 25 mg tablet 25 mg PO DAILY PRN (Reason: dizziness) Qty: 7 0RF losartan 25 mg tablet 25 mg PO DAILY furosemide 20 mg Tablet 20 mg PO DAILY Qty: 30 0RF Protocol: Hold for SBP< HOLD for SBP < : 90 metoprolol tartrate 25 mg Tablet 25 mg PO BID Qty: 60 0RF Protocol: Hold for SBP/HR < HOLD for SBP < : 90 HOLD for HR < : 60 clotrimazole 1 % cream topical nystatin 100,000 unit/gram cream 1 appl topical BID Print Language: Irish
[2023-10-13 13:15] VITALS: BP 110/52; PULSE 76; RESP 18; TEMP 36.1; O2SAT 97
== END 2023-10-13 13:16 | disposition home or self-care (01) ==
PROVIDERS: Emergency Provider Emergency Medicine; PCP Internal Medicine
DX: L03.031 Cellulitis of right toe (principal); L60.0 Ingrowing nail; I48.91 Unspecified atrial fibrillation; Z79.01 Long term (current) use of anticoagulants; Z79.899 Other long term (current) drug therapy
CPT/HCPCS: 99282; 99283

== ENCOUNTER 2023-11-21 11:53 | Outpatient (REF) | payer OTHER, SELFPAY ==
[2023-11-21 13:42] LABS: Anion Gap 9 (12-20); Blood Urea Nitrogen 26 mg/dL (9-16); Calcium 10.4 mg/dL (8.4-10.2); Carbon Dioxide 28 mmol/L (22-29); Chloride 108 mmol/L (96-108); Estimated Glomerular Filt Rate 31; Potassium 4.3 mmol/L (3.3-5.1); Sodium 141 mmol/L (135-145)
[2023-11-21 13:59] LABS: Creatinine Urine 95.46 mg/dL; Total Protein Urine Random < 7 mg/dL (<12)
== END 2023-11-21 11:54 | disposition home or self-care (01) ==
LOC: HO.10HDL 11:53
PROVIDERS: Visit Provider Internal Medicine Nephrology
DX: N18.30 Chronic kidney disease, stage 3 unspecified (principal)
CPT/HCPCS: 36415; 80051; 82310; 82565; 82570; 84156; 84520

== ENCOUNTER 2023-11-24 11:58 | Outpatient (AMB) | payer OTHER, SELFPAY ==
[2023-11-24 12:08] VITALS: BP 110/86; PULSE 81; O2SAT 96; BMI 35.7
--- NOTE | 2023-11-24 12:08 | HO.NEPHOV ---
Vital Signs 11/24/23 12:08 Height 5 ft Weight 183 lb BMI 35.7 BP 110/86 Blood Pressure Location Lt radial Position Sitting Pulse 81 Pulse Source Pulse Oximeter Pulse Oximetry (%) 96 Oxygen Delivery Method Room Air Intake Visit Reasons: R/S 11/11/2023/ LVM Interventional Radiologist Required: No Accompanied by: DESIGN LEADER Allergies No Known Allergies Allergy (Verified 11/24/23 12:10) HPI Comments Details: Hetal is a pleasant 77-year-old woman with a history of longstanding hypertension, diabetes mellitus and congestive heart failure. She has history of CKD with the baseline EGFR of about 35 he mL per minute. She has had a history of IJEOMA during which time I had an opportunity to see your at [facility]. Ongoing medical problems significant for diabetes mellitus, hypertension, history of CVA, history of CHF, atrial fibrillation, history of asthma. She is here for further follow-up. Accompanied by caregiver. Today she denies any specific complaints. No shortness of breath. No chest pain. No nausea or vomiting. No urinary symptoms. No edema. No fever no rash. [facility] Medical History (Updated 11/24/23 @ 12:27 by Connor Callahan MD) CKD (chronic kidney disease) stage 3, GFR 30-59 ml/min CHF (congestive heart failure) Change in mental status Asthma History of CVA (cerebrovascular accident) Diabetes Hypertension Atrial fibrillation Asthma with acute exacerbation Surgical History H/O: hysterectomy Hx of tubal ligation Family History Father Hypertension Mother Diabetes Hypertension Social History Household Members: None Housing: Apartment Do you presently have visiting nurse or other home services: Yes Alcohol intake: never Patient Tobacco Use Status: Former Tobacco user Advance Directives Date on File: 10/11/22 service: No Current occupational status: disabled Physical Exam Vital Signs: Last Vital Signs Pulse 81 11/24/23 12:08 BP 110/86 11/24/23 12:08 Pulse Ox 96 11/24/23 12:08 Oxygen Delivery Method Room Air 11/24/23 12:08 BMI result Body Mass Index 35.7 Const General: comfortable Nutritional Appearance: well nourished Orientation/consciousness: patient oriented x3 HEENT Head: No normal to inspection Mouth: moist mucous membranes Neck Neck: Yes supple and Yes no JVD Resp Auscultation: clear to auscultation bilaterally and no rales Cardio Jugular venous distension: no JVD Palpation: no palpable S3 and no palpable S4 Heart sounds: no rubs GI Palpation (GI): Soft to palpation and nontender Percussion: No Fluid wave present General: Yes no CVA tenderness Back/Spine/Pelvis Back: no CVA tenderness Skin General skin exam: no rashes or lesions noted Neuro General: patient oriented x3 Extrem General: Yes no pedal edema and No clubbing Results Reviewed Nephrology Results: Hgb 14.5 g/dl (12.0-16.0) 07/14/23 WBC 9.3 X10*3/uL (4.8-10.8) 07/14/23 Plt Count 237 X10*3/uL (160-400) 07/14/23 Sodium 141 mmol/L (135-145) 11/21/23 Potassium 4.3 mmol/L (3.3-5.1) 11/21/23 Chloride 108 mmol/L (96-108) 11/21/23 Carbon Dioxide 28 mmol/L (22-29) 11/21/23 BUN 26 mg/dL (9-16) H 11/21/23 Creatinine 1.62 mg/dL (0.5-1.4) H 11/21/23 Calcium 10.4 mg/dL (8.4-10.2) H 11/21/23 Urine Protein Negative mg/dL (Neg-Trace) 12/09/22 Urine Creatinine 95.46 mg/dL 11/21/23 Protein/Creatinin Ratio TNP 11/21/23 Assessment & Plan Assessment & Plan (1) CKD (chronic kidney disease) stage 3, GFR 30-59 ml/min: Code(s): N18.30 - Chronic kidney disease, stage 3 unspecified Category: Medical (2) Hypercalcemia: Code(s): E83.52 - Hypercalcemia Category: Medical Plan Hetal is a 76-year-old woman with a history of CKD 3B in the setting of longstanding diabetes mellitus and hypertension in the setting of congestive heart failure. Renal function is close to baseline at this time. Goal is to slow the progression of renal disease. Continue to avoid nephrotoxic agents. Continue LISA inhibition. She will benefit from SGLT2 inhibitor. Blood pressure is well controlled She is stay on low-sodium diet I have not made any changes to the antihypertensive medications. No evidence of anemia at this time. Mild hypercalcemia. Check intact PTH and vitamin-D levels prior to next visit along with electrophoresis. Orders: Orders Parathyroid Hormone Intact 3 Months N18.30 - Chronic kidney disease, stage 3 unspecified Comprehensive Met. Panel 3 Months N18.30 - Chronic kidney disease, stage 3 unspecified Phosphorus 3 Months N18.30 - Chronic kidney disease, stage 3 unspecified Protein Electrophoresis, Serum 3 Months E83.52 - Hypercalcemia, N18.30 - Chronic kidney disease, stage 3 unspecified Coding Level of Care Code Est Pt Level 4 (60071) Diagnoses CKD (chronic kidney disease) stage 3, GFR 30-59 ml/min N18.30 Hypercalcemia E83.52
== END 2023-11-24 12:28 | disposition home or self-care (01) ==
PROVIDERS: PCP Internal Medicine; Visit Provider Internal Medicine Hypertension Specialist
DX: N18.30 Chronic kidney disease, stage 3 unspecified (principal); E83.52 Hypercalcemia
CPT/HCPCS: 99214

== ENCOUNTER → 2023-11-24 11:58 | Outpatient (BNVA) | payer OTHER, SELFPAY | PROVIDERS: PCP Internal Medicine; Visit Provider Internal Medicine Hypertension Specialist | DX: N18.30 Chronic kidney disease, stage 3 unspecified (principal); E83.52 Hypercalcemia | CPT/HCPCS: 99212 ==

== ENCOUNTER 2024-10-04 22:01 | Emergency (ER) | payer OTHER, SELFPAY ==
--- NOTE | ~2024-10-04 | XR_ITS ---
CLINICAL HISTORY: 2nd digit lac ?retained FB 3 view right 2nd digit Comparison: None Findings: No acute fractures or dislocations. There is diffuse bony demineralization. Radiopaque ring in place over the 2nd proximal phalanx. Otherwise, no radiopaque foreign body identified. IMPRESSION: 1. No acute fracture or dislocation injury identified at the right second finger. 2. Radiopaque ring in place over the 2nd proximal phalanx. Otherwise, no radiopaque foreign body identified. 3. Diffuse bony demineralization. This document has been electronically signed by: Gregor Mcghee MD on 10/05/2024 02:31:03
[2024-10-04 22:07] VITALS: BP 152/83; PULSE 95; RESP 16; TEMP 36; O2SAT 96; BMI 32.8
--- NOTE | 2024-10-05 00:50 | ED.WOUNDLAC ---
HPI - Wound/Laceration General Chief Complaint: Wound/Laceration Stated Complaint: right finger laceration Time Seen by Provider: 10/04/24 23:53 Source: patient Mode of arrival: ambulatory Limitations: language barrier (Speaking youth probation officer utilized) History of Present Illness ED Provider: Gracia Beltran NP HPI narrative: Patient is a 78-year-old female who presents emergency department for evaluation of a laceration to the distal tip of the right 2nd digit. She reports that at approximately 17:00 yesterday evening she was cleaning some dishes with a Brilinta pad (starting silver scrubber) when she sustained a laceration to the tip of her finger. She reports that she was able to get the bleeding to be controlled but has a dried black appearance in his concern for an infection. She reports that she is a diabetic and has not had a tetanus shot in at least 5 years. She reports some mild pain to the area. No redness or inability to bend the finger. Related Data Home Medications ?Medication ?Instructions ?Recorded ?Confirmed albuterol sulfate 90 mcg/actuation 2 puff PO QID PRN wheezing 02/23/21 10/11/22 aerosol inhaler (Ventolin HFA) dulaglutide 1.5 mg/0.5 mL 0.5 ml subcut QWEEK 02/23/21 10/11/22 subcutaneous pen injector (Trulicity) gabapentin 300 mg capsule 1 cap PO DAILY 02/23/21 10/11/22 insulin glargine 100 unit/mL (3 35 unit subcut BEDTIME 02/23/21 10/11/22 mL) subcutaneous pen (Lantus Solostar U-100 Insulin) mirtazapine 7.5 mg tablet 7.5 mg PO BEDTIME 02/23/21 10/11/22 rivaroxaban 15 mg tablet (Xarelto) 15 mg PO DAILY@1700 02/23/21 10/11/22 sennosides 8.6 mg-docusate sodium 2 tab PO BEDTIME 02/23/21 10/11/22 50 mg tablet (Senna-S) losartan 25 mg tablet 25 mg PO DAILY 10/11/22 10/11/22 clotrimazole 1 % topical cream appl topical 07/10/23 nystatin 100,000 unit/gram topical 1 appl topical BID 07/10/23 cream Previous Rx's ?Medication ?Instructions ?Recorded benzonatate 100 mg capsule 100 mg PO BID PRN cough #10 caps 10/11/22 furosemide 20 mg tablet 20 mg PO DAILY #30 tabs 10/23/22 metoprolol tartrate 25 mg tablet 25 mg PO BID #60 tabs 10/23/22 meclizine 25 mg tablet 25 mg PO DAILY PRN dizziness #7 12/09/22 tabs cephalexin 250 mg capsule 250 mg PO QID 7 days #28 caps 10/13/23 bacitracin 500 unit/gram topical 1 appl topical TID #14 grams 10/05/24 ointment Allergies Allergy/AdvReac Type Severity Reaction Status Date / Time No Known Allergies Allergy Verified 10/04/24 22:10 Review of Systems Review of Systems: Yes all other systems are reviewed and are negative [facility] Past Medical History Attestation statement: The following information was validated with the patient. Source: old records reviewed Medical History CKD (chronic kidney disease) stage 3, GFR 30-59 ml/min CHF (congestive heart failure) Change in mental status Asthma History of CVA (cerebrovascular accident) Diabetes Hypertension Atrial fibrillation Asthma with acute exacerbation Surgical History H/O: hysterectomy Hx of tubal ligation Family History Family History Father Hypertension Mother Diabetes Hypertension Social History Social History Household Members: None Housing: Apartment Do you presently have visiting nurse or other home services: Yes Alcohol intake: never Patient Tobacco Use Status: Former Tobacco user Advance Directives: No Advance Directives Information Provided: Yes Advance Directives Date on File: 10/11/22 Do you have a plan to hurt others: No Plan service: No Current occupational status: disabled Physical Exam Vital Signs: Vital Signs: Last Vital Signs Temp 96.8 F 10/05/24 02:23 Pulse 95 10/05/24 02:23 Resp 16 10/05/24 02:23 BP 152/83 H 10/05/24 02:23 Pulse Ox 96 10/05/24 02:23 O2 Del Method Room Air 10/05/24 02:23 BMI result Body Mass Index 32.8 Appearance: Alert.?Oriented to person, place and time. No acute distress.?Normal affect.? CVS: Heart sounds normal. Normal heart rate and rhythm.? Pulses normal.?? Respiratory: No respiratory distress.? Lung sounds clear to auscultation bilaterally?? Skin: Skin warm and dry.? Normal skin color.? Laceration to the distal tip of the right 2nd digit along the finger pad, 1 cm superficial linear laceration?. Full range of motion to the digit. No surrounding erythema. Neuro: Moves all extremities spontaneously. Sensation intact bilaterally. Ambulates with normal steady gait. Medications Administered Discontinued Medications Generic Name Dose Route Start Last Admin Trade Name Freq PRN Reason Stop Dose Admin Diphtheria/Tetanus/Acell Pertussis 0.5 ml 10/05/24 01:19 10/05/24 01:38 Diphth,Pertus(Acell),Tet Adult 0.5 Ml Syringe IM 10/05/24 01:20 0.5 ml .ONCE ONE Administration Medical Decision Making Medical Decision Making MDM Narrative: Patient is a 78-year-old female with past medical history of atrial fibrillation on Xarelto, hypertension, diabetes, CHF, CKD presenting to emergency department for evaluation of an accidental laceration to the distal tip of the right 2nd digit as per HPI. Pertinent physical exam findings as per PE portion of this note. Finger was cleansed extensively with saline and Betadine, laceration not amenable to repair with suture. XR was obtained to evaluate for retained metallic foreign body from the type of cleaning sponge that was utilized and is without evidence of retained foreign body. Bacitracin applied and a bandage. Advised monitoring for signs of infection, sent prescription for bacitracin to pharmacy. Outpatient follow-up with PCP. Differential Diagnosis Differential Diagnoses: The differential diagnosis associated with the presentation includes (Laceration, no evidence of uncontrolled bleeding, retained foreign body, tetanus exposure) Independent Interpretation I performed an independent interpretation of an: Plain X-Ray Radiology Impression Discussion of test interpretation with radiology: I have reviewed the radiologist's reading. Radiologist Impression: 3 view right 2nd digit Comparison: None Findings: No acute fractures or dislocations. There is diffuse bony demineralization. Radiopaque ring in place over the 2nd proximal phalanx. Otherwise, no radiopaque foreign body identified. IMPRESSION: 1. No acute fracture or dislocation injury identified at the right second finger. 2. Radiopaque ring in place over the 2nd proximal phalanx. Otherwise, no radiopaque foreign body identified. 3. Diffuse bony demineralization. Independent Historian Clinical information obtained from an independent historian. History obtained from or confirmed by: Other (Daughter) External Record Review External record reviewed: Outpatient record Prescription Management I considered prescription management with: Antibiotic Chronic Conditions Patient?s care impacted by: Other (See narrative above) Discharge Plan Discharge Clinical Impression: Finger laceration Qualifiers: Encounter type: initial encounter Finger: index finger Damage to nail status: without damage Foreign body presence: without foreign body Laterality: right Qualified Code(s): S61.210A - Laceration without foreign body of right index finger without damage to nail, initial encounter Patient Disposition: Home, Self-Care Instructions: Finger Laceration (ED) Additional Instructions: Clean at least 2 times daily with warm water and mild non scented soap. Apply topical bacitracin/antibiotic ointment to the area. Monitor for signs of infection including redness, swelling, pain, fevers, chills, inability to move the finger. Follow-up with your primary care doctor. Return to emergency department with new or worsening symptoms or concerns. Prescriptions: New bacitracin 500 unit/gram ointment 1 appl topical TID Qty: 14 0RF No Action sennosides-docusate sodium [Senna-S] 8.6-50 mg tablet 2 tab PO BEDTIME gabapentin 300 mg capsule 1 cap PO DAILY albuterol sulfate [Ventolin HFA] 90 mcg/actuation HFA aerosol inhaler 2 puff PO QID PRN (Reason: wheezing) mirtazapine 7.5 mg tablet 7.5 mg PO BEDTIME insulin glargine [Lantus Solostar U-100 Insulin] 100 unit/mL (3 mL) insulin pen 35 unit subcut BEDTIME Xarelto 15 mg tablet 15 mg PO DAILY@1700 Trulicity 1.5 mg/0.5 mL pen injector 0.5 ml subcut QWEEK benzonatate 100 mg capsule 100 mg PO BID PRN (Reason: cough) Qty: 10 0RF meclizine 25 mg tablet 25 mg PO DAILY PRN (Reason: dizziness) Qty: 7 0RF losartan 25 mg tablet 25 mg PO DAILY furosemide 20 mg Tablet 20 mg PO DAILY Qty: 30 0RF Protocol: Hold for SBP< HOLD for SBP < : 90 metoprolol tartrate 25 mg Tablet 25 mg PO BID Qty: 60 0RF Protocol: Hold for SBP/HR < HOLD for SBP < : 90 HOLD for HR < : 60 cephalexin 250 mg capsule 250 mg PO QID 7 Days Qty: 28 0RF clotrimazole 1 % cream topical nystatin 100,000 unit/gram cream 1 appl topical BID Referrals: Laurie Fontenot MD [Primary Care Provider] - Interventions: ED Discharge Assessment Last Done: 10/05/24 02:23 Discharge Date/Time: 10/05/24 02:24 Print Language: Bangladeshi
[2024-10-05] MEDS: Diphth,Pertus(ACell),Tet Adult 0.5 ML SYRINGE IM (01:38)
[2024-10-05 02:23] VITALS: BP 152/83; PULSE 95; RESP 16; TEMP 36; O2SAT 96
== END 2024-10-05 02:24 | disposition home or self-care (01) ==
PROVIDERS: Emergency Provider Emergency Medicine Emergency Medical Services; PCP Internal Medicine
DX: S61.210A Laceration without foreign body of right index finger without damage to nail, initial encounter (principal); I48.91 Unspecified atrial fibrillation; W26.9XXA Contact with unspecified sharp object(s), initial encounter; Y93.9 Activity, unspecified; Y92.000 Kitchen of unspecified non-institutional (private) residence as the place of occurrence of the external cause; Y99.8 Other external cause status; Z23 Encounter for immunization; Z79.01 Long term (current) use of anticoagulants; Z79.899 Other long term (current) drug therapy; Z87.891 Personal history of nicotine dependence
CPT/HCPCS: 73140; 90471; 90715; 99282; 99284

== ENCOUNTER → 2024-10-05 00:44 | Outpatient (BNV) | payer OTHER, SELFPAY | PROVIDERS: Emergency Provider Emergency Medicine Emergency Medical Services; PCP Internal Medicine; Visit Provider Radiology Diagnostic Radiology | DX: M85.821 Other specified disorders of bone density and structure, right upper arm (principal) | CPT/HCPCS: 73140 ==

== ENCOUNTER 2024-11-07 13:12 | Emergency (ER) | payer OTHER, SELFPAY ==
--- NOTE | ~2024-11-07 | CT_ITS ---
CLINICAL HISTORY: headache CT Brain without contrast Comparison: CT/SR - CT HEAD/BRAIN WO IV CON - 12/09/22 13:04 EDT FINDINGS: Cortical sulci: There is diffuse prominence of the cortical sulci compatible with age-related atrophy. Ventricles: Normal for age Brain parenchyma: There is patchy lucency throughout the deep white matter indicating chronic microvascular leukomalacia. Unchanged chronic infarction of the bilateral cerebral hemisphere. Extra axial spaces: Normal Posterior Fossa: Normal Extracranial soft tissues: Normal Additional abnormality: None IMPRESSION: No acute intracranial findings. Unchanged chronic infarction of the bilateral cerebral hemisphere. This document has been electronically signed by: Prasanna Clement MD on 11/07/2024 17:16:29
--- NOTE | 2024-11-07 13:14 | ED.GENADULT ---
HPI - General Adult General Chief complaint: Altered Mental Status Stated complaint: confusion Time Seen by Provider: 11/07/24 15:41 Source: patient, RN notes reviewed, old records reviewed and occupational therapist per diem Mode of arrival: ambulatory Limitations: language barrier History of Present Illness ED Provider: Feng HPI narrative: 78-year-old female with a past medical history significant for hypertension, AFib on Xarelto, diabetes, chronic kidney disease, CHF presents for evaluation of high blood pressure. Patient reports she was feeling ?spacey this morning. She reports that she had a mild headache. She checked her blood pressure every 5 minutes and it got as high as 206 systolic She reports that she took her blood pressure medication and she no longer feels spacey, she does complain of a mild headache and still has some dizziness Her blood pressure in triage was 165/81 She did not have any chest pain, shortness of breath. She had no falls, trauma to the head or neck Denies any blurry vision, nausea or vomiting No difficulty speaking, no weakness or facial droop The patient presents with her son who reports the patient seems to be at her baseline. Related Data Home Medications ?Medication ?Instructions ?Recorded ?Confirmed albuterol sulfate 90 mcg/actuation 2 puff PO QID PRN wheezing 02/23/21 10/11/22 aerosol inhaler (Ventolin HFA) dulaglutide 1.5 mg/0.5 mL 0.5 ml subcut QWEEK 02/23/21 10/11/22 subcutaneous pen injector (Trulicity) gabapentin 300 mg capsule 1 cap PO DAILY 02/23/21 10/11/22 insulin glargine 100 unit/mL (3 35 unit subcut BEDTIME 02/23/21 10/11/22 mL) subcutaneous pen (Lantus Solostar U-100 Insulin) mirtazapine 7.5 mg tablet 7.5 mg PO BEDTIME 02/23/21 10/11/22 rivaroxaban 15 mg tablet (Xarelto) 15 mg PO DAILY@1700 02/23/21 10/11/22 sennosides 8.6 mg-docusate sodium 2 tab PO BEDTIME 02/23/21 10/11/22 50 mg tablet (Senna-S) losartan 25 mg tablet 25 mg PO DAILY 10/11/22 10/11/22 clotrimazole 1 % topical cream appl topical 07/10/23 nystatin 100,000 unit/gram topical 1 appl topical BID 07/10/23 cream Previous Rx's ?Medication ?Instructions ?Recorded benzonatate 100 mg capsule 100 mg PO BID PRN cough #10 caps 10/11/22 furosemide 20 mg tablet 20 mg PO DAILY #30 tabs 10/23/22 metoprolol tartrate 25 mg tablet 25 mg PO BID #60 tabs 10/23/22 meclizine 25 mg tablet 25 mg PO DAILY PRN dizziness #7 12/09/22 tabs cephalexin 250 mg capsule 250 mg PO QID 7 days #28 caps 10/13/23 bacitracin 500 unit/gram topical 1 appl topical TID #14 grams 10/05/24 ointment Allergies Allergy/AdvReac Type Severity Reaction Status Date / Time No Known Allergies Allergy Verified 11/07/24 13:18 Review of Systems Constitutional: Constitutional: Denies body ache(s), Denies fever(s), Denies frequent falls and Reports headache(s) Eyes: Eyes: Denies blurry vision, Denies eye discharge and Denies dry eyes ENT: Denies dysphagia, Denies vertigo, Reports dizziness, Reports headache(s) and Denies odynophagia Cardiovascular: Cardiovascular: Denies chest pain and Denies dyspnea Respiratory: Respiratory: Denies cough and Denies dyspnea Gastrointestinal: Gastrointestinal: Denies abdominal pain, Denies dysphagia, Denies nausea, Denies odynophagia and Denies vomiting Musculoskeletal: Musculoskeletal: Denies back pain, Denies limited range of motion, Denies radiating pain into limb, Denies stiffness and Denies tingling Integumentary/Breasts: Skin/Breast: Denies rash Neurologic: Denies vertigo, Reports dizziness, Denies frequent falls, Reports headache(s) and Denies tingling Psychiatric: Psychiatric: Denies anxiety PMFSH Past Medical History Medical History CKD (chronic kidney disease) stage 3, GFR 30-59 ml/min CHF (congestive heart failure) Change in mental status Asthma History of CVA (cerebrovascular accident) Diabetes Hypertension Atrial fibrillation Asthma with acute exacerbation Surgical History H/O: hysterectomy Hx of tubal ligation Family History Family History Father Hypertension Mother Diabetes Hypertension Social History Social History Household Members: None Housing: Apartment Do you presently have visiting nurse or other home services: Yes Alcohol intake: never Patient Tobacco Use Status: Former Tobacco user Advance Directives Date on File: 10/11/22 service: No Current occupational status: disabled Physical Exam ED Vital Signs: Vital Signs - 24 hr 11/07/24 13:16 11/07/24 16:36 11/07/24 16:37 Temperature 97.5 F 97.0 F Pulse Rate 94 84 81 Respiratory Rate 18 16 Blood Pressure 165/81 H 178/84 H 178/84 H Pulse Oximetry 96 98 Oxygen Delivery Method Room Air Room Air 11/07/24 16:37 11/07/24 16:39 Temperature Pulse Rate 84 84 Respiratory Rate Blood Pressure 161/97 H 169/94 H Pulse Oximetry Oxygen Delivery Method BMI result Body Mass Index 32.1 Const General: healthy appearing, comfortable, no acute distress, alert and awake Nutritional Appearance: well nourished Orientation/consciousness: patient oriented x3 HENMT Head: Yes normocephalic and Yes atraumatic Eyes Eyelids: Yes eyelids normal Conjunctivae: conjunctivae normal Sclerae: sclerae normal Corneas: corneas normal Pupils: Equal, round and reactive pupils present EOM: EOMs intact bilaterally Neck Neck: Yes full ROM Resp Effort & Inspection: normal respiratory effort, able to speak in complete sentences and not labored GI Inspection: No distended Palpation (GI): Soft to palpation, not firm, nontender, no guarding and not rigid Skin General skin exam: elasticity normal Neuro General: patient oriented x3 Cranial nerves: Yes CN's II-XII intact bilaterally, Yes Equal, round and reactive pupils present and Yes Bilaterally intact EOM present Cognition (Neuro): normal cognition Extrem Other: Moving all extremities well without any obvious deformities Course Course Course Narrative: This is an RME performed by Samira Beltran CNP: Additional HPI, ROS, PE not included below will be deferred to primary provider. Patient is a 78-year-old female who presents emergency department for evaluation. She reports at approximately 11:00 she felt a bit off, like she was spacing out. Decided to check her blood pressure that was elevated 194 SBP, took her antihypertensives at 08:30 this morning. She elected to call her son to bring her to emergency department for evaluation. He states that she is at her baseline, expresses no concerns about mentation. Currently she is hypertensive with BP of 165/81, endorses having dizziness currently described as floating in the air . No focal neurological deficits. Plan: Serum labs, EKG Medical Decision Making Medical Decision Making [facility] Narrative: 78-year-old female presents for evaluation of high blood pressure. On arrival to the ED your blood pressure is 165/81 and her symptoms are greatly improved. She does complain of mild dizziness and a mild headache. Given her headache with dizziness and that she is on Xarelto I ordered a CT scan of her head to rule out bleed. She has no neuro deficits at the time my evaluation. Her labs are grossly unremarkable. She is on both losartan and metoprolol for blood pressure and reports taking them after her blood pressure was elevated this morning. She has no chest pain, shortness of breath to suggest cardiac cause of her symptoms. No upper respiratory or viral symptoms Differential Diagnosis Differential Diagnoses: The differential diagnosis associated with the presentation includes Acute headache Anxiety High blood pressure Hypertension Orthostasis Viral syndrome Lab Data [facility] Lab Attestation statement: I reviewed the patient's lab results. No hematology abnormalities, chemistries with no significant abnormalities warranting intervention. 11/07/24 13:38 11/07/24 13:38 Labs: Lab Results 11/07/24 Range/Units 13:38 WBC 8.8 (4.8-10.8) X10*3/uL RBC 5.48 (4.20-5.50) X10*6/uL Hgb 15.0 (12.0-16.0) g/dl Hct 45.4 (37.0-47.0) % MCV 82.8 (80.0-98.0) fL MCH 27.4 (27.0-33.0) pg MCHC 33.0 (31.0-35.0) g/dl RDW 15.8 (11.0-16.0) % Plt Count 199 (160-400) X10*3/uL MPV 10.9 (9.4-12.3) fL Immature Gran % (Auto) 0.2 (0.0-0.4) % Neut % (Auto) 51.2 (45-73) % Lymph % (Auto) 37.9 (20-40) % [place] % (Auto) 8.2 (2-11) % Eos % (Auto) 1.8 (0-4) % Baso % (Auto) 0.7 (0-2) % Lymph # (Auto) 3.3 (1.2-4.9) X10*3/uL [place] # (Auto) 0.7 (0.1-1.2) X10*3/uL Eos # (Auto) 0.2 (0.0-0.4) X10*3/uL Baso # (Auto) 0.1 (0.0-0.2) X10*3/uL Abs Immat Gran (auto) 0.02 (0.00-0.03) X10*3/uL Absolute Neuts (auto) 4.5 (2.0-8.3) x10*3/uL Absolute Nucleated RBC 0.000 (0.0-0.012) X10*3/uL Nucleated RBC % (auto) 0.0 (0.0-0.2) /100WBC Sodium 141 (135-145) mmol/L Potassium 4.3 (3.3-5.1) mmol/L Chloride 108 (96-108) mmol/L Carbon Dioxide 24 (22-29) mmol/L Anion Gap 13 (12-20) BUN 27 H (9-16) mg/dL Creatinine 1.28 (0.5-1.4) mg/dL Estim Creat Clear Calc 35.1 Estimated GFR 41 Random Glucose 103 (60-115) mg/dL Calcium 10.5 H (8.4-10.2) mg/dL Total Bilirubin 0.5 (0.0-1.0) mg/dL AST 23 (5-31) U/L ALT 17 (0-31) U/L Alkaline Phosphatase 88 (39-117) U/L Troponin I High Sens < 2.7 (<3.5-17.0) ng/L Total Protein 7.5 (6.5-8.0) g/dL Albumin 4.1 (3.5-5.0) g/dL Influenza Type A (PCR) NEGATIVE (Negative) Influenza Type B (PCR) NEGATIVE (Negative) RSV RNA Qual (PCR) NEGATIVE (Negative) SARS-CoV-2 RNA (RT-PCR) NEGATIVE (Negative) Independent Interpretation I performed an independent interpretation of an: EKG and CT Scan (Agree with Radiology interpretation) Interpretation: AFib with a ventricular rate of 78 beats minute. Radiology Impression Discussion of test interpretation with radiology: I have reviewed the radiologist's reading. Radiologist Impression: FINDINGS: Cortical sulci: There is diffuse prominence of the cortical sulci compatible with age-related atrophy. Ventricles: Normal for age Brain parenchyma: There is patchy lucency throughout the deep white matter indicating chronic microvascular leukomalacia. Unchanged chronic infarction of the bilateral cerebral hemisphere. Extra axial spaces: Normal Posterior Fossa: Normal Extracranial soft tissues: Normal Additional abnormality: None IMPRESSION: No acute intracranial findings. Unchanged chronic infarction of the bilateral cerebral hemisphere. This document has been electronically signed by: Prasanna Clement MD on 11/07/2024 17:16:29 Discharge Plan Discharge Clinical Impression: High blood pressure Patient Disposition: Home, Self-Care Instructions: Hypertension (ED) Additional Instructions: Your workup in the ER today was reassuring. This includes your blood work. Your blood pressure was greatly improved in the ER than it was at home. Your CT scan did not show any concerning findings. I recommend continuing your blood pressure medications as prescribed Follow-up with your primary doctor. You should only check your blood pressure no more than twice per day, once in the morning and once at night Prescriptions: No Action sennosides-docusate sodium [Senna-S] 8.6-50 mg tablet 2 tab PO BEDTIME gabapentin 300 mg capsule 1 cap PO DAILY albuterol sulfate [Ventolin HFA] 90 mcg/actuation HFA aerosol inhaler 2 puff PO QID PRN (Reason: wheezing) mirtazapine 7.5 mg tablet 7.5 mg PO BEDTIME insulin glargine [Lantus Solostar U-100 Insulin] 100 unit/mL (3 mL) insulin pen 35 unit subcut BEDTIME Xarelto 15 mg tablet 15 mg PO DAILY@1700 Trulicity 1.5 mg/0.5 mL pen injector 0.5 ml subcut QWEEK benzonatate 100 mg capsule 100 mg PO BID PRN (Reason: cough) Qty: 10 0RF meclizine 25 mg tablet 25 mg PO DAILY PRN (Reason: dizziness) Qty: 7 0RF losartan 25 mg tablet 25 mg PO DAILY furosemide 20 mg Tablet 20 mg PO DAILY Qty: 30 0RF Protocol: Hold for SBP< HOLD for SBP < : 90 metoprolol tartrate 25 mg Tablet 25 mg PO BID Qty: 60 0RF Protocol: Hold for SBP/HR < HOLD for SBP < : 90 HOLD for HR < : 60 cephalexin 250 mg capsule 250 mg PO QID 7 Days Qty: 28 0RF bacitracin 500 unit/gram ointment 1 appl topical TID Qty: 14 0RF clotrimazole 1 % cream topical nystatin 100,000 unit/gram cream 1 appl topical BID Interventions: ED Discharge Assessment Last Done: 11/07/24 18:01 Discharge Date/Time: 11/07/24 18:02 Print Language: Polish
[2024-11-07 13:16] VITALS: BP 165/81; PULSE 94; RESP 18; TEMP 36.4; O2SAT 96; BMI 32.1
--- NOTE | 2024-11-07 13:21 | ECG_ITS ---
Test Reason : DIZZINESS Blood Pressure : */* mmHG Vent. Rate : 78 BPM Atrial Rate : * BPM P-R Int : * ms QRS Dur : 82 ms QT Int : 414 ms P-R-T Axes : * 204 175 degrees QTcB Int : 471 ms Suspect limb lead reversal, interpretation assumes no reversal Atrial fibrillation Right superior axis deviation Nonspecific ST and T wave abnormality Abnormal ECG When compared with ECG of 09-Dec-2022 12:51, QT has lengthened Referred By: Gracia Beltran Electronically Signed By: Otilio Marlow
[2024-11-07 13:44] LABS: MANUAL DIFF FLAG NO
[2024-11-07 13:45] LABS: Basophils Absolute Auto 0.1 X10*3/uL (0.0-0.2); Basophils Percent Auto 0.7 % (0-2); Eosinophils Absolute Auto 0.2 X10*3/uL (0.0-0.4); Eosinophils Percent Auto 1.8 % (0-4); Hematocrit 45.4 % (37.0-47.0); Imm Gran Abs Auto 0.02 X10*3/uL (0.00-0.03); Imm Gran Pct Auto 0.2 % (0.0-0.4); Lymphocytes Absolute Auto 3.3 X10*3/uL (1.2-4.9); Lymphocytes Percent Auto 37.9 % (20-40); Mean Corpuscular Hemoglobin 27.4 pg (27.0-33.0); Mean Corpuscular Volume 82.8 fL (80.0-98.0); Mean Platelet Volume 10.9 fL (9.4-12.3); Monocytes Absolute Auto 0.7 X10*3/uL (0.1-1.2); Monocytes Percent Auto 8.2 % (2-11); Neutrophils Absolute Auto 4.5 x10*3/uL (2.0-8.3); Neutrophils Percent Auto 51.2 % (45-73); Platelet Count 199 X10*3/uL (160-400); Red Blood Count 5.48 X10*6/uL (4.20-5.50); Red Cell Distribution Width 15.8 % (11.0-16.0); White Blood Count 8.8 X10*3/uL (4.8-10.8)
[2024-11-07 14:16] LABS: Alanine Aminotransferase 17 U/L (0-31); Albumin Level 4.1 g/dL (3.5-5.0); Alkaline Phosphatase 88 U/L (39-117); Anion Gap 13 (12-20); Aspartate Amino Transferase 23 U/L (5-31); Bilirubin Total 0.5 mg/dL (0.0-1.0); Blood Urea Nitrogen 27 mg/dL (9-16); Calcium 10.5 mg/dL (8.4-10.2); Carbon Dioxide 24 mmol/L (22-29); Chloride 108 mmol/L (96-108); Creatinine Clr Calc Pharmacy 35.1; Estimated Glomerular Filt Rate 41; Glucose Random 103 mg/dL (60-115); Potassium 4.3 mmol/L (3.3-5.1); Sodium 141 mmol/L (135-145); Total Protein 7.5 g/dL (6.5-8.0)
[2024-11-07 14:21] LABS: Influenza A PCR NEGATIVE (Negative); Influenza B PCR NEGATIVE (Negative); Resp Syncy Virus RNA Qual PCR NEGATIVE (Negative); SARS COV2 PCR INHOUSE NEGATIVE (Negative)
[2024-11-07 14:31] LABS: Troponin-I High Sensitivity < 2.7 ng/L (<3.5-17.0)
[2024-11-07 16:36] VITALS: BP 178/84; PULSE 84; RESP 16; TEMP 36.1; O2SAT 98
[2024-11-07 16:37] VITALS: BP 161/97; BP 178/84; PULSE 81; PULSE 84
[2024-11-07 16:39] VITALS: BP 169/94; PULSE 84
[2024-11-07 18:01] VITALS: BP 169/94; PULSE 84; RESP 16; TEMP 36.6; O2SAT 97
== END 2024-11-07 18:02 | disposition home or self-care (01) ==
PROVIDERS: Nurse Practitioner Family; Emergency Provider Emergency Medicine
DX: R41.82 Altered mental status, unspecified (principal); I10 Essential (primary) hypertension; I48.91 Unspecified atrial fibrillation; R94.31 Abnormal electrocardiogram [ECG] [EKG]; E11.9 Type 2 diabetes mellitus without complications; Z79.899 Other long term (current) drug therapy; Z79.01 Long term (current) use of anticoagulants; Z79.85 Long-term (current) use of injectable non-insulin antidiabetic drugs; Z03.818 Encounter for observation for suspected exposure to other biological agents ruled out; Z79.4 Long term (current) use of insulin
CPT/HCPCS: 0241U; 70450; 80053; 84484; 85025; 93005; 99284; 99285

== ENCOUNTER → 2024-11-07 13:21 | Outpatient (BNV) | payer OTHER, SELFPAY | PROVIDERS: Emergency Provider Emergency Medicine; Visit Provider Internal Medicine Cardiovascular Disease | DX: I48.91 Unspecified atrial fibrillation (principal) | CPT/HCPCS: 93010 ==

== ENCOUNTER → 2024-11-07 16:11 | Outpatient (BNV) | payer OTHER, SELFPAY | PROVIDERS: Emergency Provider Emergency Medicine; Visit Provider Nuclear Medicine | DX: R90.82 White matter disease, unspecified (principal) | CPT/HCPCS: 70450 ==

== ENCOUNTER 2024-11-16 10:19 | Outpatient (REF) | payer OTHER, SELFPAY ==
--- OUTSIDE RECORDS SUMMARY | 2024-11-16 11:54 | XMS_ITS | Clinical Summary ---
Author Organization [facility] [address] [place] [address] [place] [phone] Phone Care Team Providers Care Academic Success Coordinator Name Role Phone Laurie Fontenot MD Primary Care Provider [phone] Allergies No known active allergies Medications isopropyl alcohol-benzoc jaz 70-6 % pads, medicated 1 each by Not Applicable route. 08/29/19 24 Active blood-glucose meter kit 2 (two) times a day. 12/30/19 24 Active albuterol HFA (PROAIR HFA ; PROVENTIL HFA ; VENTOLIN HFA) 90 mcg/actuation inhaler Inhale 2 puffs by mouth. 12/07/19 23 Active fluticasone furoate (Arnuity Ellipta) 200 mcg/actuation blister with device inhaler Inhale 1 puff by mouth. 04/06/20 24 Active furosemide (LASIX) 20 mg tablet 1 tablet (20 mg total). 11/22/19 23 Active FREESTYLE LANCETS MISC USE TO TEST BLOOD SUGAR TWO TIMES A DAY (BULK) 03/01/20 24 Active pen needle, diabetic (UNIFINE PENTIPS PLUS MISC) USE TO INJECT INSULIN EVERY EVENING 02/25/20 24 Active acetaminophen (TYLENOL) 325 mg tablet Take 2 tablets (650 mg total) by mouth. 02/12/20 23 Active insulin glargine (Lantus Solostar U-100 Insulin) 100 unit/mL (3 mL) injection pen INJECT 45 UNIT(S) UNDER THE SKIN AT BEDTIME (BULK) 11/22/19 23 Active meclizine (ANTIVERT) 25 mg tablet 1 tablet (25 mg total). 12/10/19 23 Active ipratropium-al buteroL (DUONEB) 0.5-2.5 mg/3 mL nebulizer solution Inhale 3 mL into the lungs 4 times daily. 12/07/19 23 Active atorvastatin (LIPITOR) 80 mg tablet TAKE ONE TABLET BY MOUTH EVERY DAY ^1R2 90 tablet 1 06/21/19 25 Active diclofenac (VOLTAREN) 1 % topical gel APPLY 2 TO 4 GRAMS TOPICALLY TO AFFECTED AREA(S) FOUR TIMES A DAY (BULK) 100 g 3 08/13/19 25 Active tirzepatide (Mounjaro) 2.5 mg/0.5 mL injectionIndic ations:Type 2 diabetes mellitus with stage 3 chronic kidney disease, without long-term current use of insulin, unspecified whether stage 3a or 3b CKD (CMS/[facility] V24, CMS/[facility] V28) Inject 0.5 mL (2.5 mg total) under the skin every 7 (seven) days. 6 mL 1 08/17/19 25 Active gabapentin (NEURONTIN) 300 mg capsule Take 1 capsule (300 mg total) by mouth at bedtime. 90 capsule 09/29/19 25 Active metoprolol tartrate (LOPRESSOR) 25 mg tablet TAKE ONE TABLET BY MOUTH TWICE A DAY ^1R2,1R4 60 tablet 5 09/29/19 25 Active mirtazapine (REMERON) 7.5 mg tablet TAKE ONE TABLET BY MOUTH EVERY EVENING AT BEDTIME ^1R4 28 tablet 4 10/07/19 25 Active Xarelto 15 mg tablet TAKE ONE TABLET BY MOUTH EVERY DAY ^1R1 28 tablet 4 10/07/19 25 Active Alcohol Prep Pads pads, medicated USE OT TEST BLOOD SUGARS TWO TIMES A DAY (BULK) 100 each 11 10/27/19 25 Active losartan (COZAAR) 25 mg tablet TAKE ONE TABLET BY MOUTH EVERY DAY ^1R2 28 tablet 3 11/05/19 25 Active Senna-S 8.6-50 mg per tablet TAKE TWO TABLETS BY MOUTH EVERY DAY NEEDED FOR CONSTIPATION (VIAL) 56 tablet 3 11/05/19 25 Active FreeStyle Lancets 28 gauge lancets USE TO TEST BLOOD SUGAR TWO TIMES A DAY (BULK) 100 each 5 11/05/19 25 Active losartan (COZAAR) 25 mg tablet TAKE ONE TABLET BY MOUTH EVERY DAY ^1R2 28 tablet 4 06/21/19 25 025 Discontinued Senna-S 8.6-50 mg per tablet TAKE TWO TABLETS BY MOUTH EVERY DAY NEEDED FOR CONSTIPATION (VIAL) 56 tablet 4 06/21/19 25 025 Discontinued Active Problems Problem Noted Date Diagnosed Date History of colon polyps 04/23/2024 Overview (04/23/2024): Multiple colon polyps, most recent colonoscopy 2023, per GI, repeat study in 3 years. Cognitive deficits 07/03/2023 Overview (04/23/2024): See note July 03, 2023 Assessment & Plan (06/17/2024 2:53 PM EST): Dilated cardiomyopathy ([facility] V24, [facility] V28 ) 05/13/2023 Decreased mobility 04/15/2023 Incontinence 04/15/2023 (HFpEF) heart failure with p reserved ejection fraction ([facility] V24, CMS/[facility] V28) 11/06/2022 Cerebrovascular accident (CVA) (CMS/[facility] V24, CMS /[facility] V28) 11/05/2022 Gait instability 09/26/2022 Physical deconditioning 09/26/2022 Primary osteoarthritis of left knee 09/26/2022 Primary osteoarthritis of right knee 09/26/2022 Dyspnea on exertion 11/21/2021 Overview (04/23/2024): Last Assessment & Plan: I explained Hetal and her health caregiver that most likely the dyspnea is due to cardiovascular disease. She has significant reduced ejection fraction with pulmonary edema. Her pulmonary function test did not show obstruction or asthma. I advised her to continue following with cardiology. She uses already Lasix. I do think that nebulizers could benefit her only symptomatically. CHF (congestive heart failure) (CMS/[facility] V24, CMS /[facility] V28) 04/16/2021 Assessment & Plan (06/17/2024 2:53 PM EST): Orders: Basic metabolic panel; Future Atrophy of right kidney 11/04/2019 Cardiomegaly 07/05/2019 Overview (04/23/2024): CXR showed cardiomegaly. Class 2 severe obesity with body mass index (BMI) of 35 to 39.9 with serious comorbidity ([facility] V24, [facility] V28) 01/14/2019 PLMD (periodic limb movement disorder) 9 Asthma 11/26/2017 Overview (04/23/2024): Last Assessment & Plan: Pulmonary patient does not have COPD or interstitial lung disease. We will continue treatment with asthma which is mild and intermittent with DuoNebs by nebulizer's. Cervical spine degeneration 11/26/2017 Chronic kidney disease (CKD) , stage III (moderate) ([facility] V24, [facility] V28) 11/26/2017 Overview (04/23/2024): Dr Greer Chronic systolic CHF (conges tive heart failure) ([facility] V24, [facility] V28) 11/26/2017 Overview (04/23/2024): 01/30 Echo EF 30-40% Constipation 11/26/2017 Depression 11/26/2017 Assessment & Plan (06/17/2024 2:53 PM EST): Orders: Ambulatory referral to Behavioral Health; Future Diabetes mellitus with renal complications ([facility] V24, [facility] V28) 11/26/2017 Assessment & Plan (08/24/2024 1:08 PM EDT): Orders: Complete blood count; Future Comprehensive metabolic panel; Future Thyroid stimulating hormone; Future Lipid panel with reflex to direct LDL; Future Hemoglobin A1c; Future Microalbumin creatinine urine ratio; Future Assessment & Plan (06/17/2024 2:53 PM EST): Orders: Hemoglobin A1c; Future Microalbumin and creatinine with ratio, urine timed; Future Glaucoma 11/26/2017 Overview (04/23/2024): Borderline with anatomical narrow angle 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 ([facility] V24, [facility] V28) 11/26/2017 Overview (04/23/2024): 07/2017 Aphasia as well Hyperlipidemia 11/26/2017 Hypertension 11/26/2017 Assessment & Plan (06/17/2024 2:53 PM EST): Orders: Basic metabolic panel; Future Microalbuminuria 11/26/2017 Assessment & Plan (06/17/2024 2:53 PM EST): ENEIDA on CPAP 11/26/2017 Overview (04/23/2024): CPAP broke in 2016; no therapy since. [facility] Split Night Polysomnogram: Date 04/23/2010; SE 38%; RDI 83, average oxygen saturation 95% (lowest 86%); PLMs 102. CPAP 10 -> 'excellent results'. [facility] Polysomnogram: Date 11/22/2018; Wt 200#; BMI 39; SE 62%; SM 79%; REM 8%; RDI 36 (AHI 25), REM (RDI 37 - AHI 37), Central apneas 0; Obstructive apneas 37; Mixed apneas 0; hypopneas 103; RERAs 63; average oxygen saturation 94% (lowest 80% - without saturations <88% for 5% or more of study); PLMs 112. - Obstructive Sleep Apnea - moderate overall and severe in REM; mostly hypopneas and obstructive apneas; with sleep related hypoventilation by 2019 polysomnogram. - 11/22/2018 Prestudy ESS 3; 4/4 RLS symptoms. Last Assessment & Plan: Hetal has obstructive sleep apnea but has not been able to tolerate the CPAP. She has another machine at home and will try to use it. I advised her that use it every day and we can follow her compliance. I will see her back in 6 months. Assessment & Plan (08/24/2024 1:08 PM EDT): Orders: Complete blood count; Future Comprehensive metabolic panel; Future Thyroid stimulating hormone; Future Lipid panel with reflex to direct LDL; Future Hemoglobin A1c; Future Microalbumin creatinine urine ratio; Future Osteoarthritis 11/26/2017 Overview (04/23/2024): knees Permanent atrial fibrillation (CMS/HCC V24, CMS/ HCC V28) 11/26/2017 Overview (04/23/2024): On chronic anticoagulation; 01/2017 EF 30-40%, right ventricle systolic function decreased and small circumferential pericardial effusion. Assessment & Plan (08/24/2024 1:08 PM EDT): Orders: Complete blood count; Future Comprehensive metabolic panel; Future Thyroid stimulating hormone; Future Lipid panel with reflex to direct LDL; Future Hemoglobin A1c; Future Microalbumin creatinine urine ratio; Future Assessment & Plan (06/17/2024 2:53 PM EST): Orders: Basic metabolic panel; Future Encounters Date Type Department Care Team Description 11/12/2024 Telephone [facility] [address] [facility] [address] [place] [address] Jeremy Franco MD Scheduling Follow Up 09/09/2024 Telephone Adult Medicine [address] [phone] Laurie Fontenot MD Fitting for DME 08/24/2024 1:15 PM EDT Office Visit Adult Medicine [address] [phone] Tre Orozco PA Permanent atrial fibrillation ([facility]/HCC V24, CMS/HCC V28) (Primary Dx); ENEIDA on CPAP; Type 2 diabetes mellitus with stage 3 chronic kidney disease, without long-term current use of insulin, unspecified whether stage 3a or 3b CKD (CMS/HCC V24, CMS/HCC V28) from Last 3 Months Immunizations Name Administration Dates Next Due Influenza trivalent, 0.5mL ( Fluad) 65yo and older 04/22/2023,04/03/2022,04/20/2021,04/17,03/04/2019 Pneumococcal conjugate 13 va lent (Prevnar 13, PCV13) 2mo and older 07/09/2018 Pneumococcal polysaccharide 23 valent (Pneumovax 23) 2yo and older 01/21/2022,01/16/2000 TD, Adsorbed, Preservative Free 05/07/2010,11/15 Td Tetanus diptheria (Tdvax) 7yo and older 03/04/2019 Surgical History Surgery Date Site/Laterality Comments OTHER SURGICAL HISTORY 07/2017 PROCEDURE: HISTORY OTHER; COMMENT: Mechanical thrombectomy OTHER SURGICAL HISTORY PROCEDURE: HISTORICAL LAPAROSCOPIC HYSTERECTOMY WITH OR WITHOUT BSO; COMMENT: prior to 2010; pelvic node sampling; follows with Dr. You COLONOSCOPY 08/12/2018 PROCEDURE: HISTORICAL COLONOSCOPY; COMMENT: polyps Medical History Medical History Date Comments A-fib ([facility] V24, [facility] V28) 11/26/2017 DX:A-fib ([facility]); COMMENT: On chronic anticoagulation; 01/2017 EF 30-40%, right ventricle systolic function decreased and small circumferential pericardial effusion. Chronic systolic CHF (conges tive heart failure) ([facility] V24, [facility] V28) 11/26/2017 DX:Chronic systoli c CHF (congestive heart failure) ([facility]); COMMENT: 01/30 Echo EF 30-40% Hyperlipidemia 11/26/2017 DX:Hyperlipidemi a Depression 11/26/2017 DX:Depression Hypertension 11/26/2017 DX:Hypertension History of endometrial cancer 11/26/2017 DX :History of endometrial cancer; COMMENT: 06/2009 Stage 1A grade adenocarcinoma, low risk; Dr. Caitie You Asthma 11/26/2017 DX:Asthma ENEIDA on CPAP 11/26/2017 DX:ENEIDA on CPAP Diabetes mellitus with renal complications ([facility] V24, [facility] V28) 11/26/2017 DX:Diabetes mellitus with re nal complications (HCC) Microalbuminuria 11/26/2017 DX:Microalbumin uria Chronic kidney disease (CKD) , stage III (moderate) ([facility] V24, [facility] V28) 11/26/2017 DX:Chronic kidney disease (C KD), stage III (moderate) ([facility]) Cervical spine degeneration 11/26/2017 DX:C ervical spine degeneration Osteoarthritis 11/26/2017 DX:Osteoarthriti s; COMMENT: knees Constipation 11/26/2017 DX:Constipation 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 ([facility] V24, [facility] V28) 11/26/2017 DX:Hemiplegia affecting righ t side in right-dominant patient as late effect of cerebrovascular disease (HCC); COMMENT: 07/2017 Aphasia as well Glaucoma 11/26/2017 DX:Glaucoma; COM MENT: Borderline with anatomical narrow angle History of colon polyps 08/12/2018 DX:Histo ry of colon polyps IJEOMA (acute kidney injury) ([facility] [place]/HCC V24) DX:IJEOMA (acute kidney injury) (HCC) CKD (chronic kidney disease) DX: CKD (chronic kidney disease) 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 (CMS/HCC V24, CMS/HCC V28) DX:Insulin depende nt type 2 diabetes mellitus (HCC) Family History Medical History Relation Name Comments No Known Problems Aunt Liver cancer Brother No Known Problems Father No Known Problems Maternal Grandfather No Known Problems Maternal Grandmother No Known Problems Mother No Known Problems Other No Known Problems Paternal Grandfather No Known Problems Paternal Grandmother Dementia Sister 1 Breast cancer Sister 2 No Known Problems Uncle Blindness Neg Hx Cataracts Neg Hx Glaucoma Neg Hx Macular degeneration Neg Hx Strabismus Neg Hx Relation Name Status Comments Aunt Brother Father Maternal Grandfather Maternal Grandmother Mother Other Paternal Grandfather Paternal Grandmother Sister 1 Sister 2 Uncle Social History Tobacco Use Types Packs/Day Years Used Date Smoking Tobacco: Former Cigarettes 2 18 0 06/16/1965 - 06/16/1983 Smokeless Tobacco: Never Alcohol Use Standard Drinks/Week Comments No 0 (1 standard drink = 0.6 oz pur e alcohol) Comments Unknown Sex and Gender Information Value Date Recorded Sex Assigned at Not on file Legal Sex Female 3:31 PM EST Gender Identity Not on file Sexual Orientation Not on file Obstetrics History Last Filed Vital Signs Vital Sign Reading Time Taken Comments Blood Pressure 118/80 08/24/2024 12:30 PM EDT Pulse 84 08/24/2024 12:30 PM EDT Temperature 36.4 ??C (97.6 ??F) 08/24/2024 12:30 PM E DT Respiratory Rate 14 08/24/2024 12:30 PM EDT Oxygen Saturation 98% 08/24/2024 12:30 PM EDT Inhaled Oxygen Concentration - - Weight 78 kg (172 lb) 08/24/2024 12:30 PM EDT Height 152.4 cm (5') 08/24/2024 12:30 PM EDT Body Mass Index 33.59 08/24/2024 12:30 PM EDT Plan of Treatment Upcoming Encounters Date Type Department Care Team (Late st Contact Info) Description 11/25/2024 3:30 PM EDT Office Visit Nephrology [facility] [address] [place] [phone] Carson Greer MD [address] [facility] [address] [place] [phone] 02/23/2025 11:15 AM EDT Office Visit Pulmonolgy - [place] [address] [facility] [address] [place] [phone] Belkys Patrick MD [address] [facility] [address] [place] [address] Health Maintenance Due Date Last Done Comments Zoster Vaccines (1 of 2) 12/05/1997 COVID-19 Vaccine (2 - Moderna risk series) 05/21/2021 04/23/2021 Social Influencers of Health Screening 05/25/2022 RSV Immunization Adult Patients (1 - 1-dose 75+ series) 12/05/2022 Diabetes: Annual Retina Eye Exam 12/22/2024 12/23/2023, 12/23/2023 Diabetes: Annual Foot Exam 12/29/2024 12/30/2023, Influenza Vaccine (Season Ended) 2025 04/22/2023, 04/03/2022, 04/20/2021, Additional history exists Diabetes: Blood Sugar Control Test (HGBA1C) 02/24/2025 08/24/2024, 12/30/2023, 12/30/2023 Depression Screening 06/17/2025 06/17/2024, 07/03/2023, 07/03/2023 Falls Risk Assessment 06/17/2025 06/17/2024 , 04/01/2023, 04/01/2023 Medicare Annual Wellness Visit 06/17/2025 06/17/2024 Diabetes: Annual Urine Albumin-Creatinine Ratio (uACR) 08/24/2025 08/24/2024, 04/15/2023 Diabetes: Annual GFR (Glomerular Filtration Rate) 08/24/2025 08/24/2024, 12/23/2023, 12/23/2023 Hypertension/CHF/CAD Annual BMP Blood Test 08/24/2025 08/24/2024, 12/23/2023, 12/23/2023 DTaP,Tdap,and Td Vaccines (2 - Td or Tdap) 03/04/2029 03/04/2019, 05/07/2010, 11/16/1999 Cholesterol Screening (Lipid Panel) 08/24/2029 08/24/2024, 12/30/2023, 12/30/2023 Osteoporosis Screening (Bone Density Screening) 06/06/2031 06/06/2021 Hepatitis C Screening Completed 12/08/2017 Pneumococcal Vaccine: 50+ Years Completed 01/21/2022, 07/09/2018, 08/28/2017, Additional history exists Colorectal Cancer Screening: Colonoscopy Discontinued 03/12/2024 HIB Vaccines Aged Out No longer eligi ble based on patient's age to complete this topic HPV Vaccines Aged Out No longer eligi ble based on patient's age to complete this topic Hepatitis A Vaccines Aged Out No long er eligible based on patient's age to complete this topic Hepatitis B Vaccines Aged Out No long er eligible based on patient's age to complete this topic IPV Vaccines Aged Out No longer eligi ble based on patient's age to complete this topic MMR Vaccines Aged Out No longer eligi ble based on patient's age to complete this topic Meningococcal ACWY Vaccine Aged Out N o longer eligible based on patient's age to complete this topic Meningococcal B Vaccine Aged Out No l onger eligible based on patient's age to complete this topic RSV Immunization Patients Under 20 months Aged Out No longer eligible based on patient's age to complete this topic Varicella Vaccines Aged Out No longer eligible based on patient's age to complete this topic Procedures Procedure Name Priority Date/Time Associated Diagnosis Comments EXTERNAL XRAY REPORT 10/05/2024 EXTERNAL XRAY REPORT 10/05/2024 COMPLETE BLOOD COUNT Routine 08/24/2024 1:03 PM EDT Permanent atrial fibrillation ([facility]/HCC V24, CMS/HCC V28) ENEIDA on CPAP Type 2 diabetes mellitus with stage 3 chronic kidney disease, without long-term current use of insulin, unspecified whether stage 3a or 3b CKD ([facility]/HCC V24, CMS/HCC V28) COMPREHENSIVE METABOLIC PANEL Routine 08/24/2024 1:03 PM EDT Permanent atrial fibrillation (CMS/HCC V24, CMS/HCC V28) ENEIDA on CPAP Type 2 diabetes mellitus with stage 3 chronic kidney disease, without long-term current use of insulin, unspecified whether stage 3a or 3b CKD (CMS/HCC V24, CMS/HCC V28) THYROID STIMULATING HORMONE Routine 08/24/2024 1:03 PM EDT Permanent atrial fibrillation (CMS/HCC V24, CMS/HCC V28) ENEIDA on CPAP Type 2 diabetes mellitus with stage 3 chronic kidney disease, without long-term current use of insulin, unspecified whether stage 3a or 3b CKD (CMS/HCC V24, CMS/HCC V28) LIPID PANEL WITH REFLEX TO DIRECT LDL Routine 08/24/2024 1:03 PM EDT Permanent atrial fibrillation (CMS/HCC V24, CMS/HCC V28) ENEIDA on CPAP Type 2 diabetes mellitus with stage 3 chronic kidney disease, without long-term current use of insulin, unspecified whether stage 3a or 3b CKD (CMS/HCC V24, CMS/HCC V28) HEMOGLOBIN A1C Routine 08/24/2024 1:03 PM EDT Permanent atrial fibrillation (CMS/HCC V24, CMS/HCC V28) ENEIDA on CPAP Type 2 diabetes mellitus with stage 3 chronic kidney disease, without long-term current use of insulin, unspecified whether stage 3a or 3b CKD (CMS/HCC V24, CMS/HCC V28) MICROALBUMIN CREATININE URINE RATIO Routine 08/24/2024 1:03 PM EDT Type 2 diabetes mellitus with ESRD (end-stage renal disease) (CMS/HCC V24, CMS/HCC V28) Chronic kidney disease, stage III (moderate) (CMS/HCC V24, CMS/HCC V28) COLONOSCOPY Routine 03/12/2024 DIABETES FOOT EXAM Routine 12/30/2023 DIABETES EYE EXAM Routine 12/23/2023 DEPRESSION SCREENING Routine 07/03/2023 FALLS RISK ASSESSMENT Routine 04/01/2023 DXA BONE DENSITY STUDY 1+ SITS AXIAL SKEL Routine 06/06/2021 10:52 AM EST Diabetes mellitus due to underlying condition with diabetic nephropathy (CMS/HCC V24, CMS/HCC V28) HEPATITIS C SCREENING Routine 12/08/2017 from Last 3 Months or Most Recently Relevant to Health Maintenance Results * External Xray Report (10/05/2024) Only the most recent of2 resultswithin the time period is included. Anatomical Region Laterality Modality Radiographic Amna ging us Provider [facility] XR PROCEDURES Final Result * (ABNORMAL) Lipid panel with reflex to direct LDL (08/24/2024 1:03 PM EDT) Cholesterol 230(H) 0 - 200 mg/dL LAB CHEMISTRY METHOD 08/24/2024 5:25 PM EDT [facility] Triglycerides 205(H) 0 - 150 mg/dL LAB CHEMISTRY METHOD 08/24/2024 5:25 PM EDT [facility] HDL 57 >=40 mg/dL LAB CHEMISTRY METHOD 08/24/2024 5:25 PM EDT [facility] LDL Calculated 132(H) 0 - 100 mg/dL LAB CHEMISTRY METHOD 08/24/2024 5:25 PM EDT [facility] VLDL Cholesterol Akhil 41 mg/dL LAB CHEMISTRY METHOD 08/24/2024 5:25 PM EDT [facility] Non HDL Chol. (LDL+VLDL) 173(H) <145 mg/dL LAB CHEMISTRY METHOD 08/24/2024 5:25 PM EDT [facility] Chol/HDL Ratio 4.0 0.0 - 4.4 LAB CHEMISTRY METHOD 08/24/2024 5:25 PM EDT [facility] Blood Venous blood specimen / Unknown Venipuncture / Unknown 08/24/2024 1:03 PM EDT 08/24/2024 1:03 PM EDT Tre DUEÑAS LAB BLOOD ORDERABLES Fin al Result Performing Organization Address City/[facility]/ZIP Co de Phone Number [facility] [address] [place] [address], [place] [phone] * (ABNORMAL) Microalbumin creatinine urine ratio (08/24/2024 1:03 PM EDT) Creatinine, Urine 181.0 mg/dL LAB CHEMISTRY METHOD 08/24/2024 4:45 PM EDT [facility] Microalb, Ur 112.0(H) 0.0 - 29.0 mg/L LAB CHEMISTRY METHOD 08/24/2024 4:45 PM EDT [facility] Microalb/Crea t Ratio 62(H) <30 mg/g creat LAB CHEMISTRY METHOD 08/24/2024 4:45 PM EDT [facility] Urine Urine specimen obtained by clean catch procedure / Unknown Non-blood Collection / Unknown 08/24/2024 1:03 PM EDT 08/24/2024 1:03 PM EDT Laurie Fontenot MD LAB URINE ORDERABLES Final Resul t Performing Organization Address City/[facility]/ZIP Co de Phone Number [facility] [address] [place] [address], [place] [phone] * (ABNORMAL) Complete blood count (08/24/2024 1:03 PM EDT) WBC 10.5 4.8 - 10.8 K/mcL LAB HEMETOLOGY METHOD 08/24/2024 3:03 PM EDT [facility] RBC 5.40(H) 3.80 - 4.80 M/mcL LAB HEMETOLOGY METHOD 08/24/2024 3:[address] [facility] Hemoglobin 14.7 11.5 - 16.0 g/dL LAB HEMETOLOGY METHOD 08/24/2024 3:[address] [facility] Hematocrit 47.2(H) 35.0 - 47.0 % LAB HEMETOLOGY METHOD 08/24/2024 3:[address] [facility] MCV 87.6 79.0 - 98.0 FL LAB HEMETOLOGY METHOD 08/24/2024 3:[address] [facility] MCH 27.3 27.0 - 32.0 pcg LAB HEMETOLOGY METHOD 08/24/2024 3:[address] [facility] MCHC 31.1(L) 32.0 - 37.0 g/dL LAB HEMETOLOGY METHOD 08/24/2024 3:[address] [facility] RDW 15.4(H) 11.0 - 15.0 % LAB HEMETOLOGY METHOD 08/24/2024 3:[address] [facility] Platelets 244 130 - 400 K/mcL LAB HEMETOLOGY METHOD 08/24/2024 3:[address] [facility] MPV 11.7(H) 7.0 - 11.0 FL LAB HEMETOLOGY METHOD 08/24/2024 3:[address] [facility] NRBC 0.0 <1.0 % LAB HEMETOLOGY METHOD 08/24/2024 3:[address] [facility] NRBC Absolute 0.00 <0.10 K/mcL LAB HEMETOLOGY METHOD 08/24/2024 3:[address] [facility] Blood Venous blood specimen / Unknown Venipuncture / Unknown 08/24/2024 1:03 PM EDT 08/24/2024 1:03 PM EDT Tre DUEÑAS LAB BLOOD ORDERABLES Fin al Result [facility] [address] [place] [address], [place] [phone] * Thyroid stimulating hormone (08/24/2024 1:03 PM EDT) [facility] TSH 2.60 0.40 - 4.00 mcIU/mL LAB CHEMISTRY METHOD 08/24/2024 5:19 PM EDT [facility] Blood Venous blood specimen / Unknown Venipuncture / Unknown 08/24/2024 1:03 PM EDT 08/24/2024 1:03 PM EDT Tre [facility] LAB BLOOD ORDERABLES Fin al Result Performing Organization Address [facility]/ZIP Co de Phone Number [facility] [address] [place] [address], [place] [phone] * (ABNORMAL) Hemoglobin A1c (08/24/2024 1:03 PM EDT) [facility] Hemoglobin A1C 6.8(H) <6.5 % LAB CHEMISTRY METHOD 08/24/2024 9:27 PM EDT [facility] Mean Bld Glu Estim. 148 mg/dL LAB CHEMISTRY METHOD 08/24/2024 9:27 PM EDT [facility] Blood Venous blood specimen / Unknown Venipuncture / Unknown 08/24/2024 1:03 PM EDT 08/24/2024 1:03 PM EDT Tre [facility] LAB BLOOD ORDERABLES Fin al Result Performing Organization Address City/[facility]/ZIP Co de Phone Number [facility] [address] [place] [address], [place] [phone] * (ABNORMAL) Comprehensive metabolic panel (08/24/2024 1:03 PM EDT) Sodium 141 133 - 145 mmol/L LAB CHEMISTRY METHOD 08/24/2024 5:[address] [facility] Potassium 4.2 3.5 - 5.5 mmol/L LAB CHEMISTRY METHOD 08/24/2024 5:[address] [facility] Chloride 108 96 - 110 mmol/L LAB CHEMISTRY METHOD 08/24/2024 5:[address] [facility] CO2 28 21 - 32 mmol/L LAB CHEMISTRY METHOD 08/24/2024 5:[address] [facility] Anion Gap 5 3 - 11 LAB CHEMISTRY METHOD 08/24/2024 5:[address] [facility] Glucose 97 70 - 100 mg/dL LAB CHEMISTRY METHOD 08/24/2024 5:[address] [facility] BUN 19 5 - 25 mg/dL LAB CHEMISTRY METHOD 08/24/2024 5:[address] [facility] Creatinine 1.52(H) 0.50 - 1.10 mg/dL LAB CHEMISTRY METHOD 08/24/2024 5:[address] [facility] eGFR 35(L) >=60 mL/min/1. 73m2 LAB CHEMISTRY METHOD 08/24/2024 5:[address] [facility] Comment:Calculation based on the??Chronic Kidney Disease Epidemiology Collaboration (CKD-EPI) equation refit??without adjustment for race. BUN/Creatinine Ratio 12.5 LAB CHEMISTRY METHOD 08/24/2024 5:[address] [facility] Calcium 10.2 8.5 - 10.5 mg/dL LAB CHEMISTRY METHOD 08/24/2024 5:[address] [facility] AST (SGOT) 18 10 - 42 unit/L LAB CHEMISTRY METHOD 08/24/2024 5:[address] [facility] ALT (SGPT) 20 10 - 60 unit/L LAB CHEMISTRY METHOD 08/24/2024 5:25 PM EDT [facility] Alkaline Phosphatase 102 42 - 121 unit/L LAB CHEMISTRY METHOD 08/24/2024 5:25 PM EDT [facility] Total Protein 7.4 6.0 - 8.0 g/dL LAB CHEMISTRY METHOD 08/24/2024 5:25 PM EDT [facility] Albumin 3.5 3.2 - 5.0 g/dL LAB CHEMISTRY METHOD 08/24/2024 5:25 PM EDT [facility] Total Bilirubin 0.4 0.0 - 1.4 mg/dL LAB CHEMISTRY METHOD 08/24/2024 5:25 PM EDT [facility] Blood Venous blood specimen / Unknown Venipuncture / Unknown 08/24/2024 1:03 PM EDT 08/24/2024 1:03 PM EDT Tre [facility] LAB BLOOD ORDERABLES Fin al Result [facility] [address] [place] [address], [place] [phone] * Colonoscopy (03/12/2024) [facility] Colonoscopy No interpretation , abstracted Anatomical Region Laterality Modality Other [facility] Provider HEALTH MAINTENANCE Final Result * Diabetes Foot Exam (12/30/2023) [facility] Diabetes: Annual Foot Exam Abstracted [facility] Provider HEALTH MAINTENANCE Final Result * Diabetes Eye Exam (12/23/2023) [facility] Diabetes: Annual Retina Eye Exam Abstracted [facility] Provider HEALTH MAINTENANCE Final Result * Depression Screening (07/03/2023) [facility] Depression Screening Abstracted [facility] Provider HEALTH MAINTENANCE Final Result * Falls Risk Assessment (04/01/2023) Falls Risk Assessment Abstracted us Historical Provider HEALTH MAINTENANCE Final Result * DXA BONE DENSITY STUDY 1+ SITS AXIAL SKEL (06/06/2021 10:52 AM EST) Anatomical Region Laterality Modality Bone Densitometr y 04/25/2021 10:5 7 AM EST Narrative 06/06/2021 4:37 PM EST BONE DENSITY ? Lumbar Spine T-score is -1.0 ?? (SD relative to 20-29 y/o adult) Z-score is +1.3 ??(SD relative to age matched peers) This is normal by criteria defined by the WHO. Left Hip T-score is +0.1 Z-score is +2.1 This is normal by criteria defined by the WHO. Impression: Based on the World Health Organization criteria, Hetal Levin should be classified as having normal bone density. The [facility] Department of Internal Medicine recommends using National Osteoporosis Foundation (NOF) guidelines in treatment decisions related to osteoporosis. NOF guidelines suggest considering treatment for postmenopausal women and men aged 50 or older presenting with the following: History of hip or vertebral fracture. T-score less than or equal to -2.5 (DXA) at the femoral neck, total hip, or spine, after appropriate evaluation to exclude secondary causes. Low bone mass (T-score between -1.0 and -2.5 at the femoral neck or spine) AND a 10-year probability of a hip fracture greater than or equal to 3% OR a 10-year probability of a major osteoporosis-related fracture greater than or equal to 20% based on the [place]-adapted WHO algorithm Please note that all treatment decisions require clinical judgment and consideration of individual patient factors, including patient preferences, co-morbidities, previous drug use, risk factors not captured in the FRAX model (e.g., frailty, falls, vitamin D deficiency, increased bone turnover, interval significant decline in bone density) and possible under- or over-estimation of fracture risk by FRAX. Procedure Note Fatou Connell MD - 06/04/2022 BONE DENSITY Lumbar Spine T-score is -1.0 (SD relative to 20-29 y/o adult) Z-score is +1.3 (SD relative to age matched peers) This is normal by criteria defined by the WHO. Left Hip T-score is +0.1 Z-score is +2.1 This is normal by criteria defined by the WHO. Impression: Based on the World Health Organization criteria, Hetal Carlos Levin shouldbe classified as having normal bone density. The [facility] Department of Internal Medicine recommendsusing National Osteoporosis Foundation (NOF) guidelines in treatmentdecisions related to osteoporosis. NOF guidelines suggest consideringtreatment for postmenopausal women and men aged 50 or older presentingwith the following: History of hip or vertebral fracture. T-score less than or equal to -2.5 (DXA) at the femoral neck, total hip,or spine, after appropriate evaluation to exclude secondary causes. Low bone mass (T-score between -1.0 and -2.5 at the femoral neck or spine)AND a 10-year probability of a hip fracture greater than or equal to 3% ORa 10-year probability of a major osteoporosis-related fracture greaterthan or equal to 20% based on the [place]-adapted WHO algorithm Please note that all treatment decisions require clinical judgment andconsideration of individual patient factors, including patientpreferences, co-morbidities, previous drug use, risk factors not capturedin the FRAX model (e.g., frailty, falls, vitamin D deficiency, increasedbone turnover, interval significant decline in bone density) and possibleunder- or over-estimation of fracture risk by FRAX. Taylor D[facility] IMG DXA PROCEDURES Final Re sult * Hepatitis C Screening (12/08/2017) [facility] Hepatitis C Screening Abstracted Historical Provider HEALTH MAINTENANCE Final Result from Last 3 Months or Most Recently Relevant to Health Maintenance Insurance [address] [place] [id number] [facility] MEDICARE Member Subscriber Plan / Payer (Ef fective 2019-Present) Name:Hetal Alfonso Relation to Subscriber:Self Name:Hetal Alfonso Payer ID:[id number] Group ID:[id number] Type:Not on file Address: [place] [address] [address] [id number] Care Teams Academic Success Coordinator Relationship Specialty Start Date End Date Laurie Fontenot MD [address] [place] [address] [id number] PCP - General Internal Medicine 10/16/20
[2024-11-16 12:30] LABS: Parathyroid Hormone Intact 538.9 pg/mL (8.7-77.1)
[2024-11-16 12:38] LABS: Alanine Aminotransferase 27 U/L (0-31); Albumin Level 4.3 g/dL (3.5-5.0); Alkaline Phosphatase 89 U/L (39-117); Anion Gap 13 (12-20); Aspartate Amino Transferase 25 U/L (5-31); Bilirubin Total 0.4 mg/dL (0.0-1.0); Blood Urea Nitrogen 21 mg/dL (9-16); Calcium 10.5 mg/dL (8.4-10.2); Carbon Dioxide 28 mmol/L (22-29); Chloride 107 mmol/L (96-108); Estimated Glomerular Filt Rate 35; Glucose Random 68 mg/dL (60-115); Phosphorus 3.7 mg/dL (2.7-4.5); Potassium 4.2 mmol/L (3.3-5.1); Sodium 144 mmol/L (135-145); Total Protein 7.6 g/dL (6.5-8.0)
[2024-11-18 13:02] LABS: Prot Elec - Albumin 4.3 g/dL (3.8-4.8); Prot Elec - Alpha1 0.2 g/dL (0.2-0.3); Prot Elec - Alpha2 0.7 g/dL (0.5-0.9); Prot Elec - Beta 1 0.5 g/dL (0.4-0.6); Prot Elec - Beta 2 0.5 g/dL (0.2-0.5); Prot Elec - Gamma 1.2 g/dL (0.8-1.7); Prot Elec - Total Protein 7.4 g/dL (6.1-8.1)
[2024-11-22 14:58] LABS: Vitamin D 25-OH, D2 <4 ng/mL; Vitamin D 25-OH, D3 25 ng/mL; Vitamin D 25-OH, Total 25 ng/mL (30-100)
== END 2024-11-16 10:20 | disposition home or self-care (01) ==
LOC: HO.10HDL 10:19
PROVIDERS: Visit Provider Internal Medicine Hypertension Specialist
DX: N18.30 Chronic kidney disease, stage 3 unspecified (principal); E83.52 Hypercalcemia
CPT/HCPCS: 36415; 80053; 82306; 83970; 84100; 84165

== ENCOUNTER 2024-12-06 10:27 | Outpatient (AMB) | payer OTHER, SELFPAY ==
[2024-12-06 10:55] VITALS: BP 120/76; PULSE 68; O2SAT 96; BMI 33.4
--- NOTE | 2024-12-06 10:55 | HO.NEPHOV ---
Vital Signs 12/06/24 10:55 Height 5 ft Weight 171 lb BMI 33.4 BP 120/76 Blood Pressure Location Lt radial Position Sitting Pulse 68 Pulse Source Pulse Oximeter Pulse Oximetry (%) 96 Oxygen Delivery Method Room Air Intake Visit Reasons: R/S 11/19/2024 Pmp Project Manager Required: No Pmp Project Manager Services: Pmp Project Manager Offered & Declined (FLOWER MACHINE OPERATOR will translate ) Accompanied by: product accountant Allergies No Known Allergies Allergy (Verified 12/06/24 10:58) Medication List - Last Reconciled 12/06/24 by Connor Callahan MD albuterol sulfate 90 mcg/actuation (Ventolin HFA) 2 puffs PO QID PRN atorvastatin 80 mg PO DAILY bacitracin 1 appl topical TID benzonatate 100 mg PO BID PRN cephalexin 250 mg PO QID 7 days clotrimazole 1% appl topical furosemide 20 mg See Protocol PO DAILY gabapentin 1 cap PO DAILY glucagon 3 mg/actuation (Baqsimi) mg intranasal insulin glargine (Lantus Solostar U-100 Insulin) 35 units subcut BEDTIME losartan 25 mg PO DAILY meclizine 25 mg PO DAILY PRN metoprolol tartrate 25 mg See Protocol PO BID mirtazapine 7.5 mg PO BEDTIME nystatin 1 appl topical BID rivaroxaban (Xarelto) 15 mg PO DAILY@1700 sennosides-docusate sodium 8.6-50 mg (Senna-S) 2 tabs PO BEDTIME tirzepatide (Mounjaro) 2.5 mg subcut QWEEK HPI Comments Details: Hetal is a pleasant 77-year-old woman with a history of longstanding hypertension, diabetes mellitus and congestive heart failure. She has history of CKD with the baseline EGFR of about 35 he mL per minute. She has had a history of IJEOMA during which time I had an opportunity to see your at [facility]. Ongoing medical problems significant for diabetes mellitus, hypertension, history of CVA, history of CHF, atrial fibrillation, history of asthma. She is here for further follow-up. Accompanied by caregiver. Today she denies any specific complaints. No shortness of breath. No chest pain. No nausea or vomiting. No urinary symptoms. No edema. No fever no rash. 12/06/24 79-year-old female presenting with hypertension and peripheral edema. Hypertension has been a concern, with previous readings as high as 169/170 mmHg, but currently controlled at 126/78 mmHg with losartan and furosemide therapy. Peripheral edema is noted occasionally, with mild erythema, and is suspected to be related to dietary salt intake. The patient also has hypercalcemia, which is being monitored, and a referral to an architectural job captain is planned due to elevated gland activity controlling calcium levels. [facility] Medical History CKD (chronic kidney disease) stage 3, GFR 30-59 ml/min CHF (congestive heart failure) Change in mental status Asthma History of CVA (cerebrovascular accident) Diabetes Hypertension Atrial fibrillation Asthma with acute exacerbation Surgical History H/O: hysterectomy Hx of tubal ligation Family History Father Hypertension Mother Diabetes Hypertension Social History Household Members: None Housing: Apartment Do you presently have visiting nurse or other home services: Yes Alcohol intake: never Patient Tobacco Use Status: Former Tobacco user Advance Directives Date on File: 10/11/22 service: No Current occupational status: disabled Physical Exam Const General: comfortable Nutritional Appearance: well nourished Orientation/consciousness: patient oriented x3 HEENT Head: No normal to inspection Mouth: moist mucous membranes Neck Neck: Yes supple and Yes no JVD Resp Auscultation: clear to auscultation bilaterally and no rales Cardio Jugular venous distension: no JVD Palpation: no palpable S3 and no palpable S4 Heart sounds: no rubs GI Palpation (GI): Soft to palpation and nontender Percussion: No Fluid wave present General: Yes no CVA tenderness Back/Spine/Pelvis Back: no CVA tenderness Skin General skin exam: no rashes or lesions noted Neuro General: patient oriented x3 Extrem General: Yes no pedal edema and No clubbing Results Reviewed Nephrology Results: Hgb, (12.0-16.0) 15.0 g/dl 11/07/24 WBC, (4.8-10.8) 8.8 X10*3/uL 11/07/24 Plt Count, (160-400) 199 X10*3/uL 11/07/24 Sodium, (135-145) 144 mmol/L 11/16/24 Potassium, (3.3-5.1) 4.2 mmol/L 11/16/24 Chloride, (96-108) 107 mmol/L 11/16/24 Carbon Dioxide, (22-29) 28 mmol/L 11/16/24 BUN, (9-16) 21 mg/dL H 11/16/24 Creatinine, (0.5-1.4) 1.47 mg/dL H 11/16/24 Calcium, (8.4-10.2) 10.5 mg/dL H 11/16/24 Phosphorus, (2.7-4.5) 3.7 mg/dL 11/16/24 PTH Intact, (8.7-77.1) 538.9 pg/mL H 11/16/24 Urine Creatinine 95.46 mg/dL 11/21/23 Protein/Creatinin Ratio TNP 11/21/23 Assessment & Plan Assessment & Plan (1) CKD (chronic kidney disease) stage 3, GFR 30-59 ml/min: Code(s): N18.30 - Chronic kidney disease, stage 3 unspecified Category: Medical (2) Hypercalcemia: Code(s): E83.52 - Hypercalcemia Category: Medical (3) Hypertension: Code(s): I10 - Essential (primary) hypertension Category: Medical Plan Hetal is a 79-year-old woman with a history of CKD 3B in the setting of longstanding diabetes mellitus and hypertension in the setting of congestive heart failure. Renal function is close to baseline at this time. Goal is to slow the progression of renal disease. Continue to avoid nephrotoxic agents. Continue LISA inhibition. She will benefit from SGLT2 inhibitor. Blood pressure is well controlled She is stay on low-sodium diet I have not made any changes to the antihypertensive medications. No evidence of anemia at this time. Mild hypercalcemia. Elevated intact PTH electrophoresis.Negative for MCGP Refer to Endocrine Orders: Orders UA and rflx microscopic 6 Months E83.52 - Hypercalcemia, I10 - Essential (primary) hypertension, N18.30 - Chronic kidney disease, stage 3 unspecified Basic Metabolic Panel 6 Months E83.52 - Hypercalcemia, I10 - Essential (primary) hypertension, N18.30 - Chronic kidney disease, stage 3 unspecified Total Protein Urine Random 6 Months E83.52 - Hypercalcemia, I10 - Essential (primary) hypertension, N18.30 - Chronic kidney disease, stage 3 unspecified Creatinine Urine 6 Months E83.52 - Hypercalcemia, I10 - Essential (primary) hypertension, N18.30 - Chronic kidney disease, stage 3 unspecified Referrals Endocrinology Referral E83.52 - Hypercalcemia Medications: Discontinued cephalexin Discontinued Reason: Patient no longer taking 250 mg PO QID 7 days 28 caps 0RF Coding Level of Care Code Est Pt Level 4 (69870) Diagnoses CKD (chronic kidney disease) stage 3, GFR 30-59 ml/min N18.30 Hypercalcemia E83.52 Hypertension I10
--- OUTSIDE RECORDS SUMMARY | 2024-12-06 11:40 | XMS_ITS | Data Portability ---
Author Organization [employer] [facility] Address [address] [place] [address] Care Team Providers Care Reservations And Ticketing Agent Name Role Phone HIM CCA OTHER Assessment Encounter Date Assessment Date Assessment LastModified by Organization Details LastModified Time 11/27/2022 11/27/2022 I provided real -time medical direction via phone for this encounter, and was available for additional phone based assistance as needed. I have reviewed and agree with the Assessment and Plan as documented by the Parking Meter Collector. Patient /family BUILDING ANALYST/SUPERVISOR given the opportunity to ask questions. Advised if develops CP/severe SOB/turning blue/uncontrolle d n/v / AMS/ syncope/ fever - to call 911- If arm gets red hot swollen needs recheck immediately-othe rwise f/u with pcp tomorrow- may need imaging- verbalized understanding of instructions [email or web address] Not available 11/27/2022 11:48:28 08/03/2024 08/03/2024 I have reviewed and agree with the assessment and plan as documented by the wharf tender helper. I provided real-time medical direction for this encounter and was immediately available to provide additional phone-based assistance as needed. History as noted in EMR and by wharf tender helper. I would add / emphasize: Patient seen for several days of cough headache and congestion. Has been using her nebulizer with good effect. Symptoms appear to be improving per report. AVSS, afebrile, saturating well on room air with unlabored respirations and clear lungs per report. Suspect most likely upper respiratory infection. Rapid COVID and flu testing negative. Given improving symptoms, reassuring vitals and exam advised supportive care with red flags discussed that should prompt evaluation in the emergency department. [email or web address] Not available 08/04/2024 16:08:53 Plan of Treatment Reminders Order Date Submit Date Provider Last Modified By Organization Details Last Modified Time Details Appointments None recorded. Lab rapid flu (A+B) 2024 025 [facility], [address] [place] [address], [id number] 5 16:58:15 rapid SARS CoV 2 Ag, QL IA, respiratory specimen 2024 025 [facility], [address] [place] [address], [id number] 5 16:56:41 Referral None recorded. Procedures None recorded. Surgeries None recorded. Imaging None recorded. Medication Orders Tylenol Extra Strength 500 mg tablet 2022 023 [email or web address] Not available 3 11:49:08 Patient TargetsNo targets recorded. Patient InstructionsNo instructions recorded. Reason for Referral None Reported. Results Created Date Observation Date Name Description Value Unit Range Abnormal Flag Note LastModifiedBy Organization Detail LastModifiedTime Result Notes None recorded. Medical Equipment None Reported. Allergies No known drug allergies Medications Name Sig Start Date Stop Date Status Note LastModified by Organization Details LastModified Time furosemide 40 mg tablet active Not Available Not Available Not Available atorvastatin 80 mg tablet active Not Available Not Available Not Available ipratropium 0.5 mg-albuterol 3 mg (2.5 mg base)/3 mL nebulization soln INHALE 1 AMPULE USING A NEBULIZER FOUR TIMES DAILY active Not Available Not Available No t Available FreeStyle Lancets 28 gauge active Not Available Not Available Not Available metoprolol succinate ER 100 mg tablet,exten ded release 24 hr active Not Available Not Available Not Available prednisolone acetate 1 % eye drops,suspen vicenta INSTILL 1 DROP IN THE RIGHT EYE FOUR TIMES DAILY DIRECTED active Not Available Not Available No t Available paroxetine 20 mg tablet active Not Available Not Available Not Available losartan 25 mg tablet active Not Available Not Available No t Available gabapentin 300 mg capsule active Not Available Not Available Not Available furosemide 20 mg tablet active Not Available Not Available Not Available clotrimazole 1 % topical cream APPLY A THIN LAYER TO AFFECTED AREA(S) TWICE DAILY FOR 4 WEEKS active Not Available Not Available Not Available Tylenol Extra Strength 500 mg tablet 1000 mg now po for pain 2022 active Not Available Not Available Not Avai lable Ventolin HFA 90 mcg/actuatio n aerosol inhaler INHALE 2 PUFFS BY MOUTH FOUR TIMES DAILY NEEDED FOR COUGH, WHEEZING, OR SHORTNESS OF BREATH active Not Available Not Available No t Available Senna-S 8.6 mg-50 mg tablet active Not Available Not Available Not Available metoprolol tartrate 25 mg tablet active Not Available Not Available No t Available mirtazapine 7.5 mg tablet active Not Available Not Available Not Available Unifine Pentips 31 gauge x 5/16 needle active Not Available Not Available Not Available FreeStyle Lite Strips active Not Available Not Available Not Available Lantus Solostar U-100 Insulin 100 unit/mL (3 mL) subcutaneous pen INJECT 35 UNITS SUBCUTANEOU SLY AT BEDTIME active Not Available Not Available No t Available FreeStyle Clubb Lite kit TEST BLOOD SUGAR TWICE DAILY active Not Available Not Available No t Available Xarelto 15 mg tablet active Not Available Not Available No t Available Trulicity 1.5 mg/0.5 mL subcutaneous pen injector active Not Available Not Available Not Available Vitals Date Recorded Oxygen saturation Oxygen saturation in Arterial blood by Pulse oximetry Respiratory rate Body temperature Heart rate Systolic blood pressure Diastolic blood pressure Provider Name and Address Organization Details Last Updated DateTime 5 99 % 99 % 16 /min 97.9 [degF] 61 /min 150 mm[Hg] 90 mm[Hg] Not Available [employer] 5 16:22:42 Date Recorded Heart rate Body weight Respiratory rate Oxygen saturation Oxygen saturation in Arterial blood by Pulse oximetry Body temperature Body temperature Heart rate Respiratory rate Oxygen saturation Oxygen saturation in Arterial blood by Pulse oximetry Body weight Systolic blood pressure Diastolic blood pressure Systolic blood pressure Diastolic blood pressure Provider Name and Address Organization Details Last Updated DateTime 3 85 /min 38584.6 64 g 14 /min 98 % 98 % 97.9 [degF] 97.9 [degF] 85 /min 14 /min 98 % 98 % 40744.6 64 g 104 mm[Hg] 58 mm[Hg] 104 mm[Hg] 58 mm[Hg] Not Available [employer] 3 12:05:00 Social History None recorded. Functional Status None recorded. Mental Status None recorded. Family History Nothing Reported. Medical History No medical history recorded. Gynecological HistoryNo gynecological history recorded. Obstetrics History GPAL:G 0 P 0 0 0 0 Past Encounters Encounter ID Performer Location Encounter Start Date Encounter Closed Date Diagnosis/Indication Diagnosis SNOMED-CT Code Diagnosis ICD10 Code Diagnosis Note [id number] Neela Rich MD [facility] [address] [place] [address] [phone] 11/27/2022 11:41:11 11/28/2022 10:35:50 Pain in right arm 863856194 M79.601 has APAP 500 mg - has not taken- may take 1000 mg 3 xper day prn pain- advised not sure of cause of pain - needs close f/u- no evidence clinically of cellulitis - no trauma advised ice / wrapped in a towel q 3-4H w/a to affected area [id number] Robby Mcwilliams MD [facility] [address] [place] [phone] 08/03/2024 16:22:39 08/05/2024 08:33:43 Upper respiratory infection 54608052 J06.9 Health Concerns Section Related Observation LastModified by Organization Detai ls LastModified Time None Recorded Concern Status LastModified by Organization Details LastModified Time None Recorded Advance Directives Directive None Recorded Payers Insurance Date Sequence Insurance Name Policy Number Policy Aldrich Covered Member ID Aldrich Member ID Guarantor Name 08/03/2024 1 [facility] - DOS ON OR AFTER 2022 - DUAL ELIGIBLE - LONG TERM OPTIONS AND ONE CARE (MEDICARE REPLACEMENT/ADV ANTAGE - HMO) Hetal Brooks ra [id number] Hetal Alfonso Notes Date Note Type Note Provider Name and Address Organization Details Recorded Time 11/27/2022 text/html [facility] Nursing Assessment: Chief Complaints: Pain, Edema Allergies: No Known Comments: Triage taken via [employer] [id number] Member BUILDING ANALYST/SUPERVISOR calling in to place a referral. 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 Member is experiencing pain and swelling today to her right hand. Per BUILDING ANALYST/SUPERVISOR this has happened once in the past. Member able to wiggle her fingers, slightly discolored, warm to touch. Member would like to be evaluated prior to seeking higher level of care. SEGMD: Now c/o right post elbow pain- no trauma- no fever/ chills/ CP/SOB-was hospitalized prior for arm pain but family does not know what was done or what dx was................ ................... ................... ................... ................... ................... ................... ............ Parking Meter Collector Note From Howard Duvall: Pt complains of right elbow pain since this morning. Pt presents COAX 4 speaking in full sentences. Pt describes the pain as a dull ache that worsens with extension of her arm Skin PWD, HEENT unremarkable, PERRL, airway patent with adequate tidal volume and clear lung sounds in all rubin. Abdomen soft and pain free in all quadrants. Arms and legs unremarkable bilaterally with CMS intact . Focused exam of right elbow negative for swelling, redness or any signs of trauma. Pt able to move right arm with no change to CMS. Right posterior elbow is tender with no abnormalities felt . VS stable and pt afebrile. [facility] contacted who prescribed 1000mg Tylenol PO and directed pt to elevate arm and use ice q 3 hours for 15 mins at a time to reduce pain. [facility] ordered 1000mg Tylenol PO now and same was given without incident. Pt, Family and BUILDING ANALYST/SUPERVISOR were educated on S/SX that would indicate 911/ED visit and pt was directed to follow up with PCP for possible need for imaging. ................... ................... ................... ................... ................... ................... ................... ........ Disposition: Fulfilled Neela Rich MD [address] [facility],[address], [place], [address], [place] SID [employer] 11/27/2022 12:29:38 08/03/2024 text/html [facility] Nurse Triage Notes (Veronica Avalos - RN): Denies: Increased work of breathing/labored with or without fever Unable to speak in full sentences without distress Discoloration of skin -cyanosis Needs to sleep sitting up, can t catch breath Shortness of breath in setting of confusion Chief Complaints: Asthma, Cough PMH: Asthma, Arrhythmias (e.g., Atrial Fibrillation), Hypertension, Diabetes Mellitus Type 2 PMH Reviewed at 08/03/2024 Allergies Reviewed at 08/03/2024:32 Comments: BUILDING ANALYST/SUPERVISOR calling in to place a referral, patient identified via name and . In addition to PMH patient has afib on xarelto, question of kidney disease. Patient reports a productive cough for 3 days, +congestion and wheezes. She denies chest pain, no shortness of breath, no fever/chills, no nausea, vomiting or diarrhea, no headache or dizziness. She has been using her inhaler and neb with no relief, per BUILDING ANALYST/SUPERVISOR son brought her OTC medication yesterday, unsure what it is, but it is not helping with the cough. Patient would like to be evaluated. Parking Meter Collector Organization Information for [facility] Business Legal Name: [employer]. Address: [address] [place] [address], Curriculum Writer: Wilver Schmidt MD CLIA No.: [id number] Parking Meter Collector POC Test Results from [facility] Rapid COVID antigen (16:04:23) COVID: - Rapid influenza antigen (16:04:24) Flu: - ................... ................... ................... ................... ................... ................... ................... ........ Parking Meter Collector Note From [facility]: Dispatched to the call address for the elderly female with URI symptoms. Pt has had a cough, headache and congestion for 3 days now. She has not taken any OTC medication or spoken with her doctor. She has been using her nebulizer 3x a day with good effect. She denies chest pain, fevers, difficulty breathing/SoB, n/v/d or any other symptoms at this time. She has been able to maintain PO hydration without issue. Pt was found laying in bed, CAOx4, airway open and patent, breathing non labored, able to speak in full sentences, -JVD, +CMSx4, afebrile, skin PWD with good turgor, mucous membranes pink and moist, abd soft non tender/distended, pupils PERRL, Lungs CTA, rapid Covid/Flu (-). C consulted. Pt advised to of supportive care. Red flags discussed. ALL times are approx. ................... ................... ................... ................... ................... ................... ................... ........ [facility] Consulted: Robby Mcwilliams ................... ................... ................... ................... ................... ................... ................... ........ Disposition: Fulfilled Robby Mcwilliams MD [address] [facility],[address], [place], [address], SID - [employer]O [employer]ABAGO 08/04/2024 16:09:10 OBGyn Episode No OBEpisode recorded.
== END 2024-12-06 11:12 | disposition home or self-care (01) ==
LOC: HO.HKA 10:27
PROVIDERS: Visit Provider Internal Medicine Hypertension Specialist
DX: N18.30 Chronic kidney disease, stage 3 unspecified (principal); E83.52 Hypercalcemia; I10 Essential (primary) hypertension
CPT/HCPCS: 99214

== ENCOUNTER → 2024-12-06 10:27 | Outpatient (BNVA) | payer OTHER, SELFPAY | PROVIDERS: Visit Provider Internal Medicine Hypertension Specialist | DX: I10 Essential (primary) hypertension (principal); N18.30 Chronic kidney disease, stage 3 unspecified; E83.52 Hypercalcemia | CPT/HCPCS: 99212 ==

== ENCOUNTER 2025-04-19 10:16 | Outpatient (AMB) | payer OTHER, SELFPAY ==
[2025-04-19 10:17] VITALS: BP 122/74; PULSE 78; O2SAT 98; BMI 34.7
--- NOTE | 2025-04-19 10:17 | MHC.OFFVIS ---
Vital Signs 04/19/25 10:17 Height 5 ft Weight 177 lb 14.609 oz BMI 34.7 BP 122/74 Blood Pressure Location Lt brachial Position Sitting Pulse 78 Pulse Source Pulse Oximeter Pulse Oximetry (%) 98 Oxygen Delivery Method Room Air Intake Visit Reasons: Hypercalcemia Intake Note: NEW Patient presents here today to establish treatment for Hypercalcemia Database Management System Specialist Required: Yes Database Management System Specialist Language: Cfa Services: Database Management System Specialist Offered & Declined Accompanied by: PURA Allergies No Known Allergies Allergy (Verified 04/19/25 10:22) HPI Comments Details: 79 years old female with PMH of type 2 diabetes mellitus, ENEIDA, CKD, hypertension, history of CVA, history of CHF, atrial fibrillation, seen in the office for evaluation of hypercalcemia and hyperparathyroidism. The hypercalcemia was first identified in 2022 and has remained mildly elevated and stable on serial measurements. The patient is under the care of a hydraulics engineer for CKD, and recent labs have shown both low 25-hydroxy vitamin D and a elevated PTH. She denies classic symptoms of hypercalcemia, including polyuria, polydipsia, nephrolithiasis, constipation, abdominal pain, neuropsychiatric changes, or bone pain. She also denies dry mouth, muscle weakness, or confusion. There is no history of recent fractures or significant bone pain. She has not experienced recent weight loss, fevers, or night sweats. Prior to 2022 she was never told that her calcium was high She does not have any family history of hypercalcemia or osteoporosis. The patient is not taking any calcium supplements and reports only sporadic intake of dairy products, including milk and cheese, with no consistent pattern. She does not consume large amounts of calcium-rich foods. She avoids sun exposure, stating she does not like the sun, which likely contributes to her low vitamin D status. She had not taken steroids, hormonal therapy or thiazide diuretics. There is no recent change in her medication regimen. She does not have any history of kidney stones. Review of Systems: General: No weight loss, fever, or malaise GI: No constipation, abdominal pain, or nausea : No polyuria, no nephrolithiasis Neuro: No confusion, no psychiatric symptoms Musculoskeletal: No bone pain, no muscle weakness Cardiac: History of hypertension, prior stroke Physical exam General: Well appearing. NAD. Neck/Thyroid: Thyroid not palpable, no nodules. Eyes: No conjunctival injection, not lid lag or proptosis CV: RRR, no murmur. No edema. Resp:Lungs clear to auscultation bilaterally Abdomen: Soft, nontender. nondistended Extremities/Neuro: No weakness or tremor of outstretched hands Laboratory Tests 11/21/23 11/07/24 11/16/24 12:00 13:38 10:25 BUN 26 H 27 H 21 H Creatinine 1.62 H 1.28 1.47 H Estimated GFR 31 41 35 Calcium 10.4 H 10.5 H 10.5 H Phosphorus 3.7 Albumin 4.1 4.3 25-OH Vitamin D Total 25 L PTH Intact 538.9 H [facility] Medical History CKD (chronic kidney disease) stage 3, GFR 30-59 ml/min CHF (congestive heart failure) Change in mental status Asthma History of CVA (cerebrovascular accident) Diabetes Hypertension Atrial fibrillation Asthma with acute exacerbation Surgical History H/O: hysterectomy Hx of tubal ligation Family History Father Hypertension Mother Diabetes Hypertension Social History Household Members: None Housing: Apartment Do you presently have visiting nurse or other home services: Yes Alcohol intake: never Patient Tobacco Use Status: Former Tobacco user Advance Directives Date on File: 10/11/22 service: No Current occupational status: disabled Physical Exam Vital Signs: Last Vital Signs Pulse 78 04/19/25 10:17 BP 122/74 04/19/25 10:17 Pulse Ox 98 04/19/25 10:17 Oxygen Delivery Method Room Air 04/19/25 10:17 BMI result Body Mass Index 34.7 Assessment & Plan Assessment & Plan (1) Hypercalcemia: Code(s): E83.52 - Hypercalcemia Category: Medical Plan: Assessment 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 Given patient's history of CKD and Vitamin D Deficiency, the most likely explanation for her PTH elevation is a combination of these 2 factors. Her mild hypercalcemia, could be an indicator of early tertiary hyperparathyroidism, which would required close monitoring. Although primary hyperparathyroidism could be possible in this patient, it seems less likely, given the absence of kidney stones, and the lack of information in regards to hypercalciuria and osteoporosis. At this point, it seems more reasonable to correct vitamin-D deficiency and reassess PTH. Plan Prescribed vitamin-D 2000 IU daily Retest vitamin-D and 1.25 vitamin-D in 3 months Recommend to limit calcium intake to 800 to 1000 mg per day, preferably from diet Order bone density scan to rule out osteoporosis Reassess the patient in 3 months, we will order a more comprehensive workup if patient have osteoporosis or if her PTH remains significantly elevated despite normalizing vitamin-D levels. Plan 45 minutes spent reviewing previous records, labs, imaging, education and documenting in the chart Orders: Orders XR DEXA axial skeleton Today E83.52 - Hypercalcemia Vitamin D 1,25 dihydroxy 3 Months E83.52 - Hypercalcemia Vitamin D 25-OH Total 3 Months E83.52 - Hypercalcemia Medications: New cholecalciferol (vitamin D3) 50 mcg PO DAILY 30 caps 3RF E83.52 - Hypercalcemia Coding Level of Care Code New Pt Level 4 (36683) Diagnoses Hypercalcemia E83.52
--- OUTSIDE RECORDS SUMMARY | 2025-04-19 12:06 | XMS_ITS | Data Portability ---
Author Organization ID [employer] [facility], [facility] Address [address] [place] [address] Care Team Providers Care Vegetable Worker Name Role Phone HIM CCA OTHER Assessment Encounter Date Assessment Date Assessment LastModified by Organization Details LastModified Time 11/27/2022 11/27/2022 I provided real -time medical direction via phone for this encounter, and was available for additional phone based assistance as needed. I have reviewed and agree with the Assessment and Plan as documented by the [employer]. Patient /family SCAFFOLD SETTER given the opportunity to ask questions. Advised if develops CP/severe SOB/turning blue/uncontrolle d n/v / AMS/ syncope/ fever - to call 911- If arm gets red hot swollen needs recheck immediately-othe rwise f/u with pcp tomorrow- may need imaging- verbalized understanding of instructions Not available 11/27/2022 11:48:28 08/03/2024 08/03/2024 I have reviewed and agree with the assessment and plan as documented by the dentist/owner. I provided real-time medical direction for this encounter and was immediately available to provide additional phone-based assistance as needed. History as noted in EMR and by dentist/owner. I would add / emphasize: Patient seen [...] recorded. Lab rapid flu (A+B) 2024 025 [facility], [address] [place] [address], [phone] 5 16:58:15 rapid SARS CoV 2 Ag, QL IA, respiratory specimen 2024 025 [facility], [address] [place] [address], [id number] 5 16:56:41 Referral None recorded. Procedures None [...] Available Not Available No t Available FreeStyle [place] Lite kit TEST BLOOD SUGAR TWICE DAILY active Not Available Not Available No t Available Xarelto 15 mg tablet active Not Available Not Available No t Available Trulicity 1.5 mg/0.5 mL subcutaneous pen injector active Not Available Not Available Not Available Vitals Date Recorded Oxygen saturation Oxygen saturation in Arterial blood by Pulse oximetry Respiratory rate Body temperature Heart rate Systolic And Diastolic Provider Name and Address Organization Details Last Updated DateTime 5 99 % 99 % 16 /min 97.9 [degF] 61 /min 150/90 mm[Hg] Not Available [facility] 5 16:22:42 Date Recorded Heart rate Body weight Respiratory rate Oxygen saturation Oxygen saturation in Arterial blood by Pulse oximetry Body temperature Body temperature Heart rate Respiratory rate Oxygen saturation Oxygen saturation in Arterial blood by Pulse oximetry Body weight Provider Name and Address Organization Details Last Updated DateTime 3 85 /min 89987.6 64 g 14 /min 98 % 98 % 97.9 [degF] 97.9 [degF] 85 /min 14 /min 98 % 98 % 02544.6 64 g Not Available [employer] - production 3 12:05:00 Date Recorded Systolic And Diastolic Systolic And Diastolic Provider Name and Address Organization Details Last Updated DateTime 11/27/2022 104/58 mm[Hg] 104/58 mm[Hg] Not Available [facility] [employer] - production 11/27/2022 12:05:00 Social History None recorded. Functional Status None recorded. Mental Status None recorded. Family History Nothing Reported. Medical History No medical history recorded. Gynecological HistoryNo gynecological history recorded. Obstetrics History GPAL:G 0 P 0 0 0 0 Past Encounters Encounter ID Performer Location Encounter Start Date Encounter Closed Date Diagnosis/Indication Diagnosis SNOMED-CT Code Diagnosis ICD10 Code Diagnosis IMO Codes Diagnosis Note [id number] Neela Rich MD [facility] [address] [place] [phone] 11/27/2022 11:41:11 11/28/2022 10:35:50 Pain in right arm 322914531 M79.601 has APAP 500 mg - has not taken- may take 1000 mg 3 xper day prn pain- advised not sure of cause of pain - needs close f/u- no evidence clinically of cellulitis - no trauma advised ice / wrapped in a towel q 3-4H w/a to affected area [id number] Robby Mcwilliams MD Main - [facility] [address] [place] [phone] 08/03/2024 16:22:39 08/05/2024 08:33:43 Upper respiratory infection 63896958 J06.9 Health Concerns Section Related Observation LastModified by Organization Detai ls LastModified Time None Recorded Concern Status LastModified by Organization Details LastModified Time None Recorded Advance Directives Directive None Recorded Payers Insurance Date Sequence Insurance Name Policy Number Policy Aldrich Covered Member ID Aldrich Member ID Guarantor Name 08/03/2024 1 [facility] - DOS ON OR AFTER 2022 - DUAL ELIGIBLE - SKILLED NURSING OPTIONS AND ONE CARE (MEDICARE REPLACEMENT/ADV ANTAGE - HMO) Hetal Brooks ra [id number] Hetal Alfonso Notes Date Note Type Note Provider Name and Address Organization Details Recorded Time 11/27/2022 text/html ROS as noted in the HPI CRC Nursing Assessment: Chief Complaints: Pain, Edema Allergies: No Known Comments: Triage taken via Can Reforming Machine 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 Member is experiencing pain and swelling today to her right hand. Per SCAFFOLD SETTER this has happened once in the past. [...] ................... ................... ................... ................... ................... ................... ............ [employer] Note From Howard Duvall: Pt complains of [...] felt . VS stable and pt afebrile. [facility] contacted who prescribed 1000mg Tylenol PO and directed pt to elevate arm and use ice q 3 hours for 15 mins at a time to reduce pain. [facility] ordered 1000mg Tylenol PO now and same was given without incident. Pt, Family and SCAFFOLD SETTER were educated on S/SX that would indicate 911/ED visit and pt was directed to follow up with PCP for possible need for imaging. ................... ................... ................... ................... ................... ................... ................... ........ Disposition: Fulfilled Neela Rich MD [address] [facility],[address], [place], [address], [place] [employer] 11/27/2022 12:29:38 08/03/2024 text/html CRC Nurse Triage [...] at 08/03/2024 Allergies Reviewed at 08/03/2024:32 Comments: SCAFFOLD SETTER calling in to place a referral, patient [...] inhaler and neb with no relief, per SCAFFOLD SETTER son brought her OTC medication yesterday, unsure what it is, but it is not helping with the cough. Patient would like to be evaluated. [employer] Organization Information for Bonifacio Gonzalez Business Legal Name: [employer]. Address: [address] [place] [id number], Glass Vial Filler: Wilver Schmidt MD CLIA No.: [id number] [employer] POC Test Results from Bonifacio Gonzalez Rapid COVID antigen (16:04:23) COVID: - Rapid influenza antigen (16:04:24) Flu: - ................... ................... ................... ................... ................... ................... ................... ........ [employer] Note From Bonifacio Gonzalez: Dispatched to the [...] ................... ................... ................... ................... ................... ................... ........ [facility] Consulted: Robby Mcwilliams ................... ................... ................... ................... ................... ................... ................... ........ Disposition: Fulfilled Robby Mcwilliams MD [address] [place] [address],[address], [place], [address], SID [facility] 08/04/2024 16:09:10 OBGyn Episode No OBEpisode recorded.
== END 2025-04-19 10:50 | disposition home or self-care (01) ==
LOC: HO.ENCR 10:16
PROVIDERS: Visit Provider Student in an Organized Health Care Education/Training Program
DX: E83.52 Hypercalcemia (principal)
CPT/HCPCS: 99204

== ENCOUNTER → 2025-04-19 10:16 | Outpatient (BNVA) | payer OTHER, SELFPAY | PROVIDERS: Visit Provider Student in an Organized Health Care Education/Training Program | DX: E83.52 Hypercalcemia (principal) | CPT/HCPCS: 99202 ==

== ENCOUNTER 2025-05-16 13:45 | Outpatient (AMB) | payer OTHER, SELFPAY ==
--- NOTE | 2025-05-16 15:02 | A.OFFVIS_ITS ---
Intake Intake Visit Reasons: 60 mins Security Controls Assessor Required: Yes Security Controls Assessor Language: Plumbing Warehouse Helper Name: [id number] Accompanied by: case specialist Allergies No Known Allergies Allergy (Verified 04/19/25 10:22) HPI Comprehensive Diabetes Asmnt Most Recent Diabetes Results: Creatinine, (0.5-1.4) 1.47 mg/dL H 11/16/24 BUN, (9-16) 21 mg/dL H 11/16/24 Sodium, (135-145) 144 mmol/L 11/16/24 Potassium, (3.3-5.1) 4.2 mmol/L 11/16/24 Chloride, (96-108) 107 mmol/L 11/16/24 Carbon Dioxide, (22-29) 28 mmol/L 11/16/24 Calcium, (8.4-10.2) 10.5 mg/dL H 11/16/24 AST, (5-31) 25 U/L 11/16/24 ALT, (0-31) 27 U/L 11/16/24 Total Protein, (6.5-8.0) 7.6 g/dL 11/16/24 Albumin, (3.5-5.0) 4.3 g/dL 11/16/24 PFSH Medical History CKD (chronic kidney disease) stage 3, GFR 30-59 ml/min CHF (congestive heart failure) Change in mental status Asthma History of CVA (cerebrovascular accident) Diabetes Hypertension Atrial fibrillation Asthma with acute exacerbation Surgical History H/O: hysterectomy Hx of tubal ligation Family History Father Hypertension Mother Diabetes Hypertension Social History Household Members: None Housing: Apartment Do you presently have visiting nurse or other home services: Yes Alcohol intake: never Patient Tobacco Use Status: Former Tobacco user Advance Directives Date on File: 10/11/22 service: No Current occupational status: disabled Assessment & Plan Assessment & Plan (1) Diabetes: Code(s): E11.9 - Type 2 diabetes mellitus without complications Plan: Patient reports she has had diabetes for approximately 12 years There is no A1c data in provider note or in labs 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 with 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 currently on Mounjaro 2.5 mg weekly Lantus 35 mg daily Reviewed with patient: Blood glucose monitoring When/how often to test Target blood sugar ranges patient currently uses glucometer to test glucose, tests twice a day patient did not bring meter to today's visit Introduction to Nutrition Importance of healthy diet in managing DM Diet is personalized to individual preference How diet effects glucose Eating 3 balanced meals a day with small, healthy snacks between meals Review food groups Carbohydrates: What is a carbohydrate/Which food/food groups are considered carbohydrates Effect of carbohydrates on blood glucose Portion sizes Plate method Meal planning Recommendations: Follow plate method, consistent carbs and read nutritional labels. CGM Info Instructed Pt on what CGM can and can't do CGM Can: Give Pt minute by minute reading of glucose levels Displays glucose trend arrows that represents the direction glucose levels are fluctuating Give insight on decisions about how to dose insulin CGM cannot: Improve glucose control on its own Completely eliminate the need for all finger sticks Make dosing decision for you CGM is the reading of glucose in the interstitial fluid not actual blood glucose, finger sticks are still necessary when Pt's symptom?s do not match sensor reading and if sensors prompts Pt to do a fingerstick Patient? is interested in the Pancho 3+ with reader Reviewed Medicare guidelines for obtaining CGM Reviewed delay of CGM from fingersticks Reminded pt that if symptoms do not match sensor still needs to check fingersticks. CGM is the reading of glucose in the interstitial fluid not actual blood glucose, finger sticks are still necessary when Pt's symptom?s do not match sensor reading and if sensors prompts Pt to do a fingerstick Patient given sample Pancho 3+ sensor with reader Instructed patient sensors water proof you can shower, or swim do not submerge sensor in water for over 30 minutes Is sensor falls off cannot put back in you need to replace sensor, customer service number given to patient for sensor replacement Sensor placed on the back of left arm Patient left visit with sensor in warmup Reviewed how to interpret trend arrows Discussed lag time between finger stick and sensor data.? Instructed patient the importance of having blood glucometer for backup testing if needed Reviewed delay of CGM from fingersticks Reminded Pt that if symptoms do not match sensor still needs to check fingersticks. Patient will return in 15 days follow-up with Diabetes Education Patient Instructions: Instrucciones para el paciente: CGM proporciona informaci?n sobre el control de la glucosa en elie a lo manav del d?a, incluidas la hiperglucemia y la hipoglucemia. Contin?e controlando la glucosa en elie seg?n las instrucciones. Siga las pautas de nutrici?n proporcionadas. Informe cualquier molestia de inmediato al proveedor de atenci?n m?dica. Mantente ran hidratado. Puede ba?arse, ducharse, nadar y hacer ejercicio mientras usa el sensor de glucosa. No sumerja el sensor de glucosa en agua mariah m?s de 30 minutos. Retire el sensor para edward resonancia magn?gudelia o edward tomograf?a computarizada. Evite la m?quina de karson X en los aeropuertos: retire el sensor o solicite la varita Coding Level of Care Code Est Pt Level 1 (81596) Diagnoses Diabetes E11.9
--- OUTSIDE RECORDS SUMMARY | 2025-05-16 17:16 | XMS_ITS | Data Portability ---
Author Organization [employer] [facility], [facility] Address [address] [place] [address] Care Team Providers Care Box Nailer Name Role Phone HIM CCA OTHER Assessment Encounter Date Assessment Date Assessment LastModified by Organization Details LastModified Time 11/27/2022 11/27/2022 I provided real -time medical direction via phone for this encounter, and was available for additional phone based assistance as needed. I have reviewed and agree with the Assessment and Plan as documented by the Creative Producer. Patient /family BUSINESS OBJECTS CONSULTANT given the opportunity to ask questions. Advised if develops CP/severe SOB/turning blue/uncontrolle d n/v / AMS/ syncope/ fever - to call 911- If arm gets red hot swollen needs recheck immediately-othe rwise f/u with pcp tomorrow- may need imaging- verbalized understanding of instructions [email or web address] Not available 11/27/2022 11:48:28 08/03/2024 08/03/2024 I have reviewed and agree with the assessment and plan as documented by the clinical outcomes manager. I provided real-time medical direction for this encounter and was immediately available to provide additional phone-based assistance as needed. History as noted in EMR and by clinical outcomes manager. I would add / emphasize: Patient seen [...] recorded. Lab rapid flu (A+B) 2024 025 [facility], [address] [place] [address], [phone] 5 16:58:15 rapid SARS CoV 2 Ag, QL IA, respiratory specimen 2024 025 Pending [facility] to [facility], [address] [place] [address], [phone] 5 16:56:41 Referral None recorded. Procedures None [...] Available Not Available No t Available FreeStyle [place] Lite kit TEST BLOOD SUGAR TWICE DAILY active Not Available Not Available No t Available Xarelto 15 mg tablet active Not Available Not Available No t Available Trulicity 1.5 mg/0.5 mL subcutaneous pen injector active Not Available Not Available Not Available Vitals Date Recorded Oxygen saturation Respiratory rate Body temperature Heart rate Systolic And Diastolic Provider Name and Address Organization Details Last Updated DateTime 5 99 % 16 /min 97.9 [degF] 61 /min 150/90 mm[Hg] Not Available [employer] 5 16:22:42 Date Recorded Heart rate Body weight Respiratory rate Oxygen saturation Body temperature Body temperature Heart rate Respiratory rate Oxygen saturation Body weight Systolic And Diastolic Systolic And Diastolic Provider Name and Address Organization Details Last Updated DateTime 3 85 /min 83110.6 64 g 14 /min 98 % 97.9 [degF] 97.9 [degF] 85 /min 14 /min 98 % 59002.6 64 g 104/58 mm[Hg] 104/58 mm[Hg] Not Available [employer] 3 12:05:00 Social History None recorded. Functional Status None recorded. Mental Status None recorded. Family History Nothing Reported. Medical History No medical history recorded. Gynecological HistoryNo gynecological history recorded. Obstetrics History GPAL:G 0 P 0 0 0 0 Past Encounters Encounter ID Performer Location Encounter Start Date Encounter Closed Date Diagnosis/Indication Diagnosis SNOMED-CT Code Diagnosis ICD10 Code Diagnosis IMO Codes Diagnosis Note [id number] Neela Rich MD [facility] - [facility] [address] [place] [phone] 11/27/2022 11:41:11 11/28/2022 10:35:50 Pain in right arm 947993487 M79.601 has APAP 500 mg - has not taken- may take 1000 mg 3 xper day prn pain- advised not sure of cause of pain - needs close f/u- no evidence clinically of cellulitis - no trauma advised ice / wrapped in a towel q 3-4H w/a to affected area [id number] Robby Mcwilliams MD Main - [facility] [address] [place] [phone] 08/03/2024 16:22:39 08/05/2024 08:33:43 Upper respiratory infection 85885472 J06.9 Health Concerns Section Related Observation LastModified by Organization Detai ls LastModified Time None Recorded Concern Status LastModified by Organization Details LastModified Time None Recorded Advance Directives Directive None Recorded Payers Insurance Date Sequence Insurance Name Policy Number Policy Aldrich Covered Member ID Aldrich Member ID Guarantor Name 08/03/2024 1 [facility] - DOS ON OR AFTER 2022 - DUAL ELIGIBLE - NURSING HOME OPTIONS AND ONE CARE (MEDICARE REPLACEMENT/ADV ANTAGE - HMO) Hetal Brooks ra [id number] Hetal Alfonso Notes Date Note Type Note Provider Name and Address Organization Details Recorded Time 11/27/2022 text/html ROS as noted in the HPI CRC Nursing Assessment: Chief Complaints: Pain, Edema Allergies: No Known Comments: Triage taken via Billet Bed Operator [id number] Member BUSINESS OBJECTS CONSULTANT calling in to place a referral. 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 Member is experiencing pain and swelling today to her right hand. Per BUSINESS OBJECTS CONSULTANT this has happened once in the past. [...] ................... ................... ................... ................... ................... ................... ............ Creative Producer Note From Howard Duvall: Pt complains of [...] felt . VS stable and pt afebrile. [facility] contacted who prescribed 1000mg Tylenol PO and directed pt to elevate arm and use ice q 3 hours for 15 mins at a time to reduce pain. [facility] ordered 1000mg Tylenol PO now and same was given without incident. Pt, Family and BUSINESS OBJECTS CONSULTANT were educated on S/SX that would indicate 911/ED visit and pt was directed to follow up with PCP for possible need for imaging. ................... ................... ................... ................... ................... ................... ................... ........ Disposition: Fulfilled Neela Rich MD [address] [facility],[address], [place], [phone], [employer] 11/27/2022 12:29:38 08/03/2024 text/html CRC Nurse Triage [...] at 08/03/2024 Allergies Reviewed at 08/03/2024:32 Comments: BUSINESS OBJECTS CONSULTANT calling in to place a referral, patient [...] inhaler and neb with no relief, per BUSINESS OBJECTS CONSULTANT son brought her OTC medication yesterday, unsure what it is, but it is not helping with the cough. Patient would like to be evaluated. Creative Producer Organization Information for Bonifacio Gonzalez Business Legal Name: [facility], [employer]. Address: [address] [place] [address], Nutritional Services Director: Wilver Schmidt MD CLIA No.: [id number] Creative Producer POC Test Results from Bonifacio Gonzalez Rapid COVID antigen (16:04:23) COVID: - Rapid influenza antigen (16:04:24) Flu: - ................... ................... ................... ................... ................... ................... ................... ........ Creative Producer Note From Bonifacio Gonzalez: Dispatched to the [...] pupils PERRL, Lungs CTA, rapid Covid/Flu (-). [facility] consulted. Pt advised to of supportive care. Red flags discussed. ALL times are approx. ................... ................... ................... ................... ................... ................... ................... ........ [facility] Consulted: Robby Mcwilliams ................... ................... ................... ................... ................... ................... ................... ........ Disposition: Fulfilled Robby Mcwilliams MD [address] [facility],[address], [place], [address], SID - [email or web address] 08/04/2024 16:09:10 OBGyn Episode No OBEpisode recorded.
== END 2025-05-16 15:04 | disposition home or self-care (01) ==
LOC: HO.ENCR 13:46
PROVIDERS: Visit Provider Registered Nurse Diabetes Educator
DX: E11.9 Type 2 diabetes mellitus without complications (principal)

== ENCOUNTER → 2025-05-16 13:45 | Outpatient (BNVA) | payer OTHER, SELFPAY | PROVIDERS: Visit Provider Registered Nurse Diabetes Educator | DX: E11.9 Type 2 diabetes mellitus without complications (principal); Z79.4 Long term (current) use of insulin; Z79.85 Long-term (current) use of injectable non-insulin antidiabetic drugs | CPT/HCPCS: 99211 ==

== ENCOUNTER 2025-05-31 08:45 | Outpatient (AMB) | payer OTHER, SELFPAY ==
--- OUTSIDE RECORDS SUMMARY | 2025-05-31 09:26 | XMS_ITS | Clinical Summary ---
Author Organization [address] Address [address] [place] [phone] Phone Care Team Providers Care Pan Shaker Name Role Phone Laurie Fontenot MD Primary Care Provider [phone] Allergies No known active allergies Medications isopropyl [...] tablet (20 mg total). 11/22/19 23 Active acetaminophen (TYLENOL) 325 mg tablet Take 2 tablets (650 mg total) by mouth. 02/12/20 23 Active meclizine (ANTIVERT) 25 mg tablet 1 tablet (25 mg total). 12/10/19 23 Active ipratropium-al buteroL (DUONEB) 0.5-2.5 mg/3 mL nebulizer solution Inhale 3 mL into the lungs 4 times daily. 12/07/19 23 Active Alcohol Prep Pads pads, medicated USE OT TEST BLOOD SUGARS TWO TIMES A DAY (BULK) 100 each 11 10/27/19 25 Active FreeStyle Lancets 28 gauge lancets USE TO TEST BLOOD SUGAR TWO TIMES A DAY (BULK) 100 each 5 11/05/19 25 Active atorvastatin (LIPITOR) 80 mg tablet TAKE ONE TABLET BY MOUTH EVERY DAY ^1R2 90 tablet 02/25/20 25 Active diclofenac (VOLTAREN) 1 % topical gel APPLY 2 TO 4 GRAM(S) TOPICALLY TO AFFECTED AREA(S) FOUR TIMES A DAY (BULK) 400 g 02/25/20 25 Active gabapentin (NEURONTIN) 300 mg capsule TAKE ONE CAPSULE BY MOUTH EVERY EVENING AT BEDTIME (VIAL) 90 capsule 02/25/20 25 Active losartan (COZAAR) 25 mg tablet TAKE ONE TABLET BY MOUTH EVERY DAY ^1R2 90 tablet 02/25/20 25 Active metoprolol tartrate (LOPRESSOR) 25 mg tablet TAKE ONE TABLET BY MOUTH TWICE A DAY ^1R2,1R4 60 tablet 6 03/14/20 25 Active mirtazapine (REMERON) 7.5 mg tablet TAKE ONE TABLET BY MOUTH EVERY EVENING AT BEDTIME ^1R4 90 tablet 1 02/25/20 25 Active Senna-S 8.6-50 mg per tablet TAKE TWO TABLETS BY MOUTH EVERY DAY NEEDED FOR CONSTIPATION (VIAL) 180 tablet 02/25/20 25 Active Xarelto 15 mg tablet TAKE ONE TABLET BY MOUTH EVERY DAY ^1R1 90 tablet 02/25/20 25 Active fluticasone-sa lmeterol (Wixela Inhub) 250-50 mcg/dose diskus inhaler Inhale 1 puff by mouth 2 (two) times a day. Rinse mouth with water after use to reduce aftertaste and incidence of candidiasis. Do not swallow. 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, with long-term current use of insulin ([facility] V24, CMS/HCC V28) USE TO INJECT INSULIN EVERY EVENING (BULK) 100 each 02/29/20 25 Active insulin glargine (Lantus Solostar U-100 Insulin) 100 unit/mL (3 mL) injection pen INJECT 45 UNIT(S) UNDER THE SKIN AT BEDTIME (BULK) 15 mL 02/29/20 25 Active blood sugar diagnostic (FreeStyle Lite Strips) test strip USE TO TEST BLOOD SUGAR TWO TIMES A DAY (BULK) 120 strip 1 04/19/20 25 Active tirzepatide (Mounjaro) 5 mg/0.5 mL injectionIndic ations:Type 2 diabetes mellitus with stage 3 chronic kidney disease, without long-term current use of insulin, unspecified whether stage 3a or 3b CKD ([facility] V24, [facility] V28) INJECT 5MG UNDER THE SKIN EVERY 7 DAYS 2 mL 1 05/16/20 25 Active Mounjaro 2.5 mg/0.5 mL injectionIndic ations:Type 2 diabetes mellitus with stage 3 chronic kidney disease, without long-term current use of insulin, unspecified whether stage 3a or 3b CKD ([facility] V24, [facility] V28) INJECT 0.5ML UNDER THE SKIN EVERY 7 DAYS 2 mL 04/25/20 25 025 Discontinued Active Problems Problem Noted Date Diagnosed Date History of colon polyps 04/23/2024 Overview (04/23/2024): Multiple colon polyps, most recent colonoscopy 2023, per GI, repeat study in 3 years. Cognitive deficits 07/03/2023 Overview (04/23/2024): See note July 03, 2023 Assessment & Plan (06/17/2024 2:53 PM EST): Dilated cardiomyopathy 05/13/2023 Decreased mobility 04/15/2023 Incontinence 04/15/2023 (HFpEF) heart failure with preserved ejection fr action 11/06/2022 Cerebrovascular accident (CVA) 11/05/2022 Gait instability 09/26/2022 Physical deconditioning 09/26/2022 [...] her only symptomatically. CHF (congestive heart failure) 04/16/2021 Assessment & Plan (06/17/2024 2:53 PM EST): Orders: Basic metabolic panel; Future Atrophy of right kidney 11/04/2019 Cardiomegaly 07/05/2019 Overview (04/23/2024): CXR showed cardiomegaly. Class 2 severe obesity with body mass index (BMI) of 35 to 39.9 with serious comorbidity 01/14/2019 PLMD (periodic limb movement disorder) 9 Asthma 11/26/2017 Overview (04/23/2024): Last Assessment & Plan: Pulmonary patient does not have COPD or interstitial lung disease. We will continue treatment with asthma which is mild and intermittent with DuoNebs by nebulizer's. Cervical spine degeneration 11/26/2017 Chronic kidney disease (CKD), stage III (moderat e) 11/26/2017 Overview (04/23/2024): Dr Greer Chronic systolic CHF (congestive heart failure) 11/26/2017 Overview (04/23/2024): 01/30 Echo EF 30-40% Constipation 11/26/2017 Depression 11/26/2017 Assessment & Plan (06/17/2024 2:53 PM EST): Orders: Ambulatory referral to Behavioral Health; Future Diabetes mellitus with renal complications 11/26 Assessment & Plan (08/24/2024 1:08 PM EDT): [...] patient as late effect of cerebrovascular disease 11/26/2017 Overview (04/23/2024): 07/2017 Aphasia as well Hyperlipidemia 11/26/2017 Hypertension 11/26/2017 Assessment & Plan (06/17/2024 2:53 PM EST): Orders: Basic metabolic panel; Future Microalbuminuria 11/26/2017 Assessment & Plan (06/17/2024 2:53 PM EST): ENEIDA on CPAP 11/26/2017 Overview (04/23/2024): CPAP broke in 2016; no therapy since. [facility] Split Night Polysomnogram: Date 04/23/2010; SE 38%; RDI 83, average oxygen saturation 95% (lowest 86%); PLMs 102. CPAP 10 -> 'excellent results'. [facility] Polysomnogram: Date 11/22/2018; Wt 200#; BMI 39; [...] 11/26/2017 Overview (04/23/2024): knees Permanent atrial fibrillation 11/26/2017 Overview (04/23/2024): On chronic anticoagulation; 01/2017 [...] Encounters Date Type Department Care Team Description 04/25/2025 12:30 PM EST Ancillary Procedure Pulmonology - [address] [phone] Dyspnea, unspecified type 04/25/2025 Telephone Pulmonology - [place] [address] [facility] [address] [place] [phone] Rosalva Webb [place] 04/21/2025 3:30 PM EST Office Visit Adult Medicine [address] [phone] Laurie Fontenot MD Cardiomegaly (Primary Dx); Dyspnea on exertion; Cognitive deficits; Permanent atrial fibrillation ([facility] V24, CMS/HCC V28); Heart failure with preserved ejection fraction (HFpEF), unspecified HF chronicity (CMS/HCC V24, CMS/HCC V28); Type 2 diabetes mellitus with stage 3 chronic kidney disease, without long-term current use of insulin, unspecified whether stage 3a or 3b CKD (CMS/HCC V24, CMS/HCC V28); Arthritis from Last 3 Months Immunizations Immunization Administration Dates Next Due Influenza trivalent, 0.5mL [...] Medical History Medical History Date Comments A-fib ([facility] V24, [facility] V28) 11/26/2017 DX:A-fib ([facility]); COMMENT: On chronic anticoagulation; 01/2017 EF 30-40%, right ventricle systolic function decreased and small circumferential pericardial effusion. Chronic systolic CHF (conges tive heart failure) ([facility] V24, [facility] V28) 11/26/2017 DX:Chronic systoli c CHF (congestive heart failure) ([facility]); COMMENT: 01/30 Echo EF 30-40% Hyperlipidemia 11/26/2017 DX:Hyperlipidemi a Depression 11/26/2017 DX:Depression Hypertension 11/26/2017 DX:Hypertension History of endometrial cancer 11/26/2017 DX :History of endometrial cancer; COMMENT: 06/2009 Stage 1A grade adenocarcinoma, low risk; Dr. Caitie You Asthma 11/26/2017 DX:Asthma ENEIDA on CPAP 11/26/2017 DX:ENEIDA on CPAP Diabetes mellitus with renal complications ([facility] V24, [facility] V28) 11/26/2017 DX:Diabetes mellitus with re nal complications (HCC) Microalbuminuria 11/26/2017 DX:Microalbumin uria Chronic kidney disease (CKD) , stage III (moderate) ([facility] V24, [facility] V28) 11/26/2017 DX:Chronic kidney disease (C KD), stage III (moderate) ([facility]) Cervical spine degeneration 11/26/2017 DX:C ervical spine degeneration Osteoarthritis 11/26/2017 DX:Osteoarthriti s; COMMENT: knees Constipation 11/26/2017 DX:Constipation 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 ([facility] V24, [facility] V28) 11/26/2017 DX:Hemiplegia affecting righ t side in right-dominant patient as late effect of cerebrovascular disease (HCC); COMMENT: 07/2017 Aphasia as well Glaucoma 11/26/2017 DX:Glaucoma; COM MENT: Borderline with anatomical narrow angle History of colon polyps 08/12/2018 DX:Histo ry of colon polyps IJEOMA (acute kidney injury) ([place] V24) DX:IJEOMA (acute kidney injury) (HCC) CKD (chronic kidney disease) DX: CKD (chronic kidney disease) 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 ([facility] V24, [facility] V28) DX:Insulin depende nt type 2 diabetes [...] 0 [birth year]16/1963 - 06/16/1983 Smokeless Tobacco: Never Tobacco Cessation:Counseling Given: Not Answered Alcohol Use Standard Drinks/Week Comments No 0 (1 standard drink = 0.6 oz pur e alcohol) Comments Unknown Sex and Gender Information Value Date Recorded Sex Assigned at Not on file Legal Sex Female 3:31 PM EST Gender Identity Not on file Sexual Orientation Not on file Last Filed Vital Signs Vital Sign Reading Time Taken Comments Blood Pressure 115/71 04/21/2025 1:05 PM EST Pulse 71 04/21/2025 1:05 PM EST Temperature 36.1 C (97 F) 04/21/2025 1:05 PM EST Respiratory Rate 14 04/21/2025 1:05 PM EST Oxygen Saturation 98% 04/21/2025 1:05 PM EST Inhaled Oxygen Concentration - - Weight 80.3 kg (177 lb) 04/21/2025 1:05 PM EST Height 152.4 cm (5') 04/21/2025 1:05 PM EST Body Mass Index 34.57 04/21/2025 1:05 PM EST Plan of Treatment Upcoming Encounters Date Type Department Care Team (Late st Contact Info) Description 06/17/2025 11:45 AM EST Office Visit Pulmonology - [place] [address] [place] [phone] Belkys Patrick MD [address] [place] [phone] 07/22/2025 10:30 AM EST Office Visit Adult Medicine [place] - [place] [address] [place], [place] [phone] Laurie Fontenot MD [address] [place], [place] 12/29/2025 1:00 PM EDT Office Visit Nephrology [address] [phone] Carson Greer MD [address] [facility] [address] [place] [phone] Health Maintenance Due Date Last Done Comments Zoster Vaccines (1 of 2) 12/05/1964 COVID-19 Vaccine (2 - Moderna risk series) 05/21/2021 04/23/2021 Social Influencers of Health Screening 05/25/2022 RSV Immunization Adult Patients (1 - 1-dose 75+ series) 12/05/2022 Diabetes: Annual Retina Eye Exam 12/22/2024 12/23/2023, 12/23/2023 Diabetes: Annual Foot Exam 12/29/2024 12/30/2023, Influenza Vaccine (#1) 2025 , 04/03/2022, 04/20/2021, Additional history exists Diabetes: Blood Sugar Control Test (HGBA1C) 02/24/2025 08/24/2024, 12/30/2023, 12/30/2023 Falls Risk Assessment 06/17/2025 06/17/2024 , 04/01/2023, 04/01/2023 Medicare Annual Wellness Visit 06/17/2025 06/17/2024 Diabetes: Annual Urine Albumin-Creatinine Ratio (uACR) 08/24/2025 08/24/2024, 04/15/2023 Diabetes: Annual GFR (Glomerular Filtration Rate) 08/24/2025 08/24/2024, 12/23/2023, 12/23/2023 Hypertension/CHF/CAD Annual BMP Blood Test 08/24/2025 08/24/2024, 12/23/2023, 12/23/2023 Cholesterol Screening (Lipid Panel) 08/24/2029 08/24/2024, 12/30/2023, 12/30/2023 Osteoporosis Screening (Bone Density Screening) 06/06/2031 06/06/2021 DTaP,Tdap,and Td Vaccines (3 - Td or Tdap) 10/05/2034 10/05/2024, 03/04/2019, 05/07/2010, Additional history exists Hepatitis C Screening Completed 12/08/2017 Pneumococcal Vaccine: 50+ Years Completed 01/21/2022, 07/09/2018, 08/28/2017, Additional history exists Colorectal Cancer Screening: Colonoscopy Discontinued 03/12/2024 Depression Screening Completed 06/17/2024, 07/03/19 24 HIB Vaccines Aged Out No longer eligi [...] Procedure Name Priority Date/Time Associated Diagnosis Comments PULMONARY FUNCTION TESTING Routine 04/25/2025 12:57 PM EST Dyspnea, unspecified type MICROALBUMIN CREATININE URINE RATIO Routine 08/24/2024 1:03 PM EDT Type 2 diabetes mellitus with ESRD (end-stage renal disease) ([facility]/HCC V24, [facility] V28) Chronic kidney disease, stage III (moderate) (CMS/HCC V24, [facility] V28) COMPREHENSIVE METABOLIC PANEL Routine 08/24/2024 1:03 PM EDT Permanent atrial fibrillation ([facility]/HCC V24, [facility] V28) ENEIDA on CPAP Type 2 diabetes mellitus with stage 3 chronic kidney disease, without long-term current use of insulin, unspecified whether stage 3a or 3b CKD ([facility] V24, [facility] V28) HEMOGLOBIN A1C Routine 08/24/2024 1:03 PM EDT Permanent atrial fibrillation ([facility] V24, [facility] V28) ENEIDA on CPAP Type 2 diabetes mellitus with stage 3 chronic kidney disease, without long-term current use of insulin, unspecified whether stage 3a or 3b CKD (CMS/HCC V24, CMS/HCC V28) LIPID PANEL WITH REFLEX TO DIRECT LDL Routine 08/24/2024 1:03 PM EDT Permanent atrial fibrillation (CMS/HCC V24, [facility] V28) ENEIDA on CPAP Type 2 diabetes mellitus with stage 3 chronic kidney disease, without long-term current use of insulin, unspecified whether stage 3a or 3b CKD (CMS/HCC V24, [facility] V28) COLONOSCOPY Routine 03/12/2024 DIABETES FOOT EXAM Routine 12/30/2023 DIABETES EYE EXAM Routine 12/23/2023 DEPRESSION SCREENING Routine 07/03/2023 FALLS RISK ASSESSMENT Routine 04/01/2023 DXA BONE DENSITY STUDY 1+ SITS AXIAL SKEL Routine 06/06/2021 10:52 AM EST Diabetes mellitus due to underlying condition with diabetic nephropathy ([facility]/HCC V24, [facility]/HCC V28) HEPATITIS C SCREENING Routine 12/08/2017 from Last 3 Months or Most Recently Relevant to Health Maintenance Results * Pulmonary function testing: Carbon Monoxide Diffusing Capacity, Nitrogen Wash Out, Spirometry with Bronchodilator, Vital Capacity Test (04/25/2025 12:57 PM EST) Impressions Belkys Patrick MD - 04/25/2025 12:57 PM EST (1) PFT FEV1/FVC 84%. FEV1 1.4 to 86%. FVC 76%. No bronchodilator response. TLC 102%. RV 133%. RV/TLC 126%. DLCO 75% (95%) Mild obstruction with air trapping. No restriction. And mild decrease in diffusion. Finding consistent with mild obstructive lung disease. (2) 6-minute walk Walked six minutes covering (40m/131ft) without Leg Fatigue, Mild SOB Lowest oxygen saturation was 93%. Returned to PFT lab for Rest & Recovery. After 1 min RaSpO2 = 97% HR = 114; After 2 min RaSpO2 = 99% HR = 74. No indication for supplemental Oxygen for activity. Belkys Patrick MD PFT ORDERABLES Final Result * (ABNORMAL) Lipid panel with reflex to direct LDL (08/24/2024 1:03 PM EDT) Cholesterol 230(H) 0 - 200 mg/dL LAB CHEMISTRY METHOD 08/24/2024 5:25 PM EDT [facility] Triglycerides 205(H) 0 - 150 mg/dL LAB CHEMISTRY METHOD 08/24/2024 5:25 PM EDT [facility] HDL 57 >=40 mg/dL LAB CHEMISTRY METHOD 08/24/2024 5:25 PM EDT [facility] LDL Calculated 132(H) 0 - 100 mg/dL LAB CHEMISTRY METHOD 08/24/2024 5:25 PM EDT [facility] VLDL Cholesterol Akhil 41 mg/dL LAB CHEMISTRY METHOD 08/24/2024 5:25 PM EDT [facility] Non HDL Chol. (LDL+VLDL) 173(H) <145 mg/dL LAB CHEMISTRY METHOD 08/24/2024 5:25 PM EDT [facility] Chol/HDL Ratio 4.0 0.0 - 4.4 LAB CHEMISTRY METHOD 08/24/2024 5:25 PM EDT [facility] Blood Venous blood specimen / Unknown Venipuncture / Unknown 08/24/2024 1:03 PM EDT 08/24/2024 1:03 PM EDT us Tre DUE[facility]AS LAB BLOOD ORDERABLES Fin al Result Performing Organization Address City/[facility]/ZIP Co de Phone Number [facility] [address] [place] [address], [place] [phone] * (ABNORMAL) Microalbumin creatinine urine ratio (08/24/2024 1:03 PM EDT) Creatinine, Urine 181.0 mg/dL LAB CHEMISTRY METHOD 08/24/2024 4:45 PM EDT [facility] Microalb, Ur 112.0(H) 0.0 - 29.0 mg/L LAB CHEMISTRY METHOD 08/24/2024 4:45 PM EDT [facility] Microalb/Crea t Ratio 62(H) <30 mg/g creat LAB CHEMISTRY METHOD 08/24/2024 4:45 PM EDT [facility] Urine Urine specimen obtained by clean catch procedure / Unknown Non-blood Collection / Unknown 08/24/2024 1:03 PM EDT 08/24/2024 1:03 PM EDT Laurie Fontenot MD LAB URINE ORDERABLES Final Resul t [facility] [address] [place] [address], [place] [phone] * (ABNORMAL) Hemoglobin A1c (08/24/2024 1:03 PM EDT) [facility] Hemoglobin A1C 6.8(H) <6.5 % LAB CHEMISTRY METHOD 08/24/2024 9:27 PM EDT [facility] Mean Bld Glu Estim. 148 mg/dL LAB CHEMISTRY METHOD 08/24/2024 9:27 PM EDT [facility] Blood Venous blood specimen / Unknown Venipuncture / Unknown 08/24/2024 1:03 PM EDT 08/24/2024 1:03 PM EDT Tre [facility] LAB BLOOD ORDERABLES Fin al Result [facility] [address] [place] [address], [place] [phone] * (ABNORMAL) Comprehensive metabolic panel (08/24/2024 1:03 PM EDT) [facility] Sodium 141 133 - 145 mmol/L LAB CHEMISTRY METHOD 08/24/2024 5:25 PM EDT [facility] Potassium 4.2 3.5 - 5.5 mmol/L LAB CHEMISTRY METHOD 08/24/2024 5:25 PM EDT [facility] Chloride 108 96 - 110 mmol/L LAB CHEMISTRY METHOD 08/24/2024 5:25 PM EDT [facility] CO2 28 21 - 32 mmol/L LAB CHEMISTRY METHOD 08/24/2024 5:25 PM EDT [facility] Anion Gap 5 3 - 11 LAB CHEMISTRY METHOD 08/24/2024 5:25 PM EDT [facility] Glucose 97 70 - 100 mg/dL LAB CHEMISTRY METHOD 08/24/2024 5:25 PM EDT [facility] BUN 19 5 - 25 mg/dL LAB CHEMISTRY METHOD 08/24/2024 5:25 PM [facility] Creatinine 1.52(H) 0.50 - 1.10 mg/dL LAB CHEMISTRY METHOD 08/24/2024 5:25 PM [facility] eGFR 35(L) >=60 mL/min/1. 73m2 LAB CHEMISTRY METHOD 08/24/2024 5:25 PM [facility] Comment:Calculation based on the Chronic Kidney Disease Epidemiology Collaboration (CKD-EPI) equation refit without adjustment for race. BUN/Creatinine Ratio 12.5 LAB CHEMISTRY METHOD 08/24/2024 5:25 PM [facility] Calcium 10.2 8.5 - 10.5 mg/dL LAB CHEMISTRY METHOD 08/24/2024 5:25 PM [facility] AST (SGOT) 18 10 - 42 unit/L LAB CHEMISTRY METHOD 08/24/2024 5:25 PM [facility] ALT (SGPT) 20 10 - 60 unit/L LAB CHEMISTRY METHOD 08/24/2024 5:25 PM [facility] Alkaline Phosphatase 102 42 - 121 unit/L LAB CHEMISTRY METHOD 08/24/2024 5:25 PM [facility] Total Protein 7.4 6.0 - 8.0 g/dL LAB CHEMISTRY METHOD 08/24/2024 5:25 PM [facility] Albumin 3.5 3.2 - 5.0 g/dL LAB CHEMISTRY METHOD 08/24/2024 5:25 PM [facility] Total Bilirubin 0.4 0.0 - 1.4 mg/dL LAB CHEMISTRY METHOD 08/24/2024 5:25 PM [facility] Blood Venous blood specimen / Unknown Venipuncture / Unknown 08/24/2024 1:03 PM EDT 08/24/2024 1:03 PM EDT Tre [facility] LAB BLOOD ORDERABLES Fin al Result [facility] ([facility]) [facility] [address] [place] [address], [place] [phone] * Colonoscopy (03/12/2024) [facility] Colonoscopy No interpretation , abstracted Anatomical Region Laterality Modality Other Historical Provider MD HEALTH MAINTENANCE Final Result * Diabetes Foot Exam (12/30/2023) [facility] Diabetes: Annual Foot Exam Abstracted [facility] Provider MD HEALTH MAINTENANCE Final Result * Diabetes Eye Exam (12/23/2023) [facility] Diabetes: Annual Retina Eye Exam Abstracted [facility] Provider MD HEALTH MAINTENANCE Final Result * Depression Screening (07/03/2023) [facility] Depression Screening Abstracted [facility] Provider MD HEALTH MAINTENANCE Final Result * Falls Risk Assessment (04/01/2023) [facility] Falls Risk Assessment Abstracted [facility] Provider MD HEALTH MAINTENANCE Final Result * DXA BONE DENSITY STUDY 1+ SITS AXIAL SKEL (06/06/2021 10:52 AM EST) Anatomical Region Laterality Modality Bone Densitometr y 04/25/2021 10:5 7 AM EST Narrative 06/06/2021 4:37 PM EST BONE DENSITY Lumbar Spine T-score is -1.0 [...] classified as having normal bone density. The [facility] Department of Internal Medicine recommends using National [...] the World Health Organization criteria, Hetal Levin shouldbe classified as having normal bone density. The [facility] Department of Internal Medicine recommendsusing National Osteoporosis [...] or over-estimation of fracture risk by FRAX. us Taylor DUE[facility]AS IMG DXA PROCEDURES Final Re sult * Hepatitis C Screening (12/08/2017) [facility] Hepatitis C Screening Abstracted us Historical Provider HEALTH MAINTENANCE Final Result from Last 3 Months or Most Recently Relevant to Health Maintenance Insurance MEDICARE Member Subscriber Plan / Payer (Ef fective 2019-Present) Name:Hetal Alfonso Relation to Subscriber:Self Name:Hetal Alfonso Payer ID:[id number] Group ID:[id number] Type:Not on file Address: [place] [address] [address] [phone] Care Teams Pan Shaker Relationship Specialty Start Date End Date Laurie Fontenot MD [address] [place], [place] [phone] PCP - General Internal Medicine 10/16/20
--- NOTE | 2025-05-31 09:29 | A.OFFVIS_ITS ---
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 Name: David [facility] [place] Accompanied by: Other Relationship Allergies No Known Allergies Allergy (Verified 04/19/25 10:22) HPI Comprehensive Diabetes Asmnt Most Recent Diabetes Results: 2 Creatinine, (0.5-1.4) 1.47 mg/dL H 11/16/24 BUN, (9-16) 21 mg/dL H 11/16/24 Sodium, (135-145) 144 mmol/L 11/16/24 Potassium, (3.3-5.1) 4.2 mmol/L 11/16/24 Chloride, (96-108) 107 mmol/L 11/16/24 Carbon Dioxide, (22-29) 28 mmol/L 11/16/24 Calcium, (8.4-10.2) 10.5 mg/dL H 11/16/24 AST, (5-31) 25 U/L 11/16/24 ALT, (0-31) 27 U/L 11/16/24 Total Protein, (6.5-8.0) 7.6 g/dL 11/16/24 Albumin, (3.5-5.0) 4.3 g/dL 11/16/24 [facility] Medical History CKD (chronic kidney disease) stage 3, GFR 30-59 ml/min CHF (congestive heart failure) Change in mental status Asthma History of CVA (cerebrovascular accident) Diabetes Hypertension Atrial fibrillation Asthma with acute exacerbation Surgical History H/O: hysterectomy Hx of tubal ligation Family History Father Hypertension Mother Diabetes Hypertension Social History Household Members: None Housing: Apartment Do you presently have visiting nurse or other home services: Yes Alcohol intake: never Patient Tobacco Use Status: Former Tobacco user Advance Directives Date on File: 10/11/22 service: No Current occupational status: disabled Assessment & Plan Assessment & Plan (1) Diabetes: Code(s): E11.9 - Type 2 diabetes mellitus without complications Plan: Personal Continuous Glucose Monitor: Patients CGM information reviewed, Pt uses sample freestyle Pancho 3+ sensor with reader Patient is sensor read 17% hypoglycemia Patient reports she verified with a fingerstick on several occasions and glucose was within normal range. On occasion she did treat with regular soda and carmelo Reviewed the following: Hypoglycemia or blood glucose under 77 use the rule of 15's: If you have your blood glucose meter test your blood glucose, if you do not have your meter still follow below instruction: Keep quick-sugar foods with you at all times.? Take 15 grams of fast acting carbohydrates. Examples are 4 ounces of fruit juice or regular soda pop, 8 ounces fat-free milk, 1 tablespoon of table sugar, honey or corn syrup, jam, one miniature box of raisins, 7-8 gumdrops or Life Savers candy, 4 glucose tablets, and glucose gel.? Retest blood glucose in 15 minutes, if blood glucose is still under 80,repeat rule of 15's. If blood glucose is under 50, take 30 grams of fast acting carbohydrates If you are having hypoglycemia, or insulin reaction, more that a few times a week, call MD or in service educator F/U BG check Patient did not bring meter to today's visit Requested patient where an additional sample glucose sensor, if she is getting low readings to always verify with a fingerstick Bring meter and sensor to visit in 3 weeks Patient's diabetes medication: Lantus 35 units daily Mounjaro 2.5 mg weekly Reviewed how to interpret trend arrows Reminded patient that to check finger sticks if symptoms do not match sensor reading. Discussed lag time between finger stick and sensor data.? Patient able to insert sensor independently at home without issue.? Portions of this note were created using voice recognition software, please excuse any words or phrases that may have been misinterpreted. Coding Level of Care Code Est Pt Level 1 (88080) Diagnoses Diabetes E11.9
== END 2025-05-31 09:31 | disposition home or self-care (01) ==
LOC: HO.ENCR 08:46
PROVIDERS: Visit Provider Registered Nurse Diabetes Educator
DX: E11.9 Type 2 diabetes mellitus without complications (principal)

== ENCOUNTER → 2025-05-31 08:45 | Outpatient (BNVA) | payer OTHER, SELFPAY | PROVIDERS: Visit Provider Registered Nurse Diabetes Educator | DX: E11.22 Type 2 diabetes mellitus with diabetic chronic kidney disease (principal); N18.30 Chronic kidney disease, stage 3 unspecified | CPT/HCPCS: 99211 ==

== ENCOUNTER 2025-06-02 10:25 | Outpatient (AMB) | payer OTHER, SELFPAY ==
[2025-06-02 11:28] VITALS: BP 110/72; PULSE 83; O2SAT 96
--- NOTE | 2025-06-02 11:28 | HO.NEPHOV_ITS ---
Vital Signs 06/02/25 11:28 Height 5 ft BP 110/72 Blood Pressure Location Lt radial Position Sitting Pulse 83 Pulse Source Pulse Oximeter Pulse Oximetry (%) 96 Oxygen Delivery Method Room Air Intake Visit Reasons: 6 MO FU Drafter Landscape Required: No Drafter Landscape Services: Drafter Landscape Offered & Declined (FURNITURE DECALS INSPECTOR will translate ) Accompanied by: FURNITURE DECALS INSPECTOR Allergies No Known Allergies Allergy (Verified 06/02/25 11:29) Medication List - Last Reconciled 06/02/25 by Connor Callahan MD albuterol sulfate 90 mcg/actuation (Ventolin HFA) 2 puffs PO QID PRN atorvastatin 80 mg PO DAILY bacitracin 1 appl topical TID benzonatate 100 mg PO BID PRN cholecalciferol (vitamin D3) 50 mcg PO DAILY clotrimazole 1% appl topical furosemide 20 mg See Protocol PO DAILY gabapentin 1 cap PO DAILY glucagon 3 mg/actuation (Baqsimi) mg intranasal insulin glargine (Lantus Solostar U-100 Insulin) 35 units subcut BEDTIME losartan 25 mg PO DAILY meclizine 25 mg PO DAILY PRN metoprolol tartrate 25 mg See Protocol PO BID mirtazapine 7.5 mg PO BEDTIME nystatin 1 appl topical BID rivaroxaban (Xarelto) 15 mg PO DAILY@1700 sennosides-docusate sodium 8.6-50 mg (Senna-S) 2 tabs PO BEDTIME tirzepatide (Mounjaro) 2.5 mg subcut QWEEK HPI Comments Details: Hetal is a pleasant 77-year-old woman with a history of longstanding hypertension, diabetes mellitus and congestive heart failure. She has history of CKD with the baseline EGFR of about 35 he mL per minute. She has had a history of IJEOMA during which time I had an opportunity to see your at [facility]. Ongoing medical problems significant for diabetes mellitus, hypertension, history of CVA, history of CHF, atrial fibrillation, history of asthma. She is here for further follow-up. Accompanied by caregiver. Today she denies any specific complaints. No shortness of breath. No chest pain. No nausea or vomiting. No urinary symptoms. No edema. No fever no rash. 12/06/24 79-year-old female presenting with hypertension and peripheral edema. Hypertension has been a concern, with previous readings as high as 169/170 mmHg, but currently controlled at 126/78 mmHg with losartan and furosemide therapy. Peripheral edema is noted occasionally, with mild erythema, and is suspected to be related to dietary salt intake. The patient also has hypercalcemia, which is being monitored, and a referral to an group president is planned due to elevated gland activity controlling calcium levels. [facility] Medical History CKD (chronic kidney disease) stage 3, GFR 30-59 ml/min CHF (congestive heart failure) Change in mental status Asthma History of CVA (cerebrovascular accident) Diabetes Hypertension Atrial fibrillation Asthma with acute exacerbation Surgical History H/O: hysterectomy Hx of tubal ligation Family History Father Hypertension Mother Diabetes Hypertension Social History Household Members: None Housing: Apartment Do you presently have visiting nurse or other home services: Yes Alcohol intake: never Patient Tobacco Use Status: Former Tobacco user Advance Directives Date on File: 10/11/22 service: No Current occupational status: disabled Physical Exam Exam Exam: Physical Exam General: Awake. Comfortable. HENT: Neck supple. Mucosa moist. Pulmonary: Lungs aeration equal. No rales. Cardiology: Heart S1-S2 heard. No gallop. Abdomen: Soft. Non tender. Bowel sounds normal. Neurologic: No involuntary movements. No myoclonus. Extremities: No edema. No rash. Reports of pain in both legs, attributed to arthritis. Vital Signs: Last Vital Signs Pulse 83 06/02/25 11:28 BP 110/72 06/02/25 11:28 Pulse Ox 96 06/02/25 11:28 Oxygen Delivery Method Room Air 06/02/25 11:28 Results Reviewed Nephrology Results: Sodium, (135-145) 144 mmol/L 11/16/24 Potassium, (3.3-5.1) 4.2 mmol/L 11/16/24 Chloride, (96-108) 107 mmol/L 11/16/24 Carbon Dioxide, (22-29) 28 mmol/L 06/03/25 BUN, (9-16) 21 mg/dL H 11/16/24 Creatinine, (0.5-1.4) 1.47 mg/dL H 11/16/24 Calcium, (8.4-10.2) 10.5 mg/dL H 11/16/24 Phosphorus, (2.7-4.5) 3.7 mg/dL 11/16/24 PTH Intact, (8.7-77.1) 538.9 pg/mL H 11/16/24 Assessment & Plan Assessment & Plan (1) CKD (chronic kidney disease) stage 3, GFR 30-59 ml/min: Code(s): N18.30 - Chronic kidney disease, stage 3 unspecified Category: Medical (2) Hypercalcemia: Code(s): E83.52 - Hypercalcemia Category: Medical (3) Hypertension: Code(s): I10 - Essential (primary) hypertension Category: Medical Plan Plan 1. Chronic Kidney Disease, Stage 3 - The patient's blood pressure is noted to be well-controlled. - Laboratory studies will be obtained today to evaluate kidney function and calcium levels, as the most recent labs are from November. - The ordered labs are non-fasting. - No changes will be made to her current medications at this time. - Follow-up is scheduled in six months. Mild hypercalcemia. Elevated intact PTH most likely due to primary hyperparathyroidism Serum electrophoresis.Negative for MCGP Orders: Orders Basic Metabolic Panel Today E83.52 - Hypercalcemia, N18.30 - Chronic kidney disease, stage 3 unspecified Complete Blood Count no Diff Today E83.52 - Hypercalcemia, N18.30 - Chronic kidney disease, stage 3 unspecified Coding Level of Care Code Est Pt Level 4 (09457) Diagnoses CKD (chronic kidney disease) stage 3, GFR 30-59 ml/min N18.30 Hypercalcemia E83.52 Hypertension I10
--- OUTSIDE RECORDS SUMMARY | 2025-06-02 12:58 | XMS_ITS | Clinical Summary ---
Author Organization [address] Address [address] [place] [phone] Phone Care Team Providers Care Certified Appliance Service Technician Name Role Phone Laurie Fontenot MD Primary Care Provider [phone] Allergies No known active allergies Medications isopropyl [...] ia, with long-term current use of insulin ([facility] V24, CMS/HCC V28) USE TO INJECT INSULIN [...] unspecified whether stage 3a or 3b CKD ([facility] V24, [facility] V28) INJECT 5MG UNDER THE SKIN EVERY 7 DAYS 2 mL 1 05/16/20 25 Active Mounjaro 2.5 mg/0.5 mL injectionIndic ations:Type 2 diabetes mellitus with stage 3 chronic kidney disease, without long-term current use of insulin, unspecified whether stage 3a or 3b CKD ([facility] V24, [facility] V28) INJECT 0.5ML UNDER THE SKIN EVERY [...] CPAP broke in 2016; no therapy since. [facility] Split Night Polysomnogram: Date 04/23/2010; SE 38%; RDI 83, average oxygen saturation 95% (lowest 86%); PLMs 102. CPAP 10 -> 'excellent results'. [facility] Polysomnogram: Date 11/22/2018; Wt 200#; BMI 39; [...] 12:30 PM EST Ancillary Procedure Pulmonology - [address] [phone] Dyspnea, unspecified type 04/25/2025 Telephone Pulmonology - [place] [address] [place] [phone] Rosalva Webb [place] 04/21/2025 3:30 PM EST Office Visit Adult Medicine [address] [phone] Laurie Fontenot MD Cardiomegaly (Primary Dx); Dyspnea on exertion; Cognitive deficits; Permanent atrial fibrillation ([facility] V24, CMS/HCC V28); Heart failure with preserved [...] Medical History Medical History Date Comments A-fib ([facility] V24, [facility] V28) 11/26/2017 DX:A-fib ([facility]); COMMENT: On chronic anticoagulation; 01/2017 EF 30-40%, right ventricle systolic function decreased and small circumferential pericardial effusion. Chronic systolic CHF (conges tive heart failure) ([facility] V24, [facility] V28) 11/26/2017 DX:Chronic systoli c CHF (congestive heart failure) ([facility]); COMMENT: 01/30 Echo EF 30-40% Hyperlipidemia 11/26/2017 DX:Hyperlipidemi a Depression 11/26/2017 DX:Depression Hypertension 11/26/2017 DX:Hypertension History of endometrial cancer 11/26/2017 DX :History of endometrial cancer; COMMENT: 06/2009 Stage 1A grade adenocarcinoma, low risk; Dr. Caitie You Asthma 11/26/2017 DX:Asthma ENEIDA on CPAP 11/26/2017 DX:ENEIDA on CPAP Diabetes mellitus with renal complications ([facility] V24, [facility] V28) 11/26/2017 DX:Diabetes mellitus with re nal complications (HCC) Microalbuminuria 11/26/2017 DX:Microalbumin uria Chronic kidney disease (CKD) , stage III (moderate) ([facility] V24, [facility] V28) 11/26/2017 DX:Chronic kidney disease (C KD), stage III (moderate) ([facility]) Cervical spine degeneration 11/26/2017 DX:C ervical spine degeneration Osteoarthritis 11/26/2017 DX:Osteoarthriti s; COMMENT: knees Constipation 11/26/2017 DX:Constipation 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 ([facility] V24, [facility] V28) 11/26/2017 DX:Hemiplegia affecting righ t side in right-dominant patient as late effect of cerebrovascular disease (HCC); COMMENT: 07/2017 Aphasia as well Glaucoma 11/26/2017 DX:Glaucoma; COM MENT: Borderline with anatomical narrow angle History of colon polyps 08/12/2018 DX:Histo ry of colon polyps IJEOMA (acute kidney injury) ([facility] V24) DX:IJEOMA (acute kidney injury) (HCC) CKD (chronic kidney disease) DX: CKD (chronic kidney disease) 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 ([facility] V24, [facility] V28) DX:Insulin depende nt type 2 diabetes [...] 11:45 AM EST Office Visit Pulmonology - [place] [address] [place] [phone] Belkys Patrick MD [address] [place] [phone] 07/22/2025 10:30 AM EST Office Visit [facility] [place] [address] [place], [place] [phone] Laurie Fontenot MD [address] [place], [place] 12/29/2025 1:00 PM EDT Office Visit Nephrology [address] [phone] Carson Greer MD [address] [facility] [address] [place] [phone] Health Maintenance Due Date Last Done Comments [...] diabetes mellitus with ESRD (end-stage renal disease) ([facility]/HCC V24, CMS/[facility] V28) Chronic kidney disease, stage III (moderate) (CMS/HCC V24, [facility] V28) COMPREHENSIVE METABOLIC PANEL Routine 08/24/2024 1:03 PM EDT Permanent atrial fibrillation ([facility]/HCC V24, [facility] V28) ENEIDA on CPAP Type 2 diabetes mellitus with stage 3 chronic kidney disease, without long-term current use of insulin, unspecified whether stage 3a or 3b CKD ([facility] V24, [facility] V28) HEMOGLOBIN A1C Routine 08/24/2024 1:03 PM EDT Permanent atrial fibrillation ([facility] V24, [facility] V28) ENEIDA on CPAP Type 2 diabetes mellitus with stage 3 chronic kidney disease, without long-term current use of insulin, unspecified whether stage 3a or 3b CKD (CMS/HCC V24, CMS/HCC V28) LIPID PANEL WITH REFLEX TO DIRECT LDL Routine 08/24/2024 1:03 PM EDT Permanent atrial fibrillation (CMS/HCC V24, [facility] V28) ENEIDA on CPAP Type 2 diabetes mellitus with stage 3 chronic kidney disease, without long-term current use of insulin, unspecified whether stage 3a or 3b CKD ([facility]/HCC V24, [facility] V28) COLONOSCOPY Routine 03/12/2024 DIABETES FOOT EXAM Routine 12/30/2023 DIABETES EYE EXAM Routine 12/23/2023 DEPRESSION SCREENING Routine 07/03/2023 FALLS RISK ASSESSMENT Routine 04/01/2023 DXA BONE DENSITY STUDY 1+ SITS AXIAL SKEL Routine 06/06/2021 10:52 AM EST Diabetes mellitus due to underlying condition with diabetic nephropathy ([facility]/HCC V24, [facility]/HCC V28) HEPATITIS C SCREENING Routine 12/08/2017 [...] LAB CHEMISTRY METHOD 08/24/2024 5:[address] [facility] Triglycerides 205(H) 0 - 150 mg/dL LAB CHEMISTRY METHOD 08/24/2024 5:[address] [facility] HDL 57 >=40 mg/dL LAB CHEMISTRY METHOD 08/24/2024 5:[address] [facility] LDL Calculated 132(H) 0 - 100 mg/dL LAB CHEMISTRY METHOD 08/24/2024 5:[address] [facility] VLDL Cholesterol Akhil 41 mg/dL LAB CHEMISTRY METHOD 08/24/2024 5:[address] [facility] Non HDL Chol. (LDL+VLDL) 173(H) <145 mg/dL LAB CHEMISTRY METHOD 08/24/2024 5:[address] [facility] Chol/HDL Ratio 4.0 0.0 - 4.4 LAB CHEMISTRY METHOD 08/24/2024 5:[address] [facility] Blood Venous blood specimen / Unknown Venipuncture / Unknown 08/24/2024 1:03 PM EDT 08/24/2024 1:03 PM EDT us Tre DUEÑAS LAB BLOOD ORDERABLES Fin al Result Performing Organization Address City/[facility]/ZIP Co de Phone Number [facility] [address] [place] [address], [place] [phone] * (ABNORMAL) Microalbumin creatinine urine ratio (08/24/2024 1:03 PM EDT) Creatinine, Urine 181.0 mg/dL LAB CHEMISTRY METHOD 08/24/2024 4:[address] [facility] Microalb, Ur 112.0(H) 0.0 - 29.0 mg/L LAB CHEMISTRY METHOD 08/24/2024 4:[address] [facility] Microalb/Crea t Ratio 62(H) <30 mg/g creat LAB CHEMISTRY METHOD 08/24/2024 4:[address] [facility] Urine Urine specimen obtained by clean catch procedure / Unknown Non-blood Collection / Unknown 08/24/2024 1:03 PM EDT 08/24/2024 1:03 PM EDT Laurie Fontenot MD LAB URINE ORDERABLES Final Resul t [facility] [address] [place] [address], [place] [phone] * (ABNORMAL) Hemoglobin A1c (08/24/2024 1:03 PM EDT) [facility] Hemoglobin A1C 6.8(H) <6.5 % LAB CHEMISTRY METHOD 08/24/2024 9:[address] [facility] Mean Bld Glu Estim. 148 mg/dL LAB CHEMISTRY METHOD 08/24/2024 9:[address] [facility] Blood Venous blood specimen / Unknown Venipuncture / Unknown 08/24/2024 1:03 PM EDT 08/24/2024 1:03 PM EDT Tre D[facility] LAB BLOOD ORDERABLES Fin al Result [facility] [address] [place] [address], [place] [phone] * (ABNORMAL) Comprehensive metabolic panel (08/24/2024 1:03 PM EDT) [facility] Sodium 141 133 - 145 mmol/L LAB CHEMISTRY METHOD 08/24/2024 5:[address] [facility] Potassium 4.2 3.5 - 5.5 mmol/L LAB CHEMISTRY METHOD 08/24/2024 5:[address] [facility] Chloride 108 96 - 110 mmol/L LAB CHEMISTRY METHOD 08/24/2024 5:[address] [facility] CO2 28 21 - 32 mmol/L LAB CHEMISTRY METHOD 08/24/2024 5:[address] [facility] Anion Gap 5 3 - 11 LAB CHEMISTRY METHOD 08/24/2024 5:[address] [facility] Glucose 97 70 - 100 mg/dL LAB CHEMISTRY METHOD 08/24/2024 5:[address] [facility] BUN 19 5 - 25 mg/dL LAB CHEMISTRY METHOD 08/24/2024 5:25 PM [facility] Creatinine 1.52(H) 0.50 - 1.10 mg/dL LAB CHEMISTRY METHOD 08/24/2024 5:25 PM [facility] eGFR 35(L) >=60 mL/min/1. 73m2 LAB CHEMISTRY METHOD 08/24/2024 5:25 PM [facility] Comment:Calculation based on the Chronic Kidney Disease Epidemiology Collaboration (CKD-EPI) equation refit without adjustment for race. BUN/Creatinine Ratio 12.5 LAB CHEMISTRY METHOD 08/24/2024 5:25 PM [facility] Calcium 10.2 8.5 - 10.5 mg/dL LAB CHEMISTRY METHOD 08/24/2024 5:25 PM [facility] AST (SGOT) 18 10 - 42 unit/L LAB CHEMISTRY METHOD 08/24/2024 5:25 PM [facility] ALT (SGPT) 20 10 - 60 unit/L LAB CHEMISTRY METHOD 08/24/2024 5:25 PM [facility] Alkaline Phosphatase 102 42 - 121 unit/L LAB CHEMISTRY METHOD 08/24/2024 5:25 PM [facility] Total Protein 7.4 6.0 - 8.0 g/dL LAB CHEMISTRY METHOD 08/24/2024 5:25 PM [facility] Albumin 3.5 3.2 - 5.0 g/dL LAB CHEMISTRY METHOD 08/24/2024 5:25 PM [facility] Total Bilirubin 0.4 0.0 - 1.4 mg/dL LAB CHEMISTRY METHOD 08/24/2024 5:25 PM [facility] Blood Venous blood specimen / Unknown Venipuncture / Unknown 08/24/2024 1:03 PM EDT 08/24/2024 1:03 PM EDT Tre D[facility] LAB BLOOD ORDERABLES Fin al Result [facility] [address] [place] [address], [place] [phone] * Colonoscopy (03/12/2024) [facility] Colonoscopy No interpretation , abstracted Anatomical Region Laterality Modality Other Historical Provider MD HEALTH MAINTENANCE Final Result * Diabetes Foot Exam (12/30/2023) [facility] Diabetes: Annual Foot Exam Abstracted [facility] Provider MD HEALTH MAINTENANCE Final Result * Diabetes Eye Exam (12/23/2023) [facility] Diabetes: Annual Retina Eye Exam Abstracted [facility] Provider MD HEALTH MAINTENANCE Final Result * Depression Screening (07/03/2023) [facility] Depression Screening Abstracted [facility] Provider MD HEALTH MAINTENANCE Final Result * Falls Risk Assessment (04/01/2023) [facility] Falls Risk Assessment Abstracted [facility] Provider MD HEALTH MAINTENANCE Final Result * [...] classified as having normal bone density. [facility] Department of Internal Medicine recommends using [...] classified as having normal bone density. [facility] Department of Internal Medicine recommendsusing National [...] Re sult * Hepatitis C Screening (12/08/2017) [facility] Hepatitis C Screening Abstracted us Historical Provider HEALTH MAINTENANCE Final Result from Last 3 Months or Most Recently Relevant to Health Maintenance Insurance MEDICARE Member Subscriber Plan / Payer (Ef fective 2019-Present) Name:Hetal Alfonso Relation to Subscriber:Self Name:Hetal Alfonso Payer ID:[id number] Group ID:[id number] Type:Not on file Address: [place] [address] [address] [phone] Care Teams Certified Appliance Service Technician Relationship Specialty Start Date End Date Laurie Fontenot MD [address] [place], [place] [phone] PCP - General Internal Medicine 10/16/20
--- OUTSIDE RECORDS SUMMARY | 2025-06-02 12:58 | XMS_ITS | Clinical Summary ---
Author Organization [facility] Facility Address [address] [address] Care Team Providers Care Interpersonal Communications Professor Name Role Phone Laurie Fontenot MD Primary Care Provider [phone] Allergies No known active allergies Medications metoprolol succinate XL (TOPROL-XL) 100 MG 24 hr tablet 3 Active gabapentin (NEURONTIN) 300 MG capsule 3 Active Lantus SoloStar 100 UNIT/ML injection 3 Active Trulicity 1.5 MG/0.5ML solution pen-injector 3 Active Ventolin HFA 108 (90 Base) MCG/ACT inhaler INHALE 2 PUFFS BY MOUTH EVERY 4 HOURS NEEDED FOR WHEEZING OR FOR COUGH 3 Active clotrimazole (LOTRIMIN) 1 % cream APPLY A THIN LAYER TO AFFECTED AREA(S) TWICE DAILY FOR 4 WEEKS 3 Active ipratropium-alb uterol (DUO-NEB) 0.5-2.5 mg/3 mL nebulizer solution INHALE 1 AMPULE USING A NEBULIZER BY MOUTH FOUR TIMES DAILY 3 Active losartan (COZAAR) 25 MG tablet 3 Active mirtazapine (REMERON) 7.5 MG tablet 3 Active Xarelto 15 MG tablet 3 Active Senna S 8.6-50 MG per tablet 3 Active PARoxetine (PAXIL) 20 MG tablet 3 Active furosemide (LASIX) 20 MG tablet TAKE ONE TABLET BY MOUTH EVERY DAY ^1R2 30 tablet 6 5 Active Active Problems Problem Noted Date Diagnosed Date Hypertension 12/12/2022 Encounters Date Type Department Care Team Description 04/22/2025 Refill [facility] [address] [id number] Harsha Mathews MD from Last 3 Months Family History Medical History Relation Comments Hypertension Father Diabetes Mother Hypertension Mother Relation Status Comments Father Mother Social History Tobacco Use Types Packs/Day Years Used Date Smoking Tobacco: Former Cigarettes Passive Smoke Exposure: Never Smokeless Tobacco: Never Tobacco Cessation:Counseling Given: No Alcohol Use Standard Drinks/Week Comments Never 0 (1 standard drink = 0.6 oz pur e alcohol) Comments Unknown Sex and Gender Information Value Date Recorded Sex Assigned at Not on file Legal Sex Female 8:17 AM EDT Gender Identity Not on file Sexual Orientation Not on file Last Filed Vital Signs Vital Sign Reading Time Taken Comments Blood Pressure 126/88 12/12/2022 4:03 PM EDT Pulse 82 12/12/2022 4:03 PM EDT Temperature - - Respiratory Rate - - Oxygen Saturation 96% 12/12/2022 4:03 PM EDT Inhaled Oxygen Concentration - - Weight 88.2 kg (194 lb 6.4 oz) 12/12/2022 4:03 P M EDT Height 152.4 cm (5') 12/12/2022 4:03 PM EDT Body Mass Index 37.97 12/12/2022 4:03 PM EDT Plan of Treatment Health Maintenance Due Date Last Done Comments Diabetes: Ophthalmology Exam 10/26/2024 Diabetes: Pedal Pulse Checked 10/26/2024 Diabetes: Sensory Foot Exam 10/26/2024 Diabetes: Visual Foot Exam 10/26/2024 Diabetes: Hemoglobin A1C 11/24/2024 08/24/2024, 0306/2024 Influenza Vaccine (#1) 2025 3, 04/03/2022, 04/20/2021, Additional history exists Pneumococcal Vaccine: 50+ Years Completed 01/21/2022, 07/09/2018, 08/28/2017, Additional history exists Hepatitis B Vaccine Aged Out No longe r eligible based on patient's age to complete this topic Insurance [facility] ([id number]) [facility] ([id number]) Care Teams Interpersonal Communications Professor Relationship Specialty Start Date End Date Laurie Fontenot MD PCP - General Internal Medicine 10/17/22
== END 2025-06-02 11:38 | disposition home or self-care (01) ==
LOC: HO.HKA 10:26
PROVIDERS: Visit Provider Internal Medicine Hypertension Specialist
DX: N18.30 Chronic kidney disease, stage 3 unspecified (principal); E83.52 Hypercalcemia; I10 Essential (primary) hypertension
CPT/HCPCS: 99214

== ENCOUNTER → 2025-06-02 10:25 | Outpatient (BNVA) | payer OTHER, SELFPAY | PROVIDERS: Visit Provider Internal Medicine Hypertension Specialist | DX: I12.9 Hypertensive chronic kidney disease with stage 1 through stage 4 chronic kidney disease, or unspecified chronic kidney disease (principal); N18.30 Chronic kidney disease, stage 3 unspecified; E11.22 Type 2 diabetes mellitus with diabetic chronic kidney disease; E83.52 Hypercalcemia; Z79.4 Long term (current) use of insulin; Z87.891 Personal history of nicotine dependence | CPT/HCPCS: 36415; 80048; 85027; 99212 ==

== ENCOUNTER 2025-06-02 11:42 | Outpatient (REF) | payer OTHER, SELFPAY ==
[2025-06-02 13:09] LABS: Hematocrit 46.0 % (37.0-47.0); Hemoglobin 14.8 g/dl (12.0-16.0); Mean Corpuscular HGB Conc 32.2 g/dl (31.0-35.0); Mean Corpuscular Hemoglobin 28.1 pg (27.0-33.0); Mean Corpuscular Volume 87.3 fL (80.0-98.0); NRBC Abs Auto 0.000 X10*3/uL (0.0-0.012); NRBC Pct Auto 0.0 /100WBC (0.0-0.2); Platelet Count 207 X10*3/uL (160-400); Red Blood Count 5.27 X10*6/uL (4.20-5.50); White Blood Count 8.3 X10*3/uL (4.8-10.8)
[2025-06-02 13:38] LABS: Anion Gap 11 (12-20); Blood Urea Nitrogen 19 mg/dL (9-16); Calcium 10.4 mg/dL (8.4-10.2); Carbon Dioxide 27 mmol/L (22-29); Chloride 105 mmol/L (96-108); Estimated Glomerular Filt Rate 35; Potassium 4.2 mmol/L (3.3-5.1); Sodium 139 mmol/L (135-145)
--- OUTSIDE RECORDS SUMMARY | 2025-06-02 15:28 | XMS_ITS | Data Portability ---
Author Organization [employer] [facility] Address [address] [place] [address] Care Team Providers Care Washery Engineer Name Role Phone HIM CCA OTHER Assessment Encounter Date Assessment Date Assessment LastModified by Organization Details LastModified Time 11/27/2022 11/27/2022 I provided real -time medical direction via phone for this encounter, and was available for additional phone based assistance as needed. I have reviewed and agree with the Assessment and Plan as documented by the Position Classification Specialist. Patient /family MATRIX SUPERVISOR given the opportunity to ask questions. Advised if develops CP/severe SOB/turning blue/uncontrolle d n/v / AMS/ syncope/ fever - to call 911- If arm gets red hot swollen needs recheck immediately-othe rwise f/u with pcp tomorrow- may need imaging- verbalized understanding of instructions [email or web address] Not available 11/27/2022 11:48:28 08/03/2024 08/03/2024 I have reviewed and agree with the assessment and plan as documented by the bosom presser. I provided real-time medical direction for this encounter and was immediately available to provide additional phone-based assistance as needed. History as noted in EMR and by bosom presser. I would add / emphasize: Patient seen [...] recorded. Lab rapid flu (A+B) 2024 025 [facility], [address] [place] [address], [id number] 5 16:58:15 rapid SARS CoV 2 Ag, QL IA, respiratory specimen 2024 025 [facility], [address] [place] [address], [id number] 5 16:56:41 Referral None recorded. Procedures None [...] Available Not Available No t Available [employer] [place] Lite kit TEST BLOOD SUGAR TWICE DAILY [...] [degF] 61 /min 150/90 mm[Hg] Not Available [employer] 5 16:22:42 Date Recorded Heart rate Body weight Respiratory rate Oxygen saturation Body temperature Body temperature Heart rate Respiratory rate Oxygen saturation Body weight Systolic And Diastolic Systolic And Diastolic Provider Name and Address Organization Details Last Updated DateTime 3 85 /min 24681.6 64 g 14 /min 98 % 97.9 [degF] 97.9 [degF] 85 /min 14 /min 98 % 29746.6 64 g 104/58 mm[Hg] 104/58 mm[Hg] Not Available [employer] 3 12:05:00 Social History None recorded. Functional Status None recorded. Mental Status None recorded. Family History Nothing Reported. Medical History No medical history recorded. Gynecological HistoryNo gynecological history recorded. Obstetrics History GPAL:G 0 P 0 0 0 0 Past Encounters Encounter ID Performer Location Encounter Start Date Encounter Closed Date Diagnosis/Indication Diagnosis SNOMED-CT Code Diagnosis ICD10 Code Diagnosis IMO Codes Diagnosis Note [id number] Neela Rich MD [facility] [address] [place] [phone] 11/27/2022 11:41:11 11/28/2022 10:35:50 Pain in right arm 853660144 M79.601 has APAP 500 mg - has not taken- may take 1000 mg 3 xper day prn pain- advised not sure of cause of pain - needs close f/u- no evidence clinically of cellulitis - no trauma advised ice / wrapped in a towel q 3-4H w/a to affected area [id number] Robby Mcwilliams MD [facility] [address] [place] [phone] 08/03/2024 16:22:39 08/05/2024 08:33:43 Upper respiratory infection 70464277 J06.9 Health Concerns Section Related Observation LastModified by Organization Detai ls LastModified Time None Recorded Concern Status LastModified by Organization Details LastModified Time None Recorded Advance Directives Directive None Recorded Payers Insurance Date Sequence Insurance Name Policy Number Policy Aldrich Covered Member ID Aldrich Member ID Guarantor Name 08/03/[address] [facility] - DOS ON OR AFTER 2022 - DUAL ELIGIBLE - CORRECTION OPTIONS AND ONE CARE (MEDICARE REPLACEMENT/ADV ANTAGE - HMO) Hetal Brooks ra [id number] Hetal Alfonso Notes Date Note Type Note Provider Name and Address Organization Details Recorded Time 11/27/2022 text/html ROS as noted in the HPI [facility] Nursing Assessment: Chief Complaints: Pain, Edema Allergies: No Known Comments: Triage taken via Visitor Service Assistant [phone] Member MATRIX SUPERVISOR calling in to place a referral. 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 Member is experiencing pain and swelling today to her right hand. Per MATRIX SUPERVISOR this has happened once in the past. [...] ................... ................... ................... ................... ................... ................... ............ Position Classification Specialist Note From Howard Duvall: Pt complains of [...] felt . VS stable and pt afebrile. [facility] contacted who prescribed 1000mg Tylenol PO and directed pt to elevate arm and use ice q 3 hours for 15 mins at a time to reduce pain. [facility] ordered 1000mg Tylenol PO now and same was given without incident. Pt, Family and MATRIX SUPERVISOR were educated on S/SX that would indicate 911/ED visit and pt was directed to follow up with PCP for possible need for imaging. ................... ................... ................... ................... ................... ................... ................... ........ Disposition: Fulfilled Neela Rich MD [address] [facility],[address], [place], [address], [employer] 11/27/2022 12:29:38 08/03/2024 text/html CRC Nurse Triage [...] at 08/03/2024 Allergies Reviewed at 08/03/2024:32 Comments: MATRIX SUPERVISOR calling in to place a referral, patient [...] inhaler and neb with no relief, per MATRIX SUPERVISOR son brought her OTC medication yesterday, unsure what it is, but it is not helping with the cough. Patient would like to be evaluated. Position Classification Specialist Organization Information for [facility] Business Legal Name: [employer]. Address: [address] [place] [id number], Hydraulic Dredge Operator: Wilver Schmidt MD CLIA No.: [id number] Position Classification Specialist POC Test Results from [facility] Rapid COVID antigen (16:04:23) COVID: - Rapid influenza antigen (16:04:24) Flu: - ................... ................... ................... ................... ................... ................... ................... ........ Position Classification Specialist Note From [facility]: Dispatched to the [...] pupils PERRL, Lungs CTA, rapid Covid/Flu (-). [facility] consulted. Pt advised to of supportive care. Red flags discussed. ALL times are approx. ................... ................... ................... ................... ................... ................... ................... ........ [facility] Consulted: Robby Mcwilliams ................... ................... ................... ................... ................... ................... ................... ........ Disposition: Fulfilled Robby Mcwilliams MD [address] [facility],[address], [place], [address], [email or web address] 08/04/2024 16:09:10 OBGyn Episode No OBEpisode recorded.
== END 2025-06-02 11:43 | disposition home or self-care (01) ==
LOC: HO.10HDL 11:42
PROVIDERS: Visit Provider Internal Medicine Hypertension Specialist
DX: E83.52 Hypercalcemia (principal); N18.30 Chronic kidney disease, stage 3 unspecified
CPT/HCPCS: 36415; 80048; 85027